=== PATIENT | male | born 1945 | race Caucasian/White ===

== ENCOUNTER 2017-04-12 17:25 | Emergency (ER) | payer OTHER ==
[~2017-04-12] VITALS: Ht 172.7 cm; Wt 67.0 kg
[~2017-04-12 17:25] MED LIST: ALPR0.5T3 PO; FLON0.053; HYDR10TA16 PO; METO25CR PO; PROS5TAB2 PO; SIMV5TAB3 PO; TAB-TAB PO; TEMA15CA PO
[2017-04-12 17:26] VITALS: BP 141/60; PULSE 91; RESP 17; TEMP 98.8; O2SAT 96
--- NOTE | 2017-04-12 18:44 | PD ---
Physical Exam Time Seen by Provider: 18:41 Narrative 71yo M c/o of nodule and fluid on Lung [facility] 2 [facility]. Reports dry cough. Hx of lung cancer [address] Angela. Denies tobacco use. Patient seen in triage. VS reviewed. Patient awaiting bed placement. Data Data Last Documented VS Vital Signs Date Time Temp Pulse Resp B/P Pulse Ox O2 Delivery O2 Flow Rate FiO2 04/12/17 17:26 98.8 91 17 141/60 96 MDM Supervised Visit with FAINA: Betty Dill Apr 12, 2017 18:44
--- NOTE | 2017-04-12 19:44 | PD ---
HPI Chief Complaint: Abnormal Results Time Seen by Provider: 19:44 Travel History International Travel<30 days: No Contact w/Intl Traveler<30days: No Traveled to known affect area: No History of Present Illness HPI 71-year-old male with PMH of HTN, small cell lung cancer in 1991 presents to the ED for evaluation of 2 week history shortness of breath and dry cough. [facility] and had a chest x-ray that showed a "nodule and fluid on the lung as compared to my previous x-ray." Patient endorses occasional sharp chest pain over the left chest that lasts a few seconds and resolves spontaneously. He denies fever, chills, palpitations, nausea, vomiting, edema of the lower extremities. He is followed by the [facility]. PFSH Past Medical History Anxiety: Yes (PANIC ATTACKS) Heart Rhythm Problems: No Cancer: Yes (R LUNG) Cardiac Catheterization: No Cardiovascular Problems: Yes (HX OF PERICARDIAL EFFUSION) High Cholesterol: Yes Chemotherapy: Yes Congestive Heart Failure: No Diabetes: No Diminished Hearing: No Hypertension: Yes Respiratory: Yes Immunizations Current: Yes (FLU) Myocardial Infarction: No Radiation Therapy: Yes Past Surgical History Appendectomy: Yes Cardiac Surgery: Yes (RECENT PERICARDIAL WINDOW FOR FL AROUND THE HEART) Cholecystectomy: Yes Coronary Artery Bypass Graft: No Social History Alcohol Use: Yes (BEER DAILY) Tobacco Use: No Substance Use: No Allergies-Medications (Allergen,Severity, Reaction): Coded Allergies: Penicillin (Verified Allergy, Severe, HIVES, 05/30/13) Reported Meds & Prescriptions Reported Meds & Active Scripts Active Albuterol Neb (Albuterol Sulfate) 2.5 Mg/3 Ml Neb 2.5 Mg NEB Q6HR NEB PRN Nebulizer/Adult Mask (N/A) 1 Kit Kit 1 Kit .ROUTE DIRECTED Reported Multivitamin (Multivitamins) 1 Tab Tab 1 Tab PO DAILY Flonase (Fluticasone Propionate) 0.05 % Naspr 2 Spr NA DAILY 2 SPRAYS EACH NOSTRIL Temazepam 15 Mg Cap 15 Mg PO HS Metoprolol Succinate ER 25 mg (Metoprolol Succinate) 25 Mg Tab 25 Mg PO HS Lortab 10/500 (Acetaminophen/Hydrocodone Bitart) 10 Mg/500 Mg Tab 1 Tab PO TID FOR PAIN Alprazolam 0.5 Mg Tab 0.5 Mg PO DAILYPRN Simvastatin 5 Mg Tab 5 Mg PO EVERY OTHER DAY Proscar (Finasteride) 5 Mg Tab 5 Mg PO DAILY Review of Systems Except as stated in HPI: all other systems reviewed are Neg Physical Exam Narrative GENERAL: Well-nourished, well-developed, thin white male in no acute distress. SKIN: Focused skin assessment warm/dry. Multiple tattoos on the upper extremities. HEAD: Normocephalic. EYES: No scleral icterus. No injection or drainage. NECK: Supple, trachea midline. No JVD or lymphadenopathy. CARDIOVASCULAR: Regular rate and rhythm without murmurs, gallops, or rubs. RESPIRATORY: Breath sounds equal with diffuse wheezes bilaterally. No accessory muscle use. GASTROINTESTINAL: Abdomen soft, non-tender, nondistended. MUSCULOSKELETAL: No cyanosis, or edema. BACK: Nontender without obvious deformity. No CVA tenderness. Data Data Last Documented VS Vital Signs Date Time Temp Pulse Resp B/P Pulse Ox O2 Delivery O2 Flow Rate FiO2 04/12/17 22:53 93 16 156/77 96 Room Air 04/12/17 19:48 98.0 Orders Complete Blood Count With Diff (04/12/17 19:52) Comprehensive Metabolic Panel (04/12/17 19:52) Act Partial Throm Time (Ptt) (04/12/17 19:52) Prothrombin Time / Inr (Pt) (04/12/17 19:52) Ckmb (Isoenzyme) Profile (04/12/17 19:52) Troponin I (04/12/17 19:52) Urinalysis - C+S If Indicated (04/12/17 19:52) Iv Access Insert/Monitor (04/12/17 19:52) Electrocardiogram (04/12/17 19:52) Ecg Monitoring (04/12/17 19:52) Oximetry (04/12/17 19:52) Oxygen Administration (04/12/17 19:52) Chest, Single Ap (04/12/17 19:52) Sodium Chloride 0.9% Flush (Ns Flush) (04/12/17 20:00) Albuterol-Ipratropium Neb (Duoneb Neb) (04/12/17 20:00) Ct Thorax/ Chest W Iv Contrast (04/12/17 ) CKMB (04/12/17 20:12) CKMB% (04/12/17 20:12) Sodium Chlor 0.9% 1000 Ml Inj (Ns 1000 M (04/12/17 21:30) Iohexol 350 Inj (Omnipaque 350 Inj) (04/12/17 22:08) Labs Laboratory Tests Test 04/12/17 04/12/17 20:12 22:45 White Blood Count 4.7 TH/MM3 Red Blood Count 4.47 MIL/MM3 Hemoglobin 14.0 GM/DL Hematocrit 40.7 % Mean Corpuscular Volume 91.0 FL Mean Corpuscular Hemoglobin 31.2 PG Mean Corpuscular Hemoglobin 34.3 % Concent Red Cell Distribution Width 14.5 % Platelet Count 148 TH/MM3 Mean Platelet Volume 7.4 FL Neutrophils (%) (Auto) % Lymphocytes (%) (Auto) % Monocytes (%) (Auto) % Eosinophils (%) (Auto) % Basophils (%) (Auto) % Neutrophils # (Auto) TH/MM3 Lymphocytes # (Auto) TH/MM3 Monocytes # (Auto) TH/MM3 Eosinophils # (Auto) TH/MM3 Basophils # (Auto) TH/MM3 CBC Comment AUTO DIFF Differential Total Cells 100 Counted Neutrophils % (Manual) 65 % Band Neutrophils % 1 % Lymphocytes % 28 % Monocytes % 5 % Eosinophils % 1 % Neutrophils # (Manual) 3.1 TH/MM3 Differential Comment FINAL DIFF MANUAL Platelet Estimate LOW Platelet Morphology Comment NORMAL Prothrombin Time 12.3 SEC Prothromb Time International 1.1 RATIO Ratio Activated Partial 26.1 SEC Thromboplast Time Sodium Level 139 MEQ/L Potassium Level 4.3 MEQ/L Chloride Level 102 MEQ/L Carbon Dioxide Level 27.9 MEQ/L Anion Gap 9 MEQ/L Blood Urea Nitrogen 21 MG/DL Creatinine 1.45 MG/DL Estimat Glomerular Filtration 48 ML/MIN Rate Random Glucose 84 MG/DL Calcium Level 9.6 MG/DL Total Bilirubin 1.4 MG/DL Aspartate Amino Transf 20 U/L (AST/SGOT) Alanine Aminotransferase 16 U/L (ALT/SGPT) Alkaline Phosphatase 113 U/L Total Creatine Kinase 139 U/L Creatine Kinase MB 2.6 NG/ML Troponin I LESS THAN 0.02 NG/ML Total Protein 7.6 GM/DL Albumin 4.5 GM/DL Urine Color LIGHT-YELLOW Urine Turbidity CLEAR Urine pH 5.5 Urine Specific [place] 1.037 Urine Protein NEG mg/dL Urine Glucose (UA) NEG mg/dL Urine Ketones 10 mg/dL Urine Occult Blood NEG Urine Nitrite NEG Urine Bilirubin NEG Urine Urobilinogen LESS THAN 2.0 MG/DL Urine Leukocyte Esterase NEG Urine RBC 1 /hpf Urine WBC 1 /hpf Urine Renal Epithelial Cells <1 /hpf Urine Hyaline Casts 3 /lpf Urine Mucus FEW /lpf Microscopic Urinalysis Comment CULT NOT INDICATED MDM Medical Decision Making Medical Screen Exam Complete: Yes Emergency Medical Condition: Yes Differential Diagnosis Metastatic lung disease versus COPD exacerbation versus pneumonia versus ACS versus other Narrative Course 71-year-old male with PMH of HTN, small cell lung cancer in 1991 presents to the ED for evaluation of 2 week history shortness of breath and dry cough. [place] [facility] [place] and had a chest x-ray that showed a "nodule and fluid on the lung as compared to my previous x-ray." Patient endorses occasional sharp chest pain over the left chest that lasts a few seconds and resolves spontaneously. He denies fever, chills, palpitations, nausea, vomiting, edema of the lower extremities. [facility] no appreciable M/R/G. Abdomen benign. No lower extremity edema. Patient was administered duo nebs 3 , 1 L normal saline IV. EKG rate 80, sinus rhythm. NC interval 197, QRS 84, QTC 404. Left axis deviation. No acute ST changes. Reviewed by Dr. Watson. CXR: Questionable 1.5 cm nodule in the left mid lung, questionable non- consolidated of infiltrates in the left lower lung Cardiac enzymes: Negative 1 CBC: Unremarkable CMP: BUN 21, creatinine 1.45. CT chest: 1.6 mildly lobular mass of posterior left midlung suspicious for lung cancer metastasis. Bilateral pleural effusions. Findings in the right perihilar region which are probably due to postradiation pneumonitis. There is a 3 cm mass posterior to the hilum which is low density and contains calcification which is nonspecific. PET scan would be helpful to characterize the bilateral findings and help with decision-making regarding possible biopsy per radiology read. ON recheck the patient reports improvement of his breathing symptoms after DuoNebs. O2 sats 90+% on walk testing. I discussed the patient, work up and plan with Dr. Watson. I discussed the work up, including the CT results with the patient. He was prescribed a nebulizer and albuterol treatments as needed. He is instructed to resume all previously prescribed medications. He is to follow-up with his primary care provider tomorrow for an outpatient PET scan. He was provided a copy of his CT results. He indicated understanding of the instructions and is agreeable to the care plan. He is stable and discharged home. Diagnosis Primary Impression: Lung mass Referrals: Primary Care Physician Photo Tech Patient Instructions: General Instructions Additional Instructions: Rest, hydrate. Nebulizer treatments as needed for shortness of breath. Continue to use your albuterol inhaler as needed. You have been provided a copy of the CT report. An outpatient PET scan is recommended. Call your primary care provider tomorrow for follow-up of lung nodule. Return to the ED for any urgent or emergent medical condition. Scripts Albuterol Neb 2.5 Mg/3 Ml Neb2.5 Mg NEB Q6HR NEB PRN (SHORTNESS OF BREATH) #60 NEBULE Ref 0 Prov:Jaden Watson MD 04/12/17 Nebulizer/Adult Mask 1 Kit Kit #1 KIT .ROUTE DIRECTED Ref 0 Prov:Jaden Watson MD 04/12/17 Disposition: 01 DISCHARGE HOME Condition: Stable Aster Connelly Apr 12, 2017 19:44
[2017-04-12 19:48] VITALS: BP 202/101; PULSE 80; RESP 16; TEMP 98
[2017-04-12] MEDS ORDERED: SODIUM CHLORIDE 0.9% FLUSH 10 ML FLUSH IVF PRN (20:00)
[2017-04-12] MEDS: RESP: ALBUTEROL 2.5 MG/IPRATROPIUM 0.5 MG NEB (SCH) INH (20:16)
[2017-04-12 20:31] VITALS: BP 175/86; PULSE 84; RESP 20; O2SAT 85
[2017-04-12 20:37] LABS: HEMATOCRIT 40.7 % (39.0-51.0); MEAN CORPUSCULAR HEMOGLOBIN 31.2 PG (27.0-34.0); MEAN CORPUSCULAR HGB CONC 34.3 % (32.0-36.0); PLATELET COUNT 148 TH/MM3 (150-450); RED BLOOD COUNT 4.47 MIL/MM3 (4.50-5.90); RED CELL DISTRIBUTION WIDTH 14.5 % (11.6-17.2); WHITE BLOOD COUNT 4.7 TH/MM3 (4.0-11.0)
[2017-04-12 20:44] LABS: HEMO FLAGS AUTO DIFF
[2017-04-12 20:46] LABS: ANION GAP 9 MEQ/L (5-15); AST (GOT) 20 U/L (15-37); BICARBONATE 27.9 MEQ/L (21.0-32.0); BLOOD UREA NITROGEN 21 MG/DL (7-18); CHLORIDE 102 MEQ/L (98-107); GLOMERULAR FILTRATION RATE 48 ML/MIN (>89); POTASSIUM 4.3 MEQ/L (3.5-5.1); SODIUM (NA) 139 MEQ/L (136-145)
[2017-04-12 20:47] LABS: ALT (GPT) 16 U/L (12-78)
[2017-04-12 20:49] LABS: APTT (PATIENT) 26.1 SEC (24.3-30.1); INTERNATIONAL NORMALIZED RATIO 1.1 RATIO; PROTHROMBIN TIME - PATIENT 12.3 SEC (9.8-11.6)
[2017-04-12 20:51] LABS: ALKALINE PHOSPHATASE 113 U/L (45-117); CREATINE KINASE 139 U/L (39-308); TOTAL BILIRUBIN ADULT 1.4 MG/DL (0.2-1.0)
[2017-04-12 21:04] LABS: CKMB 2.6 NG/ML (0.5-3.6)
--- NOTE | 2017-04-12 21:14 | RADRPT ---
EXAM DATE/TIME: 04/12/2017 20:27 [facility] COMPARISON: No previous studies available for comparison. INDICATIONS : Patient was sent by [facility]. Patient has been short of breath for two weeks. MEDICAL HISTORY : None. SURGICAL HISTORY : None. ENCOUNTER: Initial ACUITY: 2 weeks PAIN SCORE: 0/10 LOCATION: Bilateral chest FINDINGS: There is an irregular shaped opacity in the right hilar region. Report of a prior chest x-ray in 201 3 and mentioned scarring or atelectasis in the right perihilar distribution; these films are not avai lable for comparison at this time.. There is elevation of the left hemidiaphragm. Questionable non- consolidative infiltrates in the left lower lung and question of rectal opacity in the left midlung m easuring 1.5 cm. No blunting of either costophrenic angle. The heart is normal size. CONCLUSION: 1. Regular shaped hyperdensity in the right hilar region. 2. Possible 1.5 cm nodule left midlung and evidence of I'm loss in left lower lung with elevation hem idiaphragm and patchy infiltrates medially. Ariel Hector MD on April 12, 2017 at 21:10 Board Certified Radiologist. This report was verified electronically.
[2017-04-12 21:21] LABS: BANDS 1 % (0-6); EOSINOPHILS 1 % (0-4); NEUTROPHIL # MANUAL DIFF 3.1 TH/MM3 (1.8-7.7); POLYS (SEG NEUTROPHILS) 65 % (16-70); WBC DIFF SAMPLE 100
[2017-04-12 21:22] LABS: PLATELET ESTIMATE SMEAR LOW (NORMAL); PLATELET MORPHOLOGY NORMAL (NORMAL); SCAN/DIFF FINAL DIFF MANUAL
[2017-04-12] MEDS ORDERED: SODIUM CHLOR 0.9% 1000 ML INJ 1,000 ML IV ONE (21:30)
[2017-04-12] MEDS ORDERED: IOHEXOL 350 MG/ML 10 ML VIAL (for RAD DIAG) IV ONE (22:08)
[2017-04-12 22:32] VITALS: BP 144/81; PULSE 94; RESP 16; O2SAT 96
--- NOTE | 2017-04-12 22:32 | RADRPT ---
EXAM DATE/TIME: 04/12/2017 21:43 [facility] COMPARISON: CHEST SINGLE AP, April 12, 2017, 20:27. INDICATIONS : Shortness of breath. Evaluate nodule seen on chest xray. IV CONTRAST: 75 cc Omnipaque 350 (iohexol) IV RADIATION DOSE: 5.32 CTDIvol (mGy) MEDICAL HISTORY : Hypertension. Carcinoma, lung. Pericardial effusion. SURGICAL HISTORY : Chemo and raditaion therapy. ENCOUNTER: Initial ACUITY: 1 day PAIN SCALE: 0/10 LOCATION: Bilateral chest TECHNIQUE: Volumetric scanning of the chest was performed. Using automated exposure control and adjustment of t he mA and/or kV according to patient size, radiation dose was kept as low as reasonably achievable to obtain optimal diagnostic quality images. DICOM format image data is available electronically for review and comparison. Follow-up recommendations for incidentally detected pulmonary nodules are based at a minimum on nodul e size and patient risk factors according to Fleischner Society Guidelines. FINDINGS: LUNGS: There is a mildly lobular margined mass in the posterior lateral left midlung measuring 1.6 cm which does correlate with the opacity seen on the chest x-ray. PLEURA: Bilateral moderate size pleural effusions, measuring 2.0 cm on the right and 1.4 cm on the left. The re is also a nodular appearance to the major fissure on the left side with numerous nodules measuring 4 mm or less. MEDIASTINUM: Fullness in the right hilar region and interstitial opacities in the perihilar region suggesting radi ation pneumonitis. Posterior to the bronchus intermedius, there is a 3.1 cm mass which contains cent ral calcifications. This has a nonspecific appearance with regard to post treatment versus recurrenc e. No evidence of middle mediastinal adenopathy. AXILLAE: Within normal limits. No lymphadenopathy. SKELETAL: Within normal limits for patient age. MISCELLANEOUS: No adrenal masses seen. Cholecystectomy. CONCLUSION: 1. 1.6 cm mildly lobular mass in posterior left midlung suspicious for lung cancer metastasis. 2. Bilateral pleural effusions. 3. Findings in the right perihilar region which are probably due to post radiation pneumonitis. Mendez devin,, there is a 3 cm mass posterior to the hilum which is low density and contains calcification whi ch is nonspecific with regard to post treatment versus recurrence. 4. PET/CT scan would be helpful to characterize the bilateral findings and to help in decision making regarding possible biopsy. Ariel Hector MD on April 12, 2017 at 22:24 Board Certified Radiologist. This report was verified electronically.
[2017-04-12 22:53] VITALS: BP 156/77; PULSE 93; RESP 16; O2SAT 96
[2017-04-12] MEDS ORDERED: ALBU0.08 NEB (23:00)
[2017-04-12] MEDS ORDERED: NEBULIZER/ADULT1 KIT (23:00)
[2017-04-12 23:19] LABS: BLOOD, URINE NEG (NEG); COMMENT (UR) CULT NOT INDICATED; CULTURE IF INDICATED CULT NOT INDICATED; GLUCOSE,URINE NEG (NEG); HYALINE CAST, URINE 3 /lpf (RARE); KETONE, URINE 10 mg/dL (NEG); MUCUS URINE FEW /lpf (OCC); NITRITE,URINE NEG (NEG); PH, URINE 5.5 (5.0-8.5); RENAL EPITHELIAL CELLS <1 /hpf; URINE COLOR LIGHT-YELLOW (YELLW/STRAW)
--- NOTE | 2017-04-13 14:55 | EKG ---
Date Performed: 04/12/2017 Time Performed: 20:03:53 PTAGE: 71 years EKG: Sinus rhythm MARKED LEFT AXIS DEVIATION ABNORMAL ECG PREVIOUS TRACING : 05/30/2013 17.40 Since previous tracing, no significant change noted DOCTOR: Linda Samson Interpretating Date/Time 04/13/2017 14:54:27
== END 2017-04-12 23:47 | disposition home or self-care (01) ==
LOC: NEPE 17:25
DX: R91.8 Other nonspecific abnormal finding of lung field (principal); J90 Pleural effusion, not elsewhere classified; R05 Cough; R07.9 Chest pain, unspecified; R94.31 Abnormal electrocardiogram [ECG] [EKG]; I10 Essential (primary) hypertension; E78.00 Pure hypercholesterolemia, unspecified; Z85.118 Personal history of other malignant neoplasm of bronchus and lung; Z86.59 Personal history of other mental and behavioral disorders; Z86.79 Personal history of other diseases of the circulatory system; Z87.09 Personal history of other diseases of the respiratory system
CPT/HCPCS: 71010; 71260; 80053; 81001; 82550; 82552; 84484; 85007; 85027; 85610; 85730; 93005; 94640; 94664; 99285; J7030; Q9967

== ENCOUNTER 2017-05-11 12:29 | Emergency (ER) | payer OTHER ==
[~2017-05-11] VITALS: Ht 172.7 cm; Wt 65.0 kg
[~2017-05-11 12:29] MED LIST changes: +ALBU0.08 NEB; +NEBULIZER/ADULT1 KIT
[2017-05-11 12:32] VITALS: BP 148/76; PULSE 97; RESP 20; TEMP 98.3; O2SAT 97
--- NOTE | 2017-05-11 12:41 | PD ---
Physical Exam Time Seen by Provider: 12:40 Narrative 71yo M c/o chest pain and SOB x 4 days. Dx w/ lung CA 1 month ago. Has f/u appointment w/ oncologist May 16 w/ Dr. Anna. Patient seen in triage. VS reviewed. Awaiting bed placement. Data Data Last Documented VS Vital Signs Date Time Temp Pulse Resp B/P (MAP) Pulse Ox O2 Delivery O2 Flow Rate FiO2 05/11/17 12:32 98.3 97 20 148/76 (100) 97 Room Air MDM Supervised Visit with FAINA: Betty Dill May 11, 2017 12:41
[2017-05-11] MEDS ORDERED: SODIUM CHLORIDE 0.9% FLUSH 10 ML FLUSH IVF PRN (12:45)
[2017-05-11 13:00] LABS: AUTOMATED NEUTROPHIL # 3.2 TH/MM3 (1.8-7.7); BASOPHIL % 0.5 % (0.0-2.0); EOSINOPHIL # 0.1 TH/MM3 (0-0.4); EOSINOPHIL % 1.7 % (0.0-4.0); HEMATOCRIT 38.6 % (39.0-51.0); HEMO FLAGS DIFF FINAL; LYMPH % 30.2 % (9.0-44.0); LYMPHOCYTE # 1.5 TH/MM3 (1.0-4.8); MEAN CELL VOLUME 90.5 FL (80.0-100.0); MEAN CORPUSCULAR HEMOGLOBIN 30.8 PG (27.0-34.0); MONO % 4.5 % (0.0-8.0); NEUT % 63.1 % (16.0-70.0); PLATELET COUNT 162 TH/MM3 (150-450); RED BLOOD COUNT 4.26 MIL/MM3 (4.50-5.90); WHITE BLOOD COUNT 5.1 TH/MM3 (4.0-11.0)
[2017-05-11 13:04] VITALS: RESP 18; O2SAT 98
[2017-05-11 13:10] LABS: APTT (PATIENT) 24.6 SEC (24.3-30.1); PROTHROMBIN TIME - PATIENT 11.5 SEC (9.8-11.6)
[2017-05-11] MEDS ORDERED: METO25TA6 PO (13:12)
[2017-05-11] MEDS ORDERED: HYDR-3583 PO (13:12)
[2017-05-11] MEDS ORDERED: ALPR0.5T3 PO (13:12)
[2017-05-11] MEDS ORDERED: FINA5TAB2 PO (13:12)
[2017-05-11] MEDS ORDERED: SIMV5TAB3 PO (13:12)
[2017-05-11] MEDS ORDERED: TEMA15CA PO (13:12)
--- NOTE | 2017-05-11 13:15 | PD ---
HPI Chief Complaint: Chest Pain Time Seen by Provider: 12:59 Travel History International Travel<30 days: No Contact w/Intl Traveler<30days: No Traveled to known affect area: No History of Present Illness HPI Patient comes in complaining of left-sided chest pain and shortness of breath that has been getting progressively worse over the past 3 days. Patient states he seen earlier month for something similar and has been using his inhaler that was helping some. However it has not been helping much at all over the past 3 days. Patient's last weekend he was sick diarrhea feels he lost approximately 5 pounds. Patient reports he's had an outpatient PET scan that showed metastatic disease in his left lung. Patient reports he has an appointment with his oncologist on Monday and he was trying to wait until then to be seen however symptoms keeping progressively getting worse. Patient states pain is pressure-like in nature. Patient denies any cough, fevers, nausea, vomiting, headache, or diaphoresis. Patient states he did take his aspirin this morning. Patient reports worsening dyspnea on exertion as well. PFSH Past Medical History Anxiety: Yes (PANIC ATTACKS) Heart Rhythm Problems: No Cancer: Yes (R LUNG) Cardiac Catheterization: No Cardiovascular Problems: Yes (HX OF PERICARDIAL EFFUSION) High Cholesterol: Yes Chemotherapy: Yes Congestive Heart Failure: No Diabetes: No Diminished Hearing: No Hypertension: Yes Respiratory: Yes Immunizations Current: Yes (FLU) Myocardial Infarction: No Radiation Therapy: Yes Tetanus Vaccination: < 5 Years Influenza Vaccination: Yes ?: Not Past Surgical History Appendectomy: Yes Cardiac Surgery: Yes (RECENT PERICARDIAL WINDOW FOR FL AROUND THE HEART) Cholecystectomy: Yes Coronary Artery Bypass Graft: No Family History Family Myocardial Infarction: Yes Social History Alcohol Use: Yes (BEER DAILY) Tobacco Use: No Substance Use: No Allergies-Medications (Allergen,Severity, Reaction): Coded Allergies: penicillin G (Unverified Allergy, Severe, HIVES, 05/11/17) Reported Meds & Prescriptions Reported Meds & Active Scripts Active Prednisone 20 Mg Tab 20 Mg PO BID 3 Days Start 05/12/17 Albuterol Neb (Albuterol Sulfate) 2.5 Mg/3 Ml Neb 2.5 Mg NEB Q6HR NEB PRN Nebulizer/Adult Mask (N/A) 1 Kit Kit 1 Kit .ROUTE DIRECTED Reported Temazepam 15 Mg Cap 15 Mg PO HS PRN Alprazolam 0.5 Mg Tab 0.5 Mg PO DAILY PRN Hydrocodone-Acetaminophen 10-325 mg Tab 1 Tab PO Q8HR PRN Finasteride 5 Mg Tab 5 Mg PO DAILY Do not crush. Simvastatin 5 Mg Tab 5 Mg PO DAILY Metoprolol Succinate ER 24 HR (Metoprolol Succinate) 25 Mg Tab 25 Mg PO DAILY Review of Systems Except as stated in HPI: all other systems reviewed are Neg Physical Exam Narrative GENERAL: Well-developed, under nourished, in no acute distress, and non-ill appearing. SKIN: Focused skin assessment warm and dry. HEAD: Atraumatic. Normocephalic. EYES: Pupils equal and round. EOMI. No scleral icterus. No injection or drainage. ENT: No nasal bleeding or discharge. Mucous membranes pink and moist. NECK: Trachea midline. No JVD. Supple. No nuclear rigidity. CARDIOVASCULAR: Regular rate and rhythm. No murmur appreciated. RESPIRATORY: No accessory muscle use. No respiratory distress. Decreased breath sounds left lower lobe. GASTROINTESTINAL: Abdomen soft, non-tender, nondistended, and no guarding. Hepatic and splenic margins not palpable. No pulsatile mass. MUSCULOSKELETAL: No obvious deformities. No clubbing. No cyanosis. No edema. Full range of motion. NEUROLOGICAL: Awake and alert. No obvious cranial nerve deficits. Motor grossly within normal limits. Normal speech. PSYCHIATRIC: Appropriate mood and affect; insight and judgment normal. Data Data Last Documented VS Vital Signs Date Time Temp Pulse Resp B/P (MAP) Pulse Ox O2 Delivery O2 Flow Rate FiO2 05/11/17 17:49 05/11/17 14:53 87 18 97 Room Air 05/11/17 12:32 98.3 Orders Orders Electrocardiogram (05/11/17 12:42) Basic Metabolic Panel (Bmp) (05/11/17 12:42) B-Type Natriuretic Peptide (05/11/17 12:42) Ckmb (Isoenzyme) Profile (05/11/17 12:42) Complete Blood Count With Diff (05/11/17 12:42) Magnesium (Mg) (05/11/17 12:42) Prothrombin Time / Inr (Pt) (05/11/17 12:42) Act Partial Throm Time (Ptt) (05/11/17 12:42) Troponin I (05/11/17 12:42) Chest, Single Ap (05/11/17 12:42) Ecg Monitoring (05/11/17 12:42) Iv Access Insert/Monitor (05/11/17 12:42) Oximetry (05/11/17 12:42) Oxygen Administration (05/11/17 12:42) Sodium Chloride 0.9% Flush (Ns Flush) (05/11/17 12:45) Aspirin Chew (Aspirin Chew) (05/11/17 14:15) Albuterol-Ipratropium Neb (Duoneb Neb) (05/11/17 14:15) Methylprednisolone So Succ Inj (Solumedr (05/11/17 14:45) Electrocardiogram (05/11/17 15:45) Ckmb (Isoenzyme) Profile (05/11/17 15:45) Troponin I (05/11/17 15:45) Labs Laboratory Tests Test 05/11/17 12:50 05/11/17 16:15 White Blood Count 5.1 TH/MM3 Red Blood Count 4.26 MIL/MM3 Hemoglobin 13.1 GM/DL Hematocrit 38.6 % Mean Corpuscular Volume 90.5 FL Mean Corpuscular Hemoglobin 30.8 PG Mean Corpuscular Hemoglobin Concent 34.0 % Red Cell Distribution Width 14.0 % Platelet Count 162 TH/MM3 Mean Platelet Volume 7.9 FL Neutrophils (%) (Auto) 63.1 % Lymphocytes (%) (Auto) 30.2 % Monocytes (%) (Auto) 4.5 % Eosinophils (%) (Auto) 1.7 % Basophils (%) (Auto) 0.5 % Neutrophils # (Auto) 3.2 TH/MM3 Lymphocytes # (Auto) 1.5 TH/MM3 Monocytes # (Auto) 0.2 TH/MM3 Eosinophils # (Auto) 0.1 TH/MM3 Basophils # (Auto) 0.0 TH/MM3 CBC Comment DIFF FINAL Differential Comment Prothrombin Time 11.5 SEC Prothromb Time International Ratio 1.0 RATIO Activated Partial Thromboplast Time 24.6 SEC Blood Urea Nitrogen 27 MG/DL Creatinine 1.37 MG/DL Random Glucose 90 MG/DL Calcium Level 9.1 MG/DL Magnesium Level 1.5 MG/DL Sodium Level 141 MEQ/L Potassium Level 3.9 MEQ/L Chloride Level 106 MEQ/L Carbon Dioxide Level 23.4 MEQ/L Anion Gap 12 MEQ/L Estimat Glomerular Filtration Rate 51 ML/MIN Total Creatine Kinase 97 U/L 93 U/L Troponin I LESS THAN 0.02 NG/ML LESS THAN 0.02 NG/ML B-Type Natriuretic Peptide 120 PG/ML MDM Medical Decision Making Medical Screen Exam Complete: Yes Emergency Medical Condition: Yes Interpretation(s) EKG to by Dr. Handy shows normal sinus rhythm with ventricular rate of 93. No STEMI. Chest x-ray read by the radiologist shows: 1. No acute cardiopulmonary disease. 2. Stable appearance scarring. Repeat EKG reviewed by Dr. Handy shows sinus rhythm with a ventricular rate of 86. No STEMI. Differential Diagnosis Acute coronary syndrome, pneumonia, pleural effusion, pneumothorax, electrolyte abnormality, worsening metastatic disease, other Narrative Course Patient's was seen and exam. Laboratory radiological studies were ordered. IV was established. Patient is cardiac monitoring. Upon reassessment, patient reports chest pain is resolved, but still with some shortness of breath. Patient is given DuoNeb and IV steroids. Patient reassessed and reports improvement of his symptoms. The patients chest pain by history and evaluation appears noncardiac in etiology. Evaluation, including 2 sets of cardiac enzymes and EKGs, revealed no evidence of cardiac involvement at this time. There is no clinical evidence to suggest thoracic aortic aneurysm or pathology, nor evidence to suggest pulmonary embolism, pericarditis, pneumothorax, nor pneumonia at this time. The patient has minimal risk factors for cardiac disease or aortic disease. Clinical suspicion was discussed with patient and the patient was instructed to follow up primary care provider for possible referral to Cardiology for potential outpatient evaluation. I discussed this management with the patient and the patient understands the importance or acute follow up with primary care provider and oncologist. The patient was instructed to return at any time if chest pain recurs, persists, changes or worsens in anyway while awaiting follow up. The patient agreed with plan. Patient in no obvious distress upon re-evaluation. All pertinent laboratory/ Radiology result(s) discussed with patient. We'll add steroids to patient. Patient was asked if they wanted to speak to my attending, which the patient did not wish to do at this time. I discussed patient with Dr. Handy prior to discharge, who is in agreement with plan of care and disposition. Any questions /concerns in reference to patient diagnosis/condition discussed and clarified prior to patient's discharge. Reinforced sheer importance of close follow up with patient's primary physician or primary care clinic. Instructed patient to return to ED immediately, if symptoms return/worsen. Pt showed understanding of above instructions. Further instructions and recommendations were detailed in discharge paperwork. Pt ambulated without difficulty out of ED at discharge. Diagnosis Primary Impression: Dyspnea Qualified Codes: R06.02 - Shortness of breath Additional Impression: Non-cardiac chest pain Patient Instructions: Dyspnea (ED), General Instructions, Noncardiac Chest Pain (DC) Additional Instructions: Follow-up with your primary care physician next week for reevaluation. Follow up with your oncologist as scheduled. Take all medication as prescribed. Continue using your breathing treatments. Return to the emergency department if symptoms get worse. Med/Other Pt SpecificInfo: Prescription(s) given Scripts Prednisone (Prednisone) 20 Mg Tab 20 MG PO BID for 3 Days, TAB 0 Refills Start 05/12/17 Prov: Lisa Handy MD 05/11/17 Disposition: 01 DISCHARGE HOME Condition: Stable Armando Silva May 11, 2017 13:15
[2017-05-11 13:22] LABS: ANION GAP 12 MEQ/L (5-15); BICARBONATE 23.4 MEQ/L (21.0-32.0); BLOOD UREA NITROGEN 27 MG/DL (7-18); CHLORIDE 106 MEQ/L (98-107); GLOMERULAR FILTRATION RATE 51 ML/MIN (>89); MAGNESIUM 1.5 MG/DL (1.5-2.5); POTASSIUM 3.9 MEQ/L (3.5-5.1); SODIUM (NA) 141 MEQ/L (136-145)
[2017-05-11 13:31] LABS: CREATINE KINASE 97 U/L (39-308)
--- NOTE | 2017-05-11 13:55 | RADRPT ---
EXAM DATE/TIME: 05/11/2017 13:09 [facility] COMPARISON: CT THORAX W CONTRAST, April 12, 2017, 21:43. CHEST SINGLE AP, April 12, 2017, 20:27. INDICATIONS : Chest pain and short of breath for one week. MEDICAL HISTORY : Hypertension. Carcinoma, lung. Pericardial effusion. SURGICAL HISTORY : Chemo and radiation therapy. ENCOUNTER: Initial ACUITY: 1 week PAIN SCORE: 5/10 LOCATION: Bilateral chest FINDINGS: A single AP portable erect view of the chest was obtained and again demonstrates mild elevation of th e left hemidiaphragm. There is mild apparent scarring at the lung bases with no new confluent infiltr ates or effusions. The heart size remains within normal limits. There is mild opacity in the right pe rihilar region. The bony thorax remains intact in appearance. There are multiple overlying electrocar diogram leads. CONCLUSION: 1. No acute cardiopulmonary disease. 2. Stable appearance scarring. Johnathon Correa MD on May 11, 2017 at 13:51 Board Certified Radiologist. This report was verified electronically.
[2017-05-11] MEDS ORDERED: RESP: ALBUTEROL 2.5 MG/IPRATROPIUM 0.5 MG NEB (SCH) INH ONE (14:15)
[2017-05-11] MEDS ORDERED: ASPIRIN 81 MG CHEW TAB PO ONE (14:15)
[2017-05-11] MEDS ORDERED: methylPREDNISolone SOD SUCC 125 MG/2 ML VIAL IV PUSH ONE (14:45)
[2017-05-11 14:53] VITALS: BP 152/73; PULSE 87; RESP 18; O2SAT 97
[2017-05-11 17:08] LABS: CREATINE KINASE 93 U/L (39-308)
[2017-05-11] MEDS ORDERED: PRED20 PO (17:14)
--- NOTE | 2017-05-13 01:11 | EKG ---
Date Performed: 05/11/2017 Time Performed: 16:20:17 PTAGE: 71 years EKG: Sinus rhythm BORDERLINE LEFT AXIS DEVIATION POSSIBLE INFERIOR INFARCTION NONSPECIFIC T-WAVE ABNORMALITY BORDERLIN E ECG PREVIOUS TRACING : 04/12/2017 20.03 Compared to prior tracing no significant change DOCTOR: Ar Watson Interpretating Date/Time 05/13/2017 01:10:04
--- NOTE | 2017-05-13 01:21 | EKG ---
Date Performed: 05/11/2017 Time Performed: 12:48:14 PTAGE: 71 years EKG: Sinus rhythm POSSIBLE INFERIOR INFARCTION PREVIOUS TRACING : 04/12/2017 20.03 Compared to prior tracing no significant change DOCTOR: Ar Watson Interpretating Date/Time 05/13/2017 01:21:07
== END 2017-05-11 18:12 | disposition home or self-care (01) ==
LOC: NEPE 12:29
DX: R06.02 Shortness of breath (principal); R07.89 Other chest pain; R94.31 Abnormal electrocardiogram [ECG] [EKG]; F41.9 Anxiety disorder, unspecified; E78.00 Pure hypercholesterolemia, unspecified; I10 Essential (primary) hypertension; Z79.51 Long term (current) use of inhaled steroids; Z79.899 Other long term (current) drug therapy; Z88.0 Allergy status to penicillin
CPT/HCPCS: 71010; 80048; 82550; 83735; 83880; 84484; 85025; 85610; 85730; 93005; 94664; 96374; 99285; J2930

== ENCOUNTER 2017-05-29 07:13 | Inpatient (IN) | payer OTHER, MEDICARE ==
[~2017-05-29] VITALS: Ht 170.2 cm; Wt 62.3 kg
[2017-05-29] VITALS (13 sets, daily range): BP systolic 101–160; BP diastolic 72–89; PULSE 77–82; RESP 16–18; TEMP 95.9–97.7; O2SAT 94–98
[~2017-05-29 07:13] MED LIST changes: +FINA5TAB2 PO; -FLON0.053; +HYDR-3583 PO; -HYDR10TA16 PO; -METO25CR PO; +METO25TA6 PO; +PRED20 PO; -PROS5TAB2 PO; -TAB-TAB PO
[2017-05-29] MEDS ORDERED: FERR325T8 PO (07:32)
[2017-05-29] MEDS ORDERED: IPRA0.06 EACH NARE (07:32)
[2017-05-29] MEDS ORDERED: MULT-65 PO (07:32)
[2017-05-29] MEDS ORDERED: ASPI81CH CHEW (07:32)
[2017-05-29] MEDS ORDERED: GABA400C5 PO (07:32)
[2017-05-29] MEDS: SODIUM CHLORIDE 0.9% 1000 ML IV SCH (07:45)
[2017-05-29 07:54] LABS: AUTOMATED NEUTROPHIL # 7.3 TH/MM3 (1.8-7.7); BASOPHIL % 0.3 % (0.0-2.0); HEMATOCRIT 39.3 % (39.0-51.0); HEMO FLAGS DIFF FINAL; LYMPH % 21.5 % (9.0-44.0); LYMPHOCYTE # 2.1 TH/MM3 (1.0-4.8); MEAN CELL VOLUME 91.3 FL (80.0-100.0); MEAN CORPUSCULAR HEMOGLOBIN 31.2 PG (27.0-34.0); MEAN CORPUSCULAR HGB CONC 34.1 % (32.0-36.0); MONO % 3.6 % (0.0-8.0); NEUT % 74.6 % (16.0-70.0); PLATELET COUNT 152 TH/MM3 (150-450); RED CELL DISTRIBUTION WIDTH 14.6 % (11.6-17.2); WHITE BLOOD COUNT 9.8 TH/MM3 (4.0-11.0)
[2017-05-29 08:02] LABS: APTT (PATIENT) 21.5 SEC (24.3-30.1); PROTHROMBIN TIME - PATIENT 11.2 SEC (9.8-11.6)
[2017-05-29] MEDS ORDERED: LIDOCAINE HCL 1% 20 ML VIAL ONE (08:09)
[2017-05-29] MEDS ORDERED: MIDAZOLAM HCL 5 MG/5 ML VIAL ONE ×2 (08:20→14:12)
[2017-05-29] MEDS ORDERED: oxyCODONE/ACETAMINOPHEN 5 MG/325 MG TAB PO PRN (09:30)
--- NOTE | 2017-05-29 09:34 | PD.RAD ---
Post CT Procedure Prog Note Pre Procedure Diagnosis: (1) Lung mass Post Procedure Diagnosis: (1) Lung mass Procedure Date: May 29, 2017 Supervising Radiologist: Pete Richter Estimated blood loss: minimal Anesthesia: Conscious Sedation Plan of Activity Patient to Unit: [facility] Patient Condition: Good Additional Comments: left lung nodule See PACS Report for procedural detail/treatment Biopsy Imaging Guidance: CT Side: Left Biopsy Procedure: Lung Specimen: Core Biopsy Plan to [facility] for recovery. Pete Richter MD May 29, 2017 09:33
--- NOTE | 2017-05-29 10:02 | RADRPT ---
EXAM DATE/TIME: 05/29/2017 08:37 [facility] COMPARISON: CT THORAX W CONTRAST, April 12, 2017, 21:43. Also correlated with PET CT examination dated 04/18/2017. INDICATIONS : Left lung mass. SEDATION TIME: 40 minutes BIOPSY SITE: Left lung MEDICATION(S): 1.) 3 mg midazolam (Versed) IV 2.) 100 mcg fentanyl (Sublimaze) IV DEVICE(S): 1.) 18 gauge Carrera blunt needle 2.) 20 gauge Temno core biopsy needle MEDICAL HISTORY : Chronic obstructive pulmonary disease. Carcinoma, lung. Hypertension. SURGICAL HISTORY : None. ENCOUNTER: Initial ACUITY: 1 day PAIN SCORE: 0/10 LOCATION: Left chest A total of seven core specimen(s) were obtained and sent to the laboratory for pathologic evaluation. PROCEDURE: 1. CT guided lung biopsy. 2. Conscious sedation with continuous EKG and oximetry monitoring. 3. EKG and oximetry remained stable throughout the procedure. Prior to the procedure informed consent was obtained. Any appropriate prior imaging studies were rev iewed. Using automated exposure control and adjustment of the mA and/or kV according to patient size, radiation dose was kept as low as reasonably achievable to obtain optimal diagnostic quality images. DICOM format image data is available electronically for review and comparison. The site was prepped in a sterile fashion. Full sterile technique was used, including cap, mask, saray rile gloves and gown and a large sterile sheet. Hand hygiene and 2% chlorhexidine and/or betadine/al cohol prep was utilized per protocol for cutaneous antisepsis. The skin and subcutaneous tissues wer e infiltrated with local anesthetic solution. With CT guidance the left lower lobe lung nodule was localized. It has decreased in size. It currentl y measures 1.4 x 1.0 cm compared to 2.0 x 1.4 cm on the prior PET/CT. Additionally, the left lower lo be air space consolidation on prior PET examination has also resolved. No pleural effusions are prese nt today. Biopsy was performed using the prescribed needle as above. Adequate hemostasis was obtaine d with compression at the puncture site. Follow-up CT scan reveals no significant pneumothorax. There is mild perilesional hemorrhage. There i s trace pleural air. Conscious sedation was performed with the prescribed dosages and duration as above in the presence of an independent trained radiology nurse to assist in the monitoring of the patient. EKG and oximetry remained stable throughout the procedure. The patient tolerated the procedure well and there were no complications. The patient was sent to Radiology Outpatient Unit in stable condition. CONCLUSION: Uncomplicated CT guided biopsy of the left lower lobe lung nodule. Samples were saved for pathology e valuation and microbiological analysis. As described above, the left lower lobe pulmonary nodule has decreased in size since the prior PET/CT . Additionally, the pleural effusions have resolved and some of the airspace consolidation previously present in the left lower lobe has also resolved. Pete Richter MD on May 29, 2017 at 9:57 Board Certified Radiologist. This report was verified electronically.
--- NOTE | 2017-05-29 11:11 | RADRPT ---
EXAM DATE/TIME: 05/29/2017 10:54 [facility] COMPARISON: CT NEEDLE BIOPSY LUNG, LEFT, May 29, 2017, 8:37. INDICATIONS : Post left side bx MEDICAL HISTORY : Hypertension. Carcinoma, lung. Pericardial effusion SURGICAL HISTORY : Chemo and radiation therapy ENCOUNTER: Initial ACUITY: 1 day PAIN SCORE: 0/10 LOCATION: Bilateral chest FINDINGS: A single frontal expiratory view of the chest was performed. There is elevation of the left hemidiap hragm. There is no pneumothorax.. . Mediastinal structures are in the midline. The cardio-mediastinal contours and bronchopulmonary markings are unremarkable for an expiratory exam . Osseous structures are intact. CONCLUSION: Elevation left hemidiaphragm, negative for pneumothorax.. Andrea Mobley MD FACR on May 29, 2017 at 11:09 Board Certified Radiologist. This report was verified electronically.
--- NOTE | 2017-05-29 12:24 | RADRPT ---
EXAM DATE/TIME: 05/29/2017 12:08 [facility] COMPARISON: CHEST EXPIRATION ONLY, May 29, 2017, 10:54. INDICATIONS : Pneumothorax. MEDICAL HISTORY : Hypertension. Carcinoma, lung. SURGICAL HISTORY : Chemo and radiation therapy ENCOUNTER: Initial ACUITY: 1 day PAIN SCORE: 0/10 LOCATION: Bilateral cranial FINDINGS: Portable upright expiratory view of the chest demonstrates a small amount of pleural air loculated la terally in the left mid hemithorax similar to the first postbiopsy exam. There was focal pleural inde ntation on post procedure CT. There is atelectasis at the left lung base with elevation of the left h emidiaphragm. CONCLUSION: Small left pneumothorax appears loculated in the left mid hemithorax adjacent to the area of biopsy. Treatment may not be necessary given the small size. We will obtain one additional followup chest x-r ay prior to discharge. Pete Richter MD on May 29, 2017 at 12:22 Board Certified Radiologist. This report was verified electronically.
--- NOTE | 2017-05-29 13:43 | RADRPT ---
EXAM DATE/TIME: 05/29/2017 13:32 [facility] COMPARISON: CHEST EXPIRATION ONLY, May 29, 2017, 12:08. INDICATIONS : Rule out pneumothorax MEDICAL HISTORY : Chronic obstructive pulmonary disease. Carcinoma, lung. Hypertension. SURGICAL HISTORY : None. ENCOUNTER: Initial ACUITY: 1 day PAIN SCORE: 0/10 LOCATION: Bilateral chest FINDINGS: Upright expiratory AP view of the chest demonstrates a moderate size left pneumothorax. Right lung de monstrates no abnormality. CONCLUSION: The left pneumothorax has increased in size and will require a chest tube. Pete Richter MD on May 29, 2017 at 13:41 Board Certified Radiologist. This report was verified electronically.
--- NOTE | 2017-05-29 14:58 | HHI.HP ---
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 Patient had CT-guided biopsy done of left lower lung nodule in which he had complication of pneumothorax. [facility] was asked to admit the patient. Patient seen in [facility] and will have chest tube place soon. Patient has no complaints. Deny any shortness of breathing cough, palpitation, chest pain, lightheadedness dizziness. All other review systems reviewed and negative. Past Family Social History Past Medical History History of small cell carcinoma of the lungs COPD History of pericardial effusion Hyperlipidemia Hypertension BPH Past Surgical History Appendectomy Cholecystectomy Lung biopsy Reported Medications Reported Meds & Active Scripts Active Albuterol Neb (Albuterol Sulfate) 2.5 Mg/3 Ml Neb 2.5 Mg NEB Q6HR NEB PRN Nebulizer/Adult Mask (N/A) 1 Kit Kit 1 Kit .ROUTE DIRECTED Reported Ipratropium Nasal 0.06% Grampian 1 Grampian EACH NARE QID Multi-Vitamin Daily (Multiple Vitamin) 1 Tab Tab 1 Tab PO DAILY Gabapentin 400 Mg Cap 400 Cap PO 5X A DAY Aspirin 81 Mg Chew 81 Mg CHEW DAILY Ferrous Sulfate 325 Mg (65 Mg Iron) Tablet 325 Mg PO DAILY Temazepam 15 Mg Cap 30 Mg PO HS PRN Alprazolam 0.5 Mg Tab 0.5 Mg PO DAILY PRN Hydrocodone-Acetaminophen 10-325 mg Tab 1 Tab PO Q8HR PRN Finasteride 5 Mg Tab 5 Mg PO DAILY Do not crush. Simvastatin 5 Mg Tab 5 Mg PO DAILY Metoprolol Succinate ER 24 HR (Metoprolol Succinate) 25 Mg Tab 25 Mg PO DAILY Allergies: Coded Allergies: penicillin G (Unverified Allergy, Severe, HIVES, 05/29/17) Active Ordered Medications Current Medications Sodium Chloride 1,000 ml @ 30 mls/hr Q24H IV Last administered on 05/29/17 07 :45; Start 05/29/17 at 07:45; Stop 06/01/17 at 07:44 Lidocaine HCl (Xylocaine 1% Inj) 20 ml STK-MED ONCE .ROUTE ; Start 05/29/17 at 08:09; Stop 05/29/17 at 08:10; Status DC Fentanyl Citrate (fentaNYL INJ) 200 mcg STK-MED ONCE .ROUTE Last administered on 05/29/17 08:35; Start 05/29/17 at 08:20; Stop 05/29/17 at 08:21; Status DC Midazolam HCl (Versed Inj) 5 mg STK-MED ONCE .ROUTE Last administered on 08:35; Start 05/29/17 at 08:20; Stop 05/29/17 at 08:21; Status DC Oxycodone/ Acetaminophen (Percocet 5-325 Mg) 1 tab Q4H PRN PO PAIN SCALE 1 TO 10; Start 05/29/17 at 09:30 Midazolam HCl (Versed Inj) 5 mg STK-MED ONCE .ROUTE ; Start 05/29/17 at 14:12; Stop 05/29/17 at 14:13; Status DC Fentanyl Citrate (fentaNYL INJ) 200 mcg STK-MED ONCE .ROUTE ; Start 05/29/17 at 14:12; Stop 05/29/17 at 14:13; Status DC Family History Past family history reviewed. Social History Denied any tobacco use. Physical Exam Vital Signs Vital Signs Date Time Temp Pulse Resp B/P (MAP) Pulse Ox O2 Delivery O2 Flow Rate FiO2 05/29/17 12:55 80 18 128/80 (96) 96 05/29/17 11:55 80 18 124/73 (90) 95 05/29/17 11:25 81 16 119/76 (90) 95 05/29/17 10:55 80 18 136/77 (96) 94 05/29/17 10:25 82 18 101/72 (82) 94 05/29/17 09:55 80 18 134/82 (99) 95 05/29/17 09:40 97.5 81 18 144/84 (104) 94 05/29/17 07:40 97 Room Air 05/29/17 07:40 97.7 82 18 126/75 (92) 97 Physical Exam GENERAL: This is a well-nourished, well-developed patient, in no apparent distress. SKIN: No rashes, ecchymoses or lesions. Cool and dry. HEAD: Atraumatic. Normocephalic. No temporal or scalp tenderness. EYES: Pupils equal round and reactive. Extraocular motions intact. No scleral icterus. No injection or drainage. ENT: Nose without bleeding, purulent drainage or septal hematoma. Throat without erythema, tonsillar hypertrophy or exudate. Uvula midline. Airway patent. NECK: Trachea midline. No JVD or lymphadenopathy. Supple, nontender, no meningeal signs. CARDIOVASCULAR: Regular rate and rhythm without murmurs, gallops, or rubs. RESPIRATORY: Diffuse rhonchi. No wheezing or rales noted. Bandage in place posterior left thorax. GASTROINTESTINAL: Abdomen soft, non-tender, nondistended. No hepato-splenomegaly , or palpable masses. No guarding. MUSCULOSKELETAL: Extremities without clubbing, cyanosis, or edema. No joint tenderness, effusion, or edema noted. No calf tenderness. Negative Homans sign bilaterally. NEUROLOGICAL: Awake and alert. Cranial nerves II through XII intact. Motor and sensory grossly within normal limits. Five out of 5 muscle strength in all muscle groups. Normal speech. Laboratory Laboratory Tests Test 05/29/17 07:40 White Blood Count 9.8 Red Blood Count 4.30 Hemoglobin 13.4 Hematocrit 39.3 Mean Corpuscular Volume 91.3 Mean Corpuscular Hemoglobin 31.2 Mean Corpuscular Hemoglobin Concent 34.1 Red Cell Distribution Width 14.6 Platelet Count 152 Mean Platelet Volume 7.3 Neutrophils (%) (Auto) 74.6 Lymphocytes (%) (Auto) 21.5 Monocytes (%) (Auto) 3.6 Eosinophils (%) (Auto) 0.0 Basophils (%) (Auto) 0.3 Neutrophils # (Auto) 7.3 Lymphocytes # (Auto) 2.1 Monocytes # (Auto) 0.4 Eosinophils # (Auto) 0.0 Basophils # (Auto) 0.0 CBC Comment DIFF FINAL Differential Comment Prothrombin Time 11.2 Prothromb Time International Ratio 1.0 Activated Partial Thromboplast Time 21.5 Date/Time Source Procedure Growth Status 05/29/17 09:20 Tissue Lung Acid Fast Stain Pending Received 05/29/17 09:20 Tissue Lung Mycobacterial Culture Pending Received Result Diagram: 05/29/17 0740 Imaging Last Impressions Chest X-Ray 05/29/17 1315 Signed Impressions: Service Date/Time: Monday, May 29, 2017 13:32 - CONCLUSION: The left pneumothorax has increased in size and will require a chest tube. Pete Richter MD Lung Biopsy CT 05/29/17 0000 Signed Impressions: Service Date/Time: Monday, May 29, 2017 08:37 - CONCLUSION: Uncomplicated CT guided biopsy of the left lower lobe lung nodule. Samples were saved for pathology evaluation and microbiological analysis. As described above , the left lower lobe pulmonary nodule has decreased in size since the prior PET/CT . Additionally, the pleural effusions have resolved and some of the airspace consolidation previously present in the left lower lobe has also resolved. MD Brett Gee VTE Risk Assessment Brett VTE Risk Assessment: Mod/High Risk (score >= 2) Caprini Risk Assessment Model Point Value = 1 Point Value = 2 Point Value = 3 Point Value = 5 Age 41-60 Minor surgery BMI > 25 kg/m2 Swollen legs Varicose veins or History of unexplained or recurrent spontaneous Oral contraceptives or hormone replacement Sepsis (< 1 month) Serious lung disease, including pneumonia (< 1 month) Abnormal pulmonary function Acute myocardial infarction Congestive heart failure (< 1 month) History of inflammatory bowel disease Medical patient at bed rest Age 61-74 Arthroscopic surgery Major open surgery (> 45 min) Laparoscopic surgery (> 45 min) Malignancy Confined to bed (> 72 hours) Immobilizing plaster cast Central venous access Age >= 75 History of VTE Family history of VTE Factor V Leiden Prothrombin [id number] Lupus anticoagulant Anticardiolipin antibodies Elevated serum homocysteine Heparin-induced thrombocytopenia Other congenital or acquired thrombophilia Stroke (< 1 month) Elective arthroplasty Hip, pelvis, or leg fracture Acute spinal cord injury (< 1 month) Prophylaxis Regimen Total Risk Factor Score Risk Level Prophylaxis Regimen 0-1 Low Early ambulation 2 Moderate Order ONE of the following: *Sequential Compression Device (SCD) *Heparin 5000 units SQ BID 3-4 Higher Order ONE of the following medications: *Heparin 5000 units SQ TID *Enoxaparin/Lovenox 40 mg SQ daily (WT < 150 kg, CrCl > 30 mL/min) *Enoxaparin/Lovenox 30 mg SQ daily (WT < 150 kg, CrCl > 10-29 mL/min) *Enoxaparin/Lovenox 30 mg SQ BID (WT < 150 kg, CrCl > 30 mL/min) AND/OR *Sequential Compression Device (SCD) 5 or more Highest Order ONE of the following medications: *Heparin 5000 units SQ TID (Preferred with Epidurals) *Enoxaparin/Lovenox 40 mg SQ daily (WT < 150 kg, CrCl > 30 mL/min) *Enoxaparin/Lovenox 30 mg SQ daily (WT < 150 kg, CrCl > 10-29 mL/min) *Enoxaparin/Lovenox 30 mg SQ BID (WT < 150 kg, CrCl > 30 mL/min) AND *Sequential Compression Device (SCD) Assessment and Plan Assessment and Plan 71-year-old male with history of small cell carcinoma the lungs who presented with lung mass Lung mass -Status post CT-guided biopsy of the left lower nodule. Patient, location would pneumothorax. -Follow results as outpatient. Left pneumothorax -Patient will have chest tube placement soon. -Continue management per interventional radiologist. Hypertension, hyperlipidemia, BPH, COPD -Resume home medication. DVT prophylaxis -Patient had a procedure done. Will place on SCDs. d/w [facility] nurse Discussed Condition With patient Physician Certification 2 Midnight Certification Type: Admission for Inpatient Services Order for Inpatient Services The services are ordered in accordance with Medicare regulations or non- Medicare payer requirements, as applicable. In the case of services not specified as inpatient-only, they are appropriately provided as inpatient services in accordance with the 2-midnight benchmark. Estimated LOS (days): 2 2 days is the estimated time the patient will need to remain in the hospital, assuming treatment plan goals are met and no additional complications. Post-Hospital Plan: Julieth Lara MD May 29, 2017 14:58
--- NOTE | 2017-05-29 15:09 | PD.RAD ---
Post Procedure Progress Note Pre Procedure Diagnosis: (1) Lung mass (2) Pneumothorax after biopsy Post Procedure Diagnosis: (1) Lung mass (2) Pneumothorax after biopsy Procedure Date: May 29, 2017 Supervising Radiologist: Gerardo Galloway Proceduralist/Assist: Angus Conde, RT(R), Adamaris Grajeda, RT(R)(CV), George Alvarado, RT(R) Anesthesia: Local, Analgesia, Conscious Sedation Plan of Activity Patient to Unit: [facility] Patient Condition: Good See PACS Report for procedural detail/treatment Drainage Procedure Procedure 1 Imaging Guidance: Fluoroscopy Side: Left Procedure Type: Chest Tube Non-Tunneled Procedure: Placement Ukrainian: 10 Drainage: Pleurovac Findings: ? pleural scarring in left apex as wire could not be directed into upper hemithorax. Lateral component of PTX resolved after tube placement. Residual medial component possible representing some degree of loculation. Encouraged patient to lie in RLD position to place left lung non-dependent Gerardo Galloway MD May 29, 2017 15:09
[2017-05-29] MEDS ORDERED: ACETAMINOPHEN/HYDROcodone 325 MG/10 MG TAB PO PRN (15:15)
[2017-05-29] MEDS ORDERED: TEMAZEPAM 15 MG CAP PO PRN (15:15)
[2017-05-29] MEDS ORDERED: RESP: ALBUTEROL 2.5 MG/3 ML NEB (PRN) NEB (15:15)
[2017-05-29] MEDS ORDERED: ALPRAZolam 0.5 MG TAB PO PRN (15:15)
--- NOTE | 2017-05-29 15:28 | RADRPT ---
EXAM DATE/TIME: 05/29/2017 15:14 [facility] COMPARISON: CHEST EXPIRATION ONLY, May 29, 2017, 13:32. INDICATIONS : Post procedure. MEDICAL HISTORY : Chronic obstructive pulmonary disease. Carcinoma, lung. Hypertension. SURGICAL HISTORY : None. ENCOUNTER: Subsequent ACUITY: 1 day PAIN SCORE: 0/10 LOCATION: Bilateral chest FINDINGS: Upright expiratory view of the chest demonstrates left pigtail pleural catheter in place at the super ior aspect of the hemithorax. The left pneumothorax has completely resolved. There is atelectasis at the bases with stable elevation of the left hemidiaphragm. CONCLUSION: Resolution of the left pneumothorax following chest tube placement. Pete Richter MD on May 29, 2017 at 15:26 Board Certified Radiologist. This report was verified electronically.
--- NOTE | 2017-05-29 16:43 | RADRPT ---
EXAM DATE/TIME: 05/29/2017 14:24 [facility] COMPARISON: No previous studies available for comparison. INDICATIONS : Patient presents with pneumothorax in need of chest tube post lung biopsy. MEDICAL HISTORY : COPD Right lung cancer Cataracts Elevated Lipids HTN Migraine Osteoarthritis SURGICAL HISTORY : Appendectomy Bone marrow biopsy Cholecystectomy Perdicardiocentesis Pericardial window Vascectomy ENCOUNTER: Initial ACUITY: 3 weeks PAIN SCORE: 0/10 LOCATION: N/A FLUORO TIME: 7.4 minutes IMAGE SERIES: 3 SEDATION TIME: 30 minutes MEDICATION(S): 1.) 150 mcg fentanyl (Sublimaze) IV 2.) 3 mg midazolam (Versed) IV DEVICE(S): 1.) 10 Haitian non-locking catheter [place] PROCEDURE : 1. Fluoroscopically guided chest tube placement. 2. Conscious sedation with continuous EKG and oximetry monitoring. The risks, benefits and alternatives to the procedure were explained and verbal and written consent w as obtained. The site was prepped in sterile fashion. Full sterile technique was used, including ca p, mask, sterile gloves and gown and a large sterile sheet. Hand hygiene and 2% chlorhexidine and/or betadine/alcohol prep was utilized per protocol for cutaneous antisepsis. The skin and subcutaneous tissues were infiltrated with local anesthetic solution. With fluoroscopic guidance the chest was punctured between just cephalad to the anterior second rib. The wire immediately tracked inferiorly. Despite manipulation, I was unable to advance the wire into the subpleural space in the apex. This may represent pleural scarring in this region. As such, the ca theter was placed in the mid lateral area of the hemithorax. Wall suction was applied. Post procedur e images demonstrate satisfactory position of the tube. The catheter was sutured in place and a Perc u-Stay was applied. The lateral component of the pneumothorax completely resolved immediately. There was still a medial component Conscious sedation was performed with the prescribed dosages and duration as above in the presence of an independent trained radiology nurse to assist in the monitoring of the patient. EKG and oximetry remained stable throughout the procedure. The patient tolerated the procedure well and there were n o complications. The patient was sent to post anesthesia recovery in stable condition. CONCLUSION: 1. Uncomplicated chest tube placement as above. 2. Probable pleural scarring in the apex. Catheter and wire could not be advanced into the apical sub pleural space of the hemithorax. 3. There may be partially loculated medial component of the pneumothorax as well. Patient will be chad laura in the right lateral decubitus position to place the left chest non-dependently in an effort to c ompletely resolve the left pneumothorax. Gerardo Galloway MD on May 29, 2017 at 16:33 Board Certified Radiologist. This report was verified electronically.
[2017-05-29] MEDS: GABAPENTIN 400 MG CAP PO SCH ×2 (18:00→22:00)
[2017-05-29] MEDS ORDERED: NON-FORMULARY DRUG (Ipratropium Nasal 1 SPRAY) EACH NARE SCH (18:00)
[2017-05-29] MEDS ORDERED: PT:IPRATROPRIUM NASAL SPRAY NASAL SCH (18:00)
[2017-05-30 00:51] VITALS: BP 143/72; PULSE 88; RESP 18; TEMP 97.3; O2SAT 96
[2017-05-30] MEDS: GABAPENTIN 400 MG CAP PO SCH ×3 (06:00→14:00)
[2017-05-30] MEDS: SODIUM CHLORIDE 0.9% 1000 ML IV SCH (07:45)
[2017-05-30 08:00] VITALS: BP 146/71; PULSE 72; RESP 20; TEMP 97.8; O2SAT 97
[2017-05-30 08:23] LABS: BICARBONATE 28.4 MEQ/L (21.0-32.0)
[2017-05-30] MEDS: FLUTICASONE PROPIONATE 50 MCG/ACT 16 GM NASAL SPRAY NASAL SCH ×2 (08:48→09:00)
--- NOTE | 2017-05-30 08:51 | RADRPT ---
EXAM DATE/TIME: 05/30/2017 08:12 [facility] COMPARISON: CHEST EXPIRATION ONLY, May 29, 2017, 15:14. INDICATIONS : Evaluate for pneumothorax. MEDICAL HISTORY : Chronic obstructive pulmonary disease. Carcinoma, lung. Osteoarthritis. Cataracts Elevated Lipids Migraine SURGICAL HISTORY : Appendectomy. Cholecystectomy. Bone marrow biopsy Pericardial window Vascectomy Perdicardiocentesis chest tube ENCOUNTER: Subsequent ACUITY: 4 - 6 days PAIN SCORE: 0/10 LOCATION: Bilateral chest FINDINGS: Small caliber left chest tube remains in place. No pneumothorax. Stable elevated left hemidiaphragm a nd minimal basilar density. No significant effusion. CONCLUSION: 1. Left chest tube without significant pneumothorax. Mild basilar atelectasis. No significant change from May 29. Yong Kirby MD on May 30, 2017 at 8:48 Board Certified Radiologist. This report was verified electronically.
[2017-05-30] MEDS ORDERED: PRAVASTATIN SOD 10 MG TAB PO SCH (09:00)
[2017-05-30] MEDS ORDERED: SIMVASTATIN 5 MG PO SCH (09:00)
[2017-05-30] MEDS ORDERED: FERROUS SULFATE 325 MG (65 MG ELEMENTAL IRON) TAB PO SCH (09:00)
[2017-05-30] MEDS ORDERED: MULTIVITAMIN TAB PO SCH (09:00)
[2017-05-30] MEDS ORDERED: NON-FORMULARY DRUG (Multiple Vitamin (Multi-Vitamin Daily) 1 TAB) PO SCH (09:00)
[2017-05-30] MEDS ORDERED: METOPROLOL SUCCINATE 25 MG EXTENDED RELEASE TAB PO SCH (09:00)
[2017-05-30] MEDS ORDERED: FINASTERIDE 5 MG TAB PO SCH (09:00)
[2017-05-30 10:08] LABS: POTASSIUM 3.8 MEQ/L (3.5-5.1)
[2017-05-30] MEDS ORDERED: BUDESONIDE-FORMOTEROL 160/4.5 MCG INHALER INH SCH (10:15)
--- NOTE | 2017-05-30 10:49 | HHI.PR ---
Subjective Remarks Follow-up pneumothorax and chest to management Patient very anxious go home today. Denies any shortness of breathing or cough. He has if he can he put on Symbicort. His nurse is at the bedside during interview. Otherwise no other complaints. Patient still has chest tube in. Objective Vitals Vital Signs Date Time Temp Pulse Resp B/P (MAP) Pulse Ox O2 Delivery O2 Flow Rate FiO2 05/30/17 08:10 96 Room Air 05/30/17 08:00 97.8 72 20 146/71 (96) 97 05/30/17 00:51 97.3 88 18 143/72 (95) 96 05/29/17 20:00 95.9 78 18 151/83 (105) 98 05/29/17 20:00 Room Air 05/29/17 18:25 97.6 71 16 135/70 (91) 98 Room Air 05/29/17 18:15 75 16 137/72 (93) 97 Room Air 05/29/17 18:00 76 16 138/71 (93) 96 Room Air 05/29/17 17:45 75 15 140/76 (97) 96 Room Air 05/29/17 17:30 97.7 78 15 146/79 (101) 96 Room Air 05/29/17 16:20 78 16 136/78 (97) 96 05/29/17 15:50 77 16 140/86 (104) 95 05/29/17 15:20 80 16 160/89 (112) 96 05/29/17 15:05 97.7 80 16 153/88 (109) 95 05/29/17 12:55 80 18 128/80 (96) 96 05/29/17 11:55 80 18 124/73 (90) 95 05/29/17 11:25 81 16 119/76 (90) 95 05/29/17 10:55 80 18 136/77 (96) 94 I/O 05/29/17 05/29/17 05/29/17 05/30/17 05/30/17 05/30/17 07:00 15:00 23:00 07:00 15:00 23:00 Intake Total 0 ml Output Total 5 ml 8 ml Balance -5 ml -8 ml Intake IV Total 0 ml Output Chest Tube Drainage Total 5 ml 8 ml # Voids 0 Result Diagram: 05/29/17 0764 05/30/17 7405 Objective Remarks GENERAL: in NAD CARDIOVASCULAR: Regular rate and rhythm without murmurs, gallops, or rubs. RESPIRATORY: Breath sounds equal bilaterally. No accessory muscle use. Left chest tube in place. GASTROINTESTINAL: Abdomen soft, non-tender, nondistended. MUSCULOSKELETAL: No cyanosis, or edema. BACK: Nontender without obvious deformity. No CVA tenderness. Medications and IVs Current Medications Sodium Chloride 1,000 ml @ 30 mls/hr Q24H IV Last administered on 05/29/17 07 :45; Start 05/29/17 at 07:45; Stop 06/01/17 at 07:44 Lidocaine HCl (Xylocaine 1% Inj) 20 ml STK-MED ONCE .ROUTE ; Start 05/29/17 at 08:09; Stop 05/29/17 at 08:10; Status DC Fentanyl Citrate (fentaNYL INJ) 200 mcg STK-MED ONCE .ROUTE Last administered on 05/29/17 08:35; Start 05/29/17 at 08:20; Stop 05/29/17 at 08:21; Status DC Midazolam HCl (Versed Inj) 5 mg STK-MED ONCE .ROUTE Last administered on 08:35; Start 05/29/17 at 08:20; Stop 05/29/17 at 08:21; Status DC Oxycodone/ Acetaminophen (Percocet 5-325 Mg) 1 tab Q4H PRN PO PAIN SCALE 1 TO 10; Start 05/29/17 at 09:30; Stop 05/29/17 at 15:21; Status DC Midazolam HCl (Versed Inj) 5 mg STK-MED ONCE .ROUTE Last administered on 14:12; Start 05/29/17 at 14:12; Stop 05/29/17 at 14:13; Status DC Fentanyl Citrate (fentaNYL INJ) 200 mcg STK-MED ONCE .ROUTE Last administered on 05/29/17 14:12; Start 05/29/17 at 14:12; Stop 05/29/17 at 14:13; Status DC Albuterol Sulfate (Albuterol Neb) 2.5 mg Q6HR NEB PRN NEB SHORTNESS OF BREATH; Start 05/29/17 at 15:15 Alprazolam (Xanax) 0.5 mg DAILY PRN PO ANXIETY; Start 05/29/17 at 15:15 Ferrous Sulfate (Ferrous Sulfate) 325 mg DAILY PO Last administered on 08:00; Start 05/30/17 at 09:00 Finasteride (Proscar) 5 mg DAILY PO Last administered on 05/30/17 08:00; Start 05/30/17 at 09:00 Acetaminophen/ Hydrocodone Bitart (Jackson 10-325 Mg) 1 tab Q8HR PRN PO PAIN SCALE 1 TO 10 Last administered on 05/29/17 23:37; Start 05/29/17 at 15:15 Metoprolol Succinate (Toprol Xl) 25 mg DAILY PO Last administered on 05/30/17 08:00; Start 05/30/17 at 09:00 Temazepam (Restoril) 30 mg HS PRN PO INSOMNIA; Start 05/29/17 at 15:15 Non-Formulary Medication 1 spray QID EACH NARE ; Start 05/29/17 at 18:00; Status UNV Non-Formulary Medication 1 tab DAILY PO ; Start 05/30/17 at 09:00; Status UNV Non-Formulary Medication 5 mg DAILY PO ; Start 05/30/17 at 09:00; Status UNV Gabapentin (Neurontin) 400 mg 5 TIMES A DAY PO ; Start 05/29/17 at 18:00 Pravastatin Sodium (Pravachol) 10 mg DAILY PO Last administered on 05/30/17 08 :00; Start 05/30/17 at 09:00 Patient Own Medication POM: IPRATROPRIUM NA... QID NASAL ; Start 05/29/17 at 18: 00; Status Cancel Multivitamins (Theragran) 1 tab DAILY PO Last administered on 05/30/17 08:00; Start 05/30/17 at 09:00 Fluticasone Propionate (Flonase Harinder Spr) 2 spray DAILY NASAL Last administered on 05/30/17 09:00; Start 05/29/17 at 16:00 Budesonide/ Formoterol Fumarate (Symbicort 160-4.5 Inh) 1 puff Q12HR INH ; Start 05/30/17 at 10:15 A/P Assessment and Plan 71-year-old male with history of small cell carcinoma the lungs who presented with lung mass Lung mass -Status post CT-guided biopsy of the left lower nodule. -Follow results as outpatient with ordering physician. Left pneumothorax -Status post chest tube placement by interventional radiologist. -Management per interventional radiologist. Hypertension, hyperlipidemia, BPH, COPD -Continue home medication. Will add Symbicort since patient is on this at home. DVT prophylaxis -Patient had a procedure done. on SCDs. Dealt with patient's nurse. Discharge Planning Once chest tube is removed and cleared by radiologist can be discharge home. Julieth Bustos MD May 30, 2017 10:49
[2017-05-30 12:00] VITALS: BP 149/83; PULSE 84; RESP 19; TEMP 96.9; O2SAT 97
--- NOTE | 2017-05-30 13:46 | RADRPT ---
EXAM DATE/TIME: 05/30/2017 12:42 [facility] COMPARISON: CHEST SINGLE AP, May 30, 2017, 8:12. INDICATIONS : Post left lung biopsy on 05/29 evaluate for pneumothorax. MEDICAL HISTORY : Carcinoma, lung. Chronic obstructive pulmonary disease. SURGICAL HISTORY : Appendectomy. Cholecystectomy. Chest tube ENCOUNTER: Subsequent ACUITY: 4 - 6 days PAIN SCORE: 0/10 LOCATION: chest FINDINGS: A single view of the chest demonstrates left-sided Delaplane loop thoracostomy tube stable in position. No pneumothorax. Stable elevation of the left hemidiaphragm with basilar atelectatic changes. There is also stable apical capping in the left hemithorax. Deep tissue emphysematous changes about the left c hest. CONCLUSION: 1. Stable position of left-sided thoracostomy tube without pneumothorax. 2. Apical capping, elevation of left hemidiaphragm and left basilar atelectasis, all unchanged. Gerardo Galloway MD on May 30, 2017 at 13:43 Board Certified Radiologist. This report was verified electronically.
--- NOTE | 2017-05-30 15:47 | RADRPT ---
EXAM DATE/TIME: 05/30/2017 15:16 [facility] COMPARISON: CHEST SINGLE AP, May 30, 2017, 12:42. INDICATIONS : Post chest tube removal MEDICAL HISTORY : Chronic obstructive pulmonary disease. Carcinoma, lung. osteoarthritis SURGICAL HISTORY : bone marrow biopsy, pericardial window, pericardiocentesis, chest tube ENCOUNTER: Initial ACUITY: 1 day PAIN SCORE: 0/10 LOCATION: Bilateral chest FINDINGS: The patient's left-sided chest tube has been removed. There is a small amount of apical pleural fluid on the left but no pneumothorax. There is elevation left hemidiaphragm. The right lung is clear. The heart is normal in size. There is minimal subcutaneous emphysema in the left chest wall. CONCLUSION: 1. Small apical fluid collection on the left unchanged from previous. 2. No pneumothorax seen following chest tube removal. Jaden Mobley MD on May 30, 2017 at 15:45 Board Certified Radiologist. This report was verified electronically.
--- NOTE | 2017-05-30 16:14 | HHI.DCPOC ---
Discharge Care Plan Diagnosis: (1) Pneumothorax after biopsy (2) Lung mass Goals to Promote Your Health * To prevent worsening of your condition and complications * To maintain your health at the optimal level Directions to Meet Your Goals Take your medications as prescribed Follow your dietary instruction Follow activity as directed Keep your appointments as scheduled Take your immunizations and boosters as scheduled If your symptoms worsen call your PCP, if no PCP go to Urgent Care Center or Emergency Room Smoking is Dangerous to Your Health. Avoid second hand smoke Call the 24-hour hour crisis hotline for domestic abuse at Julieth Bustos MD May 30, 2017 16:14
--- NOTE | 2017-05-30 16:14 | HHI.DS ---
Discharge Summary Admission Date May 29, 2017 at 19:34 Discharge Date: May 30, 2017 Admitting Diagnosis (1) Lung mass ICD Code: R91.8 - Other nonspecific abnormal finding of lung field Diagnosis: Principal Status: Acute (2) Pneumothorax after biopsy ICD Code: J95.811 - Postprocedural pneumothorax Diagnosis: Principal Procedures See hospital course. Brief History - From Admission This is a pleasant 71-year-old male past medical history of lung cancer small cell carcinoma status post chemotherapy and radiation who presented with recurrence of lung mass. Patient had CT-guided biopsy done of left lower lung nodule in which he had complication of pneumothorax. [facility] was asked to admit the patient. Patient seen in [facility] and will have chest tube place soon. Patient has no complaints. Deny any shortness of breathing cough, palpitation, chest pain, lightheadedness dizziness. All other review systems reviewed and negative. CBC/BMP: 05/29/17 0740 05/30/17 0546 Significant Findings Laboratory Tests Test 05/29/17 07:40 05/30/17 05:46 Red Blood Count 4.30 MIL/MM3 (4.50-5.90) Neutrophils (%) (Auto) 74.6 % (16.0-70.0) Activated Partial Thromboplast Time 21.5 SEC (24.3-30.1) Blood Urea Nitrogen 31 MG/DL (7-18) Calcium Level 8.4 MG/DL (8.5-10.1) Estimat Glomerular Filtration Rate 75 ML/MIN (>89) Imaging Last Impressions Chest X-Ray 05/30/17 1515 Signed Impressions: Service Date/Time: Tuesday, May 30, 2017 15:16 - CONCLUSION: 1. Small apical fluid collection on the left unchanged from previous. 2. No pneumothorax seen following chest tube removal. Jaden Mobley MD Lung Biopsy CT 05/29/17 0000 Signed Impressions: Service Date/Time: Monday, May 29, 2017 08:37 - CONCLUSION: Uncomplicated CT guided biopsy of the left lower lobe lung nodule. Samples were saved for pathology evaluation and microbiological analysis. As described above , the left lower lobe pulmonary nodule has decreased in size since the prior PET/CT . Additionally, the pleural effusions have resolved and some of the airspace consolidation previously present in the left lower lobe has also resolved. Pete Richter MD Chest Tube Insertion 05/29/17 0000 Signed Impressions: Service Date/Time: Monday, May 29, 2017 14:24 - CONCLUSION: 1. Uncomplicated chest tube placement as above. 2. Probable pleural scarring in the apex. Catheter and wire could not be advanced into the apical subpleural space of the hemithorax. 3. There may be partially loculated medial component of the pneumothorax as well. Patient will be placed in the right lateral decubitus position to place the left chest non-dependently in an effort to completely resolve the left pneumothorax. Gerardo Galloway MD PE at Discharge GENERAL: in NAD CARDIOVASCULAR: Regular rate and rhythm without murmurs, gallops, or rubs. RESPIRATORY: Breath sounds equal bilaterally. No accessory muscle use. Left chest tube in place. GASTROINTESTINAL: Abdomen soft, non-tender, nondistended. MUSCULOSKELETAL: No cyanosis, or edema. BACK: Nontender without obvious deformity. No CVA tenderness. Pt update on day of discharge Follow-up for complication of a lung biopsy causing pneumothorax Patient denies any shortness of breathing or cough. Patient stated that he has never had shortness of breathing. Patient later had chest tube removed and chest x-ray repeated with no complication. Radiologist cleared patient for discharge. Discussed with patient's nurse Hospital Course 71-year-old male with history of small cell carcinoma the lungs who presented with lung mass Lung mass -Status post CT-guided biopsy of the left lower nodule. -Follow results as outpatient with ordering physician. Left pneumothorax -Complications due to CT-guided biopsy. -patient had stat chest tube placement chest tube placement and did well. -Management per interventional radiologist. -Later he had chest tube removed and had no complications. Hypertension, hyperlipidemia, BPH, COPD -Home medication was resumed. Pt Condition on Discharge: Stable Discharge Disposition: Discharge Home Discharge Time: > 30 minutes Discharge Instructions DIET: Follow Instructions for: Heart Healthy Diet Activities you can perform: Regular-No Restrictions Follow up Referrals: Oncology - 1 Week PCP Follow-up - 1 Week Continued Medications: Albuterol Neb (Albuterol Neb) 2.5 Mg/3 Ml Neb 2.5 MG NEB Q6HR NEB PRN for SHORTNESS OF BREATH, #60 NEBULE 0 Refills Alprazolam (Alprazolam) 0.5 Mg Tab 0.5 MG PO DAILY PRN for ANXIETY, TAB 0 Refills Aspirin (Aspirin) 81 Mg Chew 81 MG CHEW DAILY, TAB 0 Refills Ferrous Sulfate (Ferrous Sulfate) 325 Mg (65 Mg Iron) Tablet 325 MG PO DAILY for Nutritional Supplement, #30 TAB 0 Refills Finasteride (Finasteride) 5 Mg Tab 5 MG PO DAILY for Manage Prostate Problems, #30 TAB 0 Refills Do not crush. Gabapentin (Gabapentin) 400 Mg Cap 400 CAP PO 5x a day, #30 CAP 0 Refills Hydrocodone-Acetaminophen (Hydrocodone-Acetaminophen) 10-325 mg Tab 1 TAB PO Q8HR PRN for PAIN, TAB 0 Refills Ipratropium Nasal (Ipratropium Nasal) 0.06% [place] 1 SPRAY EACH NARE QID, #1 BOTTLE 0 Refills Metoprolol Succinate ER 24 HR (Metoprolol Succinate ER 24 HR) 25 Mg Tab 25 MG PO DAILY, #30 TAB 0 Refills Multiple Vitamin (Multi-Vitamin Daily) 1 Tab Tab 1 TAB PO DAILY for Nutritional Supplement, TAB 0 Refills Simvastatin (Simvastatin) 5 Mg Tab 5 MG PO DAILY for Cholesterol Management, #30 TAB 0 Refills Temazepam (Temazepam) 15 Mg Cap 30 MG PO HS PRN for INSOMNIA, #30 CAP 0 Refills Julieth Bustos MD May 30, 2017 16:14
== END 2017-05-30 17:08 | disposition home or self-care (01) | DRG 201 ==
LOC: HRAD 07:13 → HRIP 07:14 → N07B 19:34 → HRAD 19:35
PROVIDERS: ADMIT Family Medicine; ATTEND Family Medicine
PROC: 0W9B30Z Drainage of Left Pleural Cavity with Drainage Device, Percutaneous Approach (ICD-10-PCS; principal; 2017-05-29)
DX: J95.811 Postprocedural pneumothorax (principal); J44.9 Chronic obstructive pulmonary disease, unspecified; I10 Essential (primary) hypertension; Y84.8 Other medical procedures as the cause of abnormal reaction of the patient, or of later complication, without mention of misadventure at the time of the procedure; E78.5 Hyperlipidemia, unspecified; R91.1 Solitary pulmonary nodule; N40.0 Benign prostatic hyperplasia without lower urinary tract symptoms; Z85.118 Personal history of other malignant neoplasm of bronchus and lung
CPT/HCPCS: 32405; 32551; 71010; 77012; 80048; 81235; 85025; 85610; 85730; 87015; 87070; 87102; 87116; 87176; 87205; 87206; 88305; 88341; 88342; 88360; 88377; 88381; 99152; 99153; C1729; C1769; C1887; J2250; J3010; J7030

== ENCOUNTER 2017-06-27 06:15 | Day surgery (SDC) | payer OTHER ==
[~2017-06-27] VITALS: Ht 170.2 cm; Wt 65.0 kg
[~2017-06-27 06:15] MED LIST changes: +ASPI81CH CHEW; +FERR325T8 PO; +GABA400C5 PO; +IPRA0.06 EACH NARE; +MULT-65 PO; -PRED20 PO
[2017-06-27] MEDS ORDERED: HYDR-3583 PO (06:44)
[2017-06-27 06:52] VITALS: BP 134/81; PULSE 82; RESP 20; TEMP 97.6; O2SAT 98
[2017-06-27] MEDS ORDERED: CHLORHEXIDINE GLUCONATE 2 % 1 PACK (2 CLOTHS) TOPICAL SCH (07:15)
[2017-06-27] MEDS ORDERED: POVIDONE IODINE 5% (ANTISEPSIS KIT) 4 APPLICATIONS EACH NARE SCH (07:15)
[2017-06-27] MEDS ORDERED: SODIUM CHLORIDE 0.9% 1000 ML IV SCH (07:15)
[2017-06-27] MEDS ORDERED: VANCOMYCIN 1000 MG/NS 250 ML - implanted port/tunneled catheter IV SCH ×2 (07:15)
[2017-06-27] MEDS ORDERED: MIDAZOLAM HCL 2 MG/2 ML VIAL ONE (07:51)
--- NOTE | 2017-06-27 08:53 | PD.RAD ---
Post Procedure Progress Note Pre Procedure Diagnosis: (1) Lung mass Post Procedure Diagnosis: (1) Lung mass Procedure Date: Jun 27, 2017 Supervising Radiologist: Gerardo Galloway Proceduralist/Assist: RT Jensen(R), RT Cher(R) Anesthesia: Local, Analgesia, Conscious Sedation Plan of Activity Patient to Unit: [facility] Patient Condition: Good See PACS Report for procedural detail/treatment Central Venous Access Device Procedure 1 Right Internal Jugular Infusaport Placement single lumen Latvian: 8 Gerardo Galloway MD Jun 27, 2017 08:53
[2017-06-27] MEDS ORDERED: SODIUM CHLORIDE 0.9% FLUSH 10 ML FLUSH IVF PRN (09:00)
[2017-06-27 09:05] VITALS: BP 125/83; PULSE 77; RESP 20; TEMP 97.4; O2SAT 97
[2017-06-27 09:20] VITALS: BP 141/74; PULSE 78; RESP 20; O2SAT 97
[2017-06-27 09:50] VITALS: BP 102/66; PULSE 79; RESP 20; O2SAT 98
[2017-06-27 10:20] VITALS: BP 110/63; PULSE 77; RESP 20; O2SAT 98
[2017-06-27 10:50] VITALS: BP 148/79; PULSE 80; RESP 20; O2SAT 98
--- NOTE | 2017-06-27 11:14 | RADRPT ---
EXAM DATE/TIME: 06/27/2017 08:09 [facility] COMPARISON: No previous studies available for comparison. INDICATIONS : Patient with history of lung cancer in need of [id number] placement. MEDICAL HISTORY : Left lung masses, BPH, Right lung small cell carcinoma, COPD, Bilateral pleural effusion, Emphysema, HLD, HTN, Migraine, Osteoarthritis, Chemotherapy and radiation SURGICAL HISTORY : Bone marrow biopsy, Cholecystectomy, Pericardiocentesis, Colonoscopy, Biopsy left lung mass ENCOUNTER: Initial ACUITY: 2 months PAIN SCORE: 0/10 FLUORO TIME: 0.3 minutes IMAGE SERIES: 1 SEDATION TIME: 45 minutes ACCESS: Right internal jugular vein SEDATION: 1.) 3 mg midazolam (Versed) IV 2.) 150 mcg fentanyl (Sublimaze) IV Prophylactic antibiotics were administered with appropriate pre-procedure timing. Vancomycin within 2 hours of procedure, Ancef (or alternative) within 1 hour of procedure. DEVICE: 1. 8 Nigerien single lumen Smart power port with vortex PROCEDURE : 1. Continuous pulse oximetry and EKG monitoring. 2. Intravenous conscious sedation. 3. Ultrasound guidance for venous access. 4. Fluoroscopic guided implantable central venous port placement. The patient was placed supine. The neck was prepped in sterile fashion. Full sterile technique was u sed, including cap, mask, sterile gloves and gown, and a large sterile sheet. Hand hygiene and 2% ch lorhexidine Betadine was utilized per protocol for cutaneous antisepsis with appropriate dry time for site. Sterile gel and sterile probe cover were utilized for ultrasound guidance. The skin and sub cutaneous tissues were infiltrated with local anesthetic solution. Under direct ultrasound guidance, central venous access was accomplished in the targeted vessel. The ultrasound images depicting access guidance were stored and saved to PACS for permanent record. A s ubcutaneous pocket was created using blunt dissection. The port was introduced to the pocket. The c atheter tubing was fed through a subcutaneous tunnel to the venotomy site. The catheter tubing was c ut to a suitable length and then was introduced through a valved Peel-Away sheath and positioned with catheter tubing tip at the cavo-atrial junction level. The pocket incision was closed with subcutic ular Vicryl suture. Steri-Strips were applied. The port was flushed and locked with heparin solutio n per protocol. Sterile dressing was applied to the site. The patient tolerated the procedure well. Conscious sedation was performed with the prescribed dosages and duration as above in the presence of an independent trained radiology nurse to assist in the monitoring of the patient. EKG and oximetry remained stable throughout the procedure. The patient tolerated the procedure well and there were no complications. The patient was sent to post anesthesia recovery in stable condition. CONCLUSION: Uncomplicated ultrasound and fluoroscopic guided implanted central venous port catheter placement as described in detail above. An 8 Nigerien Power port was placed. Gerardo Galloway MD on June 27, 2017 at 11:13 Board Certified Radiologist. This report was verified electronically.
== END 2017-06-27 11:00 | disposition home or self-care (01) ==
LOC: HROP 06:15 → HRIP 06:18 → HROP 11:00
PROVIDERS: ATTEND Internal Medicine Hematology & Oncology
DX: Z45.2 Encounter for adjustment and management of vascular access device (principal); C34.92 Malignant neoplasm of unspecified part of left bronchus or lung; I10 Essential (primary) hypertension; E78.5 Hyperlipidemia, unspecified; J44.9 Chronic obstructive pulmonary disease, unspecified
CPT/HCPCS: 36561; 76937; 77001; 99152; 99153; C1788; J1642; J2250; J3010; J3370; J7030; J7050

== ENCOUNTER 2017-07-31 20:24 | Inpatient (IN) | payer OTHER, MEDICARE ==
[~2017-07-31] VITALS: Ht 170.2 cm; Wt 63.6 kg
[~2017-07-31 20:24] MED LIST changes: +ASPI-516 CHEW; -ASPI81CH CHEW; +FERR325T18 PO; -FERR325T8 PO; +METO1TAB42 PO; -METO25TA6 PO
[2017-07-31] MEDS ORDERED: IOHEXOL 350 MG/ML 10 ML VIAL (for RAD DIAG) IVCONTRAST ONE (20:25)
[2017-07-31 20:29] VITALS: BP 190/104; PULSE 124; RESP 30; TEMP 97.5; O2SAT 100
[2017-07-31 20:37] VITALS: BP 157/77; PULSE 125; RESP 24; O2SAT 100
--- NOTE | 2017-07-31 20:43 | PD ---
HPI Chief Complaint: Respiratory Distress Time Seen by Provider: 20:32 Travel History International Travel<30 days: No Contact w/Intl Traveler<30days: No Traveled to known affect area: No History of Present Illness HPI The patient is a 72 year old male who presents to the [facility] emergency department with a history of shortness of breath that became worse over the last 24 hours. The patient reports that he did [id number] rescue inhaler treatments at 3 PM without improvement. He then decided to call ambulance services. The patient reports having history of COPD and relatively recently diagnosed lung cancer. He reports that his last chemotherapy was done on Monday. He denies having any known fevers. He denies having any worsening cough or congestion. On review of systems otherwise, he denies having any neck pain, abdominal pain, vomiting, diarrhea, urinary symptoms, or neurologic symptoms. 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 Anxiety: Yes (PANIC ATTACKS) Heart Rhythm Problems: No Cancer: Yes (R LUNG) Cardiac Catheterization: No Cardiovascular Problems: Yes (HX OF PERICARDIAL EFFUSION) High Cholesterol: Yes Chemotherapy: Yes Congestive Heart Failure: No Diabetes: No Diminished Hearing: No Endocrine: No Genitourinary: No Hiatal Hernia: No Hypertension: Yes Immune Disorder: No Medical other: Yes (HYPERLIPIDEMIA, ) Neurologic: Yes (MIGRAINES) Psychiatric: Yes (ANXIETY) Reproductive: No Respiratory: Yes (COPD) Immunizations Current: Yes (FLU) Myocardial Infarction: No Radiation Therapy: Yes Thyroid Disease: No Tetanus Vaccination: Unknown Influenza Vaccination: Yes Past Surgical History Narrative Surgical The patient's past surgical history is significant for an appendectomy, bone marrow biopsy, cholecystectomy, pericardiocentesis, vasectomy, squamous cell skin cancer removal from the forehead, history of Qpszia-c-Kvam placement, history of chest tube placement Abdominal Surgery: Yes (APPE, FLAVIO) AICD: No Appendectomy: Yes Cardiac Surgery: Yes (RECENT PERICARDIAL WINDOW FOR FL AROUND THE HEART) Cholecystectomy: Yes Coronary Artery Bypass Graft: No Genitourinary Surgery: Yes (VASECTOMY) Joint Replacement: No Pacemaker: No Other Surgery: Yes Family History Family Myocardial Infarction: Yes Social History Alcohol Use: Yes (BEER DAILY) Tobacco Use: No Substance Use: No Allergies-Medications (Allergen,Severity, Reaction): Coded Allergies: penicillin G (Unverified Allergy, Severe, HIVES, 07/31/17) Reported Meds & Prescriptions Reported Meds & Active Scripts Active Albuterol Neb (Albuterol Sulfate) 2.5 Mg/3 Ml Neb 2.5 Mg NEB Q6HR NEB PRN Nebulizer/Adult Mask (N/A) 1 Kit Kit 1 Kit .ROUTE DIRECTED Reported Hydrocodone-Acetaminophen 10-325 mg Tab 1 Tab PO Q4H PRN Ipratropium Nasal 0.06% [place] 1 [place] EACH NARE QID Multi-Vitamin Daily (Multiple Vitamin) 1 Tab Tab 1 Tab PO DAILY Gabapentin 400 Mg Cap 400 Cap PO 5X A DAY Aspirin 81 Mg Chew 81 Mg CHEW DAILY Ferrous Sulfate 325 Mg (65 Mg Iron) Tablet 325 Mg PO DAILY Temazepam 15 Mg Cap 30 Mg PO HS PRN Alprazolam 0.5 Mg Tab 0.5 Mg PO DAILY PRN Finasteride 5 Mg Tab 5 Mg PO DAILY Do not crush. Simvastatin 5 Mg Tab 5 Mg PO DAILY Metoprolol Succinate ER 24 HR (Metoprolol Succinate) 25 Mg Tab 25 Mg PO DAILY Review of Systems Except as stated in HPI: all other systems reviewed are Neg General / Constitutional: No: Fever Eyes: No: Visual changes HENT: No: Headaches Cardiovascular: Positive: Chest Pain or Discomfort (chest tightness), Dyspnea on exertion Respiratory: Positive: Cough, Shortness of Breath, Wheezing Gastrointestinal: No: Abdominal Pain Genitourinary: No: Dysuria Musculoskeletal: No: Pain Skin: No Rash Neurologic: No: Weakness, Focal Abnormalities, Change in Mentation, Slurred Speech, Sensory Disturbance Psychiatric: No: Depression Endocrine: No: Polydipsia Hematologic/Lymphatic: No: Easy Bruising Physical Exam Narrative General: The patient is a well-developed thin appearing male, uncomfortable appearing on arrival, with conversational dyspnea. Head and Neck exam: Head is normocephalic atraumatic. Eyes: EOMI, pupils are equal round and reactive to light. Nose: Midline septum with pink mucous membranes Mouth: Dentition unremarkable. Moist mucus membranes. Posterior oropharynx is not erythematous. No tonsillar hypertrophy. Uvula midline. Airway patent. Neck: No palpable lymphadenopathy. No nuchal rigidity. No thyromegaly. Cardiovascular: Sinus tachycardia in the 120s without murmurs, gallops, or rubs. No pulse deficit to the extremities on simultaneous auscultation and palpation of his radial artery. Lungs: Soft expiratory wheezes are audible in bilateral lung cui. No rhonchi, no crackles. The patient has accessory muscle use noted. The patient is tachypneic. The patient has no nasal flaring for paroxysmal abdominal breathing. The patient is not tripoding. Abdomen: Soft, without tenderness to palpation in all 4 quadrants of the abdomen. No guarding, rebound, or rigidity. Normal bowel sounds are audible. No tenderness on palpation of McBurney's point. Extremities: No clubbing, cyanosis, or edema. 2+ pulses in all 4 extremities. No calf tenderness on palpation. Back: No spinous process tenderness to palpation. No costovertebral angle tenderness to palpation. Neurologic Exam: Grossly nonfocal. Skin Exam: No rash noted. Intact skin that is warm and dry. Data Data Last Documented VS Vital Signs Date Time Temp Pulse Resp B/P (MAP) Pulse Ox O2 Delivery O2 Flow Rate FiO2 07/31/17 22:20 119 18 116/68 (84) 99 Nasal Cannula 3.00 07/31/17 20:29 97.5 Orders Orders Complete Blood Count With Diff (07/31/17 20:33) Comprehensive Metabolic Panel (07/31/17 20:33) B-Type Natriuretic Peptide (07/31/17 20:33) D-Dimer (07/31/17 20:33) Act Partial Throm Time (Ptt) (07/31/17:) Prothrombin Time / Inr (Pt) (07/31/17 20:33) Magnesium (Mg) (07/31/17 20:33) Ckmb (Isoenzyme) Profile (07/31/17:33) Troponin I (07/31/17 20:33) Iv Access Insert/Monitor (07/31/17 20:33) Electrocardiogram (07/31/17 20:33) Ecg Monitoring (07/31/17 20:33) Oximetry (07/31/17 20:33) Oxygen Administration (07/31/17 20:33) Chest, Single Ap (07/31/17:) Sodium Chloride 0.9% Flush (Ns Flush) (07/31/17 20:45) Albuterol-Ipratropium Neb (Duoneb Neb) (07/31/17 20:45) Lorazepam Inj (Ativan Inj) (07/31/17 21:15) Blood Culture (07/31/17 21:55) Lactic Acid Sepsis Protocol (07/31/17 21:55) Cefepime Inj (Maxipime Inj) (07/31/17 21:55) Azithromycin Inj (Zithromax Inj) (07/31/17 21:55) Ct Pulmonary Angiogram (07/31/17 21:55) Sodium Chlor 0.9% 1000 Ml Inj (Ns 1000 M (07/31/17 22:15) Iohexol 350 Inj (Omnipaque 350 Inj) (07/31/17 20:25) Admit Order (Ed Use Only) (07/31/17 23:09) Labs Laboratory Tests Test 07/31/17 20:10 07/31/17 20:50 Lactic Acid Level 1.3 mmol/L White Blood Count 5.8 TH/MM3 Red Blood Count 3.57 MIL/MM3 Hemoglobin 10.6 GM/DL Hematocrit 31.1 % Mean Corpuscular Volume 87.3 FL Mean Corpuscular Hemoglobin 29.9 PG Mean Corpuscular Hemoglobin Concent 34.2 % Red Cell Distribution Width 14.9 % Platelet Count 114 TH/MM3 Mean Platelet Volume 8.1 FL Neutrophils (%) (Auto) 73.8 % Lymphocytes (%) (Auto) 23.9 % Monocytes (%) (Auto) 0.7 % Eosinophils (%) (Auto) 1.2 % Basophils (%) (Auto) 0.4 % Neutrophils # (Auto) 4.3 TH/MM3 Lymphocytes # (Auto) 1.4 TH/MM3 Monocytes # (Auto) 0.0 TH/MM3 Eosinophils # (Auto) 0.1 TH/MM3 Basophils # (Auto) 0.0 TH/MM3 CBC Comment DIFF FINAL Differential Comment Prothrombin Time 12.1 SEC Prothromb Time International Ratio 1.1 RATIO Activated Partial Thromboplast Time 30.1 SEC D-Dimer Quantitative (PE/DVT) 19.08 MG/L FEU Blood Urea Nitrogen 28 MG/DL Creatinine 0.99 MG/DL Random Glucose 126 MG/DL Total Protein 6.6 GM/DL Albumin 3.2 GM/DL Calcium Level 9.0 MG/DL Magnesium Level 1.1 MG/DL Alkaline Phosphatase 72 U/L Aspartate Amino Transf (AST/SGOT) 22 U/L Alanine Aminotransferase (ALT/SGPT) 13 U/L Total Bilirubin 1.7 MG/DL Sodium Level 136 MEQ/L Potassium Level 4.1 MEQ/L Chloride Level 103 MEQ/L Carbon Dioxide Level 20.8 MEQ/L Anion Gap 12 MEQ/L Estimat Glomerular Filtration Rate 74 ML/MIN Total Creatine Kinase 48 U/L Troponin I 0.02 NG/ML B-Type Natriuretic Peptide 222 PG/ML MDM Medical Decision Making Medical Screen Exam Complete: Yes Emergency Medical Condition: Yes Medical Record Reviewed: Yes Interpretation(s) Last Impressions CT Angiography 07/31/[id number] Signed Impressions: Service Date/Time: Monday, July 31, 2017 22:28 - CONCLUSION: 1. Extensive bilateral pulmonary emboli. 2. Left lower lobe and right hilar masses are again noted. The 5 mm left lower lobe pulmonary nodule that measures slightly larger. 3. Perihilar and basilar infiltrates on the right. 4. Small right and tiny left pleural effusions. 5. Splenomegaly again noted. Pete Dawn MD Chest X-Ray 07/31/[id number] Signed Impressions: Service Date/Time: Monday, July 31, 2017 21:06 - CONCLUSION: Partially consolidative infiltrate in the lower lateral right lung. Ariel Hector MD Differential Diagnosis COPD exacerbation, versus pleural effusion, versus pulmonary embolism, versus pneumonia, versus pneumothorax Narrative Course During the course of the patients emergency department visit, the patients history, examination, and differential diagnosis were reviewed with the patient. The patient was placed on a cardiac nurse specialist with oximetry and frequent blood pressure monitoring. The patient had IV access obtained and blood work sent for analysis. The patient had an ECG done on arrival. The patient's ECG shows a sinus tachycardia rate of 124, borderline left axis deviation, no acute ST segment elevation is noted. QTC is 77 ms, QTC is 375 ms. The patient was initially provided a DuoNeb 1. On reexamination at approximately 9 PM the patient reported having some improvement of his shortness of breath. He reports that he does feel anxious. The patient is tremulous. The patient is on alprazolam when necessary. He denies taking anything for anxiety today. The patients laboratory studies were reviewed and remarkable for a white count of 5.8, hemoglobin 10.6, platelets 114 with 73.8 neutrophils. CMP is remarkable for a CO2 20.8, BUN 28, GFR 74, glucose 126, magnesium is 1.1 total bilirubin 1.7, CPK 48, troponin troponin I 0.02, BNP is 222, albumin 3.2. The patient was given magnesium 1 g IV. PT PTT are unremarkable, d-dimer elevated at 19. A CTA to rule out PE was ordered. Radiology studies were reviewed and remarkable for a chest x-ray that shows a partially consolidated infiltrate in the lower lateral right lung. CT scan of the thorax reveals bilateral pulmonary embolisms, lung mass, right-sided lung infiltrates, pleural effusion. The patient was started on heparin as a bolus and then IV drip. The patients results were discussed with the patient, including the plan of care. I explained that further testing and/ or monitoring is indicated based on the patients history, examination, and/ or laboratory findings. Therefore, I recommended admission for additional evaluation. The patient expressed understanding and was agreeable with this plan. The patient was admitted to the hospital in stable condition and sent to a bed under the care of [facility] service. Critical Care Narrative Aggregate critical care time was 35 minutes. Time to perform other separately billable procedures was not included in the critical care time. My time did not include minutes spent treating any other patients simultaneously or on activities that did not directly contribute to the patient's treatment. The services I provided to this patient were to treat and/or prevent clinically significant deterioration that could result in: Respiratory failure, versus hypoxic brain injury, versus cardiovascular collapse I provided critical care services requiring my management, as noted below: Chart data review, documentation time, medication orders and management, vital sign assessments/reviewing monitor data, ordering and reviewing lab tests, ordering and interpreting/reviewing x-rays and diagnostic studies, care of the patient and discussion of the patient with the admitting physicians. Physician Communication Physician Communication The patient's case including history, pertinent physical examination findings, and laboratory studies were discussed with Dr. Ring. It was agreed that the patient would be admitted to the [facility]. Diagnosis Primary Impression: Pneumonia Qualified Codes: J18.1 - Lobar pneumonia, unspecified organism Additional Impressions: COPD exacerbation Bilateral pulmonary embolism Admitting Information Admitting Physician Requests: Admit Crystal Cottrell MD Jul 31, 2017 20:43
[2017-07-31] MEDS ORDERED: RESP: ALBUTEROL 2.5 MG/IPRATROPIUM 0.5 MG NEB (SCH) INH ONE (20:45)
[2017-07-31] MEDS ORDERED: SODIUM CHLORIDE 0.9% FLUSH 10 ML FLUSH IVF PRN (20:45)
[2017-07-31 21:13] LABS: AUTOMATED NEUTROPHIL # 4.3 TH/MM3 (1.8-7.7); BASOPHIL % 0.4 % (0.0-2.0); EOSINOPHIL # 0.1 TH/MM3 (0-0.4); EOSINOPHIL % 1.2 % (0.0-4.0); HEMATOCRIT 31.1 % (39.0-51.0); HEMO FLAGS DIFF FINAL; LYMPH % 23.9 % (9.0-44.0); LYMPHOCYTE # 1.4 TH/MM3 (1.0-4.8); MEAN CELL VOLUME 87.3 FL (80.0-100.0); MEAN CORPUSCULAR HEMOGLOBIN 29.9 PG (27.0-34.0); MEAN CORPUSCULAR HGB CONC 34.2 % (32.0-36.0); MONO % 0.7 % (0.0-8.0); NEUT % 73.8 % (16.0-70.0); PLATELET COUNT 114 TH/MM3 (150-450); RED BLOOD COUNT 3.57 MIL/MM3 (4.50-5.90); RED CELL DISTRIBUTION WIDTH 14.9 % (11.6-17.2); WHITE BLOOD COUNT 5.8 TH/MM3 (4.0-11.0)
[2017-07-31] MEDS ORDERED: LORazepam 2 MG/ML VIAL IV PUSH ONE (21:15)
[2017-07-31 21:17] LABS: ANION GAP 12 MEQ/L (5-15); AST (GOT) 22 U/L (15-37); BICARBONATE 20.8 MEQ/L (21.0-32.0); BLOOD UREA NITROGEN 28 MG/DL (7-18); CHLORIDE 103 MEQ/L (98-107); GLOMERULAR FILTRATION RATE 74 ML/MIN (>89); MAGNESIUM 1.1 MG/DL (1.5-2.5); POTASSIUM 4.1 MEQ/L (3.5-5.1); SODIUM (NA) 136 MEQ/L (136-145)
[2017-07-31 21:18] LABS: ALT (GPT) 13 U/L (12-78)
[2017-07-31 21:21] LABS: ALKALINE PHOSPHATASE 72 U/L (45-117); TOTAL BILIRUBIN ADULT 1.7 MG/DL (0.2-1.0)
[2017-07-31 21:23] LABS: CREATINE KINASE 48 U/L (39-308)
--- NOTE | 2017-07-31 21:32 | RADRPT ---
EXAM DATE/TIME: 07/31/2017 21:06 [facility] COMPARISON: CHEST SINGLE AP, May 30, 2017, 15:16. INDICATIONS : Short of breath. MEDICAL HISTORY : Carcinoma, lung. SURGICAL HISTORY : Infusaport. ENCOUNTER: Initial ACUITY: 1 day PAIN SCORE: 0/10 LOCATION: Bilateral chest FINDINGS: Ill-defined air space opacities in the lateral lower right lung cause some mild loss of delineation r ight hemidiaphragm. The left lung is clear. The heart is normal in size. Cwnosv-v-Eheg catheter ti p projects at the cavoatrial junction. CONCLUSION: Partially consolidative infiltrate in the lower lateral right lung. Ariel Hector MD on July 31, 2017 at 21:30 Board Certified Radiologist. This report was verified electronically.
[2017-07-31 21:52] LABS: APTT (PATIENT) 30.1 SEC (24.3-30.1); INTERNATIONAL NORMALIZED RATIO 1.1 RATIO; PROTHROMBIN TIME - PATIENT 12.1 SEC (9.8-11.6)
[2017-07-31] MEDS ORDERED: AZITHROMYCIN INJ 500 MG in SODIUM CHLOR 0.9% 250 ML INJ 250 ML IV STA (21:55)
[2017-07-31] MEDS ORDERED: CEFEPIME INJ 2,000 MG in SODIUM CHLORIDE 0.9% INJ 100 ML IV STA (21:55)
[2017-07-31] MEDS ORDERED: SODIUM CHLOR 0.9% 1000 ML INJ 1,000 ML IV ONE (22:15)
[2017-07-31 22:20] VITALS: BP 116/68; PULSE 119; RESP 18; O2SAT 99
--- NOTE | 2017-07-31 23:10 | RADRPT ---
EXAM DATE/TIME: 07/31/2017 22:28 [facility] COMPARISON: No previous studies available for comparison. INDICATIONS : Shortness of breath. Elevated D-Dimer. History of Lung Cancer. IV CONTRAST: 50 cc Omnipaque 350 (iohexol) IV RADIATION DOSE: 5.35 CTDIvol (mGy) MEDICAL HISTORY : Cardiovascular disease. Hypertension. Carcinoma, lung.COPD SURGICAL HISTORY : Cholecystectomy. Appendectomy.Power Port ENCOUNTER: Initial ACUITY: 1 day PAIN SCALE: 0/10 LOCATION: Bilateral chest TECHNIQUE: Volumetric scanning of the chest was performed using a pulmonary embolism protocol MIP images were re constructed. Using automated exposure control and adjustment of the mA and/or kV according to patien t size, radiation dose was kept as low as reasonably achievable to obtain optimal diagnostic quality images. DICOM format image data is available electronically for review and comparison. Follow-up recommendations for detected pulmonary nodules are based at a minimum on nodule size and pa tient risk factors according to Fleischner Society Guidelines. FINDINGS: Moderate to large bilateral pulmonary emboli present, lower lobe predominant and right worse than lef t. No pulmonary artery distention or septal deviation seen. 16mm left lower lobe mass not significantly changed. There is an adjacent 5 mm nodule that appears la rger. Irregular masslike area demonstrated in the right hilum measuring 2.8 x 5.6 cm and about the sa me in size as before. There is adjacent right perihilar infiltrate. Mild streaky atelectasis seen of both lungs, basilar predominant. A broad area of groundglass infiltr ate is seen in the right lower lobe. There are small right and tiny left pleural effusions. CONCLUSION: 1. Extensive bilateral pulmonary emboli. 2. Left lower lobe and right hilar masses are again noted. The 5 mm left lower lobe pulmonary nodule that measures slightly larger. 3. Perihilar and basilar infiltrates on the right. 4. Small right and tiny left pleural effusions. 5. Splenomegaly again noted. Pete Dawn MD on July 31, 2017 at 23:04 Board Certified Radiologist. This report was verified electronically.
[2017-07-31] MEDS ORDERED: HEPARIN SODIUM - IV 10,000 UNITS/10 ML VIAL IV ONE (23:30)
[2017-07-31] MEDS: HEPARIN-D5W 25,000 U/250 ML 250 ML IV PRN (23:42)
[2017-08-01] VITALS (14 sets, daily range): BP systolic 105–158; BP diastolic 68–80; PULSE 102–139; RESP 17–24; TEMP 97.5–98.5; O2SAT 98–100
[2017-08-01] MEDS ORDERED: TEMAZEPAM 15 MG CAP PO PRN (00:15)
[2017-08-01] MEDS ORDERED: SODIUM CHLORIDE 0.9% FLUSH 10 ML FLUSH IV FLUSH PRN ×2 (00:30→08:00)
[2017-08-01] MEDS ORDERED: LORazepam 2 MG/ML VIAL IV PUSH ONE ×2 (03:45→10:30)
--- NOTE | 2017-08-01 03:54 | HHI.HP ---
[facility] Primary Care Physician Adenike Rosas MD Admission Diagnosis Pneumonia, pleural effusion, lung ca on chemo Diagnoses: Travel History International Travel<30 Days: No Contact w/Intl Traveler <30 Da: No Traveled to Known Affected Are: No History of Present Illness 72-year-old male with a past medical history significant for left lung non- small cell carcinoma, currently being treated by Dr. Pardo, COPD, hypertension, hyperlipidemia and a remote history of small cell carcinoma of the right lung presents to the emergency department with a several days history of increasing shortness of breath. The patient reports that today his dyspnea became so severe that he felt it was starting to affect his thinking. He denies any chest pain. Denies cough. He completed his second round of chemotherapy on Monday. Chest x-ray was significant for a partially consolidative infiltrate in the lower right lung. CTA showed extensive bilateral pulmonary emboli. Patient currently has an oxygen saturation of 96% on 3 L nasal cannula. He is tachycardic to 125. Review of Systems Denies fever or chills Denies blurry vision, otorrhea, rhinorrhea Denies sore throat and cough No chest pain, palpitations, positive shortness of breath No abdominal pain Denies constipation/diarrhea/nausea/vomiting Denies muscle pain/weakness No rashes Past Family Social History Past Medical History BPH COPD Hyperlipidemia Hypertension Osteoarthritis Non-small cell lung carcinoma of left lung Small cell lung cancer of right lung in 1991 status post chemotherapy/XRT Anxiety Past Surgical History Appendectomy Bone marrow biopsy Cholecystectomy Pericardiocentesis Vasectomy Reported Medications Reported Meds & Active Scripts Active Albuterol Neb (Albuterol Sulfate) 2.5 Mg/3 Ml Neb 2.5 Mg NEB Q6HR NEB PRN Nebulizer/Adult Mask (N/A) 1 Kit Kit 1 Kit .ROUTE DIRECTED Reported Hydrocodone-Acetaminophen 10-325 mg Tab 1 Tab PO Q4H PRN Ipratropium Nasal 0.06% [place] 1 [place] EACH NARE QID Multi-Vitamin Daily (Multiple Vitamin) 1 Tab Tab 1 Tab PO DAILY Gabapentin 400 Mg Cap 400 Cap PO 5X A DAY Aspirin 81 Mg Chew 81 Mg CHEW DAILY Ferrous Sulfate 325 Mg (65 Mg Iron) Tablet 325 Mg PO DAILY Temazepam 15 Mg Cap 30 Mg PO HS PRN Alprazolam 0.5 Mg Tab 0.5 Mg PO DAILY PRN Finasteride 5 Mg Tab 5 Mg PO DAILY Do not crush. Simvastatin 5 Mg Tab 5 Mg PO DAILY Metoprolol Succinate ER 24 HR (Metoprolol Succinate) 25 Mg Tab 25 Mg PO DAILY Allergies: Coded Allergies: penicillin G (Unverified Allergy, Severe, HIVES, 07/31/17) Family History Mother with hypertension. Social History Has a [id number] history of smoking, quit in 1985. Denies marijuana or alcohol use. Denies illicit drugs. Physical Exam Vital Signs Vital Signs Date Time Temp Pulse Resp B/P (MAP) Pulse Ox O2 Delivery O2 Flow Rate FiO2 08/01/17 01:36 98.0 121 24 158/80 (106) 100 08/01/17 01:33 139 08/01/17 01:10 08/01/17 00:44 98 Nasal Cannula 2.00 07/31/17 22:20 119 18 116/68 (84) 99 Nasal Cannula 3.00 07/31/17 20:43 96 Nasal Cannula 3.00 07/31/17 20:37 125 24 157/77 (103) 100 Nasal Cannula 6.00 07/31/17 20:34 100 6.00 07/31/17 20:29 97.5 124 30 190/104 (132) 100 Physical Exam GENERAL: male sitting on the side of the bed, gasping for breath SKIN: No rashes, ecchymoses or lesions. Cool and dry. HEAD: Atraumatic. Normocephalic. No temporal or scalp tenderness. EYES: Pupils equal round and reactive. Extraocular motions intact. No scleral icterus. No injection or drainage. ENT: Nose without bleeding, purulent drainage or septal hematoma. Throat without erythema, tonsillar hypertrophy or exudate. Uvula midline. Airway patent. NECK: Trachea midline. No JVD or lymphadenopathy. Supple, nontender, no meningeal signs. CARDIOVASCULAR: Tachycardic without murmurs, rubs, gallops. RESPIRATORY: Bilateral expiratory wheezes. No rhonchi, no crackles. No accessory muscle use. GASTROINTESTINAL: Abdomen soft, non-tender, nondistended. No hepato-splenomegaly , or palpable masses. No guarding. MUSCULOSKELETAL: Extremities without clubbing, cyanosis, or edema. No joint tenderness, effusion, or edema noted. No calf tenderness. Negative Homans sign bilaterally. NEUROLOGICAL: Awake and alert. Cranial nerves II through XII intact. Motor and sensory grossly within normal limits. Normal speech. Laboratory Laboratory Tests Test 07/31/17 20:10 07/31/17 20:50 Lactic Acid Level 1.3 White Blood Count 5.8 Red Blood Count 3.57 Hemoglobin 10.6 Hematocrit 31.1 Mean Corpuscular Volume 87.3 Mean Corpuscular Hemoglobin 29.9 Mean Corpuscular Hemoglobin Concent 34.2 Red Cell Distribution Width 14.9 Platelet Count 114 Mean Platelet Volume 8.1 Neutrophils (%) (Auto) 73.8 Lymphocytes (%) (Auto) 23.9 Monocytes (%) (Auto) 0.7 Eosinophils (%) (Auto) 1.2 Basophils (%) (Auto) 0.4 Neutrophils # (Auto) 4.3 Lymphocytes # (Auto) 1.4 Monocytes # (Auto) 0.0 Eosinophils # (Auto) 0.1 Basophils # (Auto) 0.0 CBC Comment DIFF FINAL Differential Comment Prothrombin Time 12.1 Prothromb Time International Ratio 1.1 Activated Partial Thromboplast Time 30.1 D-Dimer Quantitative (PE/DVT) 19.08 Blood Urea Nitrogen 28 Creatinine 0.99 Random Glucose 126 Total Protein 6.6 Albumin 3.2 Calcium Level 9.0 Magnesium Level 1.1 Alkaline Phosphatase 72 Aspartate Amino Transf (AST/SGOT) 22 Alanine Aminotransferase (ALT/SGPT) 13 Total Bilirubin 1.7 Sodium Level 136 Potassium Level 4.1 Chloride Level 103 Carbon Dioxide Level 20.8 Anion Gap 12 Estimat Glomerular Filtration Rate 74 Total Creatine Kinase 48 Troponin I 0.02 B-Type Natriuretic Peptide 222 Date/Time Source Procedure Growth Status 07/31/17 20:10 Blood Peripheral Aerobic Blood Culture Pending Received 07/31/17 20:10 Blood Peripheral Anaerobic Blood Culture Pending Received Result Diagram: 07/31/17204907/31/172049 Caprini VTE Risk Assessment Caprini VTE Risk Assessment: Mod/High Risk (score >= 2) Caprini Risk Assessment Model Point Value = 1 Point Value = 2 Point Value = 3 Point Value = 5 Age 41-60 Minor surgery BMI > 25 kg/m2 Swollen legs Varicose veins or History of unexplained or recurrent spontaneous Oral contraceptives or hormone replacement Sepsis (< 1 month) Serious lung disease, including pneumonia (< 1 month) Abnormal pulmonary function Acute myocardial infarction Congestive heart failure (< 1 month) History of inflammatory bowel disease Medical patient at bed rest Age 61-74 Arthroscopic surgery Major open surgery (> 45 min) Laparoscopic surgery (> 45 min) Malignancy Confined to bed (> 72 hours) Immobilizing plaster cast Central venous access Age >= 75 History of VTE Family history of VTE Factor V Leiden Prothrombin [id number] Lupus anticoagulant Anticardiolipin antibodies Elevated serum homocysteine Heparin-induced thrombocytopenia Other congenital or acquired thrombophilia Stroke (< 1 month) Elective arthroplasty Hip, pelvis, or leg fracture Acute spinal cord injury (< 1 month) Prophylaxis Regimen Total Risk Factor Score Risk Level Prophylaxis Regimen 0-1 Low Early ambulation 2 Moderate Order ONE of the following: *Sequential Compression Device (SCD) *Heparin 5000 units SQ BID 3-4 Higher Order ONE of the following medications: *Heparin 5000 units SQ TID *Enoxaparin/Lovenox 40 mg SQ daily (WT < 150 kg, CrCl > 30 mL/min) *Enoxaparin/Lovenox 30 mg SQ daily (WT < 150 kg, CrCl > 10-29 mL/min) *Enoxaparin/Lovenox 30 mg SQ BID (WT < 150 kg, CrCl > 30 mL/min) AND/OR *Sequential Compression Device (SCD) 5 or more Highest Order ONE of the following medications: *Heparin 5000 units SQ TID (Preferred with Epidurals) *Enoxaparin/Lovenox 40 mg SQ daily (WT < 150 kg, CrCl > 30 mL/min) *Enoxaparin/Lovenox 30 mg SQ daily (WT < 150 kg, CrCl > 10-29 mL/min) *Enoxaparin/Lovenox 30 mg SQ BID (WT < 150 kg, CrCl > 30 mL/min) AND *Sequential Compression Device (SCD) Assessment and Plan Assessment and Plan 72-year-old male with a past medical history significant for non-small cell lung carcinoma the left lung presents with bilateral PEs and a right lower lobe pneumonia. 1. PE Heparin drip Continuous pulse ox monitoring Supplemental oxygen 2. Right lower lobe pneumonia IV azithromycin/cefepime Duo nebs 3. Non-small cell lung carcinoma Oncology consulted, appreciate recommendations Patient known to Dr. Pardo 4. Hypertension/hyperlipidemia/BPH Continue home medications FEN Heart healthy diet Electrolytes: monitor and replete prn Heparin ggt Physician Certification 2 Midnight Certification Type: Admission for Inpatient Services Order for Inpatient Services The services are ordered in accordance with Medicare regulations or non- Medicare payer requirements, as applicable. In the case of services not specified as inpatient-only, they are appropriately provided as inpatient services in accordance with the 2-midnight benchmark. Estimated LOS (days): 2 2 days is the estimated time the patient will need to remain in the hospital, assuming treatment plan goals are met and no additional complications. Post-Hospital Plan: Not yet determined Blanca Ring MD Aug 01, 2017 03:54
[2017-08-01 04:16] LABS: BLOOD GAS BASE EXCESS -5.9 mmol/L (-2-2); BLOOD GAS CARBOXYHEMOGLOBIN 1.1 % (0-4); BLOOD GAS HCO3 17 mmol/L (22-26); BLOOD GAS O2 HGB SATURATION 95 % (90-100); BLOOD GAS OXYGEN CONTENT 19.8 Vol % (12.0-20.0); BLOOD GAS PCO2 24 mmHg (38-42); BLOOD GAS PO2 88 mmHg (61-120); BLOOD GAS TOTAL HGB 14.9 G/DL (12.0-16.0); TEMP CORR TO 98.6
[2017-08-01 04:18] LABS: CRITICAL VALUE YES; DRAW SITE RT RADIAL; LITER FLOW 2 L/M; NUMBER OF ARTERIAL PUNCTURES 1; OXYGEN DEVICE NASAL CANNULA
[2017-08-01 04:19] LABS: STAT YES; ULNAR PULSE PRESENT
[2017-08-01] MEDS: RESP: ALBUTEROL 2.5 MG/IPRATROPIUM 0.5 MG NEB (SCH) NEB ×5 (05:25→18:57)
[2017-08-01] MEDS: CEFEPIME INJ 2,000 MG in SODIUM CHLORIDE 0.9% INJ 100 ML IV SCH ×3 (06:44→22:35)
[2017-08-01 07:22] LABS: APTT (PATIENT) 50.9 SEC (24.3-30.1)
[2017-08-01 07:43] LABS: INTERNATIONAL NORMALIZED RATIO 1.1 RATIO; PROTHROMBIN TIME - PATIENT 12.3 SEC (9.8-11.6)
--- NOTE | 2017-08-01 08:42 | MB ---
cc: ERICK ESQUIVEL M.D. DATE OF CONSULTATION August 01, [address] Ring REASON FOR CONSULTATION Oncology is consulted to render opinion regarding patient with lung cancer admitted with bilateral pulmonary embolism. HISTORY OF PRESENT ILLNESS Mr. Cordoab is a very pleasant 72-year-old male with history of metastatic non-small cell lung cancer currently receiving chemotherapy. He presented to the hospital with increased shortness of breath and dyspnea on exertion. He has had dyspnea on exertion for last several weeks. However, yesterday morning he developed acute worsening of the dyspnea on exertion to the point that he could not concentrate and he was confused. He had decided to come into the hospital. CT angiogram showed bilateral pulmonary embolism. The patient denies any chest pain. He has mild cough which is mostly nonproductive. He denies any hemoptysis. He denies any lower extremity edema or tenderness. He has weakness. He denies any headache. He denies any visual changes. He denies any focal numbness or weakness. He denies any dysuria or hematuria. He denies any significant bone pain. He has mild paresthesias of the fingertips. PAST MEDICAL HISTORY 1. [id number] lung cancer. 2. History of the right lung small cell lung cancer. 3. Cataract. 4. Chronic obstructive pulmonary disease. 5. Hyperlipidemia. 6. Hypertension. 7. Migraine headaches. 8. Osteoarthritis. PAST SURGICAL HISTORY 1. Appendectomy. 2. Bone marrow biopsy. 3. Cholecystectomy. 4. Pericardiocenteses. 5. Vasectomy. 6. Colonoscopy. 7. Excision of skin cancer. 8. Port placement. ALLERGIES PENICILLIN G. FAMILY HISTORY Noncontributory. SOCIAL HISTORY 20 pack-year smoking history. Quit in 1985. Denies any alcohol use. CURRENT MEDICATIONS 1. Azithromycin. 2. Baby aspirin. 3. Proscar. 4. Metoprolol. 5. Pravastatin. 6. Gabapentin. 7. Cefepime. 8. DuoNebs. 9. Heparin. REVIEW OF SYSTEMS CONSTITUTION: As above. EYES: Negative. ENT: Negative. CARDIOVASCULAR: As above. RESPIRATORY: As above. GI: Denies any nausea, vomiting, abdominal pain. : No dysuria or hematuria. MUSCULOSKELETAL: Negative. HEMATOLOGY: As above. ENDOCRINE: Negative. DERMATOLOGY: Negative. PSYCHIATRIC: Negative. NEUROLOGIC: As above. PHYSICAL EXAMINATION VITAL SIGNS: Temperature 97.8, blood pressure 105/65, O2 saturation 99% on 2 liters nasal cannula. GENERAL: He is alert and oriented x3, in no acute distress. HEENT: Atraumatic, normocephalic. Pupils equal round and reactive to light. Extraocular muscles intact. No scleral icterus. Oropharynx - Dry mucosa; no lesion or thrush. NECK: No thyromegaly. No palpable masses. LYMPHATICS: No palpable cervical, clavicular, axillary or inguinal lymph nodes. CARDIOVASCULAR: Regular S1 and S2. Mildly tachycardiac. No murmur. LUNGS: Slightly decreased breath sounds at the bases. No significant wheezing or rhonchi. ABDOMEN: Soft, nontender. I could not palpate liver or spleen. EXTREMITIES: No cyanosis, clubbing or edema. No calf tenderness. BACK: No paravertebral tenderness. SKIN: No rash or petechiae. NEUROLOGIC EXAM: Nonfocal. LABORATORY DATA Reviewed. ASSESSMENT 1. Bilateral pulmonary embolism. He has had baseline dyspnea on exertion but developed acute worsening of dyspnea on exertion yesterday morning. He denies any chest pain. He has no lower extremity edema. CT angiogram showed bilateral moderate to large pulmonary emboli predominately in the lower lobe, right worse than the left. There is no evidence of right heart strain. He is mildly tachycardiac but otherwise hemodynamically stable. He has good O2 saturation. He likely developed a pulmonary embolism due to hypercoagulable state from underlying malignancy. I am going to get bilateral ultrasound of the lower extremities for further evaluation. He was started on heparin and is feeling better this morning. He will continue heparin; plan to bridge him to oral anticoagulant in another day or two when he is more stable. 2. Left lung non-small cell carcinoma. He was found to have left lung mass measuring 1.6 cm. PET scan also showed multiple left lung masses with a subcarinal enlarged lymph node. There is also bilateral small pleural effusion. Biopsy of left lung mass showed well differentiated carcinoma consistent with lung time primary, PDL1 0%, ALK and ROS1 negative. EGFR mutation also negative. He was started on carboplatin and Taxol. He received cycle #2 a week ago. It is too early to assess response. The CT angiogram showed the left lower lobe hilar mass is stable. There are still multiple nodules noted and one of them seems a little smaller. We will continue to monitor him for now. 3. History of right lung small-cell lung carcinoma treated with chemotherapy and radiation in 1991. He has chronic right perihilar infiltrate due to previous radiation. The CT angiogram, however, showed more prominent infiltrate in the right lung and he may have underlying pneumonia. He was started on antibiotic. 4. Hypertension, stable. 5. Anorexia on Megace. 6. Osteoarthritis, stable. 7. Chronic obstructive pulmonary disease. PLAN 1. Continue heparin for another day or two and bridge him to an oral anticoagulant once he is more stable. 2. Get bilateral ultrasound of the lower extremities. 3. Monitor CBC. His blood count will likely trend lower given he just had chemotherapy a week ago. Thank you Dr. Ring for asking us see this patient. We will follow the patient with you. MD SKYE Perez/BANDAR /8:03 AM /8:17 AM DYANA
[2017-08-01] MEDS ORDERED: METOPROLOL SUCCINATE 25 MG EXTENDED RELEASE TAB PO SCH (09:00)
[2017-08-01] MEDS: PRAVASTATIN SOD 10 MG TAB PO SCH (09:00)
[2017-08-01] MEDS: GABAPENTIN 400 MG CAP PO SCH ×3 (09:39→18:05)
[2017-08-01] MEDS: SODIUM CHLORIDE 0.9% FLUSH 10 ML FLUSH IV FLUSH SCH ×2 (09:39→20:23)
[2017-08-01] MEDS: ASPIRIN 81 MG CHEW TAB CHEW SCH (09:39)
[2017-08-01] MEDS: FINASTERIDE 5 MG TAB PO SCH (09:40)
--- NOTE | 2017-08-01 09:49 | RADRPT ---
EXAM DATE/TIME: 08/01/2017 08:21 [place] COMPARISON: No previous studies available for comparison. INDICATIONS : Bilateral leg swelling. Pulmonary embolism. MEDICAL HISTORY : Hypercholesterolemia. Arthritis. Carcinoma, lung. Migraines. Pericardial effusion. Pulmonary embolism . HTN. COPD. Panic attacks. Anxiety. SURGICAL HISTORY : Appendectomy.Cholecystectomy. Pericardial fluid removal. Vasectomy. Chemotherapy. Radiation therapy. ENCOUNTER: Initial ACUITY: 1 day PAIN SCORE: 0/10 LOCATION: Bilateral leg. TECHNIQUE: Venous ultrasound of the left and right leg was performed from the inguinal ligament to the proximal calf. Real-time, color Doppler and spectral tracing, compression and augmentation techniques were us ed. FINDINGS: RIGHT LEG: There is normal compressibility of the deep venous system from the inguinal region to the proximal ca lf except for tiny amount of nonocclusive thrombus in the posterior tibial vein. No echogenic clot i s seen in the lumen of the common femoral, femoral, and popliteal veins. There is a normal response of the venous system to proximal and distal augmentation and respiration. LEFT LEG: There is normal compressibility of the deep venous system from the inguinal region to the proximal ca lf. No echogenic clot is seen in the lumen of the common femoral, femoral, popliteal, and posterior tibial veins. There is a normal response of the venous system to proximal and distal augmentation an d respiration. CONCLUSION: Normal examination except for tiny amount of nonocclusive thrombus in the posterior tibial vein on th e right. Brandon Rivas MD on August 01, 2017 at 9:46 Board Certified Radiologist. This report was verified electronically.
[2017-08-01 13:28] LABS: APTT (PATIENT) 45.7 SEC (24.3-30.1)
[2017-08-01] MEDS: MAGNESIUM SULFATE 1 GM PREMIX 100 ML IV SCH ×2 (16:41→18:05)
--- NOTE | 2017-08-01 19:08 | EKG ---
Date Performed: 07/31/2017 Time Performed: 20:39:29 PTAGE: 72 years EKG: SINUS TACHYCARDIA BORDERLINE LEFT AXIS DEVIATION Since previous tracing, no significant leroy nge noted ABNORMAL RHYTHM ECG PREVIOUS TRACING : 05/11/2017 16.20 DOCTOR: Juan Cottrell Interpretating Date/Time 08/01/2017 19:07:44
[2017-08-01 19:12] LABS: ALT (GPT) 14 U/L (12-78); ANION GAP 9 MEQ/L (5-15); AST (GOT) 20 U/L (15-37); BICARBONATE 21.7 MEQ/L (21.0-32.0); BLOOD UREA NITROGEN 29 MG/DL (7-18); CHLORIDE 107 MEQ/L (98-107); GLOMERULAR FILTRATION RATE 72 ML/MIN (>89); POTASSIUM 4.2 MEQ/L (3.5-5.1); SODIUM (NA) 138 MEQ/L (136-145)
[2017-08-01 19:14] LABS: ALKALINE PHOSPHATASE 65 U/L (45-117); TOTAL BILIRUBIN ADULT 0.7 MG/DL (0.2-1.0)
[2017-08-01] MEDS: AZITHROMYCIN INJ 500 MG in SODIUM CHLOR 0.9% 250 ML INJ 250 ML IV SCH (20:21)
[2017-08-01 21:12] LABS: APTT (PATIENT) 39.7 SEC (24.3-30.1)
[2017-08-01] MEDS: HEPARIN-D5W 25,000 U/250 ML 250 ML IV PRN (22:44)
[2017-08-02] VITALS (12 sets, daily range): BP systolic 105–144; BP diastolic 76–85; PULSE 100–115; RESP 14–20; TEMP 97.5–98.4; O2SAT 96–100
[2017-08-02] MEDS: RESP: ALBUTEROL 2.5 MG/IPRATROPIUM 0.5 MG NEB (SCH) NEB ×6 (00:15→18:59)
[2017-08-02] MEDS: CEFEPIME INJ 2,000 MG in SODIUM CHLORIDE 0.9% INJ 100 ML IV SCH ×3 (05:04→22:18)
[2017-08-02] MEDS: LORazepam 2 MG/ML VIAL IV PUSH PRN (05:08)
[2017-08-02 06:07] LABS: APTT (PATIENT) 43.4 SEC (24.3-30.1)
[2017-08-02] MEDS: GABAPENTIN 400 MG CAP PO SCH ×3 (08:29→18:47)
[2017-08-02] MEDS: FINASTERIDE 5 MG TAB PO SCH (08:30)
[2017-08-02] MEDS: PRAVASTATIN SOD 10 MG TAB PO SCH (08:30)
[2017-08-02] MEDS: ASPIRIN 81 MG CHEW TAB CHEW SCH (08:30)
[2017-08-02] MEDS: SODIUM CHLORIDE 0.9% FLUSH 10 ML FLUSH IV FLUSH SCH ×2 (08:43→21:00)
--- NOTE | 2017-08-02 10:23 | PD.ONC.PN ---
Subjective Subjective Remarks Afebrile Still with SOB upon ambulation Wants to go home Objective Data Date Time Temp Pulse Resp B/P (MAP) Pulse Ox O2 Delivery O2 Flow Rate FiO2 08/02/17 08:43 98.4 108 14 124/76 (92) 96 08/02/17 07:47 96 08/02/17 05:02 98.1 109 18 117/78 (91) 98 08/02/17 00:16 99 Nasal Cannula 1.00 08/01/17 23:19 97.7 107 17 109/73 (85) 100 08/01/17 20:15 Nasal Cannula 1.00 08/01/17 20:15 98.5 112 18 113/78 (90) 99 08/01/17 20:15 112 08/01/17 16:43 95 Room Air 08/01/17 16:38 98.2 102 18 113/72 (86) 98 08/01/17 15:04 100 Nasal Cannula 1.00 08/01/17 11:45 99 Nasal Cannula 1.00 08/01/17 11:42 98.2 108 18 117/76 (90) 100 08/02/17 08/02/17 08/02/17 07:00 15:00 23:00 Intake Total 100 ml Output Total 625 ml Balance -525 ml Result Diagram: 07/31/17204908/01/17 1800 Laboratory Results Laboratory Tests Test 08/01/17 13:00 08/01/17 18:00 08/01/17 20:20 08/02/17 05:05 Activated Partial Thromboplast Time 45.7 SEC 39.7 SEC 43.4 SEC Blood Urea Nitrogen 29 MG/DL Creatinine 1.02 MG/DL Random Glucose 185 MG/DL Total Protein 6.1 GM/DL Albumin 2.9 GM/DL Calcium Level 8.3 MG/DL Alkaline Phosphatase 65 U/L Aspartate Amino Transf (AST/SGOT) 20 U/L Alanine Aminotransferase (ALT/SGPT) 14 U/L Total Bilirubin 0.7 MG/DL Sodium Level 138 MEQ/L Potassium Level 4.2 MEQ/L Chloride Level 107 MEQ/L Carbon Dioxide Level 21.7 MEQ/L Anion Gap 9 MEQ/L Estimat Glomerular Filtration Rate 72 ML/MIN Magnesium Level 1.7 MG/DL Culture Results Microbiology Date/Time Source Procedure Growth Status 07/31/17 20:10 Blood Peripheral Aerobic Blood Culture - Preliminary NO GROWTH IN 1 DAY Resulted 07/31/17 20:10 Blood Peripheral Anaerobic Blood Culture - Preliminary NO GROWTH IN 1 DAY Resulted 07/31/17 20:05 Blood Peripheral Aerobic Blood Culture - Preliminary NO GROWTH IN 1 DAY Resulted 07/31/17 20:05 Blood Peripheral Anaerobic Blood Culture - Preliminary NO GROWTH IN 1 DAY Resulted Administered Medications Medications (Trade) Dose Ordered Sig/Reggie Route PRN Reason Start Time Stop Time Status Last Admin Dose Admin Aspirin (Aspirin Chew) 81 mg DAILY CHEW 08/01/17 09:00 08/02/17 08:30 Finasteride (Proscar) 5 mg DAILY PO 08/01/17 09:00 08/02/17 08:30 Metoprolol Succinate (Toprol Xl) 25 mg DAILY PO 08/01/17 09:00 08/01/17 09:40 Pravastatin Sodium (Pravachol) 10 mg DAILY PO 08/01/17 09:00 08/02/17 08:30 Gabapentin (Neurontin) 400 mg TID PO 08/01/17 09:00 08/02/17 08:29 Sodium Chloride (NS Flush) 2 ml BID IV FLUSH 08/01/17 09:00 08/02/17 08:43 Azithromycin 500 mg/Sodium Chloride 250 ml @ 250 mls/hr Q24H IV 08/01/17 22:00 08/01/17 20:21 Cefepime HCl 2000 mg/Sodium Chloride 100 ml @ 200 mls/hr Q8H IV 08/01/17 06:00 08/02/17 05:04 Albuterol/ Ipratropium (Duoneb Neb) 1 ampule Q4HR NEB NEB 08/01/17 04:00 08/02/17 07:46 Heparin Sodium (Porcine) (Heparin Central Flush) 250 units UNSCH PRN IV FLUSH SEE PROTOCOL TABLE 08/01/17 08:00 08/01/17 09:39 Lorazepam (Ativan Inj) 1 mg Q6H PRN IV PUSH ANXIETY 08/01/17 12:30 08/02/17 05:08 Objective Remarks GENERAL: Older male asleep in bed on approach. Awakens easily to verbal stimuli SKIN: Warm and dry. HEAD: Normocephalic. EYES: No scleral icterus. NECK: No JVD or lymphadenopathy. CARDIOVASCULAR: + S1/S2. Tachycardia. RESPIRATORY: Clear anteriorly. Breathing unlabored at rest. GASTROINTESTINAL: Abdomen soft, non-tender, nondistended. EXTREMITIES: No cyanosis MUSCULOSKELETAL: Adequate muscle tone. NEUROLOGICAL: No obvious focal deficit. Awake, alert, and oriented x3. Assessment/Plan Problem List: (1) Bilateral pulmonary embolism ICD Codes: I26.99 - Other pulmonary embolism without acute cor pulmonale Status: Acute Plan: -- CT angiogram showed bilateral pulmonary embolism predominantly in the lower lobe, right worse than left. -- No evidence of right heart strain -- Likely developed pulmonary embolism due to hypercoagulable state from underlying malignancy -- Plan to bridge to Pradaxa today -- US shows small nonocclusive thrombus to R tibial vein (2) Non-small cell carcinoma of lung ICD Codes: C34.90 - Malignant neoplasm of unspecified part of unspecified bronchus or lung Plan: -- Patient is status post 2 cycles of chemotherapy with carboplatin and Taxol -- He was found to have a left lung mass measuring 1.6 cm -- It is too early to assess for response after only 2 cycles -- Plan to continue chemotherapy as outpatient Assessment 72-year-old male with non-small cell lung cancer diagnosed with bilateral pulmonary embolism Plan 1. Transition from heparin to Pradaxa today 2. Keep him inpatient at least 1 more day until he is breathing better with ambulation 3. Once discharged will follow-up outpatient for further chemotherapy Attending Statement The exam, history, and the medical decision-making described in the above note were completed with the assistance of the mid-level provider. I reviewed and agree with the findings presented. I attest that I had a [id number] encounter with the patient on the same day, and personally performed and documented my assessment and findings in the medical record. SOB slightly better still has dyspnea on exertion. Transition to pradaxa today. Continue to monitor and possbile d/c in 1 -2 days. Continue abx per primary team Lurdes Fu Aug 02, 2017 10:23 Nelson Pardo MD Aug 02, 2017 14:55
[2017-08-02] MEDS: DABIGATRAN ETEXILATE 150 MG CAP PO SCH ×2 (11:34→21:18)
[2017-08-02 12:20] LABS: APTT (PATIENT) 26.7 SEC (24.3-30.1)
--- NOTE | 2017-08-02 14:07 | HHI.PR ---
Subjective Remarks Nursing denies any deterioration since last night. Patient reports still being slightly short of breath but better than yesterday. Denies any nausea vomiting. Objective Vital Signs Date Time Temp Pulse Resp B/P (MAP) Pulse Ox O2 Delivery O2 Flow Rate FiO2 08/02/17 12:07 100 Nasal Cannula 1.00 08/02/17 08:43 98.4 108 14 124/76 (92) 96 08/02/17 08:00 109 08/02/17 08:00 Room Air 08/02/17 07:47 96 08/02/17 05:02 98.1 109 18 117/78 (91) 98 08/02/17 00:16 99 Nasal Cannula 1.00 08/01/17 23:19 97.7 107 17 109/73 (85) 100 08/01/17 20:15 Nasal Cannula 1.00 08/01/17 20:15 98.5 112 18 113/78 (90) 99 08/01/17 20:15 112 08/01/17 16:43 95 Room Air 08/01/17 16:38 98.2 102 18 113/72 (86) 98 08/01/17 15:04 100 Nasal Cannula 1.00 I/O 08/01/17 08/01/17 08/01/17 08/02/17 08/02/17 08/02/17 07:00 15:00 23:00 07:00 15:00 23:00 Intake Total 425 ml 100 ml 350 ml 100 ml Output Total 625 ml Balance 425 ml 100 ml 350 ml -525 ml Intake IV Total 425 ml 100 ml 350 ml 100 ml Output Urine Total 625 ml Result Diagram: 07/31/17204908/01/17 1800 Objective Remarks Slightly tachypnea, slightly labored breathing, no cyanosis, does have some mild wheezing in expiratory phases mild resp distress A/P Assessment and Plan Pulmonary emboli - Pradaxa per hematology oncology SOB - likely multifactorial w/ PNA, PE, and also newly diagnosed bronchitis component with possible COPD exacerbation 2/2 PNA - continue abx - starting solumedrol, continue duonebs Right lower lobe pneumonia IV azithromycin/cefepime Duo nebs Non-small cell lung carcinoma Oncology consulted, appreciate recommendations Patient known to Dr. Pardo Hypertension/hyperlipidemia/BPH Continue home medications FEN Heart healthy diet Electrolytes: monitor and replete prn James Rao MD Aug 02, 2017 14:07
[2017-08-02] MEDS: methylPREDNISolone SOD SUCC 125 MG/2 ML VIAL IV PUSH SCH ×2 (15:05→22:17)
[2017-08-02] MEDS: METOPROLOL SUCCINATE 25 MG EXTENDED RELEASE TAB PO SCH (21:18)
[2017-08-02] MEDS: AZITHROMYCIN INJ 500 MG in SODIUM CHLOR 0.9% 250 ML INJ 250 ML IV SCH (21:20)
[2017-08-03] VITALS (7 sets, daily range): BP systolic 118–144; BP diastolic 70–91; PULSE 106–117; RESP 18–24; TEMP 97.7–98.2; O2SAT 97–99
[2017-08-03] MEDS: RESP: ALBUTEROL 2.5 MG/IPRATROPIUM 0.5 MG NEB (SCH) NEB ×6 (00:32→19:51)
[2017-08-03] MEDS: LORazepam 2 MG/ML VIAL IV PUSH PRN ×3 (00:59→14:18)
[2017-08-03] MEDS: methylPREDNISolone SOD SUCC 125 MG/2 ML VIAL IV PUSH SCH ×3 (05:04→21:54)
[2017-08-03] MEDS: CEFEPIME INJ 2,000 MG in SODIUM CHLORIDE 0.9% INJ 100 ML IV SCH ×3 (05:05→21:52)
[2017-08-03 05:52] LABS: AUTOMATED NEUTROPHIL # 4.1 TH/MM3 (1.8-7.7); BASOPHIL % 0.2 % (0.0-2.0); HEMATOCRIT 27.1 % (39.0-51.0); HEMO FLAGS DIFF FINAL; LYMPH % 13.3 % (9.0-44.0); LYMPHOCYTE # 0.6 TH/MM3 (1.0-4.8); MEAN CELL VOLUME 87.9 FL (80.0-100.0); MEAN CORPUSCULAR HEMOGLOBIN 29.8 PG (27.0-34.0); MEAN CORPUSCULAR HGB CONC 33.9 % (32.0-36.0); MONO % 0.4 % (0.0-8.0); NEUT % 86.1 % (16.0-70.0); PLATELET COUNT 151 TH/MM3 (150-450); RED BLOOD COUNT 3.08 MIL/MM3 (4.50-5.90); RED CELL DISTRIBUTION WIDTH 15.5 % (11.6-17.2); WHITE BLOOD COUNT 4.7 TH/MM3 (4.0-11.0)
[2017-08-03 06:10] LABS: ALT (GPT) 21 U/L (12-78); ANION GAP 10 MEQ/L (5-15); AST (GOT) 15 U/L (15-37); BICARBONATE 19.6 MEQ/L (21.0-32.0); BLOOD UREA NITROGEN 33 MG/DL (7-18); CHLORIDE 108 MEQ/L (98-107); GLOMERULAR FILTRATION RATE 66 ML/MIN (>89); POTASSIUM 4.7 MEQ/L (3.5-5.1); SODIUM (NA) 138 MEQ/L (136-145)
[2017-08-03 06:12] LABS: ALKALINE PHOSPHATASE 67 U/L (45-117); TOTAL BILIRUBIN ADULT 0.5 MG/DL (0.2-1.0)
--- NOTE | 2017-08-03 08:03 | PD.ONC.PN ---
Subjective Subjective Remarks Still has CALLAWAY and weakness, did not get outt of bed yesterday. No CP. Objective Data Date Time Temp Pulse Resp B/P (MAP) Pulse Ox O2 Delivery O2 Flow Rate FiO2 08/02/17 23:32 98.0 103 18 105/77 (86) 100 08/02/17 20:50 115 08/02/17 20:50 Nasal Cannula 1.00 08/02/17 20:00 98.0 100 20 144/85 (104) 99 08/02/17 17:15 98.0 110 16 136/78 (97) 99 08/02/17 15:02 98 Nasal Cannula 1.00 08/02/17 12:07 100 Nasal Cannula 1.00 08/02/17 12:00 97.5 107 18 124/76 (92) 96 08/02/17 08:43 98.4 108 14 124/76 (92) 96 08/02/17 08:00 109 08/02/17 08:00 Room Air 08/03/17 08/03/17 08/03/17 07:00 15:00 23:00 Intake Total 340 ml Output Total 525 ml Balance -185 ml Result Diagram: 08/03/17 0500 08/03/17 0500 Laboratory Results Laboratory Tests Test 08/02/17 10:55 08/03/17 05:00 Activated Partial Thromboplast Time 26.7 SEC White Blood Count 4.7 TH/MM3 Red Blood Count 3.08 MIL/MM3 Hemoglobin 9.2 GM/DL Hematocrit 27.1 % Mean Corpuscular Volume 87.9 FL Mean Corpuscular Hemoglobin 29.8 PG Mean Corpuscular Hemoglobin Concent 33.9 % Red Cell Distribution Width 15.5 % Platelet Count 151 TH/MM3 Mean Platelet Volume 7.7 FL Neutrophils (%) (Auto) 86.1 % Lymphocytes (%) (Auto) 13.3 % Monocytes (%) (Auto) 0.4 % Eosinophils (%) (Auto) 0.0 % Basophils (%) (Auto) 0.2 % Neutrophils # (Auto) 4.1 TH/MM3 Lymphocytes # (Auto) 0.6 TH/MM3 Monocytes # (Auto) 0.0 TH/MM3 Eosinophils # (Auto) 0.0 TH/MM3 Basophils # (Auto) 0.0 TH/MM3 CBC Comment DIFF FINAL Differential Comment Blood Urea Nitrogen 33 MG/DL Creatinine 1.10 MG/DL Random Glucose 173 MG/DL Total Protein 6.2 GM/DL Albumin 3.0 GM/DL Calcium Level 8.4 MG/DL Alkaline Phosphatase 67 U/L Aspartate Amino Transf (AST/SGOT) 15 U/L Alanine Aminotransferase (ALT/SGPT) 21 U/L Total Bilirubin 0.5 MG/DL Sodium Level 138 MEQ/L Potassium Level 4.7 MEQ/L Chloride Level 108 MEQ/L Carbon Dioxide Level 19.6 MEQ/L Anion Gap 10 MEQ/L Estimat Glomerular Filtration Rate 66 ML/MIN Culture Results Microbiology Date/Time Source Procedure Growth Status 07/31/17 20:10 Blood Peripheral Aerobic Blood Culture - Preliminary NO GROWTH IN 2 DAYS Resulted 07/31/17 20:10 Blood Peripheral Anaerobic Blood Culture - Preliminary NO GROWTH IN 2 DAYS Resulted 07/31/17 20:05 Blood Peripheral Aerobic Blood Culture - Preliminary NO GROWTH IN 2 DAYS Resulted 07/31/17 20:05 Blood Peripheral Anaerobic Blood Culture - Preliminary NO GROWTH IN 2 DAYS Resulted Administered Medications Medications (Trade) Dose Ordered Sig/Reggie Route PRN Reason Start Time Stop Time Status Last Admin Dose Admin Aspirin (Aspirin Chew) 81 mg DAILY CHEW 08/01/17 09:00 08/02/17 08:30 Finasteride (Proscar) 5 mg DAILY PO 08/01/17 09:00 08/02/17 08:30 Temazepam (Restoril) 30 mg HS PRN PO INSOMNIA 08/01/17 00:15 08/02/17 21:18 Pravastatin Sodium (Pravachol) 10 mg DAILY PO 08/01/17 09:00 08/02/17 08:30 Gabapentin (Neurontin) 400 mg TID PO 08/01/17 09:00 08/02/17 18:47 Sodium Chloride (NS Flush) 2 ml BID IV FLUSH 08/01/17 09:00 08/02/17 21:00 Azithromycin 500 mg/Sodium Chloride 250 ml @ 250 mls/hr Q24H IV 08/01/17 22:00 08/02/17 21:20 Cefepime HCl 2000 mg/Sodium Chloride 100 ml @ 200 mls/hr Q8H IV 08/01/17 06:00 08/03/17 05:05 Albuterol/ Ipratropium (Duoneb Neb) 1 ampule Q4HR NEB NEB 08/01/17 04:00 08/03/17 04:54 Heparin Sodium (Porcine) (Heparin Central Flush) 250 units UNSCH PRN IV FLUSH SEE PROTOCOL TABLE 08/01/17 08:00 08/01/17 09:39 Lorazepam (Ativan Inj) 1 mg Q6H PRN IV PUSH ANXIETY 08/01/17 12:30 08/03/17 00:59 Dabigatran (Pradaxa) 150 mg BID PO 08/02/17 09:15 08/02/17 21:18 Methylprednisolone Sodium Succinate (SoluMEDROL INJ) 125 mg Q8HR IV PUSH 08/02/17 14:00 08/03/17 05:04 Metoprolol Succinate (Toprol Xl) 25 mg HS PO 08/02/17 21:00 08/02/17 21:18 Objective Remarks GENERAL: Well-nourished, well-developed patient. Weak SKIN: Warm and dry. HEAD: Normocephalic. EYES: No scleral icterus. No injection or drainage. NECK: Supple, trachea midline. No JVD or lymphadenopathy. LYMPHATIC: No adenopathy. CARDIOVASCULAR: Regular rate and rhythm without murmurs. RESPIRATORY: Breath sounds basilar crackles. No accessory muscle use. GASTROINTESTINAL: Abdomen soft, non-tender, nondistended. EXTREMITIES: No cyanosis, or edema. MUSCULOSKELETAL: Adequate muscle tone. NEUROLOGICAL: No obvious focal deficit. Awake, alert, and oriented x3. PSYCHIATRIC: Appropriate mood and affect; insight and judgment normal. Assessment/Plan Problem List: (1) Bilateral pulmonary embolism ICD Codes: I26.99 - Other pulmonary embolism without acute cor pulmonale Status: Acute Plan: -- CT angiogram showed bilateral pulmonary embolism predominantly in the lower lobe, right worse than left. -- No evidence of right heart strain -- Likely developed pulmonary embolism due to hypercoagulable state from underlying malignancy -- Tolerating Pradaxa -- US shows small nonocclusive thrombus to R tibial vein, no LE edema. (2) Non-small cell carcinoma of lung ICD Codes: C34.90 - Malignant neoplasm of unspecified part of unspecified bronchus or lung Plan: -- Patient is status post 2 cycles of chemotherapy with carboplatin and Taxol -- He was found to have a left lung mass measuring 1.6 cm -- It is too early to assess for response after only 2 cycles -- Plan to continue chemotherapy as outpatient (3) COPD exacerbation ICD Codes: J44.1 - Chronic obstructive pulmonary disease with (acute) exacerbation Status: Acute Plan: -CT showed possible pneumonia and infiltrate in right lung -On Steroid and antibiotics -Culture negative to date -Still has significant dyspnea. Pt is seeing Dr.Steven Foster as outpt. He is requesting pulmonology evaluation as he still has SOB with minimal exertion. Assessment 72-year-old male with non-small cell lung cancer diagnosed with bilateral pulmonary embolism Plan 1. Continue Pradaxa 2. Keep him inpatient until he is breathing better with ambulation 3. Consult PT 4. Consult pulmonology 5. Once discharged will follow-up outpatient for further chemotherapy Nelson Pardo MD Aug 03, 2017 08:03
[2017-08-03] MEDS: ASPIRIN 81 MG CHEW TAB CHEW SCH (10:01)
[2017-08-03] MEDS: DABIGATRAN ETEXILATE 150 MG CAP PO SCH ×2 (10:02→21:51)
[2017-08-03] MEDS: GABAPENTIN 400 MG CAP PO SCH ×3 (10:02→19:00)
[2017-08-03] MEDS: FINASTERIDE 5 MG TAB PO SCH (10:02)
[2017-08-03] MEDS: PRAVASTATIN SOD 10 MG TAB PO SCH (10:03)
--- NOTE | 2017-08-03 13:53 | HHI.PR ---
Subjective Remarks Nursing reports no deteriorations overnight however the patient does report that he is very winded lying down flat. He says this gets substantially better when sitting up, has had this problem for the past couple of months. Thinks that from a breathing standpoint he is not ready to be at home at this time, is wanting to go home but feels that he will be calling for help if he was to be discharged today. Pt reports having asbestos in his lungs. Objective Vital Signs Date Time Temp Pulse Resp B/P (MAP) Pulse Ox O2 Delivery O2 Flow Rate FiO2 08/03/17 13:29 97.7 117 24 144/91 (108) 97 08/03/17 10:59 98.0 112 24 137/89 (105) 97 08/03/17 08:20 99 Nasal Cannula 1.00 08/03/17 08:00 106 08/02/17 23:32 98.0 103 18 105/77 (86) 100 08/02/17 20:50 115 08/02/17 20:50 Nasal Cannula 1.00 08/02/17 20:00 98.0 100 20 144/85 (104) 99 08/02/17 17:15 98.0 110 16 136/78 (97) 99 08/02/17 15:02 98 Nasal Cannula 1.00 I/O 08/02/17 08/02/17 08/02/17 08/03/17 08/03/17 08/03/17 07:00 15:00 23:00 07:00 15:00 23:00 Intake Total 200 ml 1250 ml 340 ml Output Total 625 ml 500 ml 525 ml Balance -425 ml 750 ml -185 ml Intake Oral 600 ml 240 ml IV Total 200 ml 650 ml 100 ml Output Urine Total 625 ml 500 ml 525 ml # Bowel Movements 0 Result Diagram: 08/03/17 0500 08/03/17 0500 Objective Remarks Very mildly labored breathing, no obvious JVD, no lower extremity edema Sitting up, saturating at 98% on room air Increase breath sounds with faint wheezing heard today in comparison to yesterday - overall better A/P Assessment and Plan Pulmonary emboli - Pradaxa per hematology oncology SOB - orthopnea component - likely worsened w/ PE present, will start Lasix and obtain echo - likely multifactorial w/ PNA, PE, and also newly diagnosed bronchitis component with suspected chronic lung dx - continue abx - Improved, continue with lower dose Solu-Medrol and duo nebs - Pulmonology consulted per hematology Right lower lobe pneumonia will transition to ceftin upon discharge w/ zwillemck, continue for now with IV azithromycin/cefepime Millero camron Non-small cell lung carcinoma Oncology consulted, appreciate recommendations Patient known to Dr. Pardo Hypertension/hyperlipidemia/BPH Continue home medications FEN Heart healthy diet Electrolytes: monitor and replete prn James Rao MD Aug 03, 2017 13:53
--- NOTE | 2017-08-03 14:58 | RADRPT ---
EXAM DATE/TIME: 08/03/2017 14:33 [facility] COMPARISON: CT PULMONARY ANGIOGRAM, July 31, 2017, 22:28. INDICATIONS : Short of breath. MEDICAL HISTORY : Carcinoma, lung. Hypertension Cardiovascular disease. COPD. SURGICAL HISTORY : Cholecystectomy. Appendectomy.Power Port ENCOUNTER: Subsequent ACUITY: 3 days PAIN SCORE: 0/10 LOCATION: Bilateral chest FINDINGS: There is a paucity of lung markings in the upper right chest which correlates with findings on CT pul monary angiogram of oligemia related to pulmonary embolism and emphysema. There are patchy infiltrat es in the right lower lung with loss of delineation of the right hemidiaphragm. There is also blunti ng of the right costophrenic angle cystic pleural effusion. Left lung is clear. The heart is normal in size. [id number] catheter tip in the right atrium. CONCLUSION: Oligemia right upper lung, infiltrates in right lower lung, and right pleural effusion. Ariel Hector MD on August 03, 2017 at 14:46 Board Certified Radiologist. This report was verified electronically.
--- NOTE | 2017-08-03 15:11 | MB ---
cc: [facility] DATE OF CONSULTATION: 08/03/[address] Garcia. REASON FOR CONSULTATION Pulmonary embolism. HISTORY OF PRESENT ILLNESS Mr. Cordoba is a pleasant 72-year-old male with history of CA of the right side of the lung over 20 some years ago. He received radiation therapy. Now he was diagnosed with non-small cell carcinoma of the left lung. He is following with Dr. Pardo and he has received three cycles of chemotherapy. He came to the hospital with shortness of breath for about 24 hours or so. He did not have any chest pain, no nausea or vomiting, no fever or chills. He was evaluated in the emergency room and he had a CT of the chest which shows extensive bilateral pulmonary emboli, has left lower lobe, left hilar masses and 5 mm left lower lobe pulmonary nodule. His WBC is 24.7, hemoglobin 9.2, hematocrit 27.1, MCV 87, platelet count 151. His sodium is 138, potassium 4.7, chloride 108, CO2 19, BUN 33, creatinine 1.10. Blood gas pH 7.47, PCO2 24, pO2 88 on 2 liters nasal cannula. PAST MEDICAL HISTORY 1. CA of the right lung, status post radiation treatment 20 years ago. 2. CA of the left lung, now on chemotherapy. 3. History of COPD. 4. History of hernia surgery. 6. Cholecystectomy. MEDICATIONS He is on: 1. Solu-Medrol 125 mg q.8 hours. 2. Toprol 25 mg a day. 3. Pradaxa 150 mg twice a day. 4. Zithromax 500 mg daily. 5. Ativan 1 mg q. 6-hours. 6. Proscar 5 mg a day. 7. Pravastatin 10 mg a day. 8. Neurontin 400 mg three times a day. 9. Cefepime 2 grams q.8 hours. 10. Temazepam 30 mg a day. ALLERGIES PENICILLIN. SOCIAL HISTORY He is twice. He has history of smoking which he quit 20 years ago. He used to drink before. He worked as a acharya. FAMILY HISTORY He has grown children. REVIEW OF SYSTEMS Weight is stable. No headache or dizziness. No nausea, vomiting. No prior DVT or pulmonary embolism. PHYSICAL EXAMINATION GENERAL: A pleasant elderly male, not in acute distress. VITAL SIGNS: Blood pressure 137/89, heart rate 112, respirations 24, temperature 98. HEENT: Pupils are equal and reactive to light. Oral mucosa and nasal mucosa normal. NECK: JVP not elevated. CHEST: Equal bilateral air entry. No rhonchi. CVS: S1, S2, normal. ABDOMEN: Benign. EXTREMITIES: No clubbing, cyanosis or edema. IMPRESSION 1. Bilateral pulmonary emboli. 2. COPD. 3. CA of the left lung, on chemotherapy. 4. History of CA of the right lung, status post radiation treatment. 5. Cholecystectomy. PLAN He is on Pradaxa which he will need for at least 6-months, maybe longer duration because of his underlying malignancy. Continue aerosol treatment, IV Solu-Medrol and antibiotics, supplement his oxygen. Will evaluate him for home oxygen therapy. Further treatment depending on the course in the hospital. Thank you Dr. Garcia for this consultation. MD BETH Romero/THADDEUS /1:21 PM /2:26 PM DYANA
[2017-08-03] MEDS: FUROSEMIDE 40 MG/4 ML VIAL IV PUSH SCH ×2 (19:00→21:00)
[2017-08-03] MEDS: SODIUM CHLORIDE 0.9% FLUSH 10 ML FLUSH IV FLUSH SCH ×2 (19:01→22:00)
[2017-08-03] MEDS: METOPROLOL SUCCINATE 25 MG EXTENDED RELEASE TAB PO SCH (21:52)
[2017-08-03] MEDS: AZITHROMYCIN INJ 500 MG in SODIUM CHLOR 0.9% 250 ML INJ 250 ML IV SCH (22:07)
[2017-08-04] VITALS (9 sets, daily range): BP systolic 117–153; BP diastolic 60–96; PULSE 95–111; RESP 18–22; TEMP 97.8–98.7; O2SAT 96–99
[2017-08-04] MEDS: RESP: ALBUTEROL 2.5 MG/IPRATROPIUM 0.5 MG NEB (SCH) NEB ×4 (00:11→13:54)
[2017-08-04] MEDS: LORazepam 2 MG/ML VIAL IV PUSH PRN (00:18)
[2017-08-04] MEDS: CEFEPIME INJ 2,000 MG in SODIUM CHLORIDE 0.9% INJ 100 ML IV SCH ×2 (05:19→13:03)
[2017-08-04] MEDS: methylPREDNISolone SOD SUCC 125 MG/2 ML VIAL IV PUSH SCH ×2 (05:19→13:06)
--- NOTE | 2017-08-04 08:28 | PD.ONC.PN ---
Subjective Subjective Remarks Afebrile overnight Pt reports he feels like he is breathing somewhat better today Hoping to go home Asking for a prescription for a wheeled walker with seat Objective Data Date Time Temp Pulse Resp B/P (MAP) Pulse Ox O2 Delivery O2 Flow Rate FiO2 08/04/17 07:59 99 Nasal Cannula 1.00 08/04/17 05:26 97.9 100 18 129/60 (83) 99 08/04/17 04:05 105 08/04/17 00:07 97.8 95 20 117/75 (89) 99 08/04/17 00:03 100 08/03/17 21:50 98.2 110 18 118/70 (86) 99 08/03/17 21:50 Room Air 08/03/17 20:03 114 08/03/17 19:51 99 Nasal Cannula 2.50 08/03/17 13:29 97.7 117 24 144/91 (108) 97 08/03/17 10:59 98.0 112 24 137/89 (105) 97 Result Diagram: 08/03/17 0500 08/03/17 0500 Administered Medications Medications (Trade) Dose Ordered Sig/Reggie Route PRN Reason Start Time Stop Time Status Last Admin Dose Admin Aspirin (Aspirin Chew) 81 mg DAILY CHEW 08/01/17 09:00 08/03/17 10:01 Finasteride (Proscar) 5 mg DAILY PO 08/01/17 09:00 08/03/17 10:02 Temazepam (Restoril) 30 mg HS PRN PO INSOMNIA 08/01/17 00:15 08/02/17 21:18 Pravastatin Sodium (Pravachol) 10 mg DAILY PO 08/01/17 09:00 08/03/17 10:03 Gabapentin (Neurontin) 400 mg TID PO 08/01/17 09:00 08/03/17 19:00 Sodium Chloride (NS Flush) 2 ml BID IV FLUSH 08/01/17 09:00 08/03/17 22:00 Azithromycin 500 mg/Sodium Chloride 250 ml @ 250 mls/hr Q24H IV 08/01/17 22:00 08/03/17 22:07 Cefepime HCl 2000 mg/Sodium Chloride 100 ml @ 200 mls/hr Q8H IV 08/01/17 06:00 08/04/17 05:19 Albuterol/ Ipratropium (Duoneb Neb) 1 ampule Q4HR NEB NEB 08/01/17 04:00 08/04/17 07:59 Heparin Sodium (Porcine) (Heparin Central Flush) 250 units UNSCH PRN IV FLUSH SEE PROTOCOL TABLE 08/01/17 08:00 08/01/17 09:39 Lorazepam (Ativan Inj) 1 mg Q6H PRN IV PUSH ANXIETY 08/01/17 12:30 08/04/17 00:18 Dabigatran (Pradaxa) 150 mg BID PO 08/02/17 09:15 08/03/17 21:51 Metoprolol Succinate (Toprol Xl) 25 mg HS PO 08/02/17 21:00 08/03/17 21:52 Furosemide (Lasix Inj) 40 mg BID IV PUSH 08/03/17 14:00 08/03/17 19:00 Methylprednisolone Sodium Succinate (SoluMEDROL INJ) 60 mg Q8HR IV PUSH 08/03/17 22:00 08/04/17 05:19 Objective Remarks GENERAL: Older male sitting up in bed getting a breathing treatment in no distress. SKIN: Warm and dry. HEAD: Normocephalic. EYES: No scleral icterus. NECK: No JVD or lymphadenopathy. CARDIOVASCULAR: + S1/S2. Tachycardia. RESPIRATORY: Few scattered wheezes. On 2L NC. Breathing unlabored at rest. GASTROINTESTINAL: Abdomen soft, non-tender, nondistended. EXTREMITIES: No cyanosis. No edema. MUSCULOSKELETAL: Adequate muscle tone. NEUROLOGICAL: No obvious focal deficit. Awake, alert, and oriented x3. Assessment/Plan Problem List: (1) Bilateral pulmonary embolism ICD Codes: I26.99 - Other pulmonary embolism without acute cor pulmonale Status: Acute Plan: -- CT angiogram showed bilateral pulmonary embolism predominantly in the lower lobe, right worse than left. -- No evidence of right heart strain -- Likely developed pulmonary embolism due to hypercoagulable state from underlying malignancy -- Tolerating Pradaxa -- US shows small nonocclusive thrombus to R tibial vein, no LE edema. (2) Non-small cell carcinoma of lung ICD Codes: C34.90 - Malignant neoplasm of unspecified part of unspecified bronchus or lung Plan: -- Patient is status post 2 cycles of chemotherapy with carboplatin and Taxol -- He was found to have a left lung mass measuring 1.6 cm -- It is too early to assess for response after only 2 cycles -- Plan to continue chemotherapy as outpatient (3) COPD exacerbation ICD Codes: J44.1 - Chronic obstructive pulmonary disease with (acute) exacerbation Status: Acute Plan: -CT showed possible pneumonia and infiltrate in right lung -On Steroid and antibiotics -Culture negative to date -Still has significant dyspnea. Pt is seeing Dr.Steven Foster as outpt. He is requesting pulmonology evaluation as he still has SOB with minimal exertion. Assessment 72-year-old male with non-small cell lung cancer diagnosed with bilateral pulmonary embolism Plan 1. Breathing somewhat improved; will defer to pulmonology for safe discharge 2. Pt given a prescription for wheeled walker with seat. 3. Continue Pradaxa; monitor CBC 4. F/U in clinic after discharge to discuss further chemotherapy Attending Statement The exam, history, and the medical decision-making described in the above note were completed with the assistance of the mid-level provider. I reviewed and agree with the findings presented. I attest that I had a [id number] encounter with the patient on the same day, and personally performed and documented my assessment and findings in the medical record.Able to walk with PT yesterday, SOB improved. Evaluated by , appreciate help. Will need home o2. Can be d/c when home O2 can be arranged. Lurdes Fu Aug 04, 2017 08:28 Nelson Pardo MD Aug 04, 2017 09:55
[2017-08-04] MEDS: PRAVASTATIN SOD 10 MG TAB PO SCH (08:44)
[2017-08-04] MEDS: ASPIRIN 81 MG CHEW TAB CHEW SCH (08:45)
[2017-08-04] MEDS: FINASTERIDE 5 MG TAB PO SCH (08:45)
[2017-08-04] MEDS: FUROSEMIDE 40 MG/4 ML VIAL IV PUSH SCH (08:45)
[2017-08-04] MEDS: DABIGATRAN ETEXILATE 150 MG CAP PO SCH (08:45)
[2017-08-04] MEDS: GABAPENTIN 400 MG CAP PO SCH ×3 (08:45→17:19)
[2017-08-04] MEDS: SODIUM CHLORIDE 0.9% FLUSH 10 ML FLUSH IV FLUSH SCH (08:45)
[2017-08-04] MEDS ORDERED: LORazepam 1 MG TAB PO ONE (10:30)
--- NOTE | 2017-08-04 11:51 | HHI.FF ---
Face to Face Verification Diagnosis: (1) Exertional dyspnea (2) Bilateral pulmonary embolism (3) Non-small cell carcinoma of lung Physical Therapy Order: Evaluate and Treat, Improve ambulation, Strength and gait training Home Health Nursing Order: Medical education I have seen patient Pete CordobaJr on 08/04/17. My clinical findings support the need for the requested home health care services because: Ltd mobility - disease progression I certify that my clinical findings support that this patient is homebound because: Hx COPD- exertion dyspnea/weakness Unsafe to leave home unassisted James Garcia MD Aug 04, 2017 11:51
[2017-08-04] MEDS ORDERED: PRAD150C PO (14:28)
[2017-08-04] MEDS ORDERED: PRED10PA PO (14:28)
[2017-08-04] MEDS ORDERED: CEFD300C PO (14:28)
--- NOTE | 2017-08-04 14:34 | HHI.PR ---
Subjective Remarks 72 YOWM with Bilat PE,Ca lung,COPD Feels better No CP Denies sob No cough or sp Objective Vital Signs Vital Signs Date Time Temp Pulse Resp B/P (MAP) Pulse Ox O2 Delivery O2 Flow Rate FiO2 08/04/17 13:54 98 21 08/04/17 10:57 96 Room Air 08/04/17 08:55 98.7 111 22 153/96 (115) 97 08/04/17 07:59 99 Nasal Cannula 1.00 08/04/17 05:26 97.9 100 18 129/60 (83) 99 08/04/17 04:05 105 08/04/17 00:07 97.8 95 20 117/75 (89) 99 08/04/17 00:03 100 08/03/17 21:50 98.2 110 18 118/70 (86) 99 08/03/17 21:50 Room Air 08/03/17 20:03 114 08/03/17 19:51 99 Nasal Cannula 2.50 I/O 08/03/17 08/03/17 08/03/17 08/04/17 08/04/17 08/04/17 07:00 15:00 23:00 07:00 15:00 23:00 Intake Total 340 ml 480 ml Output Total 525 ml 600 ml Balance -185 ml -120 ml Intake Oral 240 ml 480 ml IV Total 100 ml Output Urine Total 525 ml 600 ml Result Diagram: 08/03/17 0500 08/03/17 0500 Objective Remarks GENERAL: MBMN WM, NAD SKIN: Warm and dry. HEAD: Normocephalic. EYES: No scleral icterus. No injection or drainage. NECK: Supple, trachea midline. No JVD or lymphadenopathy. CARDIOVASCULAR: Regular rate and rhythm without murmurs, gallops, or rubs. RESPIRATORY: Breath sounds equal bilaterally. No accessory muscle use. GASTROINTESTINAL: Abdomen soft, non-tender, nondistended. MUSCULOSKELETAL: No cyanosis, or edema. BACK: Nontender without obvious deformity. No CVA tenderness. A/P Assessment and Plan Bilat PE COPD NSCLC, left, on Chemo H/O ca right lung, s/p XRT PLAN: Pradaxa 150 mg bid Wean off walk test to determine if he needs home Will FU in office Armando Colon MD Aug 04, 2017 14:34
--- NOTE | 2017-08-04 14:59 | ECHRPT ---
Indication: tia CONCLUSIONS The left ventricular systolic function is severely reduced with an estimated ejection fraction in th e range of 30-35%. Normal left ventricular size. Anterior, anterolateral, anteroseptal, and apical kypokinesis Mild mitral valve regurgitation. Mild aortic valve regurgitation. Aortic valve sclerosis is present. There is mild tricuspid valve regurgitation. The estimated pulmonary arterial pressure is 71.2 mmHg. BP: / HR: Rhythm: MEASUREMENTS (Male / Female) Normal Values Technical Quality:Technically difficult study 2D ECHO LV Diastolic Diameter PLAX 4.4 cm 4.2 - 5.9 / 3.9 - 5.3 cm LV Systolic Diameter PLAX 3.8 cm IVS Diastolic Thickness 1.4 cm 0.6 - 1.0 / 0.6 - 0.9 cm LVPW Diastolic Thickness 0.9 cm 0.6 - 1.0 / 0.6 - 0.9 cm LV Relative Wall Thickness 0.5 RV Internal Dim ED PLAX 2.3 cm M-MODE Aortic Root Diameter MM 3.6 cm LA Systolic Diameter MM 3.2 cm LA Ao Ratio MM 0.9 AV Cusp Separation MM 2.1 cm DOPPLER AI Peak Velocity 341.0 cm/s AI Peak Gradient 46.5 mmHg AI Pressure Half Time 578.0 ms Mitral E Point Velocity 49.9 cm/s Mitral A Point Velocity 53.8 cm/s Mitral E to A Ratio 0.9 LV E' Lateral Velocity 5.2 cm/s Mitral E to LV E' Lateral Ratio 9.7 LV E' Septal Velocity 4.7 cm/s Mitral E to LV E' Septal Ratio 10.7 TR Peak Velocity 391.0 cm/s TR Peak Gradient 61.2 mmHg Right Atrial Pressure 10.0 mmHg Pulmonary Artery Systolic Pressu 71.2 mmHg Right Ventricular Systolic Press 71.2 mmHg FINDINGS LEFT VENTRICLE The left ventricular systolic function is severely reduced with an estimated ejection fraction in th e range of 30-35%. Normal left ventricular size. Anterior, anterolateral, anteroseptal, and apical kypokinesis RIGHT VENTRICLE Normal right ventricular size and systolic function. LEFT ATRIUM The left atrial size is normal. RIGHT ATRIUM The right atrial size is normal. ATRIAL SEPTUM Normal atrial septal thickness without atrial level shunting by limited color doppler interrogation. AORTA The aortic root and proximal ascending aorta are normal in size on limited imaging. MITRAL VALVE Mild mitral valve regurgitation. Structurally normal mitral valve. AORTIC VALVE Mild aortic valve regurgitation. Trileaflet aortic valve. Aortic valve sclerosis is present. TRICUSPID VALVE There is mild tricuspid valve regurgitation. Structurally normal tricuspid valve. The estimated pulmonary arterial pressure is 71.2 mmHg. PULMONARY VALVE No pulmonary valve regurgitation or stenosis. VESSELS The inferior vena cava is normal in size. PERICARDIUM No pericardial effusion. Brandon Valero MD, FACC (Electronically Signed) Final Date:04 August 2017 14:58
[2017-08-04] MEDS ORDERED: LISINOPRIL 5 MG TAB PO SCH (15:15)
[2017-08-04] MEDS ORDERED: KLOR20TA3 PO ×2 (15:17→16:12)
[2017-08-04] MEDS ORDERED: FURO1TAB60 PO ×2 (15:17→16:11)
--- NOTE | 2017-08-04 15:26 | HHI.DCPOC ---
Discharge Care Plan Diagnosis: (1) Acute systolic heart failure (2) Exertional dyspnea (3) COPD exacerbation (4) Bilateral pulmonary embolism Additional Problems Follow-up with your primary care doctor within 7-10 days and have your electrolytes as well as her kidney function checked. Follow-up with your heart doctor to see if you are a candidate for an intracardiac defibrillator device. Follow-up with your oncologist and battery test engineer as well. Goals to Promote Your Health * To prevent worsening of your condition and complications * To maintain your health at the optimal level Directions to Meet Your Goals Take your medications as prescribed Follow your dietary instruction Follow activity as directed Keep your appointments as scheduled Take your immunizations and boosters as scheduled If your symptoms worsen call your PCP, if no PCP go to Urgent Care Center or Emergency Room Smoking is Dangerous to Your Health. Avoid second hand smoke Call the 24-hour hour crisis hotline for domestic abuse at James Garcia MD Aug 04, 2017 15:26
--- NOTE | 2017-08-04 15:58 | HHI.DS ---
Discharge Summary Admission Date Jul 31, 2017 at 23:10 Discharge Date: Aug 04, 2017 Admitting Diagnosis Pneumonia, pleural effusion, lung ca on chemo (1) Pulmonary embolism, bilateral ICD Code: I26.99 - Other pulmonary embolism without acute cor pulmonale (2) Acute systolic heart failure ICD Code: I50.21 - Acute systolic (congestive) heart failure (3) Exertional dyspnea ICD Code: R06.09 - Other forms of dyspnea (4) Non-small cell carcinoma of lung ICD Code: C34.90 - Malignant neoplasm of unspecified part of unspecified bronchus or lung Procedures none Brief History - From Admission 72-year-old male with a past medical history significant for left lung non- small cell carcinoma, currently being treated by Dr. Pardo, COPD, hypertension, hyperlipidemia and a remote history of small cell carcinoma of the right lung presents to the emergency department with a several days history of increasing shortness of breath. The patient reports that today his dyspnea became so severe that he felt it was starting to affect his thinking. He denies any chest pain. Denies cough. He completed his second round of chemotherapy on Monday. Chest x-ray was significant for a partially consolidative infiltrate in the lower right lung. CTA showed extensive bilateral pulmonary emboli and an US showing nonocclusive DVT in right leg. Patient currently has an oxygen saturation of 96% on 3 L nasal cannula. He is tachycardic to 125. CBC/BMP: 08/03/17 0500 08/03/17 0500 Significant Findings Laboratory Tests Test 08/01/17 18:00 08/01/17 20:20 08/02/17 05:05 08/02/17 10:55 Blood Urea Nitrogen 29 MG/DL (7-18) Random Glucose 185 MG/DL (74-106) Total Protein 6.1 GM/DL (6.4-8.2) Albumin 2.9 GM/DL (3.4-5.0) Calcium Level 8.3 MG/DL (8.5-10.1) Estimat Glomerular Filtration Rate 72 ML/MIN (>89) Activated Partial Thromboplast Time 39.7 SEC (24.3-30.1) 43.4 SEC (24.3-30.1) Test 08/03/17 05:00 Red Blood Count 3.08 MIL/MM3 (4.50-5.90) Hemoglobin 9.2 GM/DL (13.0-17.0) Hematocrit 27.1 % (39.0-51.0) Neutrophils (%) (Auto) 86.1 % (16.0-70.0) Lymphocytes # (Auto) 0.6 TH/MM3 (1.0-4.8) Blood Urea Nitrogen 33 MG/DL (7-18) Random Glucose 173 MG/DL (74-106) Total Protein 6.2 GM/DL (6.4-8.2) Albumin 3.0 GM/DL (3.4-5.0) Calcium Level 8.4 MG/DL (8.5-10.1) Chloride Level 108 MEQ/L (98-107) Carbon Dioxide Level 19.6 MEQ/L (21.0-32.0) Estimat Glomerular Filtration Rate 66 ML/MIN (>89) PE at Discharge Faint expiratory wheezing bilaterally, unlabored breathing otherwise, sitting upright on nasal cannula, no conversive dyspnea Hospital Course Pt was admitted started on anticoagulation; hematology/oncology was following given his history of cancer as well. Patient was still exhibiting some significant shortness of breath upon originally anticipated discharge, so further workup revealed he was having some bronchospasm as well as a new dx of systolic heart failure (suspected acute on chronic) with EF of 30-35%. Pulmonology was consulted and recommended a home oxygen walk test which he passed successfully on room air. Pt was counseled extensively by me on his major comorbidities including pulmonary emboli, suspected chronic lung disease with acute inflammation, and congestive heart failure. The patient's exertional dyspnea did partially improve while he was inpatient but he was still fatigued to the point where he qualified and had arrangements set up for home care per physical therapy recommendations. Cardiology recommended outpatient follow-up for his heart failure. Patient has met maximal benefit from hospitalization and is clinically stable for discharge. Pt Condition on Discharge: Stable Discharge Disposition: Disch w/ Home Health Serv Discharge Time: > 30 minutes Discharge Instructions DIET: Follow Instructions for: Heart Healthy Diet Activities you can perform: Weight Bearing as Peter Other Activity Instructions: Use walker if needed, exercise caution given you are on blood thinner, if feeling too weak to walk safely then ambulate only with assistance from others. Follow up Referrals: Cardiology - 3 Weeks Oncology/Hematology - 10 Days with Nelson Pardo MD PCP Follow-up - 1 Week Pulmonology - 2 Weeks New Medications: Cefdinir (Cefdinir) 300 Mg Cap 600 MG PO DAILY for Infection, #7 CAP 0 Refills Dabigatran (Pradaxa) 150 Mg Cap 150 MG PO BID for Blood Clot Prevention, #60 CAP 0 Refills Furosemide (Lasix) 40 Mg Tab 40 MG PO DAILY for heart failure, #30 TAB 0 Refills Lisinopril (Lisinopril) 5 Mg Tab 5 MG PO DAILY for Blood Pressure Management, #30 TAB 0 Refills Potassium Chloride Microencaps (Klor-Con M20) 20 Meq Tab 20 MEQ PO DAILY for Electrolyte Replacement, #30 TAB 0 Refills Prednisone (21) 10 mg tab Dose Pack (Prednisone (21) 10 mg tab Dose Pack) 10 Mg Pack 10 MG PO DIRECTED for Inflammation, #1 DSPK 0 Refills Continued Medications: Albuterol Neb (Albuterol Neb) 2.5 Mg/3 Ml Neb 2.5 MG NEB Q6HR NEB PRN for SHORTNESS OF BREATH, #60 NEBULE 0 Refills Alprazolam (Alprazolam) 0.5 Mg Tab 0.5 MG PO DAILY PRN for ANXIETY, TAB 0 Refills Aspirin (Aspirin) 81 Mg Chew 81 MG CHEW DAILY, TAB 0 Refills Ferrous Sulfate (Ferrous Sulfate) 325 Mg (65 Mg Iron) Tablet 325 MG PO DAILY for Nutritional Supplement, #30 TAB 0 Refills Finasteride (Finasteride) 5 Mg Tab 5 MG PO DAILY for Manage Prostate Problems, #30 TAB 0 Refills Do not crush. Gabapentin (Gabapentin) 400 Mg Cap 400 CAP PO 5x a day, #30 CAP 0 Refills Hydrocodone-Acetaminophen (Hydrocodone-Acetaminophen) 10-325 mg Tab 1 TAB PO Q4H PRN for PAIN, TAB 0 Refills Ipratropium Nasal (Ipratropium Nasal) 0.06% [place] 1 SPRAY EACH NARE QID, #1 BOTTLE 0 Refills Metoprolol Succinate ER 24 HR (Metoprolol Succinate ER 24 HR) 25 Mg Tab 25 MG PO DAILY, #30 TAB 0 Refills Multiple Vitamin (Multi-Vitamin Daily) 1 Tab Tab 1 TAB PO DAILY for Nutritional Supplement, TAB 0 Refills Simvastatin (Simvastatin) 5 Mg Tab 5 MG PO DAILY for Cholesterol Management, #30 TAB 0 Refills Temazepam (Temazepam) 15 Mg Cap 30 MG PO HS PRN for INSOMNIA, #30 CAP 0 Refills James Garcia MD Aug 04, 2017 15:58
[2017-08-04] MEDS ORDERED: LISI-519 PO ×2 (16:00→16:11)
[2017-08-04] MEDS ORDERED: POTASSIUM CHLORIDE 10 MEQ CONTROLLED RELEASE TAB PO ONE (16:15)
== END 2017-08-04 17:39 | disposition home health service (06) | DRG 175 ==
LOC: NEPC 20:24 → NEDA 23:10 → HCIN 08-01 01:16
PROVIDERS: ADMIT Hospitalist; ATTEND Hospitalist
DX: I26.99 Other pulmonary embolism without acute cor pulmonale (principal); J18.9 Pneumonia, unspecified organism; I50.21 Acute systolic (congestive) heart failure; I11.0 Hypertensive heart disease with heart failure; C34.92 Malignant neoplasm of unspecified part of left bronchus or lung; D68.69 Other thrombophilia; R63.0 Anorexia; J44.0 Chronic obstructive pulmonary disease with (acute) lower respiratory infection; J44.1 Chronic obstructive pulmonary disease with (acute) exacerbation; F41.0 Panic disorder [episodic paroxysmal anxiety]; E78.5 Hyperlipidemia, unspecified; N40.0 Benign prostatic hyperplasia without lower urinary tract symptoms; M19.90 Unspecified osteoarthritis, unspecified site; H26.9 Unspecified cataract; J98.01 Acute bronchospasm; R00.0 Tachycardia, unspecified; R91.1 Solitary pulmonary nodule; R06.03 Acute respiratory distress; Z87.891 Personal history of nicotine dependence; Z85.118 Personal history of other malignant neoplasm of bronchus and lung; Z92.21 Personal history of antineoplastic chemotherapy; Z85.828 Personal history of other malignant neoplasm of skin; Z92.3 Personal history of irradiation
CPT/HCPCS: 36600; 71010; 71020; 71275; 80053; 82550; 82805; 83605; 83735; 83880; 84484; 85025; 85379; 85610; 85730; 87040; 93005; 93306; 93970; 94620; 94640; 94664; 96365; 96375; J0456; J0692; J1642; J1644; J1940; J2060; J2930; J3475; J7030; J7050; Q9967

== ENCOUNTER 2017-08-09 16:53 | Inpatient (IN) | payer OTHER, MEDICARE ==
[~2017-08-09] VITALS: Ht 170.2 cm; Wt 55.3 kg
[~2017-08-09 16:53] MED LIST changes: +CEFD300C PO; +FURO1TAB60 PO; +KLOR20TA3 PO; +LISI-519 PO; +PRAD150C PO; +PRED10PA PO
[2017-08-09 16:54] VITALS: BP 122/70; PULSE 123; RESP 20; TEMP 98.6; O2SAT 98
--- NOTE | 2017-08-09 17:49 | RADRPT ---
EXAM DATE/TIME: 08/09/2017 17:31 [facility] COMPARISON: CT PULMONARY ANGIOGRAM, July 31, 2017, 22:28. CHEST PA & LAT, August 03, 2017, 14:33. INDICATIONS : Shortness of breath. Dizziness. MEDICAL HISTORY : Carcinoma, lung. Hypertension Cardiovascular disease. COPD. SURGICAL HISTORY : Cholecystectomy. Appendectomy.Power Port ENCOUNTER: Subsequent ACUITY: 1 week PAIN SCORE: 0/10 LOCATION: Bilateral chest FINDINGS: Right chest port is stable in good position. There has been slight clearance of right base infiltrate . Right perihilar mass density is unchanged. Left lung is stable. Cardiac contours are grossly stable . CONCLUSION: Improving right base infiltrate. Pete Vargas MD on August 09, 2017 at 17:45 Board Certified Radiologist. This report was verified electronically.
--- NOTE | 2017-08-09 18:19 | PD ---
HPI Chief Complaint: Respiratory Symptoms Time Seen by Provider: 17:36 Travel History International Travel<30 days: No Contact w/Intl Traveler<30days: No Traveled to known affect area: No History of Present Illness HPI 72-year-old male with history lung cancer and bilateral pulmonary him lie, presents here today with points of shortness of breath and dyspnea with exertion. The patient appears very anxious and states he feels as though he can 't breathe. He says when that happens, he gets tightness across his chest. The patient states he was here last week for similar things and they told him everything was fine and sent him home. There are no other complaints the time my examination. PFSH Past Medical History Hx Anticoagulant Therapy: Yes (PRADAXA) Arthritis: Yes Anxiety: Yes (PANIC ATTACKS) Heart Rhythm Problems: No Cancer: Yes (R LUNG) Cardiac Catheterization: No Cardiovascular Problems: Yes (HTN; CHF) High Cholesterol: Yes Chemotherapy: Yes Congestive Heart Failure: No COPD: Yes Diabetes: No Diminished Hearing: No Endocrine: No Genitourinary: No Hiatal Hernia: No Hypertension: Yes Immune Disorder: No Neurologic: Yes (MIGRAINES) Psychiatric: Yes (ANXIETY) Reproductive: No Respiratory: Yes Immunizations Current: Yes (FLU) Myocardial Infarction: No Radiation Therapy: Yes Thyroid Disease: No Past Surgical History Abdominal Surgery: Yes (APPE, FLAVIO) AICD: No Appendectomy: Yes Cardiac Surgery: Yes (2001 PERICARDIAL WINDOW FOR [place] AROUND THE HEART) Cholecystectomy: Yes Coronary Artery Bypass Graft: No Genitourinary Surgery: Yes (VASECTOMY) Joint Replacement: No Pacemaker: No Thoracic Surgery: Yes Other Surgery: Yes Social History Alcohol Use: Yes (BEER DAILY) Tobacco Use: No Substance Use: No Allergies-Medications (Allergen,Severity, Reaction): Coded Allergies: penicillin G (Unverified Allergy, Severe, HIVES, 07/31/17) Reported Meds & Prescriptions Reported Meds & Active Scripts Active Klor-Con M20 (Potassium Chloride Microencaps) 20 Meq Tab 20 Meq PO DAILY Lisinopril 5 Mg Tab 5 Mg PO DAILY Lasix (Furosemide) 40 Mg Tab 40 Mg PO DAILY Pradaxa (Dabigatran) 150 Mg Cap 150 Mg PO BID Prednisone (21) 10 mg tab Dose Pack (Prednisone) 10 Mg Pack 10 Mg PO DIRECTED Cefdinir 300 Mg Cap 600 Mg PO DAILY Albuterol Neb (Albuterol Sulfate) 2.5 Mg/3 Ml Neb 2.5 Mg NEB Q6HR NEB PRN Nebulizer/Adult Mask (N/A) 1 Kit Kit 1 Kit .ROUTE DIRECTED Reported Hydrocodone-Acetaminophen 10-325 mg Tab 1 Tab PO Q4H PRN Ipratropium Nasal 0.06% [place] 1 [place] EACH NARE QID Multi-Vitamin Daily (Multiple Vitamin) 1 Tab Tab 1 Tab PO DAILY Gabapentin 400 Mg Cap 400 Cap PO 5X A DAY Aspirin 81 Mg Chew 81 Mg CHEW DAILY Ferrous Sulfate 325 Mg (65 Mg Iron) Tablet 325 Mg PO DAILY Temazepam 15 Mg Cap 30 Mg PO HS PRN Alprazolam 0.5 Mg Tab 0.5 Mg PO DAILY PRN Finasteride 5 Mg Tab 5 Mg PO DAILY Do not crush. Simvastatin 5 Mg Tab 5 Mg PO DAILY Metoprolol Succinate ER 24 HR (Metoprolol Succinate) 25 Mg Tab 25 Mg PO DAILY Review of Systems Except as stated in HPI: all other systems reviewed are Neg General / Constitutional: No: Fever, Chills HENT: No: Headaches, Neck Pain Cardiovascular: Positive: Chest Pain or Discomfort, Palpitations (tightness with the shortness of breath) Respiratory: Positive: Shortness of Breath, No: Cough Gastrointestinal: No: Nausea, Vomiting, Abdominal Pain Genitourinary: No: Dysuria, Incontinence Musculoskeletal: Positive: Weakness, No: Pain Neurologic: Positive: Weakness, Dizziness (with exertion), No: Headache ( realize) Physical Exam Narrative GENERAL: 72-year-old male who appears anxious and tachypneic. SKIN: Focused skin assessment warm/dry. HEAD: Atraumatic. Normocephalic. EYES: Pupils equal and round. No scleral icterus. No injection or drainage. ENT: No nasal bleeding or discharge. Mucous membranes pink and moist. NECK: Trachea midline. No JVD. CARDIOVASCULAR: Regular rate and rhythm. No murmur appreciated. RESPIRATORY: Coarse rhonchi bilaterally. Slight decreased breath sounds at the right base compared to left face GASTROINTESTINAL: Abdomen soft, non-tender, nondistended. MUSCULOSKELETAL: No obvious deformities. No clubbing. No cyanosis. No edema. NEUROLOGICAL: Awake and alert. No obvious cranial nerve deficits. Motor grossly within normal limits. Normal speech. Data Data Last Documented VS Vital Signs Date Time Temp Pulse Resp B/P (MAP) Pulse Ox O2 Delivery O2 Flow Rate FiO2 11/29/17 18:37 119 25 98/60 (73) 98 Room Air 08/09/17 16:54 98.6 Orders Orders Electrocardiogram (08/09/17 17:19) Basic Metabolic Panel (Bmp) (08/09/17 17:19) B-Type Natriuretic Peptide (08/09/17 17:19) Ckmb (Isoenzyme) Profile (08/09/17 17:19) Complete Blood Count With Diff (08/09/17 17:19) Magnesium (Mg) (08/09/17 17:19) Prothrombin Time / Inr (Pt) (08/09/17 17:19) Act Partial Throm Time (Ptt) (08/09/17 17:19) Troponin I (08/09/17 17:19) Chest, Pa & Lat (08/09/17 17:19) Arterial Blood Gas (Abg) (08/09/17 18:10) Albuterol-Ipratropium Neb (Duoneb Neb) (08/09/17 19:00) Methylprednisolone So Succ Inj (Solumedr (08/09/17 19:00) Labs Laboratory Tests Test 08/09/17 18:17 08/09/17 18:25 Blood Gas Puncture Site RT RADIAL Blood Gas Patient Temperature 37.0 Blood Gas HCO3 19 mmol/L Blood Gas Base Excess -3.2 mmol/L Blood Gas Oxygen Saturation 96 % Arterial Blood pH 7.54 Arterial Blood Partial Pressure CO2 22 mmHg Arterial Blood Partial Pressure O2 89 mmHG Arterial Blood Oxygen Content 18.6 Vol % Arterial Blood Carboxyhemoglobin 1.7 % Arterial Blood Methemoglobin 0.5 % Blood Gas Hemoglobin 13.8 G/DL Blood Gas Inspired Oxygen 21 % [facility] Medical Decision Making Medical Screen Exam Complete: Yes Emergency Medical Condition: Yes Differential Diagnosis Pneumonia versus pulmonary embolus versus ACS Narrative Course 72-year-old male with history of pulmonary/lung cancer, bilateral pulmonary-like , presents here with dyspnea worse with exertion. The patient has chest tightness with shortness of breath and dyspnea. The patient has no nausea or diaphoresis. EKG shows sinus tach with no evidence of acute ST elevation or depression. Laboratory tests are pending at this time. The patient be signed out to Dr. Vogel, physician replacing me at change of shift. Disposition and further testing will be per him. Diagnosis Primary Impression: Exertional dyspnea Additional Impressions: history of bilateral pulmonary emboli History of lung cancer Román Peck MD Aug 09, 2017 18:19
[2017-08-09 18:24] LABS: BLOOD GAS BASE EXCESS -3.2 mmol/L (-2-2); BLOOD GAS CARBOXYHEMOGLOBIN 1.7 % (0-4); BLOOD GAS HCO3 19 mmol/L (22-26); BLOOD GAS METHEMOGLOBIN 0.5 % (0-2); BLOOD GAS O2 HGB SATURATION 96 % (90-100); BLOOD GAS OXYGEN CONTENT 18.6 Vol % (12.0-20.0); BLOOD GAS PCO2 22 mmHg (38-42); BLOOD GAS PO2 89 mmHG (61-120); BLOOD GAS TOTAL HGB 13.8 G/DL (12.0-16.0); CRITICAL VALUE YES; FIO2 21 %
[2017-08-09 18:25] LABS: DRAW SITE RT RADIAL; NUMBER OF ARTERIAL PUNCTURES 1; STAT YES; ULNAR PULSE PRESENT
[2017-08-09 18:37] VITALS: BP 98/60; PULSE 119; RESP 25; O2SAT 98
[2017-08-09] MEDS ORDERED: methylPREDNISolone SOD SUCC 125 MG/2 ML VIAL IV PUSH ONE (19:00)
[2017-08-09 19:04] LABS: AUTOMATED NEUTROPHIL # 5.4 TH/MM3 (1.8-7.7); BASOPHIL % 0.5 % (0.0-2.0); EOSINOPHIL % 0.1 % (0.0-4.0); HEMATOCRIT 40.6 % (39.0-51.0); LYMPH % 28.7 % (9.0-44.0); LYMPHOCYTE # 2.5 TH/MM3 (1.0-4.8); MEAN CELL VOLUME 89.1 FL (80.0-100.0); MEAN CORPUSCULAR HGB CONC 33.7 % (32.0-36.0); MONO % 8.6 % (0.0-8.0); NEUT % 62.1 % (16.0-70.0); PLATELET COUNT 184 TH/MM3 (150-450); RED BLOOD COUNT 4.56 MIL/MM3 (4.50-5.90); RED CELL DISTRIBUTION WIDTH 18.1 % (11.6-17.2); WHITE BLOOD COUNT 8.7 TH/MM3 (4.0-11.0)
[2017-08-09] MEDS: RESP: ALBUTEROL 2.5 MG/IPRATROPIUM 0.5 MG NEB (SCH) INH ×2 (19:06→19:07)
[2017-08-09 19:13] LABS: APTT (PATIENT) 46.1 SEC (24.3-30.1); HEMO FLAGS AUTO DIFF; INTERNATIONAL NORMALIZED RATIO 1.4 RATIO; PROTHROMBIN TIME - PATIENT 15.7 SEC (9.8-11.6)
[2017-08-09 19:17] LABS: BICARBONATE 23.1 MEQ/L (21.0-32.0); MAGNESIUM 1.1 MG/DL (1.5-2.5); POTASSIUM 4.2 MEQ/L (3.5-5.1)
[2017-08-09 19:30] VITALS: BP 100/62; PULSE 119; RESP 24
[2017-08-09 19:46] LABS: BANDS 6 % (0-6); MYELOCYTES 1 % (0-0); NEUTROPHIL # MANUAL DIFF 5.9 TH/MM3 (1.8-7.7); POLYS (SEG NEUTROPHILS) 61 % (16-70); TEARDROP RBCS 1+ (NORMAL); WBC DIFF SAMPLE 100
[2017-08-09 19:47] LABS: PLATELET ESTIMATE SMEAR NORMAL (NORMAL); PLATELET MORPHOLOGY NORMAL (NORMAL); SCAN/DIFF FINAL DIFF MANUAL
[2017-08-09] MEDS ORDERED: LORazepam 2 MG/ML VIAL IM ONE (20:00)
[2017-08-09] MEDS ORDERED: DABIGATRAN ETEXILATE 150 MG CAP PO ONE (20:15)
[2017-08-09] MEDS ORDERED: SODIUM CHLORIDE 0.9% FLUSH 10 ML FLUSH IV FLUSH PRN (20:30)
[2017-08-09] MEDS ORDERED: NALOXONE HCL 0.4 MG/ML AMP IV PUSH PRN (20:30)
[2017-08-09] MEDS ORDERED: IOHEXOL 350 MG/ML 10 ML VIAL (for RAD DIAG) IVCONTRAST ONE (20:34)
--- NOTE | 2017-08-09 20:40 | PD ---
Physical Exam Date Seen by Provider: Aug 09, 2017 Time Seen by Provider: 19:00 Narrative Patient is 72-year-old male with a return to the ER from discharge 4 days ago. It was discovered he had a recurrence of lung cancer as well as a right lower lobe pneumonia as well as bilateral pulmonary embolism. He also had new onset CHF with an ejection fraction of 35%. The prior attending gave him a DuoNeb 3 as well as Solu-Medrol 125. Patient continues to be tachycardic he feels short of breath he needs to be admitted for follow-up care on discharge. At this time he says he has no visiting nurse. He has a port which that using for chemotherapy he had his last dose 2 weeks ago he continues to be tachycardic in the ER he needs to be admitted to pulmonary consult cardiology consult and discharge needs visiting nurse services arranged. Data Data Last Documented VS Vital Signs Date Time Temp Pulse Resp B/P (MAP) Pulse Ox O2 Delivery O2 Flow Rate FiO2 08/09/17 19:30 119 100 Room Air 08/09/17 19:30 24 100/62 (75) 08/09/17 16:54 98.6 Orders Orders Electrocardiogram (08/09/17 17:19) Basic Metabolic Panel (Bmp) (08/09/17 17:19) B-Type Natriuretic Peptide (08/09/17 17:19) Ckmb (Isoenzyme) Profile (08/09/17 17:19) Complete Blood Count With Diff (08/09/17 17:19) Magnesium (Mg) (08/09/17 17:19) Prothrombin Time / Inr (Pt) (08/09/17 17:19) Act Partial Throm Time (Ptt) (08/09/17 17:19) Troponin I (08/09/17 17:19) Chest, Pa & Lat (08/09/17 17:19) Arterial Blood Gas (Abg) (08/09/17 18:10) Albuterol-Ipratropium Neb (Duoneb Neb) (08/09/17 19:00) Methylprednisolone So Succ Inj (Solumedr (08/09/17 19:00) Lorazepam Inj (Ativan Inj) (08/09/17 20:00) Dabigatran (Pradaxa) (08/09/17 20:15) Admit Order (Ed Use Only) (08/09/17 ) Place In Observation (08/09/17 ) Vital Signs (Adult) Q4H (08/09/17 20:30) Activity Oob With Assistance (08/09/17 20:30) Broaching Machine Operator / Telemetry .CONTINUOUS (08/09/17 20:30) Intake + Output DEISI.QSHIFT (08/09/17 20:30) Diet Heart Healthy (08/10/17 Breakfast) Sodium Chloride 0.9% Flush (Ns Flush) (08/09/17 20:30) Sodium Chloride 0.9% Flush (Ns Flush) (08/09/17 21:00) Basic Metabolic Panel (Bmp) (08/10/17 06:00) Complete Blood Count With Diff (08/10/17 06:00) Pt Request For Service (08/09/17 20:30) Case Management Consult (08/09/17 20:30) Naloxone Inj (Narcan Inj) (08/09/17 20:30) Intake + Output 06,14,22 (08/09/17 20:30) Ipratropium Neb (Atrovent Neb) (08/09/17 22:00) Ipratropium Neb (Atrovent Neb) (08/09/17 20:30) Labs Laboratory Tests Test 08/09/17 18:17 08/09/17 18:25 Blood Gas Puncture Site RT RADIAL Blood Gas Patient Temperature 37.0 Blood Gas HCO3 19 mmol/L Blood Gas Base Excess -3.2 mmol/L Blood Gas Oxygen Saturation 96 % Arterial Blood pH 7.54 Arterial Blood Partial Pressure CO2 22 mmHg Arterial Blood Partial Pressure O2 89 mmHG Arterial Blood Oxygen Content 18.6 Vol % Arterial Blood Carboxyhemoglobin 1.7 % Arterial Blood Methemoglobin 0.5 % Blood Gas Hemoglobin 13.8 G/DL Blood Gas Inspired Oxygen 21 % White Blood Count 8.7 TH/MM3 Red Blood Count 4.56 MIL/MM3 Hemoglobin 13.7 GM/DL Hematocrit 40.6 % Mean Corpuscular Volume 89.1 FL Mean Corpuscular Hemoglobin 30.0 PG Mean Corpuscular Hemoglobin Concent 33.7 % Red Cell Distribution Width 18.1 % Platelet Count 184 TH/MM3 Mean Platelet Volume 7.6 FL Neutrophils (%) (Auto) 62.1 % Lymphocytes (%) (Auto) 28.7 % Monocytes (%) (Auto) 8.6 % Eosinophils (%) (Auto) 0.1 % Basophils (%) (Auto) 0.5 % Neutrophils # (Auto) 5.4 TH/MM3 Lymphocytes # (Auto) 2.5 TH/MM3 Monocytes # (Auto) 0.7 TH/MM3 Eosinophils # (Auto) 0.0 TH/MM3 Basophils # (Auto) 0.0 TH/MM3 CBC Comment AUTO DIFF Differential Total Cells Counted 100 Neutrophils % (Manual) 61 % Band Neutrophils % 6 % Lymphocytes % 25 % Monocytes % 7 % Neutrophils # (Manual) 5.9 TH/MM3 Myelocytes 1 % Differential Comment FINAL DIFF MANUAL Platelet Estimate NORMAL Platelet Morphology Comment NORMAL Tear Drop Cells 1+ Prothrombin Time 15.7 SEC Prothromb Time International Ratio 1.4 RATIO Activated Partial Thromboplast Time 46.1 SEC Blood Urea Nitrogen 46 MG/DL Creatinine 1.66 MG/DL Random Glucose 211 MG/DL Calcium Level 9.1 MG/DL Magnesium Level 1.1 MG/DL Sodium Level 134 MEQ/L Potassium Level 4.2 MEQ/L Chloride Level 99 MEQ/L Carbon Dioxide Level 23.1 MEQ/L Anion Gap 12 MEQ/L Estimat Glomerular Filtration Rate 41 ML/MIN Total Creatine Kinase 48 U/L Troponin I 0.04 NG/ML B-Type Natriuretic Peptide 213 PG/ML MDM Supervised Visit with FAINA: No Diagnosis Primary Impression: Exertional dyspnea Additional Impressions: History of lung cancer history of bilateral pulmonary emboli Admitting Information Admitting Physician Requests: Admit Condition: Stable Balta Vogel MD Aug 09, 2017 20:40
[2017-08-09] MEDS ORDERED: NON-FORMULARY DRUG (Ipratropium Nasal 1 SPRAY) EACH NARE SCH (21:00)
[2017-08-09] MEDS: DABIGATRAN ETEXILATE 150 MG CAP PO SCH (21:30)
[2017-08-09] MEDS: RESP: IPRATROPIUM 0.5 MG/2.5 ML NEB NEB SCH (22:18)
[2017-08-09 22:19] VITALS: O2SAT 98
[2017-08-09] MEDS: SODIUM CHLORIDE 0.9% FLUSH 10 ML FLUSH IV FLUSH SCH (22:47)
[2017-08-10] VITALS (9 sets, daily range): BP systolic 103–137; BP diastolic 70–79; PULSE 106–115; RESP 16–20; TEMP 96.9–98.7; O2SAT 93–98
[2017-08-10] MEDS: RESP: IPRATROPIUM 0.5 MG/2.5 ML NEB NEB SCH ×4 (03:03→20:57)
--- NOTE | 2017-08-10 03:58 | HHI.HP ---
HPI Service [facility] Primary Care Physician Adenike Rosas MD Admission Diagnosis tachycardiac PNA RLL Diagnoses: Travel History International Travel<30 Days: No Contact w/Intl Traveler <30 Da: No Traveled to Known Affected Are: No History of Present Illness hx from patient, ER physician communication and review of med records was discharged last monday night every day after that, going downhill again yesterday, could not walk 3 feet without sitting down because of shortness of breath used inhalors, but did not help, was not able to even get to the [facility] because he was too short of breath to walk there not on oxygen at home was admitted with bilateral PE and LE DVT recently- 07/31/17- 08/04/17 takes pradaxa has lung cancer 08/04 echo showing ef 30% on lasix 40mg po daily dose at home no worsening peripheral edema no cough no fever chest pain when breathing in and out only was discharged on cefdinir which he finished the course, with prednisone tapering dose as well last chemo was [address] Pardo is his oncologist pt is worried regarding his PE, would like Dr Foster's opinion was to why he is not improving Review of Systems Except as stated in HPI: all other systems reviewed are Neg Past Family Social History Past Medical History htn chf- ef 30% Bilat PE- 07/31/17 RIGHT LE DVT - 07/2017 COPD NSCLC, left, on Chemo- last dose was 2 weeks ago monday H/O ca right lung, small cell, 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, finished in 1992 Past Surgical History lung biopsies pericardiocentesis and window in 1999 appendectomy cholecystectomy chest tube insertion in 05/2017- for pneumothorax secondary to lung biopsy Allergies: Coded Allergies: penicillin G (Unverified Allergy, Severe, HIVES, 07/31/17) Family History grandmother- with heart problem Social History used to smoke and quit in 1985 drink etoh only weekends socially no drugs lives on his own, was still driviing till all this started Physical Exam Vital Signs Vital Signs Date Time Temp Pulse Resp B/P (MAP) Pulse Ox O2 Delivery O2 Flow Rate FiO2 11/30/17 00:52 98.7 113 18 103/72 (82) 95 08/09/17 22:19 98 21 08/09/17 21:36 08/09/17 19:30 119 100 Room Air 08/09/17 19:30 119 24 100/62 (75) 08/09/17 18:37 119 25 98/60 (73) 98 Room Air 08/09/17 18:15 30 99 Room Air 08/09/17 16:54 98.6 123 20 122/70 (87) 98 Room Air Physical Exam GENERAL: This is a think gentleman, looks dyspenic, able to complete sentences SKIN: No rashes, ecchymoses or lesions. Cool and dry. HEAD: Atraumatic. Normocephalic. No temporal or scalp tenderness. EYES: No scleral icterus. No injection or drainage. ENT: Nose without bleeding, purulent drainage or septal hematoma. Airway patent. NECK: Trachea midline. No JVD CARDIOVASCULAR: Regular rate and rhythm without murmurs, gallops, or rubs. RESPIRATORY: bilateral crepitations GASTROINTESTINAL: Abdomen soft, non-tender, nondistended. No guarding. MUSCULOSKELETAL: Extremities without clubbing, cyanosis, or edema. No calf tenderness. NEUROLOGICAL: Awake and alert. Motor and sensory grossly within normal limits. Normal speech. Laboratory Laboratory Tests Test 08/09/17 18:17 08/09/17 18:25 Blood Gas Puncture Site RT RADIAL Blood Gas Patient Temperature 37.0 Blood Gas HCO3 19 Blood Gas Base Excess -3.2 Blood Gas Oxygen Saturation 96 Arterial Blood pH 7.54 Arterial Blood Partial Pressure CO2 22 Arterial Blood Partial Pressure O2 89 Arterial Blood Oxygen Content 18.6 Arterial Blood Carboxyhemoglobin 1.7 Arterial Blood Methemoglobin 0.5 Blood Gas Hemoglobin 13.8 Blood Gas Inspired Oxygen 21 White Blood Count 8.7 Red Blood Count 4.56 Hemoglobin 13.7 Hematocrit 40.6 Mean Corpuscular Volume 89.1 Mean Corpuscular Hemoglobin 30.0 Mean Corpuscular Hemoglobin Concent 33.7 Red Cell Distribution Width 18.1 Platelet Count 184 Mean Platelet Volume 7.6 Neutrophils (%) (Auto) 62.1 Lymphocytes (%) (Auto) 28.7 Monocytes (%) (Auto) 8.6 Eosinophils (%) (Auto) 0.1 Basophils (%) (Auto) 0.5 Neutrophils # (Auto) 5.4 Lymphocytes # (Auto) 2.5 Monocytes # (Auto) 0.7 Eosinophils # (Auto) 0.0 Basophils # (Auto) 0.0 CBC Comment AUTO DIFF Differential Total Cells Counted 100 Neutrophils % (Manual) 61 Band Neutrophils % 6 Lymphocytes % 25 Monocytes % 7 Neutrophils # (Manual) 5.9 Myelocytes 1 Differential Comment FINAL DIFF MANUAL Platelet Estimate NORMAL Platelet Morphology Comment NORMAL Tear Drop Cells 1+ Prothrombin Time 15.7 Prothromb Time International Ratio 1.4 Activated Partial Thromboplast Time 46.1 Blood Urea Nitrogen 46 Creatinine 1.66 Random Glucose 211 Calcium Level 9.1 Magnesium Level 1.1 Sodium Level 134 Potassium Level 4.2 Chloride Level 99 Carbon Dioxide Level 23.1 Anion Gap 12 Estimat Glomerular Filtration Rate 41 Total Creatine Kinase 48 Troponin I 0.04 B-Type Natriuretic Peptide 213 Result Diagram: 08/09/17 1825 08/09/17 182 Imaging Last 48 hours Impressions Chest X-Ray 08/09/17 1719 Signed Impressions: Service Date/Time: Wednesday, August 09, 2017 17:31 - CONCLUSION: Improving right base infiltrate. MD Brett Buitrago VTE Risk Assessment Caprini VTE Risk Assessment: Mod/High Risk (score >= 2) VTE Pharm Contraindication: Thrombocytopenia(<50) Caprini Risk Assessment Model Point Value = 1 Point Value = 2 Point Value = 3 Point Value = 5 Age 41-60 Minor surgery BMI > 25 kg/m2 Swollen legs Varicose veins or History of unexplained or recurrent spontaneous Oral contraceptives or hormone replacement Sepsis (< 1 month) Serious lung disease, including pneumonia (< 1 month) Abnormal pulmonary function Acute myocardial infarction Congestive heart failure (< 1 month) History of inflammatory bowel disease Medical patient at bed rest Age 61-74 Arthroscopic surgery Major open surgery (> 45 min) Laparoscopic surgery (> 45 min) Malignancy Confined to bed (> 72 hours) Immobilizing plaster cast Central venous access Age >= 75 History of VTE Family history of VTE Factor V Leiden Prothrombin [id number] Lupus anticoagulant Anticardiolipin antibodies Elevated serum homocysteine Heparin-induced thrombocytopenia Other congenital or acquired thrombophilia Stroke (< 1 month) Elective arthroplasty Hip, pelvis, or leg fracture Acute spinal cord injury (< 1 month) Prophylaxis Regimen Total Risk Factor Score Risk Level Prophylaxis Regimen 0-1 Low Early ambulation 2 Moderate Order ONE of the following: *Sequential Compression Device (SCD) *Heparin 5000 units SQ BID 3-4 Higher Order ONE of the following medications: *Heparin 5000 units SQ TID *Enoxaparin/Lovenox 40 mg SQ daily (WT < 150 kg, CrCl > 30 mL/min) *Enoxaparin/Lovenox 30 mg SQ daily (WT < 150 kg, CrCl > 10-29 mL/min) *Enoxaparin/Lovenox 30 mg SQ BID (WT < 150 kg, CrCl > 30 mL/min) AND/OR *Sequential Compression Device (SCD) 5 or more Highest Order ONE of the following medications: *Heparin 5000 units SQ TID (Preferred with Epidurals) *Enoxaparin/Lovenox 40 mg SQ daily (WT < 150 kg, CrCl > 30 mL/min) *Enoxaparin/Lovenox 30 mg SQ daily (WT < 150 kg, CrCl > 10-29 mL/min) *Enoxaparin/Lovenox 30 mg SQ BID (WT < 150 kg, CrCl > 30 mL/min) AND *Sequential Compression Device (SCD) Assessment and Plan Assessment and Plan Impression: Dyspnea- acute on chronic- likely due to decompensation in elderly with recent bilateral PE, COPD, lung cancer, CHF Comorbid conditions: htn chf- ef 30% Bilat PE- 07/31/17 RIGHT LE DVT - 07/2017 COPD NSCLC, left, on Chemo- last dose was 2 weeks ago monday H/O ca right lung, small cell, 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, finished in 1992 Plan: atrovent nebs prn resume anticoagulation will not continue steroids as pt is not really wheezing and completed the course at home will not resume antibiotics as pt completed course and no evidence of infection bnp continue home dose of lasix doubt recurrent pe as pt is compliant but would consult his tailercpa and oncologist suspects his symptoms are persistent because pt needs rehab, needs to get stronger from underlying serious comorbid conditions will consult case management for rehab placement pt lives alone, he is considering rehab as well resume home meds dvt prophylaxis with pradaxa Code Status Discussed Condition With patient, ER , nursing staff Rajesh Chan MD Aug 10, 2017 03:58
[2017-08-10] MEDS ORDERED: MAGNESIUM OXIDE 400 MG TAB PO ONE (04:15)
[2017-08-10] MEDS ORDERED: MAGNESIUM SULFATE 1 GM PREMIX 100 ML IV ONE (04:15)
[2017-08-10] MEDS: ALPRAZolam 0.5 MG TAB PO PRN ×2 (04:32→13:40)
[2017-08-10 08:06] LABS: AUTOMATED NEUTROPHIL # 3.8 TH/MM3 (1.8-7.7); BASOPHIL % 0.1 % (0.0-2.0); HEMO FLAGS DIFF FINAL; LYMPH % 25.4 % (9.0-44.0); LYMPHOCYTE # 1.3 TH/MM3 (1.0-4.8); MEAN CELL VOLUME 88.1 FL (80.0-100.0); MEAN CORPUSCULAR HEMOGLOBIN 30.1 PG (27.0-34.0); MEAN CORPUSCULAR HGB CONC 34.2 % (32.0-36.0); MONO % 1.5 % (0.0-8.0); PLATELET COUNT 137 TH/MM3 (150-450); RED BLOOD COUNT 4.08 MIL/MM3 (4.50-5.90); RED CELL DISTRIBUTION WIDTH 17.4 % (11.6-17.2); WHITE BLOOD COUNT 5.2 TH/MM3 (4.0-11.0)
[2017-08-10 08:23] LABS: BICARBONATE 23.3 MEQ/L (21.0-32.0); POTASSIUM 4.4 MEQ/L (3.5-5.1)
[2017-08-10] MEDS: FINASTERIDE 5 MG TAB PO SCH (08:24)
[2017-08-10] MEDS: POTASSIUM CHLORIDE 20 MEQ CONTROLLED RELEASE TAB PO SCH (08:24)
[2017-08-10] MEDS: DABIGATRAN ETEXILATE 150 MG CAP PO SCH ×2 (08:24→21:31)
[2017-08-10] MEDS: FERROUS SULFATE 325 MG (65 MG ELEMENTAL IRON) TAB PO SCH (08:25)
[2017-08-10] MEDS: ASPIRIN 81 MG CHEW TAB CHEW SCH (08:25)
[2017-08-10] MEDS: MULTIVITAMIN TAB PO SCH (08:25)
[2017-08-10] MEDS: PRAVASTATIN SOD 10 MG TAB PO SCH (08:26)
[2017-08-10] MEDS: FUROSEMIDE 40 MG TAB PO SCH (08:26)
[2017-08-10] MEDS: SODIUM CHLORIDE 0.9% FLUSH 10 ML FLUSH IV FLUSH SCH ×2 (08:28→21:00)
--- NOTE | 2017-08-10 08:34 | MB ---
cc: ERICK ESQUIVEL M.D. DATE OF CONSULTATION: July ATTENDING PHYSICIAN Dr. Chan. REASON FOR CONSULTATION Oncology consulted to render opinion regarding patient with lung cancer on chemotherapy, admitted with worsening shortness of breath. HISTORY OF PRESENT ILLNESS The patient is a very pleasant 72-year-old male with history of metastatic non-small cell lung carcinoma, currently on chemotherapy, re-presented to the hospital with complaint of increased dyspnea on exertion, and shortness of breath again. He was admitted about 10 days ago with similar complaint. He was found to have extensive bilateral pulmonary embolism as well as right lower extremity venous thrombosis. He also had COPD exacerbation. He was started on anticoagulation Pradaxa, he had responded well and was discharged home last Monday. He had a walking test prior to discharge and was not qualified for home oxygen. He stated that since discharge from the hospital he has progressive dyspnea on exertion. Yesterday he had significant shortness of breath just standing up. He stated that sometimes he could not even get to his inhaler because he was too short of breath. When he used the inhaler he does not feel like it is really helping. He denies any fever or chills. He has decreased appetite. He has decreased oral intake. He denies any chest pain. Denies any nausea, vomiting, diarrhea, abdominal pain, denies any dysuria, hematuria. Denies any bone pain. Denies any headache. Denies any focal numbness or weakness. PAST MEDICAL HISTORY 1. Metastatic non-small cell lung carcinoma, currently receiving chemotherapy. 2. Recent bilateral pulmonary embolism with right lower extremity venous thrombosis. 3. Cardiomyopathy, ejection fraction about 30%. 4. Hypertension. 5. Chronic obstructive pulmonary disease. 6. History of right lung small-cell lung carcinoma. 7. Hyperlipidemia. 8. Migraine headache. 9. Osteoarthritis. PAST SURGICAL HISTORY 1. Appendectomy. 2. Bone marrow biopsy. 3. Cholecystectomy. 4. Pericardiocentesis. 5. Vasectomy. 6. Colonoscopy. 7. Excision of skin cancer. 8. Port placement. 9. Lung biopsy. 10. Chest tube placement for pneumothorax after lung biopsy. FAMILY HISTORY Grandmother had heart disease. He has a brother and has no children. No cancer history in the family. SOCIAL HISTORY Quit tobacco in 1985, he had 20 pack-year smoking history. He drinks occasionally. He lives alone. ALLERGIES PENICILLIN G. MEDICATIONS Current medications: 1. Aspirin. 2. Ferrous sulfate. 3. Proscar. 4. Lasix. 5. Prinivil. 6. Toprol. 7. Potassium. 8. Multivitamin. 9. Pravachol. 10. DuoNebs. 11. Pradaxa. REVIEW OF SYSTEMS CONSTITUTIONAL: Has generalized weakness and fatigue. He has lost some weight but could not quantify. EYES: Denies any blurry vision, double vision. ENT: Negative. CARDIOVASCULAR: As above. RESPIRATORY: As above. GI: No nausea or vomiting, diarrhea, abdominal pain. : Denies dysuria, hematuria. MUSCULOSKELETAL: Negative. HEMATOLOGY: Negative. ENDOCRINE: Negative. DERMATOLOGY: Negative. PSYCHIATRIC: Negative. NEUROLOGIC: Negative. PHYSICAL EXAMINATION VITAL SIGNS: Temperature 97.7, pulse 106, blood pressure 119/72, O2 saturation 96% on room air. GENERAL: He is alert and oriented x3, in no acute distress. He looks weak. HEENT: Atraumatic, normocephalic. Pupils equal, round, reactive to light. Extraocular muscles intact. No scleral icterus. Oropharynx dry mucosa. No lesion or thrush. No mucositis. NECK: No thyromegaly. No palpable masses. LYMPHATIC: No palpable cervical, clavicular, axillary, inguinal lymph nodes. CARDIOVASCULAR: Regular S1-S2. Mildly tachycardic. No murmur. LUNGS: Slight decreased breath sounds at bases but no significant wheezing noted. ABDOMEN: Soft, nontender. I could not palpate liver or spleen. EXTREMITIES: No cyanosis, no clubbing, no edema. BACK: No paravertebral tenderness. SKIN: No rash or petechiae. Decreased skin turgor. NEUROLOGIC: Nonfocal. LABORATORY DATA CBC within normal limits. INR 1.4, PTT 246. Creatinine is 1.66 which is worse than last week. BNP of 213 which is elevated. ASSESSMENT 1. Metastatic non-small cell lung carcinoma. He was found to have left lung mass, measured 1.6 cm. PET scan showed multiple left lung masses with subcarinal enlarged lymph node. He also had bilateral small pleural effusion. Biopsy of the left lung mass showed well-differentiated carcinoma consistent with primary lung cancer, PDL-1 0%, Alk and ROS-1 negative. EGFR mutation was also negative. He just completed two cycles of carboplatin and Taxol, last cycle was on July 25. His CT angiogram last week showed left lower lobe and hilar mass were stable. There were multiple nodules noted and one of the lung nodule seems a little smaller. There is no clear progression of disease. It is unclear at this time if his pulmonary symptom is due to the lung cancer vs COPD vs recent pulmonary embolism. 2. Recent extensive bilateral pulmonary embolism with right lower extremity deep venous thrombosis. He was admitted last week with shortness of breath and CT angiogram showed extensive bilateral pulmonary embolism. There is no evidence of right heart strain noted. Echocardiogram showed decreased ejection fraction of around 30%. However, no evidence of right heart strain. He was started on heparin and bridged to Pradaxa. He has no lower extremity edema. However, he has increased dyspnea on exertion, although his O2 saturation was normal at rest. I am not able to do another CT angiogram at this time due to his renal insufficiency. Continue Pradaxa for now. 3. Acute renal insufficiency. His creatinine trended up from normal to 1.6. He appeared to be dehydrated, likely due to decreased oral intake. 4. History of right lung small-cell lung carcinoma treated with chemotherapy and radiation in 1991. He has chronic right perihilar infiltrate due to previous radiation which has been stable. 5. Worsening shortness of breath and dyspnea on exertion. Chest x-ray showed improved right base infiltrate. However, clinically he has increased dyspnea on exertion. He may have COPD exacerbation and he was given steroids and pulmonology, Dr. Foster has been consulted for further evaluation. 6. Hypertension, stable. 7. Anorexia. He was on Megace. 8. Osteoarthritis. PLAN 1. Continue Pradaxa. 2. Hydrate gently. 3. Await pulmonology and cardiology evaluation. 4. Consider repeating a CT angiogram when his renal function improves, if his pulmonary function does not continue to improve. 5. Continue steroid per primary team. Thank you Dr. Chan for asking me to see this patient. I will follow the patient with you. MD SKYE Perez/THADDEUS /7:40 AM /7:56 AM DYANA
[2017-08-10] MEDS ORDERED: LISINOPRIL 5 MG TAB PO SCH (09:00)
[2017-08-10] MEDS ORDERED: CEFDINIR PO SCH (09:00)
[2017-08-10] MEDS ORDERED: METOPROLOL SUCCINATE 25 MG EXTENDED RELEASE TAB PO SCH (09:00)
[2017-08-10] MEDS: SODIUM CHLOR 0.9% 1000 ML INJ 1,000 ML IV SCH ×2 (09:58→21:31)
--- NOTE | 2017-08-10 11:36 | MB ---
cc: ZOILA KWAN M.D. DATE OF CONSULTATION 08/10/2017 REASON FOR CONSULTATION Cardiomyopathy. Shortness of breath. HISTORY OF PRESENT ILLNESS The patient is a 72-year-old white male, status post recent admission for pneumonia and pulmonary embolism, with a history of hyperlipidemia, hypertension, lung cancer, who presented once again to the hospital with increased shortness of breath. The patient was discharged a few days ago buta he states his dyspnea continued to worsen in severity, barely able to walk a few feet without considerable shortness of breath. He denies chest pain, dizziness, syncope, near-syncope, palpitations, pedal edema, paroxysmal nocturnal dyspnea. Over the last couple of weeks he has had a minimal nonproductive cough. He denies fevers or hemoptysis. Since coming into the hospital his dyspnea has very minimally improved. PAST MEDICAL HISTORY 1. History of aortic regurgitation, moderate by 06/23/2016 echocardiogram, only mild by echocardiogram 08/04/2017. 2. Recently diagnosed cardiomyopathy with ejection fraction of 30-35% by echo on 08/04/2017. 3. Hyperlipidemia. 4. Hypertension. 5. Lung cancer status post chemotherapy and radiation therapy. 6. Osteoarthritis. 7. Pericardial effusion status post pericardial window in 2008. 8. Bilateral extensive pulmonary emboli on recent CT angiogram. CARDIAC MEDICATIONS 1. Aspirin 81 mg p.o. daily. 2. Furosemide 40 mg p.o. daily. 3. Lisinopril 5 mg p.o. daily. 4. Metoprolol succinate 25 mg p.o. daily. 5. Potassium chloride 20 mEq p.o. daily. 6. Pravastatin 10 mg p.o. q. H.s. 7. Pradaxa 150 mg p.o. b.i.d. ALLERGIES PENICILLIN. FAMILY HISTORY Non-contributory. SOCIAL HISTORY The patient is a former smoker. He denies alcohol abuse. REVIEW OF SYSTEMS As in the History Of Present Illness, otherwise negative of non-contributory. He also denies headache, abdominal pain, melena, dyspepsia, bright red blood per rectum. PHYSICAL EXAMINATION VITAL SIGNS: His blood pressure is 119/72 with a pulse of 106, respirations 20. GENERAL: He is a well-developed, well-nourished white male in no acute distress. HEENT/NECK EXAMINATION: Jugular venous pulse is normal. Carotid pulses are 2+ bilaterally and without bruits. CHEST: Examination of the chest reveals clear lung cui. CARDIAC EXAMINATION: He has a tachycardic, regular rhythm, without S3, S4 or murmur. ABDOMEN: On abdominal examination he has a soft, nontender abdomen. Bowel sounds are present. There is no definite hepatosplenomegaly. EXTREMITIES: Examination of the extremities reveals no clubbing, cyanosis or edema. LABORATORY DATA WBC 5.2, hemoglobin 12.3, platelets 137. Potassium 4.4, BUN 55, creatinine 1.59. Brain-natriuretic peptide level 213. Chest x-ray shows improving right base infiltrate. EKG shows sinus tachycardia, left axis deviation, nonspecific T-wave abnormalities. IMPRESSION Increased shortness of breath in a 72-year-old white male with a history of recently diagnosed moderate to severe cardiomyopathy with ejection fraction of 30-35%, history of recently diagnosed bilateral extensive pulmonary emboli, hypertension, hyperlipidemia, lung cancer status post chemotherapy and radiation therapy. I suspect at this point much of his dyspnea is more due to a pulmonary etiology. His chest x-ray has no definitive evidence for pulmonary edema. His brain-natriuretic peptide level is only mildly elevated. There is no definite evidence for acute coronary syndrome or arrhythmias. RECOMMENDATIONS 1. Consider holding LIZETH inhibitor therapy with his renal insufficiency. 2. We will try to increase his metoprolol dosing. 3. Repeat echo in three months. 4. Continue anticoagulation therapy for his pulmonary emboli. MD MIYA Barton/BANDAR /11:06 AM /11:16 AM DYANA
--- NOTE | 2017-08-10 16:12 | EKG ---
Date Performed: 08/09/2017 Time Performed: 18:09:38 PTAGE: 72 years EKG: SINUS TACHYCARDIA WITH OCCASIONAL SUPRAVENTRICULAR PREMATURE COMPLEXES PATTERN CONSISTENT W ITH PULMONARY DISEASE LEFT ANTERIOR FASCICULAR BLOCK ABNORMAL QRS-T ANGLE ABNORMAL ECG Since PREVIOUS TRACING , no significant change noted PREVIOUS TRACIN07/31/2017 20.39 DOCTOR: Guy Recio Interpretating Date/Time 08/10/2017 16:12:23
--- NOTE | 2017-08-10 20:20 | MB ---
cc: NU PLAZA DATE OF CONSULTATION 08/10/[address] Chan REASON FOR CONSULTATION Shortness of breath. HISTORY OF PRESENT ILLNESS Mr. Cordoba is a pleasant 72-year-old white male with history of COPDx, cancer of the lung. He is on chemotherapy. He was recently discharged from this hospital. He has extensive bilateral pulmonary embolism and was started on Pradaxa and he did well. He came to the hospital with worsening of his shortness of breath to the extent that he can barely walk inside the house. He did not have any chest pain. No cough or sputum production, no fever or chills. No hemoptysis. No history of syncope, presyncope. No history of orthopnea or PND. Because of the worsening of symptoms, he came to the hospital. He had a workup done. His blood gas - pH 7.54, pCO2 22, pO2 89, bicarb 19, saturation 96%. His sodium 136, potassium 4.4, chloride 101, CO2 23, BUN 55, creatinine 1.59. Chest x-ray shows improving right basal infiltrate. PAST MEDICAL HISTORY 1. History of bilateral pulmonary embolism. 2. Chronic obstructive pulmonary disease 3. History of CA of the left lung. He is on chemotherapy. 4. History of CA of the right lung status post radiation treatment. 5. History of cholecystectomy. MEDICATIONS Currently taking 1. Metoprolol 50 mg a day. 2. Aspirin 81 mg a day 3. Ferrous sulfate 25 mg a day 4. Proscar 5 mg a day. 5. Lasix 40 mg a day. 6. Potassium 20 mEq a day. 7. Pravastatin 10 mg a day 8. Nebulizer treatment with Albuterol 9. Pradaxa 150 mg a day. 10. Nebulizer treatment with Atrovent 11. Xanax 0.5 mg as needed. 12. Lortab for pain 13. Temazepam 30 mg at nighttime. 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 FAMILY HISTORY He has grown children. REVIEW OF SYSTEMS He has lost weight, has increasing shortness of breath. No bleeding from any site. No cough or sputum production. PHYSICAL EXAMINATION GENERAL: Elderly male weak, mildly short of breath. VITAL SIGNS: Blood pressure 128/72, heart rate 115, respiration 18, temperature 96.9 HEENT: Pupils are equal and react to light. Oral mucosa and nasal mucosa normal. NECK: Supple. JVP not raised. CHEST: Equal bilaterally. No rhonchi. CHEST: S1, S2 normal. ABDOMEN: Benign. EXTREMITIES: No edema. IMPRESSION 1. Worsening of dyspnea. He has recent bilateral pulmonary embolism. He is on Pradaxa. 2. Cardiomyopathy 3. Underlying COPD. 4. History of left lung cancer. He is on chemotherapy. 5. Right lung cancer, status post radiation treatment. PLAN I discussed with the patient we will check his oxygen after ambulation to see if he needs any supplemental oxygen. Check his pulmonary function study. Continue his Pradaxa, aerosol treatment with albuterol and Atrovent. He is being diuresed. Further treatment will depend on the course in the hospital. Thank you, Dr. Chan, for this consultation. MD BETH Romero/ /6:59 PM /8:02 PM MTDD
[2017-08-10] MEDS: ACETAMINOPHEN/HYDROcodone 325 MG/10 MG TAB PO PRN (21:41)
[2017-08-11] VITALS (8 sets, daily range): BP systolic 112–133; BP diastolic 60–87; PULSE 97–109; RESP 16–19; TEMP 97.4–98.6; O2SAT 95–98
[2017-08-11] MEDS: ALPRAZolam 0.5 MG TAB PO PRN (00:38)
[2017-08-11] MEDS: TEMAZEPAM 15 MG CAP PO PRN (02:52)
[2017-08-11] MEDS: RESP: IPRATROPIUM 0.5 MG/2.5 ML NEB NEB SCH ×4 (04:26→20:37)
--- NOTE | 2017-08-11 08:11 | PD.CARD.PN ---
Subjective Subjective Remarks Continued moderate to severe dyspnea with minimal activity. No PND, CP, palpitations, dizziness. Objective Medications Item Value Date Time Metoprolol 50 mg 08/11/171999 Succinate DAILY@1999/PO (Toprol Xl) Aspirin 81 mg 08/10/17 09 (Aspirin Chew) DAILY/CHEW Furosemide 40 mg 08/10/17899 (Lasix) DAILY/PO 08/10/17825 Potassium Chloride 20 meq 08/10/17899 (KCl) DAILY/PO 08/10/17823 Pravastatin Sodium 10 mg 08/10/17899 (Pravachol) DAILY/PO 08/10/17825 Dabigatran 150 mg 08/09/172129 (Pradaxa) BID/PO 08/10/172130 Current Medications Medications (Trade) Dose Ordered Sig/Reggie Route Start Time Stop Time Status Last Admin (NS Flush) 2 ml UNSCH PRN IV FLUSH 08/09/17 20:30 (NS Flush) 2 ml BID IV FLUSH 08/09/17 21:00 08/10/17 08:28 (Narcan Inj) 0.4 mg UNSCH PRN IV PUSH 08/09/17 20:30 (Atrovent Neb) 0.5 mg Q6HR NEB NEB 08/09/17 22:00 08/11/17 04:26 (Atrovent Neb) 0.5 mg Q2HR NEB PRN NEB 08/09/17 20:30 (Xanax) 0.5 mg DAILY PRN PO 08/09/17 20:45 08/11/17 00:38 (Aspirin Chew) 81 mg DAILY CHEW 08/10/17 09:00 (Pradaxa) 150 mg BID PO 08/09/17 21:30 08/10/17 21:31 (Ferrous Sulfate) 325 mg DAILY PO 08/10/17 09:00 08/10/17 08:25 (Proscar) 5 mg DAILY PO 08/10/17 09:00 08/10/17 08:24 (Lasix) 40 mg DAILY PO 08/10/17 09:00 08/10/17 08:26 ([place] 10-325 Mg) 1 tab Q4H PRN PO 08/09/17 20:45 08/10/17 21:41 (KCl) 20 meq DAILY PO 08/10/17 09:00 08/10/17 08:24 (Restoril) 30 mg HS PRN PO 08/09/17 20:45 08/11/17 02:52 (Theragran) 1 tab DAILY PO 08/10/17 09:00 08/10/17 08:25 (Pravachol) 10 mg DAILY PO 08/10/17 09:00 08/10/17 08:26 Sodium Chloride 1,000 ml @ 75 mls/hr [id number] IV 08/10/17 07:52 08/10/17 21:31 (Toprol Xl) 50 mg DAILY@2000 PO 08/11/17 20:00 Vital Signs / I&O Vital Signs Date Time Temp Pulse Resp B/P (MAP) Pulse Ox O2 Delivery O2 Flow Rate FiO2 08/11/17 04:00 97.4 98 16 112/60 (77) 98 08/11/17 00:00 98.6 109 18 116/72 (87) 96 08/10/17 20:57 97 21 08/10/17 20:00 112 08/10/17 20:00 97.7 113 16 119/78 (92) 98 08/10/17 18:11 96.9 115 18 128/72 (90) 97 08/10/17 11:49 112 08/10/17 11:14 97.5 113 20 113/70 (84) 96 I/O 08/10/17 08/10/17 08/10/17 08/11/17 08/11/17 08/11/17 07:00 15:00 23:00 07:00 15:00 23:00 Intake Total 100 ml 100 ml Output Total 250 ml Balance 100 ml -250 ml 100 ml Intake IV Total 100 ml 100 ml Output Urine Total 250 ml # Voids 3 Physical Exam GENERAL: Well developed, well nourished. No acute distress. HEENT: Jugular venous pressure is normal. CHEST: Lungs clear to auscultation bilaterally. Unlabored respiratory effort. CARDIAC: Regular rate and rhythm without S3, S4, or murmur. ABDOMEN: Soft, nontender, no hepatosplenomegaly. Bowel sounds present. EXTREMITIES: No clubbing, cyanosis, or edema. Assessment and Plan Problem List: (1) Dilated cardiomyopathy ICD Codes: I42.0 - Dilated cardiomyopathy Status: Chronic Plan: EF 30-35% by recent echo. No definite evidence for acute CHF. No evidence for ACS. Not much else to rec from a cardiac standpoint REC continue increased dose of metoprolol succinate overall rec keep off LIZETH-I with his renal insufficiency continue oral furosemide will f/u PRN rest of hospital stay; patient I believe has office appointment with me next week (2) Pulmonary embolism, bilateral ICD Codes: I26.99 - Other pulmonary embolism without acute cor pulmonale Status: Acute Plan: Continue anticoagulation therapy. Code Status full code Discussed Condition With patient Ahmet Sorensen MD Aug 11, 2017 08:11
[2017-08-11] MEDS: FUROSEMIDE 40 MG TAB PO SCH (08:42)
[2017-08-11] MEDS: FERROUS SULFATE 325 MG (65 MG ELEMENTAL IRON) TAB PO SCH (08:42)
[2017-08-11] MEDS: FINASTERIDE 5 MG TAB PO SCH (08:42)
[2017-08-11] MEDS: POTASSIUM CHLORIDE 20 MEQ CONTROLLED RELEASE TAB PO SCH (08:43)
[2017-08-11] MEDS: DABIGATRAN ETEXILATE 150 MG CAP PO SCH ×2 (08:43→20:35)
[2017-08-11] MEDS: ASPIRIN 81 MG CHEW TAB CHEW SCH (08:43)
[2017-08-11] MEDS: MULTIVITAMIN TAB PO SCH (08:43)
[2017-08-11] MEDS: PRAVASTATIN SOD 10 MG TAB PO SCH (08:43)
[2017-08-11] MEDS: SODIUM CHLORIDE 0.9% FLUSH 10 ML FLUSH IV FLUSH SCH ×2 (09:00→20:35)
[2017-08-11] MEDS ORDERED: METOPROLOL SUCCINATE 50 MG EXTENDED RELEASE TAB PO SCH (09:00)
[2017-08-11] MEDS: SODIUM CHLOR 0.9% 1000 ML INJ 1,000 ML IV SCH (10:38)
--- NOTE | 2017-08-11 11:48 | HHI.PR ---
Subjective Remarks Patient states he ambulated to the bathroom with his nurse. States his shortness of breath is slightly better. He is very fearful of going home as he stated his shortness of breath just worsened last time making it difficult to perform his activities of daily living. He lives alone and does not have any family nearby. Patient denies wheezing. Does complain of occasional dry cough. Denies chest pain or chest pressure. Objective Vitals Vital Signs Date Time Temp Pulse Resp B/P (MAP) Pulse Ox O2 Delivery O2 Flow Rate FiO2 08/11/17 08:00 98.4 97 18 120/76 (91) 98 08/11/17 04:00 97.4 98 16 112/60 (77) 98 08/11/17 00:00 98.6 109 18 116/72 (87) 96 08/10/17 20:57 97 21 08/10/17 20:00 112 08/10/17 20:00 97.7 113 16 119/78 (92) 98 08/10/17 18:11 96.9 115 18 128/72 (90) 97 08/10/17 11:49 112 I/O 08/10/17 08/10/17 08/10/17 08/11/17 08/11/17 08/11/17 07:00 15:00 23:00 07:00 15:00 23:00 Intake Total 100 ml 100 ml Output Total 250 ml Balance 100 ml -250 ml 100 ml Intake IV Total 100 ml 100 ml Output Urine Total 250 ml # Voids 3 Result Diagram: 08/10/17 0604 08/10/17 0604 Objective Remarks GENERAL: Lean male patient in no significant distress. SKIN: Warm and dry. HEAD: Normocephalic. EYES: No scleral icterus. No injection or drainage. NECK: Supple, trachea midline. No JVD or lymphadenopathy. CARDIOVASCULAR: Regular rate and rhythm without murmurs, gallops, or rubs. Port in right chest. RESPIRATORY: Breath sounds equal bilaterally. No wheezes. No accessory muscle use. GASTROINTESTINAL: Abdomen soft, non-tender, nondistended. EXTREMITIES: No cyanosis, or edema. NEUROLOGICAL: Awake, alert, and oriented x 3. Non-focal. He does have tremors of his head and upper extremities. A/P Problem List: (1) COPD (chronic obstructive pulmonary disease) ICD Code: J44.9 - Chronic obstructive pulmonary disease, unspecified Status: Chronic (2) NORAH (acute kidney injury) ICD Code: N17.9 - Acute kidney failure, unspecified Status: Acute (3) Dilated cardiomyopathy ICD Code: I42.0 - Dilated cardiomyopathy Status: Chronic (4) Pulmonary embolism, bilateral ICD Code: I26.99 - Other pulmonary embolism without acute cor pulmonale Status: Chronic (5) Exertional dyspnea ICD Code: R06.09 - Other forms of dyspnea Status: Acute (6) Non-small cell carcinoma of lung ICD Code: C34.90 - Malignant neoplasm of unspecified part of unspecified bronchus or lung Status: Chronic Assessment and Plan 72-year-old male with recent diagnosis of bilateral pulmonary embolisms, dilated cardiomyopathy, non-small cell lung carcinoma status post chemotherapy 2 presents with worsening dyspnea after being discharged from the hospital a week ago -Dyspnea, multifactorial given his recent bilateral pulmonary embolism, known lung cancer, COPD, dilated cardiomyopathy with EF 30-35%. There is not appear to be any acute issue that we can treat unfortunately. Chest x-ray is clear he has no wheezing on exam. Repeat CT of the chest was not done due to his renal function. Patient is stable on room air at rest. However he was readmitted within 1 week of discharge for worsening dyspnea and inability to perform activities of daily living at home. He had an oxygen walk test prior to discharge and did not qualify for home oxygen. I feel he would benefit from home oxygen. I have consulted physical therapy and we are awaiting word back from his insurance whether or not he can qualify for halfway facility. The patient has poor social support and has no nearby family. Appreciate pulmonology seeing him yesterday. -Acute kidney injury. Continue gentle IV fluid hydration and repeat BMP in the morning. -Metastatic non-small cell lung carcinoma - Followed by Dr. Steven. Dr. Pardo saw him yesterday. Chemotherapy currently on hold due to the recent bilateral pulmonary embolism. -Recent bilateral pulmonary embolism. Continue Pradaxa. -Hypertension - continue metoprolol -Dilated cardiomyopathy recently diagnosed. EF of 30-35%. Does not appear to have acute exacerbation. Continue metoprolol, aspirin, statin, Lasix 40 mg daily. Was seen by cardiology Dr. Sorensen. Holding LIZETH inhibitor at this time due to his poor renal function. Oriana Pavon MD Aug 11, 2017 11:48
--- NOTE | 2017-08-11 12:27 | PD.ONC.PN ---
Subjective Subjective Remarks Afebrile Reports he gets dizzy and short of breath with ambulation Afraid to go home as he thinks he will last 3 days and this happen all over again Objective Data Date Time Temp Pulse Resp B/P (MAP) Pulse Ox O2 Delivery O2 Flow Rate FiO2 08/11/17 12:00 97.9 108 18 133/87 (102) 97 08/11/17 08:00 98.4 97 18 120/76 (91) 98 08/11/17 04:00 97.4 98 16 112/60 (77) 98 08/11/17 00:00 98.6 109 18 116/72 (87) 96 08/10/17 20:57 97 21 08/10/17 20:00 112 08/10/17 20:00 97.7 113 16 119/78 (92) 98 08/10/17 18:11 96.9 115 18 128/72 (90) 97 08/11/17 08/11/17 08/11/17 07:00 15:00 23:00 Intake Total 100 ml Output Total 250 ml Balance -250 ml 100 ml Result Diagram: 08/10/1704 08/10/17 06 Administered Medications Medications (Trade) Dose Ordered Sig/Reggie Route PRN Reason Start Time Stop Time Status Last Admin Dose Admin Sodium Chloride (NS Flush) 2 ml BID IV FLUSH 08/09/17 21:00 08/11/17 09:00 Ipratropium [place] (Atrovent Neb) 0.5 mg Q6HR NEB NEB 08/09/17 22:00 08/11/17 04:26 Alprazolam (Xanax) 0.5 mg DAILY PRN PO ANXIETY 08/09/17 20:45 08/11/17 00:38 Aspirin (Aspirin Chew) 81 mg DAILY CHEW 08/10/17 09:00 08/11/17 08:43 Dabigatran (Pradaxa) 150 mg BID PO 08/09/17 21:30 08/11/17 08:43 Ferrous Sulfate (Ferrous Sulfate) 325 mg DAILY PO 08/10/17 09:00 08/11/17 08:42 Finasteride (Proscar) 5 mg DAILY PO 08/10/17 09:00 08/11/17 08:42 Furosemide (Lasix) 40 mg DAILY PO 08/10/17 09:00 08/11/17 08:42 Acetaminophen/ Hydrocodone Bitart ([place] 10-325 Mg) 1 tab Q4H PRN PO PAIN 08/09/17 20:45 08/10/17 21:41 Potassium Chloride (KCl) 20 meq DAILY PO 08/10/17 09:00 08/11/17 08:43 Temazepam (Restoril) 30 mg HS PRN PO INSOMNIA 08/09/17 20:45 08/11/17 02:52 Multivitamins (Theragran) 1 tab DAILY PO 08/10/17 09:00 08/11/17 08:43 Pravastatin Sodium (Pravachol) 10 mg DAILY PO 08/10/17 09:00 08/11/17 08:43 Sodium Chloride 1,000 ml @ 75 mls/hr [id number] IV 08/10/17 07:52 08/11/17 10:38 Objective Remarks GENERAL: Older male sitting up in chair at bedside. He appears to be shaking and reports this is because he was most recently moving around the room. SKIN: Warm and dry. HEAD: Normocephalic. EYES: No injection or drainage. NECK: Supple, trachea midline. CARDIOVASCULAR: + S1/S2. Tachycardia rhythm. RESPIRATORY: Scattered expiratory wheezes. Breathing appears somewhat labored at rest. GASTROINTESTINAL: Abdomen soft, non-tender, nondistended. EXTREMITIES: No cyanosis, or edema. MUSCULOSKELETAL: Generalized weakness. NEUROLOGICAL: No obvious focal deficit. Awake, alert, and oriented x3. Assessment/Plan Problem List: (1) COPD (chronic obstructive pulmonary disease) ICD Codes: J44.9 - Chronic obstructive pulmonary disease, unspecified Status: Chronic Plan: -- Chest x-ray this admission showed improving right lung base infiltrate -- Dr. Colon following inpatient; has ordered pulmonary function tests (2) Non-small cell carcinoma of lung ICD Codes: C34.90 - Malignant neoplasm of unspecified part of unspecified bronchus or lung Status: Chronic Plan: -- Patient is status post 2 cycles of chemotherapy with carboplatin and Taxol -- He was found to have a left lung mass measuring 1.6 cm -- It is too early to assess for response after only 2 cycles -- Plan to continue chemotherapy as outpatient (3) Pulmonary embolism, bilateral ICD Codes: I26.99 - Other pulmonary embolism without acute cor pulmonale Status: Chronic Plan: -- On Pradaxa -- May repeat CTA once kidney function improves Assessment 72 y/o male with history of non-small cell cancer admitted for shortness of breath and dizziness also recently diagnosed with bilateral pulmonary embolism Plan 1. Plan to repeat CTA once kidney function improves 2. Defer to pulmonology for COPD treatment 3. Monitor CBC while on Pradaxa. Attending Statement The exam, history, and the medical decision-making described in the above note were completed with the assistance of the mid-level provider. I reviewed and agree with the findings presented. I attest that I had a [id number] encounter with the patient on the same day, and personally performed and documented my assessment and findings in the medical record. Still has significant dyspnea on exertion and weakness. Await PFT. Renal function improved with hydration but have to hydrate slowly due to cardiomyopathy. Continue pradaxa. Lurdes Fu Aug 11, 2017 12:27 Nelson Pardo MD Aug 11, 2017 17:51
[2017-08-11] MEDS: RESP: IPRATROPIUM 0.5 MG/2.5 ML NEB NEB PRN (14:39)
[2017-08-11] MEDS: ACETAMINOPHEN/HYDROcodone 325 MG/10 MG TAB PO PRN (15:37)
--- NOTE | 2017-08-11 18:32 | HHI.PR ---
Subjective Remarks 72 YOWM with Ca lung, PE, worsening dysnoea PFT Severe COPD No cough or sp No Fever Objective Vital Signs Vital Signs Date Time Temp Pulse Resp B/P (MAP) Pulse Ox O2 Delivery O2 Flow Rate FiO2 08/11/17 16:00 97.8 107 18 128/76 (93) 97 08/11/17 14:39 97 08/11/17 12:00 97.9 108 18 133/87 (102) 97 08/11/17 08:00 98.4 97 18 120/76 (91) 98 08/11/17 04:00 97.4 98 16 112/60 (77) 98 08/11/17 00:00 98.6 109 18 116/72 (87) 96 08/10/17 20:57 97 21 08/10/17 20:00 112 08/10/17 20:00 97.7 113 16 119/78 (92) 98 I/O 08/10/17 08/10/17 08/10/17 08/11/17 08/11/17 08/11/17 07:00 15:00 23:00 07:00 15:00 23:00 Intake Total 100 ml 100 ml 1500 ml Output Total 250 ml 1700 ml Balance 100 ml -250 ml 100 ml -200 ml Intake Oral 675 ml IV Total 100 ml 100 ml 825 ml Output Urine Total 250 ml 1700 ml # Voids 3 Result Diagram: 08/10/17 0604 08/10/17 0604 Objective Remarks GENERAL: MBMN , anxious SKIN: Warm and dry. HEAD: Normocephalic. EYES: No scleral icterus. No injection or drainage. NECK: Supple, trachea midline. No JVD or lymphadenopathy. CARDIOVASCULAR: Regular rate and rhythm without murmurs, gallops, or rubs. RESPIRATORY: Breath sounds equal bilaterally. No accessory muscle use. GASTROINTESTINAL: Abdomen soft, non-tender, nondistended. MUSCULOSKELETAL: No cyanosis, or edema. BACK: Nontender without obvious deformity. No CVA tenderness. A/P Assessment and Plan Severe COPD Pulm Embolism Ca lung Anxiety disorder CMP PLAN: Aerosol nebs Symbicort 160/405 2 puffs bid Stable on RA DC plans underway for rehab Armando Colon MD Aug 11, 2017 18:32
[2017-08-11] MEDS: METOPROLOL SUCCINATE 50 MG EXTENDED RELEASE TAB PO SCH (20:35)
[2017-08-11] MEDS: BUDESONIDE-FORMOTEROL 160/4.5 MCG INHALER INH SCH (21:00)
[2017-08-12] VITALS (7 sets, daily range): BP systolic 96–116; BP diastolic 60–79; PULSE 86–99; RESP 17–22; TEMP 97.6–98; O2SAT 96–98
[2017-08-12] MEDS: ALPRAZolam 0.5 MG TAB PO PRN ×2 (00:30→17:09)
[2017-08-12] MEDS: SODIUM CHLOR 0.9% 1000 ML INJ 1,000 ML IV SCH (00:35)
[2017-08-12] MEDS: TEMAZEPAM 15 MG CAP PO PRN (03:09)
[2017-08-12] MEDS: RESP: IPRATROPIUM 0.5 MG/2.5 ML NEB NEB SCH ×4 (03:14→21:39)
[2017-08-12 05:57] LABS: AUTOMATED NEUTROPHIL # 7.4 TH/MM3 (1.8-7.7); BASOPHIL % 0.1 % (0.0-2.0); EOSINOPHIL % 0.2 % (0.0-4.0); HEMATOCRIT 34.3 % (39.0-51.0); HEMO FLAGS DIFF FINAL; LYMPH % 38.7 % (9.0-44.0); LYMPHOCYTE # 5.1 TH/MM3 (1.0-4.8); MEAN CELL VOLUME 88.9 FL (80.0-100.0); MEAN CORPUSCULAR HEMOGLOBIN 30.4 PG (27.0-34.0); MEAN CORPUSCULAR HGB CONC 34.3 % (32.0-36.0); MONO % 4.5 % (0.0-8.0); NEUT % 56.5 % (16.0-70.0); PLATELET COUNT 138 TH/MM3 (150-450); RED BLOOD COUNT 3.86 MIL/MM3 (4.50-5.90); RED CELL DISTRIBUTION WIDTH 17.4 % (11.6-17.2); WHITE BLOOD COUNT 13.1 TH/MM3 (4.0-11.0)
[2017-08-12 06:28] LABS: ALKALINE PHOSPHATASE 60 U/L (45-117); ALT (GPT) 22 U/L (12-78); ANION GAP 8 MEQ/L (5-15); AST (GOT) 17 U/L (15-37); BICARBONATE 24.5 MEQ/L (21.0-32.0); BLOOD UREA NITROGEN 36 MG/DL (7-18); CHLORIDE 104 MEQ/L (98-107); GLOMERULAR FILTRATION RATE 78 ML/MIN (>89); POTASSIUM 4.1 MEQ/L (3.5-5.1); SODIUM (NA) 136 MEQ/L (136-145); TOTAL BILIRUBIN ADULT 1.6 MG/DL (0.2-1.0)
[2017-08-12] MEDS: ASPIRIN 81 MG CHEW TAB CHEW SCH (09:09)
[2017-08-12] MEDS: BUDESONIDE-FORMOTEROL 160/4.5 MCG INHALER INH SCH ×2 (09:09→22:09)
[2017-08-12] MEDS: FERROUS SULFATE 325 MG (65 MG ELEMENTAL IRON) TAB PO SCH (09:10)
[2017-08-12] MEDS: DABIGATRAN ETEXILATE 150 MG CAP PO SCH ×2 (09:10→22:09)
[2017-08-12] MEDS: MULTIVITAMIN TAB PO SCH (09:10)
[2017-08-12] MEDS: FINASTERIDE 5 MG TAB PO SCH (09:10)
[2017-08-12] MEDS: PRAVASTATIN SOD 10 MG TAB PO SCH (09:10)
[2017-08-12] MEDS: FUROSEMIDE 40 MG TAB PO SCH (09:10)
[2017-08-12] MEDS: POTASSIUM CHLORIDE 20 MEQ CONTROLLED RELEASE TAB PO SCH (09:10)
[2017-08-12] MEDS: SODIUM CHLORIDE 0.9% FLUSH 10 ML FLUSH IV FLUSH SCH ×2 (09:11→22:09)
[2017-08-12] MEDS: ACETAMINOPHEN/HYDROcodone 325 MG/10 MG TAB PO PRN (09:16)
--- NOTE | 2017-08-12 09:52 | PD.ONC.PN ---
Subjective Subjective Remarks Afebrile Feels anxious Got up to go to the bathroom and had significant shortness of breath with dizziness Objective Data Date Time Temp Pulse Resp B/P (MAP) Pulse Ox O2 Delivery O2 Flow Rate FiO2 08/12/17 08:40 96 21 08/12/17 04:00 97.9 86 18 104/69 (81) 98 08/12/17 00:00 98.0 86 17 114/69 (84) 96 08/11/17 20:27 95 21 08/11/17 20:00 97.5 107 19 113/72 (86) 97 08/11/17 20:00 107 08/11/17 16:00 97.8 107 18 128/76 (93) 97 08/11/17 14:39 97 08/11/17 12:00 97.9 108 18 133/87 (102) 97 08/12/17 08/12/17 08/12/17 07:00 15:00 23:00 Output Total 450 ml Balance -450 ml Result Diagram: 08/12/17 0515 08/12/17 0515 Laboratory Results Laboratory Tests Test 08/12/17 05:15 White Blood Count 13.1 TH/MM3 Red Blood Count 3.86 MIL/MM3 Hemoglobin 11.8 GM/DL Hematocrit 34.3 % Mean Corpuscular Volume 88.9 FL Mean Corpuscular Hemoglobin 30.4 PG Mean Corpuscular Hemoglobin Concent 34.3 % Red Cell Distribution Width 17.4 % Platelet Count 138 TH/MM3 Mean Platelet Volume 7.6 FL Neutrophils (%) (Auto) 56.5 % Lymphocytes (%) (Auto) 38.7 % Monocytes (%) (Auto) 4.5 % Eosinophils (%) (Auto) 0.2 % Basophils (%) (Auto) 0.1 % Neutrophils # (Auto) 7.4 TH/MM3 Lymphocytes # (Auto) 5.1 TH/MM3 Monocytes # (Auto) 0.6 TH/MM3 Eosinophils # (Auto) 0.0 TH/MM3 Basophils # (Auto) 0.0 TH/MM3 CBC Comment DIFF FINAL Differential Comment Blood Urea Nitrogen 36 MG/DL Creatinine 0.95 MG/DL Random Glucose 77 MG/DL Total Protein 5.2 GM/DL Albumin 2.8 GM/DL Calcium Level 7.8 MG/DL Alkaline Phosphatase 60 U/L Aspartate Amino Transf (AST/SGOT) 17 U/L Alanine Aminotransferase (ALT/SGPT) 22 U/L Total Bilirubin 1.6 MG/DL Sodium Level 136 MEQ/L Potassium Level 4.1 MEQ/L Chloride Level 104 MEQ/L Carbon Dioxide Level 24.5 MEQ/L Anion Gap 8 MEQ/L Estimat Glomerular Filtration Rate 78 ML/MIN Administered Medications Medications (Trade) Dose Ordered Sig/Reggie Route PRN Reason Start Time Stop Time Status Last Admin Dose Admin Sodium Chloride (NS Flush) 2 ml BID IV FLUSH 08/09/17 21:00 08/12/17 09:11 Ipratropium [place] (Atrovent Neb) 0.5 mg Q6HR NEB NEB 08/09/17 22:00 08/12/17 08:39 Ipratropium [place] (Atrovent Neb) 0.5 mg Q2HR NEB PRN NEB WHEEZING 08/09/17 20:30 08/11/17 14:39 Alprazolam (Xanax) 0.5 mg DAILY PRN PO ANXIETY 08/09/17 20:45 08/12/17 00:30 Aspirin (Aspirin Chew) 81 mg DAILY CHEW 08/10/17 09:00 08/12/17 09:09 Dabigatran (Pradaxa) 150 mg BID PO 08/09/17 21:30 08/12/17 09:10 Ferrous Sulfate (Ferrous Sulfate) 325 mg DAILY PO 08/10/17 09:00 08/12/17 09:10 Finasteride (Proscar) 5 mg DAILY PO 08/10/17 09:00 08/12/17 09:10 Furosemide (Lasix) 40 mg DAILY PO 08/10/17 09:00 08/12/17 09:10 Acetaminophen/ Hydrocodone Bitart ([place] 10-325 Mg) 1 tab Q4H PRN PO PAIN 08/09/17 20:45 08/12/17 09:16 Potassium Chloride (KCl) 20 meq DAILY PO 08/10/17 09:00 08/12/17 09:10 Temazepam (Restoril) 30 mg HS PRN PO INSOMNIA 08/09/17 20:45 08/12/17 03:09 Multivitamins (Theragran) 1 tab DAILY PO 08/10/17 09:00 08/12/17 09:10 Pravastatin Sodium (Pravachol) 10 mg DAILY PO 08/10/17 09:00 08/12/17 09:10 Sodium Chloride 1,000 ml @ 75 mls/hr [id number] IV 08/10/17 07:52 08/12/17 00:35 Metoprolol Succinate (Toprol Xl) 50 mg DAILY@2000 PO 08/11/17 20:00 08/11/17 20:35 Budesonide/ Formoterol Fumarate (Symbicort 160-4.5 Mcg Inh) 2 puff Q12HR INH 08/11/17 21:00 08/12/17 09:09 Objective Remarks GENERAL: Older male sitting up in bed. He appears uncomfortable and anxious. SKIN: Warm and dry. HEAD: Normocephalic. EYES: No injection or drainage. NECK: Supple, trachea midline. CARDIOVASCULAR: + S1/S2. Tachycardia rhythm. RESPIRATORY: Entire left lung diminished. Scattered expiratory wheezes noted to the right. GASTROINTESTINAL: Abdomen soft, non-tender, nondistended. EXTREMITIES: No cyanosis, or edema. MUSCULOSKELETAL: Generalized weakness. NEUROLOGICAL: No obvious focal deficit. Awake, alert, and oriented x3. Assessment/Plan Problem List: (1) COPD (chronic obstructive pulmonary disease) ICD Codes: J44.9 - Chronic obstructive pulmonary disease, unspecified Status: Acute Plan: -- Chest x-ray this admission showed improving right lung base infiltrate -- Dr. Colon following inpatient; has ordered pulmonary function tests (2) Non-small cell carcinoma of lung ICD Codes: C34.90 - Malignant neoplasm of unspecified part of unspecified bronchus or lung Status: Chronic Plan: -- Patient is status post 2 cycles of chemotherapy with carboplatin and Taxol -- He was found to have a left lung mass measuring 1.6 cm -- It is too early to assess for response after only 2 cycles -- Plan to continue chemotherapy as outpatient (3) Pulmonary embolism, bilateral ICD Codes: I26.99 - Other pulmonary embolism without acute cor pulmonale Status: Chronic Plan: -- On Pradaxa -- May repeat CTA once kidney function improves Assessment 72 y/o male with history of non-small cell cancer admitted for shortness of breath and dizziness also recently diagnosed with bilateral pulmonary embolism Plan 1. Repeat CTA today to evaluate pulmonary embolism with worsening dyspnea 2. Noted that pulmonology has initiated aerosol nebulizers and corticosteroid inhalers 3. Increase Xanax to twice daily prn for anxiety 4. Supportive care Attending Statement The exam, history, and the medical decision-making described in the above note were completed with the assistance of the mid-level provider. I reviewed and agree with the findings presented. I attest that I had a [id number] encounter with the patient on the same day, and personally performed and documented my assessment and findings in the medical record. Has severe dyspnea on exertion. Reviewed CTA which showed bilateral stable PE. Significant fibrosis right lung. Still has tachycardia with minimal exertion. Will give him a trial of steroid. Discussed with . Lurdes Fu Aug 12, 2017 09:52 Nelson Pardo MD Aug 12, 2017 15:20
[2017-08-12] MEDS ORDERED: IOHEXOL 350 MG/ML 10 ML VIAL (for RAD DIAG) IVCONTRAST ONE (10:42)
--- NOTE | 2017-08-12 10:55 | RADRPT ---
EXAM DATE/TIME: 08/12/2017 10:42 [facility] COMPARISON: No previous studies available for comparison. INDICATIONS : Shortness of breath, tachacardia, bilateral PE. IV CONTRAST: 64 cc Omnipaque 350 (iohexol) IV RADIATION DOSE: 7.66 CTDIvol (mGy) MEDICAL HISTORY : Cardiovascular disease. DVT, Ca lung, chemo Hyperlipedema SURGICAL HISTORY : Appendectomy. Cholecystectomy. ENCOUNTER: Initial ACUITY: 2 days PAIN SCALE: 0/10 LOCATION: chest TECHNIQUE: Volumetric scanning of the chest was performed using a pulmonary embolism protocol MIP images were re constructed. Using automated exposure control and adjustment of the mA and/or kV according to patien t size, radiation dose was kept as low as reasonably achievable to obtain optimal diagnostic quality images. DICOM format image data is available electronically for review and comparison. Follow-up recommendations for detected pulmonary nodules are based at a minimum on nodule size and pa tient risk factors according to Fleischner Society Guidelines. FINDINGS: PULMONARY ARTERIES: Multiple filling defects are again seen including right lower lobe and right middle lobe branches. Th ere is also filling defect again noted within left lower lobe branches. This has not significantly ch anged.. LUNGS: There is patchy consolidative changes in the right lower lobe and to lesser degree right middle lobe, left lower lobe and right upper lobe. Right-sided paramediastinal density again noted. Spiculated no dule left lower lobe measures 13 mm. PLEURAE: Small bilateral pleural effusions. Nodularity along the pleura greater in the left. MEDIASTINUM: There is good visualization of the great vessels of the middle mediastinum. No evidence of mediastin al or hilar adenopathy/mass. MUSCULOSKELETAL: Within normal limits for patient age. MISCELLANEOUS: The visualized upper abdominal organs demonstrate no acute abnormality. CONCLUSION: 1. Bilateral pulmonary emboli appearing unchanged. 2. Spiculated nodule left lower lobe measures 1.3 cm. 3. Right hilar/paramediastinal density is unchanged. 4. Bilateral infiltrates greater on the right lower lobe appears unchanged. Lars Dow MD on August 12, 2017 at 10:49 Board Certified Radiologist. This report was verified electronically.
--- NOTE | 2017-08-12 12:25 | HHI.PR ---
Subjective Remarks Patient was too short of breath yesterday to complete oxygen walk test. Was too short of breath to ambulate with physical therapy. Patient states he is not dyspneic at rest but with even minimal exertion he becomes extremely short of breath. He also becomes tachycardic with exertion. Objective Vitals Vital Signs Date Time Temp Pulse Resp B/P (MAP) Pulse Ox O2 Delivery O2 Flow Rate FiO2 08/12/17 08:40 96 21 08/12/17 04:00 97.9 86 18 104/69 (81) 98 08/12/17 00:00 98.0 86 17 114/69 (84) 96 08/11/17 20:27 95 21 08/11/17 20:00 97.5 107 19 113/72 (86) 97 08/11/17 20:00 107 08/11/17 16:00 97.8 107 18 128/76 (93) 97 08/11/17 14:39 97 I/O 08/11/17 08/11/17 08/11/17 08/12/17 08/12/17 08/12/17 07:00 15:00 23:00 07:00 15:00 23:00 Intake Total 100 ml 1500 ml Output Total 250 ml 1700 ml 450 ml Balance -250 ml 100 ml -200 ml -450 ml Intake Oral 675 ml IV Total 100 ml 825 ml Output Urine Total 250 ml 1700 ml 450 ml Result Diagram: 08/12/1715 08/12/1715 Objective Remarks GENERAL: Lean male patient in no significant distress. SKIN: Warm and dry. HEAD: Normocephalic. EYES: No scleral icterus. No injection or drainage. NECK: Supple, trachea midline. No JVD or lymphadenopathy. CARDIOVASCULAR: Regular rate and rhythm without murmurs, gallops, or rubs. Port in right chest. RESPIRATORY: Breath sounds equal bilaterally. No wheezes. No accessory muscle use. GASTROINTESTINAL: Abdomen soft, non-tender, nondistended. EXTREMITIES: No cyanosis, or edema. NEUROLOGICAL: Awake, alert, and oriented x 3. Non-focal. He does have tremors of his head and upper extremities. A/P Problem List: (1) COPD (chronic obstructive pulmonary disease) ICD Code: J44.9 - Chronic obstructive pulmonary disease, unspecified Status: Acute (2) NORAH (acute kidney injury) ICD Code: N17.9 - Acute kidney failure, unspecified Status: Resolved (3) Dilated cardiomyopathy ICD Code: I42.0 - Dilated cardiomyopathy Status: Chronic (4) Pulmonary embolism, bilateral ICD Code: I26.99 - Other pulmonary embolism without acute cor pulmonale Status: Chronic (5) Exertional dyspnea ICD Code: R06.09 - Other forms of dyspnea Status: Acute (6) Non-small cell carcinoma of lung ICD Code: C34.90 - Malignant neoplasm of unspecified part of unspecified bronchus or lung Status: Chronic Assessment and Plan 72-year-old male with recent diagnosis of bilateral pulmonary embolisms, dilated cardiomyopathy, non-small cell lung carcinoma status post chemotherapy 2 presents with worsening dyspnea after being discharged from the hospital a week ago -Dyspnea, multifactorial given his recent bilateral pulmonary embolism, known lung cancer, COPD, dilated cardiomyopathy with EF 30-35%. There is not appear to be any acute issue that we can treat unfortunately. Chest x-ray is clear he has no wheezing on exam. Repeat CT of the chest was not done due to his renal function. Patient is stable on room air at rest. However he was readmitted within 1 week of discharge for worsening dyspnea and inability to perform activities of daily living at home. He had an oxygen walk test prior to discharge and did not qualify for home oxygen. CTA chest was done today which showed the stable bilateral pulmonary embolisms and lung mass with no acute findings. He has been evaluated by cardiology and pulmonology. Repeat oxygen test has been ordered however patient has been too dyspneic to participate with that. Additionally has not been able to ambulate with PT due to the dyspnea. I discussed him with Dr. Pardo today. We will try him on steroids to see if this helps improve his symptoms. -Acute kidney injury. Resolved today. We'll discontinue IV fluids. -Metastatic non-small cell lung carcinoma - Followed by Dr. Steven. Dr. Pardo saw him yesterday. Chemotherapy currently on hold due to the recent bilateral pulmonary embolism and poor functional status due to dyspnea. -Recent bilateral pulmonary embolism. Continue Pradaxa. -Hypertension - continue metoprolol -Dilated cardiomyopathy recently diagnosed. EF of 30-35%. Does not appear to have acute exacerbation. Continue metoprolol, aspirin, statin, Lasix 40 mg daily. Was seen by cardiology Dr. Sorensen this hospitalization. Recommended to increase metoprolol and repeat echocardiogram in 3 months. Oriana Pavon MD Aug 12, 2017 12:25
[2017-08-12] MEDS: methylPREDNISolone SOD SUCC 125 MG/2 ML VIAL IV PUSH SCH ×2 (13:20→22:09)
[2017-08-12] MEDS: METOPROLOL SUCCINATE 50 MG EXTENDED RELEASE TAB PO SCH (22:09)
[2017-08-13] VITALS (10 sets, daily range): BP systolic 99–152; BP diastolic 65–88; PULSE 88–102; RESP 16–22; TEMP 97.3–98.4; O2SAT 94–98
[2017-08-13] MEDS: TEMAZEPAM 15 MG CAP PO PRN ×2 (00:56→23:34)
[2017-08-13] MEDS: methylPREDNISolone SOD SUCC 125 MG/2 ML VIAL IV PUSH SCH ×4 (02:45→20:52)
[2017-08-13] MEDS: RESP: IPRATROPIUM 0.5 MG/2.5 ML NEB NEB SCH ×4 (03:23→20:48)
[2017-08-13 05:49] LABS: BASOPHIL % 0.1 % (0.0-2.0); HEMO FLAGS DIFF FINAL; LYMPH % 16.9 % (9.0-44.0); LYMPHOCYTE # 1.6 TH/MM3 (1.0-4.8); MEAN CELL VOLUME 88.3 FL (80.0-100.0); MEAN CORPUSCULAR HEMOGLOBIN 29.9 PG (27.0-34.0); MEAN CORPUSCULAR HGB CONC 33.9 % (32.0-36.0); MONO % 0.7 % (0.0-8.0); NEUT % 82.3 % (16.0-70.0); PLATELET COUNT 127 TH/MM3 (150-450); RED BLOOD COUNT 4.07 MIL/MM3 (4.50-5.90); RED CELL DISTRIBUTION WIDTH 16.8 % (11.6-17.2); WHITE BLOOD COUNT 9.7 TH/MM3 (4.0-11.0)
[2017-08-13 06:20] LABS: ALT (GPT) 28 U/L (12-78); ANION GAP 9 MEQ/L (5-15); AST (GOT) 10 U/L (15-37); BICARBONATE 23.6 MEQ/L (21.0-32.0); BLOOD UREA NITROGEN 35 MG/DL (7-18); CHLORIDE 102 MEQ/L (98-107); GLOMERULAR FILTRATION RATE 73 ML/MIN (>89); POTASSIUM 4.3 MEQ/L (3.5-5.1); SODIUM (NA) 135 MEQ/L (136-145)
[2017-08-13 06:22] LABS: ALKALINE PHOSPHATASE 63 U/L (45-117); TOTAL BILIRUBIN ADULT 1.3 MG/DL (0.2-1.0)
--- NOTE | 2017-08-13 08:31 | PD.ONC.PN ---
Subjective Subjective Remarks Afebrile Reports he occasionally feels like he has heartburn Breathing is about the same Reports he sat up in the chair at bedside for some time yesterday Objective Data Date Time Temp Pulse Resp B/P (MAP) Pulse Ox O2 Delivery O2 Flow Rate FiO2 08/13/17 04:40 97.5 89 16 99/65 (76) 95 08/13/17 03:23 94 08/13/17 00:00 97.8 90 16 106/71 (83) 98 08/12/17 20:50 98 08/12/17 20:00 97.9 97 18 96/68 (77) 98 08/12/17 17:51 97.6 94 20 116/79 (91) 96 08/12/17 12:00 97.6 99 22 103/60 (74) 97 08/12/17 08:40 96 21 08/13/17 08/13/17 08/13/17 07:00 15:00 23:00 Intake Total 420 ml Output Total 500 ml Balance -80 ml Result Diagram: 08/13/1743908/13/17 0440 Laboratory Results Laboratory Tests Test 08/13/17 04:40 White Blood Count 9.7 TH/MM3 Red Blood Count 4.07 MIL/MM3 Hemoglobin 12.2 GM/DL Hematocrit 36.0 % Mean Corpuscular Volume 88.3 FL Mean Corpuscular Hemoglobin 29.9 PG Mean Corpuscular Hemoglobin Concent 33.9 % Red Cell Distribution Width 16.8 % Platelet Count 127 TH/MM3 Mean Platelet Volume 7.8 FL Neutrophils (%) (Auto) 82.3 % Lymphocytes (%) (Auto) 16.9 % Monocytes (%) (Auto) 0.7 % Eosinophils (%) (Auto) 0.0 % Basophils (%) (Auto) 0.1 % Neutrophils # (Auto) 8.0 TH/MM3 Lymphocytes # (Auto) 1.6 TH/MM3 Monocytes # (Auto) 0.1 TH/MM3 Eosinophils # (Auto) 0.0 TH/MM3 Basophils # (Auto) 0.0 TH/MM3 CBC Comment DIFF FINAL Differential Comment Blood Urea Nitrogen 35 MG/DL Creatinine 1.01 MG/DL Random Glucose 173 MG/DL Total Protein 5.5 GM/DL Albumin 2.8 GM/DL Calcium Level 8.2 MG/DL Alkaline Phosphatase 63 U/L Aspartate Amino Transf (AST/SGOT) 10 U/L Alanine Aminotransferase (ALT/SGPT) 28 U/L Total Bilirubin 1.3 MG/DL Sodium Level 135 MEQ/L Potassium Level 4.3 MEQ/L Chloride Level 102 MEQ/L Carbon Dioxide Level 23.6 MEQ/L Anion Gap 9 MEQ/L Estimat Glomerular Filtration Rate 73 ML/MIN Administered Medications Medications (Trade) Dose Ordered Sig/Reggie Route PRN Reason Start Time Stop Time Status Last Admin Dose Admin Sodium Chloride (NS Flush) 2 ml BID IV FLUSH 08/09/17 21:00 08/12/17 22:09 Ipratropium [place] (Atrovent Neb) 0.5 mg Q6HR NEB NEB 08/09/17 22:00 08/13/17 03:23 Ipratropium [place] (Atrovent Neb) 0.5 mg Q2HR NEB PRN NEB WHEEZING 08/09/17 20:30 08/11/17 14:39 Aspirin (Aspirin Chew) 81 mg DAILY CHEW 08/10/17 09:00 08/12/17 09:09 Dabigatran (Pradaxa) 150 mg BID PO 08/09/17 21:30 08/12/17 22:09 Ferrous Sulfate (Ferrous Sulfate) 325 mg DAILY PO 08/10/17 09:00 08/12/17 09:10 Finasteride (Proscar) 5 mg DAILY PO 08/10/17 09:00 08/12/17 09:10 Furosemide (Lasix) 40 mg DAILY PO 08/10/17 09:00 08/12/17 09:10 Acetaminophen/ Hydrocodone Bitart ([place] 10-325 Mg) 1 tab Q4H PRN PO PAIN 08/09/17 20:45 08/12/17 09:16 Potassium Chloride (KCl) 20 meq DAILY PO 08/10/17 09:00 08/12/17 09:10 Temazepam (Restoril) 30 mg HS PRN PO INSOMNIA 08/09/17 20:45 08/13/17 00:56 Multivitamins (Theragran) 1 tab DAILY PO 08/10/17 09:00 08/12/17 09:10 Pravastatin Sodium (Pravachol) 10 mg DAILY PO 08/10/17 09:00 08/12/17 09:10 Metoprolol Succinate (Toprol Xl) 50 mg DAILY@1999 PO 08/11/17 20:00 12/2/17 22:09 Budesonide/ Formoterol Fumarate (Symbicort 160-4.5 Mcg Inh) 2 puff Q12HR INH 08/11/17 21:00 08/12/17 22:09 Alprazolam (Xanax) 0.5 mg Q12HR PRN PO ANXIETY 08/12/17 10:00 08/12/17 17:09 Methylprednisolone Sodium Succinate (SoluMEDROL INJ) 60 mg Q6H IV PUSH 08/12/17 14:00 08/13/17 02:45 Objective Remarks GENERAL: Older male sitting up in bed. He appears much more comfortable than previously seen SKIN: Warm and dry. HEAD: Normocephalic. EYES: No injection or drainage. NECK: Supple, trachea midline. CARDIOVASCULAR: + S1/S2. Tachycardia rhythm. RESPIRATORY: Clear but diminished anteriorly. Breathing unlabored at rest. GASTROINTESTINAL: Abdomen soft, non-tender, nondistended. EXTREMITIES: No cyanosis, or edema. MUSCULOSKELETAL: Generalized weakness. NEUROLOGICAL: No obvious focal deficit. Awake, alert, and oriented x3. Assessment/Plan Problem List: (1) COPD (chronic obstructive pulmonary disease) ICD Codes: J44.9 - Chronic obstructive pulmonary disease, unspecified Status: Acute Plan: -- Chest x-ray this admission showed improving right lung base infiltrate -- Dr. Colon following inpatient; has ordered pulmonary function tests (2) Non-small cell carcinoma of lung ICD Codes: C34.90 - Malignant neoplasm of unspecified part of unspecified bronchus or lung Status: Chronic Plan: -- Patient is status post 2 cycles of chemotherapy with carboplatin and Taxol -- He was found to have a left lung mass measuring 1.6 cm -- It is too early to assess for response after only 2 cycles -- Plan to continue chemotherapy as outpatient (3) Pulmonary embolism, bilateral ICD Codes: I26.99 - Other pulmonary embolism without acute cor pulmonale Status: Chronic Plan: -- On Pradaxa --Repeat CTA shows stable pulmonary embolism Assessment 72 y/o male with history of non-small cell cancer admitted for shortness of breath and dizziness also recently diagnosed with bilateral pulmonary embolism Plan 1. Steroids initiated by primary team. 2. He may possibly benefit from cardiac stress test 3. Looking at his CTA his lung cancer appears to be stable. 4. Supportive care Attending Statement The exam, history, and the medical decision-making described in the above note were completed with the assistance of the mid-level provider. I reviewed and agree with the findings presented. I attest that I had a [id number] encounter with the patient on the same day, and personally performed and documented my assessment and findings in the medical record. Still has SOB with minimal exertion. Started on steroid. CTA chest showed stable bilateral PE. Will discussed with IR to see if he is a candidate for thrombolytic tx which I doubt due to the chronicity of the clots. Await stress test. Discussed with . Lurdes Fu Aug 13, 2017 08:31 Nelson Pardo MD Aug 13, 2017 13:26
[2017-08-13] MEDS: DABIGATRAN ETEXILATE 150 MG CAP PO SCH ×2 (08:42→20:52)
[2017-08-13] MEDS: FERROUS SULFATE 325 MG (65 MG ELEMENTAL IRON) TAB PO SCH (08:42)
[2017-08-13] MEDS: PRAVASTATIN SOD 10 MG TAB PO SCH (08:43)
[2017-08-13] MEDS: POTASSIUM CHLORIDE 20 MEQ CONTROLLED RELEASE TAB PO SCH (08:43)
[2017-08-13] MEDS: MULTIVITAMIN TAB PO SCH (08:43)
[2017-08-13] MEDS: BUDESONIDE-FORMOTEROL 160/4.5 MCG INHALER INH SCH ×2 (08:43→20:52)
[2017-08-13] MEDS: ASPIRIN 81 MG CHEW TAB CHEW SCH (08:43)
[2017-08-13] MEDS: FUROSEMIDE 40 MG TAB PO SCH (08:43)
[2017-08-13] MEDS: FINASTERIDE 5 MG TAB PO SCH (08:43)
[2017-08-13] MEDS: SODIUM CHLORIDE 0.9% FLUSH 10 ML FLUSH IV FLUSH SCH ×2 (08:46→20:52)
[2017-08-13] MEDS: ALPRAZolam 0.5 MG TAB PO PRN ×2 (08:46→21:08)
--- NOTE | 2017-08-13 14:58 | HHI.PR ---
Subjective Remarks No improvement of dyspnea. Had 2 bowel movements this morning and got severely winded returning to bed and had to sit down. Objective Vitals Vital Signs Date Time Temp Pulse Resp B/P (MAP) Pulse Ox O2 Delivery O2 Flow Rate FiO2 08/13/17 12:08 98.4 102 16 152/88 (109) 97 08/13/17 09:33 97 08/13/17 08:30 97.3 88 20 123/78 (93) 96 08/13/17 04:40 97.5 89 16 99/65 (76) 95 08/13/17 03:23 94 08/13/17 00:00 97.8 90 16 106/71 (83) 98 08/12/17 20:50 98 08/12/17 20:00 97.9 97 18 96/68 (77) 98 08/12/17 17:51 97.6 94 20 116/79 (91) 96 I/O 08/12/17 08/12/17 08/12/17 08/13/17 08/13/17 08/13/17 06:59 14:59 22:59 06:59 14:59 22:59 Intake Total 600 ml 420 ml Output Total 450 ml 800 ml 500 ml Balance -450 ml -200 ml -80 ml Intake Oral 600 ml 420 ml Output Urine Total 450 ml 800 ml 500 ml # Voids 1 Result Diagram: 08/13/17 0440 08/13/17 0440 Objective Remarks GENERAL: Lean male patient in no significant distress. SKIN: Warm and dry. HEAD: Normocephalic. EYES: No scleral icterus. No injection or drainage. NECK: Supple, trachea midline. No JVD or lymphadenopathy. CARDIOVASCULAR: Regular rate and rhythm without murmurs, gallops, or rubs. Port in right chest. RESPIRATORY: Breath sounds equal bilaterally. No wheezes. No accessory muscle use. GASTROINTESTINAL: Abdomen soft, non-tender, nondistended. EXTREMITIES: No cyanosis, or edema. NEUROLOGICAL: Awake, alert, and oriented x 3. Non-focal. He does have tremors of his head and upper extremities. A/P Problem List: (1) COPD (chronic obstructive pulmonary disease) ICD Code: J44.9 - Chronic obstructive pulmonary disease, unspecified Status: Acute (2) NORAH (acute kidney injury) ICD Code: N17.9 - Acute kidney failure, unspecified Status: Resolved (3) Dilated cardiomyopathy ICD Code: I42.0 - Dilated cardiomyopathy Status: Chronic (4) Pulmonary embolism, bilateral ICD Code: I26.99 - Other pulmonary embolism without acute cor pulmonale Status: Chronic (5) Exertional dyspnea ICD Code: R06.09 - Other forms of dyspnea Status: Acute (6) Non-small cell carcinoma of lung ICD Code: C34.90 - Malignant neoplasm of unspecified part of unspecified bronchus or lung Status: Chronic Assessment and Plan 72-year-old male with recent diagnosis of bilateral pulmonary embolisms, dilated cardiomyopathy, non-small cell lung carcinoma status post chemotherapy 2 presents with worsening dyspnea after being discharged from the hospital a week ago -Dyspnea, multifactorial given his recent bilateral pulmonary embolism, known lung cancer, COPD, dilated cardiomyopathy with EF 30-35%. There is not appear to be any acute issue that we can treat unfortunately. Chest x-ray is clear he has no wheezing on exam. Repeat CT of the chest was not done due to his renal function. Patient is stable on room air at rest. However he was readmitted within 1 week of discharge for worsening dyspnea and inability to perform activities of daily living at home. He had an oxygen walk test prior to discharge and did not qualify for home oxygen. CTA chest was done today which showed the stable bilateral pulmonary embolisms and lung mass with no acute findings. He has been evaluated by cardiology and pulmonology. Repeat oxygen test has been ordered however patient has been too dyspneic to participate with that. Additionally has not been able to ambulate with PT due to the dyspnea. I discussed him with Dr. Pardo today. Continue Solu-Medrol. Will plan for [place] scan stress test in the morning. Question if TPA can be given for the PE? -Acute kidney injury. Resolved today. We'll discontinue IV fluids. -Metastatic non-small cell lung carcinoma - Followed by Dr. Steven. Dr. Pardo following. Chemotherapy currently on hold due to the recent bilateral pulmonary embolism and poor functional status due to dyspnea. -Recent bilateral pulmonary embolism. Continue Pradaxa. -Hypertension - continue metoprolol -Dilated cardiomyopathy recently diagnosed. EF of 30-35%. Does not appear to have acute exacerbation. Continue metoprolol, aspirin, statin, Lasix 40 mg daily. Was seen by cardiology Dr. Sorensen this hospitalization. Recommended to increase metoprolol and repeat echocardiogram in 3 months. Discharge Planning [facility] facility Oriana Pavon MD Aug 13, 2017 14:58
[2017-08-13] MEDS: METOPROLOL SUCCINATE 50 MG EXTENDED RELEASE TAB PO SCH (20:52)
[2017-08-14] VITALS (10 sets, daily range): BP systolic 108–129; BP diastolic 69–84; PULSE 66–95; RESP 20–23; TEMP 97.5–98; O2SAT 96–98
[2017-08-14] MEDS: methylPREDNISolone SOD SUCC 125 MG/2 ML VIAL IV PUSH SCH ×4 (02:09→21:03)
[2017-08-14] MEDS: RESP: IPRATROPIUM 0.5 MG/2.5 ML NEB NEB SCH ×4 (03:45→21:08)
[2017-08-14 05:23] LABS: AUTOMATED NEUTROPHIL # 11.4 TH/MM3 (1.8-7.7); BASOPHIL % 0.1 % (0.0-2.0); HEMATOCRIT 35.6 % (39.0-51.0); HEMO FLAGS DIFF FINAL; LYMPH % 21.4 % (9.0-44.0); LYMPHOCYTE # 3.1 TH/MM3 (1.0-4.8); MEAN CELL VOLUME 89.1 FL (80.0-100.0); MEAN CORPUSCULAR HEMOGLOBIN 30.8 PG (27.0-34.0); MEAN CORPUSCULAR HGB CONC 34.5 % (32.0-36.0); MONO % 0.7 % (0.0-8.0); NEUT % 77.8 % (16.0-70.0); PLATELET COUNT 136 TH/MM3 (150-450); RED CELL DISTRIBUTION WIDTH 17.4 % (11.6-17.2); WHITE BLOOD COUNT 14.7 TH/MM3 (4.0-11.0)
[2017-08-14 05:52] LABS: POTASSIUM 4.3 MEQ/L (3.5-5.1)
[2017-08-14] MEDS: ASPIRIN 81 MG CHEW TAB CHEW SCH (09:00)
--- NOTE | 2017-08-14 09:18 | PD.CARD.PN ---
Subjective Subjective Remarks Continued severe dyspnea with minimal activity. No PND, palpitations, dizziness. Infrequent fleeting left parasternal CP's. Objective Medications Item Value Date Time Metoprolol 50 mg 08/11/171999 Succinate DAILY@1999/PO 08/13/172051 (Toprol Xl) Aspirin 81 mg 08/10/1700 (Aspirin Chew) DAILY/CHEW 08/13/17842 Furosemide 40 mg 08/10/17899 (Lasix) DAILY/PO 08/13/17842 Potassium Chloride 20 meq 08/10/17899 (KCl) DAILY/PO 08/13/17842 Pravastatin Sodium 10 mg 08/10/17899 (Pravachol) DAILY/PO 08/13/17842 Dabigatran 150 mg 08/09/172129 (Pradaxa) BID/PO 08/13/172051 Current Medications Medications (Trade) Dose Ordered Sig/Reggie Route Start Time Stop Time Status Last Admin (NS Flush) 2 ml UNSCH PRN IV FLUSH 08/09/17 20:30 (NS Flush) 2 ml BID IV FLUSH 08/09/17 21:00 08/13/17 20:52 (Narcan Inj) 0.4 mg UNSCH PRN IV PUSH 08/09/17 20:30 (Atrovent Neb) 0.5 mg Q6HR NEB NEB 08/09/17 22:00 08/14/17 03:45 (Atrovent Neb) 0.5 mg Q2HR NEB PRN NEB 08/09/17 20:30 08/11/17 14:39 (Aspirin Chew) 81 mg DAILY CHEW 08/10/17 09:00 08/13/17 08:43 (Pradaxa) 150 mg BID PO 08/09/17 21:30 08/13/17 20:52 (Ferrous Sulfate) 325 mg DAILY PO 08/10/17 09:00 08/13/17 08:42 (Proscar) 5 mg DAILY PO 08/10/17 09:00 08/13/17 08:43 (Lasix) 40 mg DAILY PO 08/10/17 09:00 08/13/17 08:43 ([place] 10-325 Mg) 1 tab Q4H PRN PO 08/09/17 20:45 08/12/17 09:16 (KCl) 20 meq DAILY PO 08/10/17 09:00 08/13/17 08:43 (Restoril) 30 mg HS PRN PO 08/09/17 20:45 08/13/17 23:34 (Theragran) 1 tab DAILY PO 08/10/17 09:00 08/13/17 08:43 (Pravachol) 10 mg DAILY PO 08/10/17 09:00 08/13/17 08:43 (Toprol Xl) 50 mg DAILY@2000 PO 08/11/17 20:00 08/13/17 20:52 (Symbicort 160-4.5 Mcg Inh) 2 puff Q12HR INH 08/11/17 21:00 08/13/17 20:52 (Xanax) 0.5 mg Q12HR PRN PO 08/12/17 10:00 08/13/17 21:08 (SoluMEDROL INJ) 60 mg Q6H IV PUSH 08/12/17 14:00 08/14/17 02:09 Vital Signs / I&O Vital Signs Date Time Temp Pulse Resp B/P (MAP) Pulse Ox O2 Delivery O2 Flow Rate FiO2 08/14/17 04:54 97.5 86 20 108/69 (82) 96 08/14/17 04:03 92 08/14/17 00:12 90 08/14/17 00:06 97.5 66 23 116/78 (91) 98 08/13/17 20:49 97.9 92 19 105/71 (82) 97 08/13/17 20:48 95 21 08/13/17 20:11 95 08/13/17 18:52 97.9 88 22 111/68 (82) 98 08/13/17 12:08 98.4 102 16 152/88 (109) 97 08/13/17 09:33 97 I/O 08/13/17 08/13/17 08/13/17 08/14/17 08/14/17 08/14/17 07:00 15:00 23:00 07:00 15:00 23:00 Intake Total 420 ml 960 ml 360 ml Output Total 500 ml 320 ml 300 ml Balance -80 ml 960 ml -320 ml 60 ml Intake Oral 420 ml 960 ml 360 ml Output Urine Total 500 ml 320 ml 300 ml # Voids 2 # Bowel Movements 1 Physical Exam GENERAL: Well developed, well nourished. No acute distress. HEENT: Jugular venous pressure is normal. CHEST: Lungs clear to auscultation bilaterally. Unlabored respiratory effort. CARDIAC: Regular rate and rhythm without S3, S4, or murmur. ABDOMEN: Soft, nontender, no hepatosplenomegaly. Bowel sounds present. EXTREMITIES: No clubbing, cyanosis, or edema. Laboratory Laboratory Tests Test 08/14/17 05:00 White Blood Count 14.7 TH/MM3 Red Blood Count 4.00 MIL/MM3 Hemoglobin 12.3 GM/DL Hematocrit 35.6 % Mean Corpuscular Volume 89.1 FL Mean Corpuscular Hemoglobin 30.8 PG Mean Corpuscular Hemoglobin Concent 34.5 % Red Cell Distribution Width 17.4 % Platelet Count 136 TH/MM3 Mean Platelet Volume 8.1 FL Neutrophils (%) (Auto) 77.8 % Lymphocytes (%) (Auto) 21.4 % Monocytes (%) (Auto) 0.7 % Eosinophils (%) (Auto) 0.0 % Basophils (%) (Auto) 0.1 % Neutrophils # (Auto) 11.4 TH/MM3 Lymphocytes # (Auto) 3.1 TH/MM3 Monocytes # (Auto) 0.1 TH/MM3 Eosinophils # (Auto) 0.0 TH/MM3 Basophils # (Auto) 0.0 TH/MM3 CBC Comment DIFF FINAL Differential Comment Blood Urea Nitrogen 46 MG/DL Creatinine 1.18 MG/DL Random Glucose 186 MG/DL Calcium Level 8.4 MG/DL Sodium Level 136 MEQ/L Potassium Level 4.3 MEQ/L Chloride Level 103 MEQ/L Carbon Dioxide Level 23.0 MEQ/L Anion Gap 10 MEQ/L Estimat Glomerular Filtration Rate 61 ML/MIN Assessment and Plan Problem List: (1) Dilated cardiomyopathy ICD Codes: I42.0 - Dilated cardiomyopathy Status: Chronic Plan: EF 30-35% by recent echo. There are wall motion abnormalities in the LAD territory, or the findings also may be due to Tako-Tsubo syndrome. No definite evidence for acute CHF. No evidence for ACS. REC continue increased dose of metoprolol succinate can resume LIZETH-I continue oral furosemide agree with nuclear stress testing though would treat medically for any ischemia; doubt CAD significantly contributing to dyspnea (2) Pulmonary embolism, bilateral ICD Codes: I26.99 - Other pulmonary embolism without acute cor pulmonale Status: Chronic Plan: Continue anticoagulation therapy. Code Status full code Discussed Condition With patient Ahmet Sorensen MD Aug 14, 2017 09:18
[2017-08-14] MEDS: DABIGATRAN ETEXILATE 150 MG CAP PO SCH ×2 (09:30→21:03)
[2017-08-14] MEDS: SODIUM CHLORIDE 0.9% FLUSH 10 ML FLUSH IV FLUSH SCH ×2 (09:35→21:03)
[2017-08-14] MEDS: BUDESONIDE-FORMOTEROL 160/4.5 MCG INHALER INH SCH ×2 (09:35→21:04)
--- NOTE | 2017-08-14 11:28 | PD.ONC.PN ---
Subjective Subjective Remarks Afebrile overnight. Patient resting in bed. His only complaint at present is that he feels cold. He states he feels short of breath when he gets up to move around, but he does not feel short of breath at rest. No chest pain. Objective Data Date Time Temp Pulse Resp B/P (MAP) Pulse Ox O2 Delivery O2 Flow Rate FiO2 08/14/17 10:15 97 21 08/14/17 09:18 98.0 85 20 129/84 (99) 96 08/14/17 04:54 97.5 86 20 108/69 (82) 96 08/14/17 04:03 92 08/14/17 00:12 90 08/14/17 00:06 97.5 66 23 116/78 (91) 98 08/13/17 20:49 97.9 92 19 105/71 (82) 97 08/13/17 20:48 95 21 08/13/17 20:11 95 08/13/17 18:52 97.9 88 22 111/68 (82) 98 08/13/17 12:08 98.4 102 16 152/88 (109) 97 08/14/17 08/14/17 08/14/17 07:00 15:00 23:00 Intake Total 360 ml Output Total 300 ml Balance 60 ml Result Diagram: 08/14/17 0500 08/14/17 0500 Laboratory Results Laboratory Tests Test 08/14/17 05:00 White Blood Count 14.7 TH/MM3 Red Blood Count 4.00 MIL/MM3 Hemoglobin 12.3 GM/DL Hematocrit 35.6 % Mean Corpuscular Volume 89.1 FL Mean Corpuscular Hemoglobin 30.8 PG Mean Corpuscular Hemoglobin Concent 34.5 % Red Cell Distribution Width 17.4 % Platelet Count 136 TH/MM3 Mean Platelet Volume 8.1 FL Neutrophils (%) (Auto) 77.8 % Lymphocytes (%) (Auto) 21.4 % Monocytes (%) (Auto) 0.7 % Eosinophils (%) (Auto) 0.0 % Basophils (%) (Auto) 0.1 % Neutrophils # (Auto) 11.4 TH/MM3 Lymphocytes # (Auto) 3.1 TH/MM3 Monocytes # (Auto) 0.1 TH/MM3 Eosinophils # (Auto) 0.0 TH/MM3 Basophils # (Auto) 0.0 TH/MM3 CBC Comment DIFF FINAL Differential Comment Blood Urea Nitrogen 46 MG/DL Creatinine 1.18 MG/DL Random Glucose 186 MG/DL Calcium Level 8.4 MG/DL Sodium Level 136 MEQ/L Potassium Level 4.3 MEQ/L Chloride Level 103 MEQ/L Carbon Dioxide Level 23.0 MEQ/L Anion Gap 10 MEQ/L Estimat Glomerular Filtration Rate 61 ML/MIN Administered Medications Medications (Trade) Dose Ordered Sig/Reggie Route PRN Reason Start Time Stop Time Status Last Admin Dose Admin Sodium Chloride (NS Flush) 2 ml BID IV FLUSH 08/09/17 21:00 08/14/17 09:35 Ipratropium [place] (Atrovent Neb) 0.5 mg Q6HR NEB NEB 08/09/17 22:00 08/14/17 10:15 Ipratropium [place] (Atrovent Neb) 0.5 mg Q2HR NEB PRN NEB WHEEZING 08/09/17 20:30 08/11/17 14:39 Aspirin (Aspirin Chew) 81 mg DAILY CHEW 08/10/17 09:00 08/13/17 08:43 Dabigatran (Pradaxa) 150 mg BID PO 08/09/17 21:30 08/14/17 09:30 Ferrous Sulfate (Ferrous Sulfate) 325 mg DAILY PO 08/10/17 09:00 08/13/17 08:42 Finasteride (Proscar) 5 mg DAILY PO 08/10/17 09:00 08/13/17 08:43 Furosemide (Lasix) 40 mg DAILY PO 08/10/17 09:00 08/13/17 08:43 Acetaminophen/ Hydrocodone Bitart ([place] 10-325 Mg) 1 tab Q4H PRN PO PAIN 08/09/17 20:45 08/12/17 09:16 Potassium Chloride (KCl) 20 meq DAILY PO 08/10/17 09:00 08/13/17 08:43 Temazepam (Restoril) 30 mg HS PRN PO INSOMNIA 08/09/17 20:45 08/13/17 23:34 Multivitamins (Theragran) 1 tab DAILY PO 08/10/17 09:00 08/13/17 08:43 Pravastatin Sodium (Pravachol) 10 mg DAILY PO 08/10/17 09:00 08/13/17 08:43 Metoprolol Succinate (Toprol Xl) 50 mg DAILY@1999 PO 08/11/17 20:00 08/13/17 20:52 Budesonide/ Formoterol Fumarate (Symbicort 160-4.5 Mcg Inh) 2 puff Q12HR INH 08/11/17 21:00 08/14/17 09:35 Alprazolam (Xanax) 0.5 mg Q12HR PRN PO ANXIETY 08/12/17 10:00 08/13/17 21:08 Methylprednisolone Sodium Succinate (SoluMEDROL INJ) 60 mg Q6H IV PUSH 08/12/17 14:00 08/14/17 09:30 Objective Remarks GENERAL: Elderly male lying in bed with head of the bead at 45 degree angle watching TV SKIN: Warm and dry. HEAD: Normocephalic. EYES: No injection or drainage. NECK: Supple, trachea midline. CARDIOVASCULAR: Regular rate and rhythm RESPIRATORY: occasional wheeze heard. appears comfortable on room air. GASTROINTESTINAL: Abdomen soft, non-tender, nondistended. EXTREMITIES: No cyanosis NEUROLOGICAL: awake and alert, normal speech. moving all extremities. Assessment/Plan Problem List: (1) COPD (chronic obstructive pulmonary disease) ICD Codes: J44.9 - Chronic obstructive pulmonary disease, unspecified Status: Acute Plan: -- Chest x-ray this admission showed improving right lung base infiltrate -- Dr. Colon following inpatient; has ordered pulmonary function tests (2) Non-small cell carcinoma of lung ICD Codes: C34.90 - Malignant neoplasm of unspecified part of unspecified bronchus or lung Status: Chronic Plan: -- Patient is status post 2 cycles of chemotherapy with carboplatin and Taxol -- He was found to have a left lung mass measuring 1.6 cm -- It is too early to assess for response after only 2 cycles -- Plan to continue chemotherapy as outpatient (3) Pulmonary embolism, bilateral ICD Codes: I26.99 - Other pulmonary embolism without acute cor pulmonale Status: Chronic Plan: -- On Pradaxa --Repeat CTA shows stable pulmonary embolism Assessment 72 y/o male with history of non-small cell cancer admitted for shortness of breath and dizziness also recently diagnosed with bilateral pulmonary embolism Plan 1. continue Pradaxa. 2. cardiac stress test 3. will resume chemotherapy outpatient Attending Statement The exam, history, and the medical decision-making described in the above note were completed with the assistance of the mid-level provider. I reviewed and agree with the findings presented. I attest that I had a [id number] encounter with the patient on the same day, and personally performed and documented my assessment and findings in the medical record. Still has significant SOB with minimal exertion. No CP. Await cardiac stress test. I have discussed with radiology. Thrombolysis is not recommended. Most recent CTA showed some recanalization of the pulmonary arteries. It might take him a little longer to recover from this PE. Minoo Barbosa Aug 14, 2017 11:28 Nelson Pardo MD Aug 14, 2017 19:16
--- NOTE | 2017-08-14 11:34 | HHI.PR ---
Subjective Remarks Pt seen at 9:30 a.m. Not dyspneic at rest but he had an episode of dyspnea that woke him last night from sleep and lasted about 30 minutes. Patient complains of thirst he is nothing by mouth for stress test today. Objective Vitals Vital Signs Date Time Temp Pulse Resp B/P (MAP) Pulse Ox O2 Delivery O2 Flow Rate FiO2 08/14/17 10:15 97 21 08/14/17 09:18 98.0 85 20 129/84 (99) 96 08/14/17 04:54 97.5 86 20 108/69 (82) 96 08/14/17 04:03 92 08/14/17 00:12 90 08/14/17 00:06 97.5 66 23 116/78 (91) 98 08/13/17 20:49 97.9 92 19 105/71 (82) 97 08/13/17 20:48 95 21 08/13/17 20:11 95 08/13/17 18:52 97.9 88 22 111/68 (82) 98 08/13/17 12:08 98.4 102 16 152/88 (109) 97 I/O 08/13/17 08/13/17 08/13/17 08/14/17 08/14/17 08/14/17 07:00 15:00 23:00 07:00 15:00 23:00 Intake Total 420 ml 960 ml 360 ml Output Total 500 ml 320 ml 300 ml Balance -80 ml 960 ml -320 ml 60 ml Intake Oral 420 ml 960 ml 360 ml Output Urine Total 500 ml 320 ml 300 ml # Voids 2 # Bowel Movements 1 Result Diagram: 08/14/17 0500 08/14/17 0500 Objective Remarks GENERAL: Lean male patient in no significant distress. SKIN: Warm and dry. HEAD: Normocephalic. EYES: No scleral icterus. No injection or drainage. NECK: Supple, trachea midline. No JVD or lymphadenopathy. CARDIOVASCULAR: Regular rate and rhythm without murmurs, gallops, or rubs. Port in right chest. RESPIRATORY: Breath sounds equal bilaterally. No wheezes. No accessory muscle use. GASTROINTESTINAL: Abdomen soft, non-tender, nondistended. EXTREMITIES: No cyanosis, or edema. NEUROLOGICAL: Awake, alert, and oriented x 3. Non-focal. He does have tremors of his head and upper extremities. A/P Problem List: (1) COPD (chronic obstructive pulmonary disease) ICD Code: J44.9 - Chronic obstructive pulmonary disease, unspecified Status: Acute (2) NORAH (acute kidney injury) ICD Code: N17.9 - Acute kidney failure, unspecified Status: Resolved (3) Dilated cardiomyopathy ICD Code: I42.0 - Dilated cardiomyopathy Status: Chronic (4) Pulmonary embolism, bilateral ICD Code: I26.99 - Other pulmonary embolism without acute cor pulmonale Status: Chronic (5) Exertional dyspnea ICD Code: R06.09 - Other forms of dyspnea Status: Acute (6) Non-small cell carcinoma of lung ICD Code: C34.90 - Malignant neoplasm of unspecified part of unspecified bronchus or lung Status: Chronic Assessment and Plan 72-year-old male with recent diagnosis of bilateral pulmonary embolisms, dilated cardiomyopathy, non-small cell lung carcinoma status post chemotherapy 2 presents with worsening dyspnea after being discharged from the hospital a week ago -Dyspnea, multifactorial given his recent bilateral pulmonary embolism, known lung cancer, COPD, dilated cardiomyopathy with EF 30-35%, severe COPD. There does not appear to be any acute issue that we can treat unfortunately. Chest x- ray is clear he has no wheezing on exam. Patient is stable on room air at rest. However he was readmitted within 1 week of discharge for worsening dyspnea and inability to perform activities of daily living at home. He had an oxygen walk test prior to discharge and did not qualify for home oxygen. CTA chest 08/12 showed the stable bilateral pulmonary embolisms and right hilar lung mass with no acute findings. He has been evaluated by cardiology and pulmonology. Repeat oxygen test has been ordered however patient has been too dyspneic to participate with that. Additionally has not been able to ambulate with PT due to the dyspnea. - Continue Solu-Medrol and nebs. -Carolynn scan stress test today. -Question if TPA can be given for the PE? Defer to hematology. -Acute kidney injury. Resolved after IV fluids. -Metastatic non-small cell lung carcinoma - Followed by Dr. Steven. S/p 2 rounds chemotherapy, which is currently on hold due to the recent bilateral pulmonary embolism and poor functional status due to dyspnea. -Recent bilateral pulmonary embolism. Continue Pradaxa. -Hypertension - continue metoprolol -Dilated cardiomyopathy recently diagnosed. EF of 30-35%. Does not appear to have acute exacerbation. Continue metoprolol, aspirin, statin, Lasix 40 mg daily. Was seen by cardiology Dr. Sorensen this hospitalization. Recommended to increase metoprolol and repeat echocardiogram in 3 months. Discharge Planning [facility] facility Oriana Pavon MD Aug 14, 2017 11:34
[2017-08-14] MEDS ORDERED: REGADENOSON INJ 0.4 MG/5 ML SYR ONE (12:46)
--- NOTE | 2017-08-14 14:13 | RADRPT ---
EXAM DATE/TIME: 08/14/2017 11:58 [facility] COMPARISON: MYOCARDIAL PERF PHARM SPECT, GATED W/EF, May 31, 2013, 9:04. INDICATIONS : Dyspnea at rest and worsening during exertion. Congestive heart failure. DOSE: 25.4 mCi Tc99m Myoview at stress. 8.3 mCi Tc99m Myoview at rest. 0.4 mg Lexiscan STRESS SYMPTOMS: Chest pressure, dyspnea and flushed. EJECTION FRACTION: 56% MEDICAL HISTORY : Chronic obstructive pulmonary disease. Hypercholesterolemia. Hypertension. Cardiomyopathy. Lung cance r. SURGICAL HISTORY : Appendectomy. Cholecystectomy. ENCOUNTER: Initial ACUITY: 1 week PAIN SCALE: 0/10 LOCATION: chest TECHNIQUE: The patient underwent pharmacologic stress with infusion of prescribed dose. Continuous ECG tracing was monitored during stress. Gated SPECT imaging was performed after stress and conventional SPECT i maging was performed at rest. The examination was performed on a SPECT/CT scanner, both attenuation and non-corrected datasets were reviewed. FINDINGS: DISTRIBUTION: The maximum perfused segment at stress is in the inferior wall. PERFUSION STUDY: No fixed or reversible perfusion defect is identified. GATED STUDY: There is stable akinesia of the apical septal wall. Remaining segments demonstrate normal motion. CONCLUSION: 1. No fixed or reversible perfusion defect is identified to suggest stress-induced ischemia. 2. Stable akinesia of the apical aspect of the septum. Left ventricle ejection fraction is calculated at 56%. RISK CATEGORY: Low (<1% Annual Mortality Rate) Pete Richter MD on August 14, 2017 at 14:06 Board Certified Radiologist. This report was verified electronically.
[2017-08-14] MEDS: FUROSEMIDE 40 MG TAB PO SCH (14:49)
[2017-08-14] MEDS: FERROUS SULFATE 325 MG (65 MG ELEMENTAL IRON) TAB PO SCH (14:49)
[2017-08-14] MEDS: FINASTERIDE 5 MG TAB PO SCH (14:49)
[2017-08-14] MEDS: MULTIVITAMIN TAB PO SCH (14:49)
[2017-08-14] MEDS: PRAVASTATIN SOD 10 MG TAB PO SCH (14:49)
[2017-08-14] MEDS: POTASSIUM CHLORIDE 20 MEQ CONTROLLED RELEASE TAB PO SCH (14:50)
--- NOTE | 2017-08-14 16:49 | HHI.PR ---
Subjective Remarks 72 YOWM with Ca lung, PE, worsening dysnoea PFT Severe COPD No cough or sp No Fever Stress test no fixed or reversible profusion defect Objective Vital Signs Vital Signs Date Time Temp Pulse Resp B/P (MAP) Pulse Ox O2 Delivery O2 Flow Rate FiO2 08/14/17 14:57 96 21 08/14/17 14:45 97.5 91 20 125/81 (96) 96 08/14/17 10:15 97 21 08/14/17 09:18 98.0 85 20 129/84 (99) 96 08/14/17 04:54 97.5 86 20 108/69 (82) 96 08/14/17 04:03 92 08/14/17 00:12 90 08/14/17 00:06 97.5 66 23 116/78 (91) 98 08/13/17 20:49 97.9 92 19 105/71 (82) 97 08/13/17 20:48 95 21 08/13/17 20:11 95 08/13/17 18:52 97.9 88 22 111/68 (82) 98 I/O 08/13/17 08/13/17 08/13/17 08/14/17 08/14/17 08/14/17 07:00 15:00 23:00 07:00 15:00 23:00 Intake Total 420 ml 960 ml 360 ml Output Total 500 ml 320 ml 300 ml Balance -80 ml 960 ml -320 ml 60 ml Intake Oral 420 ml 960 ml 360 ml Output Urine Total 500 ml 320 ml 300 ml # Voids 2 # Bowel Movements 1 Result Diagram: 08/14/17 0500 08/14/17 0500 Objective Remarks GENERAL: MBMN , anxious SKIN: Warm and dry. HEAD: Normocephalic. EYES: No scleral icterus. No injection or drainage. NECK: Supple, trachea midline. No JVD or lymphadenopathy. CARDIOVASCULAR: Regular rate and rhythm without murmurs, gallops, or rubs. RESPIRATORY: Breath sounds equal bilaterally. No accessory muscle use. GASTROINTESTINAL: Abdomen soft, non-tender, nondistended. MUSCULOSKELETAL: No cyanosis, or edema. BACK: Nontender without obvious deformity. No CVA tenderness. A/P Assessment and Plan Severe COPD Pulm Embolism Ca lung Anxiety disorder CMP PLAN: Aerosol nebs Symbicort 160/405 2 puffs bid Stable on RA Cardiology following Aneja,Armando Dev MD Aug 14, 2017 16:49
[2017-08-14] MEDS: METOPROLOL SUCCINATE 50 MG EXTENDED RELEASE TAB PO SCH (21:04)
[2017-08-14] MEDS: ALPRAZolam 0.5 MG TAB PO PRN (21:09)
[2017-08-15] VITALS (8 sets, daily range): BP systolic 96–123; BP diastolic 63–79; PULSE 86–110; RESP 17–24; TEMP 97.4–98.3; O2SAT 93–97
[2017-08-15] MEDS: TEMAZEPAM 15 MG CAP PO PRN (00:23)
[2017-08-15] MEDS: RESP: IPRATROPIUM 0.5 MG/2.5 ML NEB NEB SCH ×2 (02:53→10:00)
[2017-08-15] MEDS: methylPREDNISolone SOD SUCC 125 MG/2 ML VIAL IV PUSH SCH ×2 (03:18→08:51)
--- NOTE | 2017-08-15 08:30 | PD.CARD.PN ---
Subjective Subjective Remarks Continued severe dyspnea with minimal activity. No PND, palpitations, dizziness , CP. Objective Medications Item Value Date Time Lisinopril 5 mg 08/15/17 09 (Prinivil) DAILY/PO Metoprolol 50 mg 08/11/17 2000 Succinate DAILY@1999/PO 08/14/172103 (Toprol Xl) Aspirin 81 mg 08/10/17 09 (Aspirin Chew) DAILY/CHEW Furosemide 40 mg 08/10/17899 (Lasix) DAILY/PO 08/14/17 1449 Potassium Chloride 20 meq 08/10/17899 (KCl) DAILY/PO 08/14/17 1450 Pravastatin Sodium 10 mg 08/10/17899 (Pravachol) DAILY/PO 08/14/17 144 Dabigatran 150 mg 08/09/172129 (Pradaxa) BID/PO 08/14/172102 Current Medications Medications (Trade) Dose Ordered Sig/Reggie Route Start Time Stop Time Status Last Admin (NS Flush) 2 ml UNSCH PRN IV FLUSH 08/09/17 20:30 (NS Flush) 2 ml BID IV FLUSH 08/09/17 21:00 08/14/17 21:03 (Narcan Inj) 0.4 mg UNSCH PRN IV PUSH 08/09/17 20:30 (Atrovent Neb) 0.5 mg Q6HR NEB NEB 08/09/17 22:00 08/15/17 02:53 (Atrovent Neb) 0.5 mg Q2HR NEB PRN NEB 08/09/17 20:30 08/11/17 14:39 (Aspirin Chew) 81 mg DAILY CHEW 08/10/17 09:00 08/13/17 08:43 (Pradaxa) 150 mg BID PO 08/09/17 21:30 08/14/17 21:03 (Ferrous Sulfate) 325 mg DAILY PO 08/10/17 09:00 08/14/17 14:49 (Proscar) 5 mg DAILY PO 08/10/17 09:00 08/14/17 14:49 (Lasix) 40 mg DAILY PO 08/10/17 09:00 08/14/17 14:49 ([place] 10-325 Mg) 1 tab Q4H PRN PO 08/09/17 20:45 08/12/17 09:16 (KCl) 20 meq DAILY PO 08/10/17 09:00 08/14/17 14:50 (Restoril) 30 mg HS PRN PO 08/09/17 20:45 08/15/17 00:23 (Theragran) 1 tab DAILY PO 08/10/17 09:00 08/14/17 14:49 (Pravachol) 10 mg DAILY PO 08/10/17 09:00 08/14/17 14:49 (Toprol Xl) 50 mg DAILY@2000 PO 08/11/17 20:00 08/14/17 21:04 (Symbicort 160-4.5 Mcg Inh) 2 puff Q12HR INH 08/11/17 21:00 08/14/17 21:04 (Xanax) 0.5 mg Q12HR PRN PO 08/12/17 10:00 08/14/17 21:09 (SoluMEDROL INJ) 60 mg Q6H IV PUSH 08/12/17 14:00 08/15/17 03:18 (Prinivil) 5 mg DAILY PO 08/15/17 09:00 Vital Signs / I&O Vital Signs Date Time Temp Pulse Resp B/P (MAP) Pulse Ox O2 Delivery O2 Flow Rate FiO2 08/15/17 04:08 86 08/15/17 04:00 97.4 97 17 103/63 (76) 96 08/15/17 00:20 98.1 88 24 117/79 (92) 97 08/15/17 00:09 89 08/14/17 21:00 98.0 95 122/77 (92) 96 08/14/17 20:11 89 08/14/17 14:57 96 21 08/14/17 14:45 97.5 91 20 125/81 (96) 96 08/14/17 10:15 97 21 08/14/17 09:18 98.0 85 20 129/84 (99) 96 I/O 08/14/17 08/14/17 08/14/17 08/15/17 08/15/17 08/15/17 06:59 14:59 22:59 06:59 14:59 22:59 Intake Total 360 ml 600 ml Output Total 300 ml 750 ml 220 ml Balance 60 ml -150 ml -220 ml Intake Oral 360 ml 600 ml Output Urine Total 300 ml 750 ml 220 ml # Voids 1 # Bowel Movements 1 Physical Exam GENERAL: Well developed, well nourished. No acute distress. HEENT: Jugular venous pressure is normal. CHEST: Lungs clear to auscultation bilaterally. Unlabored respiratory effort. CARDIAC: Regular rate and rhythm without S3, S4, or murmur. ABDOMEN: Soft, nontender, no hepatosplenomegaly. Bowel sounds present. EXTREMITIES: No clubbing, cyanosis, or edema. Imaging Last 72 hours Impressions Myocardial Perfusion Scan [facility] 08/14/17 0600 Signed Impressions: Service Date/Time: Monday, August 14, 2017 11:58 - CONCLUSION: 1. No fixed or reversible perfusion defect is identified to suggest stress-induced ischemia. 2. Stable akinesia of the apical aspect of the septum. Left ventricle ejection fraction is calculated at 56%%. RISK CATEGORY: Low (<1%% Annual Mortality Rate) Pete Richter MD Assessment and Plan Problem List: (1) Dilated cardiomyopathy ICD Codes: I42.0 - Dilated cardiomyopathy Status: Chronic Plan: EF 30-35% by recent echo. No acute CHF evident. No infarct or ischemia by nuclear stress testing. Cardiomyopathy possibly stress-induced. REC continue metoprolol succinate, Lisinopril, furosemide; will f/u as needed rest of hospital stay (2) Pulmonary embolism, bilateral ICD Codes: I26.99 - Other pulmonary embolism without acute cor pulmonale Status: Chronic Plan: Continue anticoagulation therapy. Code Status full code Discussed Condition With patient Ahmet Sorensen MD Aug 15, 2017 08:30
[2017-08-15] MEDS: BUDESONIDE-FORMOTEROL 160/4.5 MCG INHALER INH SCH (08:49)
[2017-08-15] MEDS: MULTIVITAMIN TAB PO SCH (08:50)
[2017-08-15] MEDS: FINASTERIDE 5 MG TAB PO SCH (08:50)
[2017-08-15] MEDS: PRAVASTATIN SOD 10 MG TAB PO SCH (08:50)
[2017-08-15] MEDS: FERROUS SULFATE 325 MG (65 MG ELEMENTAL IRON) TAB PO SCH (08:50)
[2017-08-15] MEDS: DABIGATRAN ETEXILATE 150 MG CAP PO SCH (08:50)
[2017-08-15] MEDS: SODIUM CHLORIDE 0.9% FLUSH 10 ML FLUSH IV FLUSH SCH (08:51)
[2017-08-15] MEDS: ASPIRIN 81 MG CHEW TAB CHEW SCH (08:51)
[2017-08-15] MEDS: POTASSIUM CHLORIDE 20 MEQ CONTROLLED RELEASE TAB PO SCH (08:52)
[2017-08-15] MEDS: FUROSEMIDE 40 MG TAB PO SCH (08:53)
[2017-08-15] MEDS ORDERED: LISINOPRIL 5 MG TAB PO SCH (09:00)
--- NOTE | 2017-08-15 09:17 | RSPPFT ---
DATE OF PROCEDURE: 08/11/17 COMMENTS: Spirometry shows FVC of 1.3 at 40% of predicted, FEV1 of 0.8 at 32%, FEV1/FVC ratio is decreased. Flow is decreased at FEF 25, FEF 50, FEF 75 and FEF 25-75. There is no response after bronchodilator treatment. Flow volume loop indicates an obstructive pattern. IMPRESSION: 1. Severe obstructive lung disease. 2. No response after bronchodilator treatment. 3. Co-existent restrictive disease is not ruled out from this study.
--- NOTE | 2017-08-15 10:55 | PD.ONC.PN ---
Subjective Subjective Remarks Afebrile overnight. patient states he slept well last night. No shortness of breath except with exertion. Objective Data Date Time Temp Pulse Resp B/P (MAP) Pulse Ox O2 Delivery O2 Flow Rate FiO2 08/15/17 04:08 86 08/15/17 04:00 97.4 97 17 103/63 (76) 96 08/15/17 00:20 98.1 88 24 117/79 (92) 97 08/15/17 00:09 89 08/14/17 21:00 98.0 95 122/77 (92) 96 08/14/17 20:11 89 08/14/17 14:57 96 21 08/14/17 14:45 97.5 91 20 125/81 (96) 96 08/15/17 08/15/17 08/15/17 07:00 15:00 23:00 Output Total 220 ml Balance -220 ml Result Diagram: 08/14/17 0500 08/14/17 0500 Administered Medications Medications (Trade) Dose Ordered Sig/Reggie Route PRN Reason Start Time Stop Time Status Last Admin Dose Admin Sodium Chloride (NS Flush) 2 ml BID IV FLUSH 08/09/17 21:00 08/15/17 08:51 Ipratropium [place] (Atrovent Neb) 0.5 mg Q6HR NEB NEB 08/09/17 22:00 08/15/17 02:53 Ipratropium [place] (Atrovent Neb) 0.5 mg Q2HR NEB PRN NEB WHEEZING 08/09/17 20:30 08/11/17 14:39 Aspirin (Aspirin Chew) 81 mg DAILY CHEW 08/10/17 09:00 08/13/17 08:43 Dabigatran (Pradaxa) 150 mg BID PO 08/09/17 21:30 08/15/17 08:50 Ferrous Sulfate (Ferrous Sulfate) 325 mg DAILY PO 08/10/17 09:00 08/15/17 08:50 Finasteride (Proscar) 5 mg DAILY PO 08/10/17 09:00 08/15/17 08:50 Furosemide (Lasix) 40 mg DAILY PO 08/10/17 09:00 08/15/17 08:53 Acetaminophen/ Hydrocodone Bitart ([place] 10-325 Mg) 1 tab Q4H PRN PO PAIN 08/09/17 20:45 08/12/17 09:16 Potassium Chloride (KCl) 20 meq DAILY PO 08/10/17 09:00 08/15/17 08:52 Temazepam (Restoril) 30 mg HS PRN PO INSOMNIA 08/09/17 20:45 08/15/17 00:23 Multivitamins (Theragran) 1 tab DAILY PO 08/10/17 09:00 08/15/17 08:50 Pravastatin Sodium (Pravachol) 10 mg DAILY PO 08/10/17 09:00 08/15/17 08:50 Metoprolol Succinate (Toprol Xl) 50 mg DAILY@2000 PO 08/11/17 20:00 08/14/17 21:04 Budesonide/ Formoterol Fumarate (Symbicort 160-4.5 Mcg Inh) 2 puff Q12HR INH 08/11/17 21:00 08/15/17 08:49 Alprazolam (Xanax) 0.5 mg Q12HR PRN PO ANXIETY 08/12/17 10:00 08/14/17 21:09 Methylprednisolone Sodium Succinate (SoluMEDROL INJ) 60 mg Q6H IV PUSH 08/12/17 14:00 08/15/17 08:51 Lisinopril (Prinivil) 5 mg DAILY PO 08/15/17 09:00 08/15/17 08:50 Objective Remarks GENERAL: Pleasant male sitting up in bed. he appears comfortable and in nad. SKIN: Warm and dry. HEAD: Normocephalic. EYES: No injection or drainage. NECK: Supple, trachea midline. CARDIOVASCULAR: Regular rate and rhythm RESPIRATORY: Breath sounds equal bilaterally. No accessory muscle use. breathing room air comfortably. some wheezes and crackles heard in right posterior lung cui. GASTROINTESTINAL: Abdomen soft, non-tender, nondistended. EXTREMITIES: No cyanosis NEUROLOGICAL: No obvious focal deficit. Awake, alert, and oriented x3. Assessment/Plan Problem List: (1) Non-small cell carcinoma of lung ICD Codes: C34.90 - Malignant neoplasm of unspecified part of unspecified bronchus or lung Status: Chronic Plan: -- Patient is status post 2 cycles of chemotherapy with carboplatin and Taxol -- He was found to have a left lung mass measuring 1.6 cm -- It is too early to assess for response after only 2 cycles -- Plan to continue chemotherapy as outpatient (2) Pulmonary embolism, bilateral ICD Codes: I26.99 - Other pulmonary embolism without acute cor pulmonale Status: Chronic Plan: -- On Pradaxa --Repeat CTA shows stable pulmonary embolism (3) COPD (chronic obstructive pulmonary disease) ICD Codes: J44.9 - Chronic obstructive pulmonary disease, unspecified Status: Acute Plan: -- Chest x-ray this admission showed improving right lung base infiltrate -- Dr. Colon following inpatient --on IV steroids. Assessment 72 y/o male with history of non-small cell cancer admitted for shortness of breath and dizziness also recently diagnosed with bilateral pulmonary embolism Plan 1. continue Pradaxa. 2. once discharged, follow up in clinic. Attending Statement The exam, history, and the medical decision-making described in the above note were completed with the assistance of the mid-level provider. I reviewed and agree with the findings presented. I attest that I had a [id number] encounter with the patient on the same day, and personally performed and documented my assessment and findings in the medical record. Still has dyspnea on exertion. Stress test no ischemia. The SOB may be due to the large PE and may take a little longer to improve. May need home O2. Minoo Barbosa Aug 15, 2017 10:54 Nelson Pardo MD Aug 15, 2017 11:40
--- NOTE | 2017-08-15 11:05 | HHI.PR ---
Subjective Remarks 72 YOWM with Ca lung, PE, worsening dysnoea PFT Severe COPD No cough or sp No Fever Stress test no fixed or reversible profusion defect Ambulates in the room Objective Vital Signs Vital Signs Date Time Temp Pulse Resp B/P (MAP) Pulse Ox O2 Delivery O2 Flow Rate FiO2 08/15/17 04:08 86 08/15/17 04:00 97.4 97 17 103/63 (76) 96 08/15/17 00:20 98.1 88 24 117/79 (92) 97 08/15/17 00:09 89 08/14/17 21:00 98.0 95 122/77 (92) 96 08/14/17 20:11 89 08/14/17 14:57 96 21 08/14/17 14:45 97.5 91 20 125/81 (96) 96 I/O 08/14/17 08/14/17 08/14/17 08/15/17 08/15/17 08/15/17 07:00 15:00 23:00 07:00 15:00 23:00 Intake Total 360 ml 600 ml Output Total 300 ml 750 ml 220 ml Balance 60 ml -150 ml -220 ml Intake Oral 360 ml 600 ml Output Urine Total 300 ml 750 ml 220 ml # Voids 1 # Bowel Movements 1 Result Diagram: 08/14/17 0500 08/14/17 0500 Objective Remarks GENERAL: MBMN , anxious SKIN: Warm and dry. HEAD: Normocephalic. EYES: No scleral icterus. No injection or drainage. NECK: Supple, trachea midline. No JVD or lymphadenopathy. CARDIOVASCULAR: Regular rate and rhythm without murmurs, gallops, or rubs. RESPIRATORY: Breath sounds equal bilaterally. No accessory muscle use. GASTROINTESTINAL: Abdomen soft, non-tender, nondistended. MUSCULOSKELETAL: No cyanosis, or edema. BACK: Nontender without obvious deformity. No CVA tenderness. A/P Assessment and Plan Severe COPD Pulm Embolism Ca lung Anxiety disorder CMP PLAN: Aerosol nebs, change to prn Symbicort 160/405 2 puffs bid Stable on RA Cardiology following DC palns underway Armando Colon MD Aug 15, 2017 11:05
--- NOTE | 2017-08-15 11:09 | HHI.PR ---
Subjective Remarks +anxiety, waiting for xanax, stable on RA. Objective Vitals Vital Signs Date Time Temp Pulse Resp B/P (MAP) Pulse Ox O2 Delivery O2 Flow Rate FiO2 08/15/17 04:08 86 08/15/17 04:00 97.4 97 17 103/63 (76) 96 08/15/17 00:20 98.1 88 24 117/79 (92) 97 08/15/17 00:09 89 08/14/17 21:00 98.0 95 122/77 (92) 96 08/14/17 20:11 89 08/14/17 14:57 96 21 08/14/17 14:45 97.5 91 20 125/81 (96) 96 I/O 08/14/17 08/14/17 08/14/17 08/15/17 08/15/17 08/15/17 07:00 15:00 23:00 07:00 15:00 23:00 Intake Total 360 ml 600 ml Output Total 300 ml 750 ml 220 ml Balance 60 ml -150 ml -220 ml Intake Oral 360 ml 600 ml Output Urine Total 300 ml 750 ml 220 ml # Voids 1 # Bowel Movements 1 Result Diagram: 08/14/17 0500 08/14/17 0500 Objective Remarks GENERAL: Lean male patient in no significant distress. SKIN: Warm and dry. HEAD: Normocephalic. EYES: No scleral icterus. No injection or drainage. NECK: Supple, trachea midline. No JVD or lymphadenopathy. CARDIOVASCULAR: Regular rate and rhythm without murmurs, gallops, or rubs. Port in right chest. RESPIRATORY: Breath sounds equal bilaterally. No wheezes. No accessory muscle use. GASTROINTESTINAL: Abdomen soft, non-tender, nondistended. EXTREMITIES: No cyanosis, or edema. NEUROLOGICAL: Awake, alert, and oriented x 3. Non-focal. He does have tremors of his head and upper extremities. A/P Problem List: (1) COPD (chronic obstructive pulmonary disease) ICD Code: J44.9 - Chronic obstructive pulmonary disease, unspecified Status: Acute (2) NORAH (acute kidney injury) ICD Code: N17.9 - Acute kidney failure, unspecified Status: Resolved (3) Dilated cardiomyopathy ICD Code: I42.0 - Dilated cardiomyopathy Status: Chronic (4) Pulmonary embolism, bilateral ICD Code: I26.99 - Other pulmonary embolism without acute cor pulmonale Status: Chronic (5) Exertional dyspnea ICD Code: R06.09 - Other forms of dyspnea Status: Acute (6) Non-small cell carcinoma of lung ICD Code: C34.90 - Malignant neoplasm of unspecified part of unspecified bronchus or lung Status: Chronic Assessment and Plan 72-year-old male with recent diagnosis of bilateral pulmonary embolisms, dilated cardiomyopathy, non-small cell lung carcinoma status post chemotherapy 2 presents with worsening dyspnea after being discharged from the hospital a week ago -Dyspnea, multifactorial given his recent bilateral pulmonary embolism, known lung cancer, COPD, dilated cardiomyopathy with EF 30-35%, severe COPD. There does not appear to be any acute issue that we can treat unfortunately. Chest x- ray is clear he has no wheezing on exam. Patient is stable on room air at rest. However he was readmitted within 1 week of discharge for worsening dyspnea and inability to perform activities of daily living at home. He had an oxygen walk test prior to discharge and did not qualify for home oxygen. -s/p eval by cardiology and pulmonology. -Repeat oxygen test has been ordered however patient has been too dyspneic to participate with that. -Additionally has not been able to ambulate with PT due to the dyspnea. -CTA chest 08/12 showed the stable bilateral pulmonary embolisms and right hilar lung mass with no acute findings. -Change solumedrol to prednisone and nebs. -Carolynn scan stress negative -Question if TPA can be given for the PE? Defer to hematology. -Acute kidney injury. Resolved after IV fluids. -Metastatic non-small cell lung carcinoma - Followed by Dr. Steven. S/p 2 rounds chemotherapy, which is currently on hold due to the recent bilateral pulmonary embolism and poor functional status due to dyspnea. -Recent bilateral pulmonary embolism. Continue Pradaxa. -Hypertension - continue metoprolol -Dilated cardiomyopathy recently diagnosed. EF of 30-35%. Does not appear to have acute exacerbation. Continue metoprolol, aspirin, statin, Lasix 40 mg daily. Was seen by cardiology Dr. Sorensen this hospitalization. Recommended to increase metoprolol and repeat echocardiogram in 3 months. Discharge Planning DC to SNF when arrangements made Oriana Pavon MD Aug 15, 2017 11:09
[2017-08-15] MEDS ORDERED: TEMA15CA PO (11:11)
[2017-08-15] MEDS ORDERED: ALPR.5 PO (11:11)
[2017-08-15] MEDS ORDERED: MEDR4PAK PO (11:11)
--- NOTE | 2017-08-15 11:12 | HHI.DS ---
Discharge Summary Admission Date Aug 12, 2017 at 12:21 Discharge Date: Aug 15, 2017 Admitting Diagnosis tachycardiac PNA RLL (1) COPD (chronic obstructive pulmonary disease) ICD Code: J44.9 - Chronic obstructive pulmonary disease, unspecified Status: Acute (2) NORAH (acute kidney injury) ICD Code: N17.9 - Acute kidney failure, unspecified Status: Resolved (3) Dilated cardiomyopathy ICD Code: I42.0 - Dilated cardiomyopathy Status: Chronic (4) Pulmonary embolism, bilateral ICD Code: I26.99 - Other pulmonary embolism without acute cor pulmonale Status: Chronic (5) Exertional dyspnea ICD Code: R06.09 - Other forms of dyspnea Status: Acute (6) Non-small cell carcinoma of lung ICD Code: C34.90 - Malignant neoplasm of unspecified part of unspecified bronchus or lung Status: Chronic Procedures None Brief History - From Admission hx from patient, ER physician communication and review of med records was discharged last monday night every day after that, going downhill again yesterday, could not walk 3 feet without sitting down because of shortness of breath used inhalors, but did not help, was not able to [facility] get to the [facility] because he was too short of breath to walk there not on oxygen at home was admitted with bilateral PE and LE DVT recently- 07/31/17- 08/04/17 takes pradaxa has lung cancer 08/04 echo showing ef 30% on lasix 40mg po daily dose at home no worsening peripheral edema no cough no fever chest pain when breathing in and out only was discharged on cefdinir which he finished the course, with prednisone tapering dose as well last chemo was [address] Pardo is his oncologist pt is worried regarding his PE, would like Dr Foster's opinion was to why he is not improving CBC/BMP: 08/14/17 0500 08/14/17 0500 Significant Findings Laboratory Tests Test 08/13/17 04:40 08/14/17 05:00 Red Blood Count 4.07 MIL/MM3 (4.50-5.90) 4.00 MIL/MM3 (4.50-5.90) Hemoglobin 12.2 GM/DL (13.0-17.0) 12.3 GM/DL (13.0-17.0) Hematocrit 36.0 % (39.0-51.0) 35.6 % (39.0-51.0) Platelet Count 127 TH/MM3 (150-450) 136 TH/MM3 (150-450) Neutrophils (%) (Auto) 82.3 % (16.0-70.0) 77.8 % (16.0-70.0) Neutrophils # (Auto) 8.0 TH/MM3 (1.8-7.7) 11.4 TH/MM3 (1.8-7.7) Blood Urea Nitrogen 35 MG/DL (7-18) 46 MG/DL (7-18) Random Glucose 173 MG/DL (74-106) 186 MG/DL (74-106) Total Protein 5.5 GM/DL (6.4-8.2) Albumin 2.8 GM/DL (3.4-5.0) Calcium Level 8.2 MG/DL (8.5-10.1) 8.4 MG/DL (8.5-10.1) Aspartate Amino Transf (AST/SGOT) 10 U/L (15-37) Total Bilirubin 1.3 MG/DL (0.2-1.0) Sodium Level 135 MEQ/L (136-145) Estimat Glomerular Filtration Rate 73 ML/MIN (>89) 61 ML/MIN (>89) White Blood Count 14.7 TH/MM3 (4.0-11.0) Red Cell Distribution Width 17.4 % (11.6-17.2) PE at Discharge GENERAL: Lean male patient in no significant distress. SKIN: Warm and dry. HEAD: Normocephalic. EYES: No scleral icterus. No injection or drainage. NECK: Supple, trachea midline. No JVD or lymphadenopathy. CARDIOVASCULAR: Regular rate and rhythm without murmurs, gallops, or rubs. Port in right chest. RESPIRATORY: Breath sounds equal bilaterally. No wheezes. No accessory muscle use. GASTROINTESTINAL: Abdomen soft, non-tender, nondistended. EXTREMITIES: No cyanosis, or edema. NEUROLOGICAL: Awake, alert, and oriented x 3. Non-focal. He does have tremors of his head and upper extremities. Hospital Course 72-year-old male with recent diagnosis of bilateral pulmonary embolisms, dilated cardiomyopathy, non-small cell lung carcinoma status post chemotherapy 2 presents with worsening dyspnea after being discharged from the hospital a week ago -Dyspnea, multifactorial given his recent bilateral pulmonary embolism, known lung cancer, COPD, dilated cardiomyopathy with EF 30-35%, severe COPD. There does not appear to be any acute issue that we can treat unfortunately. Chest x- ray is clear he has no wheezing on exam. Patient is stable on room air at rest. However he was readmitted within 1 week of discharge for worsening dyspnea and inability to perform activities of daily living at home. He had an oxygen walk test prior to discharge and did not qualify for home oxygen. -s/p eval by cardiology and pulmonology. -Repeat oxygen test has been ordered however patient has been too dyspneic to participate with that. -Additionally has not been able to ambulate with PT due to the dyspnea. -CTA chest 08/12 showed the stable bilateral pulmonary embolisms and right hilar lung mass with no acute findings. -Change solumedrol to prednisone and nebs. -Carolynn scan stress negative -Acute kidney injury. Resolved after IV fluids. -Metastatic non-small cell lung carcinoma - Followed by Dr. Steven. S/p 2 rounds chemotherapy, which is currently on hold due to the recent bilateral pulmonary embolism and poor functional status due to dyspnea. -Recent bilateral pulmonary embolism. Continue Pradaxa. -Hypertension - continue metoprolol -Dilated cardiomyopathy recently diagnosed. EF of 30-35%. Does not appear to have acute exacerbation. Continue metoprolol, aspirin, statin, Lasix 40 mg daily. Was seen by cardiology Dr. Sorensen this hospitalization. Carolynn scan stress negative Recommended to increase metoprolol and repeat echocardiogram in 3 months. DC to SNF Pt Condition on Discharge: Fair Discharge Disposition: Discharge to SNF Discharge Time: > 30 minutes Discharge Instructions DIET: Follow Instructions for: Heart Healthy Diet Activities you can perform: Regular-No Restrictions New Medications: Methylprednisolone Dosepak (Medrol Dosepak) 4 Mg Dspk 4 MG PO DIRECTED, #1 DSPK 0 Refills Per Pharmacist direction Alprazolam (Xanax) 0.5 Mg Tab 0.5 MG PO Q6HR PRN for ANXIETY, #60 TAB [Budeson-Formot 160-4.5 Mcg Inh] () 60 PUFF AERO 2 PUFF INH Q12HR for copd, #1 Continued Medications: Albuterol Neb (Albuterol Neb) 2.5 Mg/3 Ml Neb 2.5 MG NEB Q6HR NEB PRN for SHORTNESS OF BREATH, #60 NEBULE 0 Refills Alprazolam (Alprazolam) 0.5 Mg Tab 0.5 MG PO DAILY PRN for ANXIETY, TAB 0 Refills Aspirin (Aspirin) 81 Mg Chew 81 MG CHEW DAILY, TAB 0 Refills Dabigatran (Pradaxa) 150 Mg Cap 150 MG PO BID for Blood Clot Prevention, #60 CAP 0 Refills Ferrous Sulfate (Ferrous Sulfate) 325 Mg (65 Mg Iron) Tablet 325 MG PO DAILY for Nutritional Supplement, #30 TAB 0 Refills Finasteride (Finasteride) 5 Mg Tab 5 MG PO DAILY for Manage Prostate Problems, #30 TAB 0 Refills Do not crush. Furosemide (Lasix) 40 Mg Tab 40 MG PO DAILY for heart failure., #30 TAB 0 Refills Gabapentin (Gabapentin) 400 Mg Cap 400 CAP PO 5x a day, #30 CAP 0 Refills Hydrocodone-Acetaminophen (Hydrocodone-Acetaminophen) 10-325 mg Tab 1 TAB PO Q4H PRN for PAIN, TAB 0 Refills Ipratropium Nasal (Ipratropium Nasal) 0.06% [place] 1 SPRAY EACH NARE QID, #1 BOTTLE 0 Refills Lisinopril (Lisinopril) 5 Mg Tab 5 MG PO DAILY for heart failure/blood pressure, #30 TAB 0 Refills Metoprolol Succinate ER 24 HR (Metoprolol Succinate ER 24 HR) 25 Mg Tab 25 MG PO DAILY, #30 TAB 0 Refills Multiple Vitamin (Multi-Vitamin Daily) 1 Tab Tab 1 TAB PO DAILY for Nutritional Supplement, TAB 0 Refills Potassium Chloride Microencaps (Klor-Con M20) 20 Meq Tab 20 MEQ PO DAILY for electrolytes, #30 TAB 0 Refills Simvastatin (Simvastatin) 5 Mg Tab 5 MG PO DAILY for Cholesterol Management, #30 TAB 0 Refills Temazepam (Temazepam) 15 Mg Cap 30 MG PO HS PRN for INSOMNIA, #30 CAP 0 Refills (This prescription has been renewed) Oriana Pavon MD Aug 15, 2017 11:12
[2017-08-15] MEDS ORDERED: Budeson-Formot 160-4.5 Mcg Inh INH (11:13)
[2017-08-15] MEDS: ALPRAZolam 0.5 MG TAB PO PRN (11:18)
[2017-08-15] MEDS: RESP: IPRATROPIUM 0.5 MG/2.5 ML NEB NEB PRN (16:30)
[2017-08-15] MEDS ORDERED: SODIUM CHLORIDE 0.9% FLUSH 10 ML FLUSH IV FLUSH PRN (18:15)
[2017-08-15] MEDS ORDERED: predniSONE 10 MG TAB PO SCH (21:00)
== END 2017-08-15 18:00 | DRG 190 ==
LOC: NEPC 16:53 → NEDA 20:33 → NEPFCDU 21:59 → HCIS 08-10 18:50 → HCIN 08-11 15:30 → OBSVTOIN 08-12 12:21
PROVIDERS: ADMIT Family Medicine; ATTEND Family Medicine
DX: J44.9 Chronic obstructive pulmonary disease, unspecified (principal); I26.99 Other pulmonary embolism without acute cor pulmonale; N17.9 Acute kidney failure, unspecified; I42.0 Dilated cardiomyopathy; C34.92 Malignant neoplasm of unspecified part of left bronchus or lung; I11.0 Hypertensive heart disease with heart failure; I50.9 Heart failure, unspecified; E78.5 Hyperlipidemia, unspecified; F41.0 Panic disorder [episodic paroxysmal anxiety]; I35.1 Nonrheumatic aortic (valve) insufficiency; R63.0 Anorexia; R00.0 Tachycardia, unspecified; M19.90 Unspecified osteoarthritis, unspecified site; Z86.711 Personal history of pulmonary embolism; Z86.718 Personal history of other venous thrombosis and embolism; Z87.891 Personal history of nicotine dependence; Z92.3 Personal history of irradiation; Z92.21 Personal history of antineoplastic chemotherapy; Z79.01 Long term (current) use of anticoagulants; Z79.82 Long term (current) use of aspirin; Z85.118 Personal history of other malignant neoplasm of bronchus and lung; Z85.828 Personal history of other malignant neoplasm of skin; Z87.01 Personal history of pneumonia (recurrent)
CPT/HCPCS: 36600; 71020; 71275; 78452; 80048; 80053; 82550; 82805; 83735; 83880; 84484; 85007; 85025; 85027; 85610; 85730; 93005; 93017; 94060; 94150; 94640; 94664; 96361; 96365; 96375; A9502; G0378; G8987-GP; G8988-GP; J1642; J2060; J2785; J2930; J3475; J7030; J7644; Q9967

== ENCOUNTER 2017-08-22 11:16 | Inpatient (IN) | payer OTHER, MEDICARE ==
[2017-08-22] VITALS (16 sets, daily range): BP systolic 87–139; BP diastolic 52–80; PULSE 100–121; RESP 19–33; TEMP 98–99.7; O2SAT 97–100
[~2017-08-22] VITALS: Ht 170.2 cm; Wt 60.9 kg
[~2017-08-22 11:16] MED LIST changes: +ALPR.5 PO; +Budeson-Formot 160-4.5 Mcg Inh INH; -CEFD300C PO; +MEDR4PAK PO; -PRED10PA PO
[2017-08-22] MEDS ORDERED: RESP: ALBUTEROL 2.5 MG/IPRATROPIUM 0.5 MG NEB (SCH) ONE (11:25)
[2017-08-22] MEDS ORDERED: methylPREDNISolone SOD SUCC 125 MG/2 ML VIAL IV PUSH ONE (11:30)
[2017-08-22] MEDS: RESP: ALBUTEROL 2.5 MG/IPRATROPIUM 0.5 MG NEB (SCH) INH ×2 (11:30→11:35)
[2017-08-22] MEDS ORDERED: SODIUM CHLORIDE 0.9% FLUSH 10 ML FLUSH IVF PRN (11:30)
[2017-08-22] MEDS ORDERED: APLI5INJ2 (11:35)
[2017-08-22 11:50] LABS: BLOOD GAS BASE EXCESS 0.3 mmol/L (-2-2); BLOOD GAS CARBOXYHEMOGLOBIN 1.6 % (0-4); BLOOD GAS HCO3 23 mmol/L (22-26); BLOOD GAS METHEMOGLOBIN 0.4 % (0-2); BLOOD GAS O2 HGB SATURATION 91 % (90-100); BLOOD GAS OXYGEN CONTENT 14.2 Vol % (12.0-20.0); BLOOD GAS PCO2 31 mmHg (38-42); BLOOD GAS PO2 61 mmHG (61-120); CRITICAL VALUE NO; DRAW SITE LT RADIAL; FIO2 40 %; NUMBER OF ARTERIAL PUNCTURES 1; OXYGEN DEVICE BiPAP; STAT YES; TEMP CORR TO 98.6; ULNAR PULSE PRESENT; VENT SETTINGS IPAP15/EPAP5
[2017-08-22 12:01] LABS: AUTOMATED NEUTROPHIL # 9.7 TH/MM3 (1.8-7.7); BASOPHIL % 0.3 % (0.0-2.0); EOSINOPHIL % 0.3 % (0.0-4.0); HEMATOCRIT 31.8 % (39.0-51.0); LYMPH % 19.4 % (9.0-44.0); LYMPHOCYTE # 2.5 TH/MM3 (1.0-4.8); MEAN CELL VOLUME 89.8 FL (80.0-100.0); MEAN CORPUSCULAR HEMOGLOBIN 30.3 PG (27.0-34.0); MEAN CORPUSCULAR HGB CONC 33.7 % (32.0-36.0); MONO % 3.9 % (0.0-8.0); NEUT % 76.1 % (16.0-70.0); PLATELET COUNT 101 TH/MM3 (150-450); RED BLOOD COUNT 3.54 MIL/MM3 (4.50-5.90); RED CELL DISTRIBUTION WIDTH 17.6 % (11.6-17.2); WHITE BLOOD COUNT 12.7 TH/MM3 (4.0-11.0)
[2017-08-22 12:05] LABS: HEMO FLAGS AUTO DIFF
[2017-08-22 12:06] LABS: APTT (PATIENT) 37.3 SEC (24.3-30.1); INTERNATIONAL NORMALIZED RATIO 1.4 RATIO; PROTHROMBIN TIME - PATIENT 14.3 SEC (9.8-11.6)
--- NOTE | 2017-08-22 12:10 | RADRPT ---
EXAM DATE/TIME: 08/22/2017 11:47 [facility] COMPARISON: CHEST SINGLE AP, July 31, 2017, 21:06. INDICATIONS : Short of breath. MEDICAL HISTORY : Cardiovascular disease. Chronic obstructive pulmonary disease. Congestive heart failure. hyperlip idema, DVT, Chemo for lung ca. SURGICAL HISTORY : None. ENCOUNTER: Initial ACUITY: 1 day PAIN SCORE: 0/10 LOCATION: Bilateral chest FINDINGS: There is some increased aeration of the right basilar consolidation compared to 07/31/17. Moderate in filtrate remains. Right internal jugular [id number] has its tip at the junction of the superior ve na cava and right atrium. The left lung is clear. The heart is stable. CONCLUSION: Some increased aeration of the right basilar consolidation compared 07/31/17 with moderate infiltrate remaining. Johnny Enriquez MD on August 22, 2017 at 12:08 Board Certified Radiologist. This report was verified electronically.
[2017-08-22 12:15] LABS: ANION GAP 10 MEQ/L (5-15); AST (GOT) 19 U/L (15-37); BICARBONATE 23.5 MEQ/L (21.0-32.0); BLOOD UREA NITROGEN 20 MG/DL (7-18); CHLORIDE 95 MEQ/L (98-107); GLOMERULAR FILTRATION RATE 92 ML/MIN (>89); MAGNESIUM 1.1 MG/DL (1.5-2.5); POTASSIUM 3.9 MEQ/L (3.5-5.1); SODIUM (NA) 128 MEQ/L (136-145)
[2017-08-22 12:17] LABS: ALT (GPT) 29 U/L (12-78)
[2017-08-22 12:20] LABS: ALKALINE PHOSPHATASE 63 U/L (45-117); TOTAL BILIRUBIN ADULT 1.5 MG/DL (0.2-1.0)
[2017-08-22 12:21] LABS: CREATINE KINASE 63 U/L (39-308)
[2017-08-22] MEDS ORDERED: CEFEPIME INJ 2,000 MG in SODIUM CHLORIDE 0.9% INJ 100 ML IV ONE (12:30)
[2017-08-22] MEDS ORDERED: AZITHROMYCIN INJ 500 MG in SODIUM CHLOR 0.9% 250 ML INJ 250 ML IV ONE (12:30)
[2017-08-22] MEDS ORDERED: SODIUM CHLOR 0.9% 1000 ML INJ 1,000 ML IV ONE ×2 (12:30→14:00)
[2017-08-22 12:33] LABS: BANDS 2 % (0-6); METAMYELOCYTES 1 % (0-1); NEUTROPHIL # MANUAL DIFF 9.5 TH/MM3 (1.8-7.7); POLYS (SEG NEUTROPHILS) 72 % (16-70); WBC DIFF SAMPLE 100
[2017-08-22 12:34] LABS: OVALOCYTES 1+ (NORMAL); PLATELET ESTIMATE SMEAR LOW (NORMAL); PLATELET MORPHOLOGY NORMAL (NORMAL); SCAN/DIFF FINAL DIFF MANUAL
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
[2017-08-22] MEDS ORDERED: SENNOSIDES 8.6 MG TAB PO PRN (13:15)
[2017-08-22] MEDS ORDERED: BISACODYL 10 MG SUPP RECTAL PRN (13:15)
[2017-08-22] MEDS ORDERED: MAGNESIUM HYDROXIDE SUSP 30 ML CUP PO PRN (13:15)
[2017-08-22] MEDS ORDERED: LACTULOSE SYRUP 20 GM/30 ML CUP PO PRN (13:15)
[2017-08-22] MEDS ORDERED: NALOXONE HCL 0.4 MG/ML AMP IV PUSH PRN (13:15)
[2017-08-22] MEDS ORDERED: SODIUM CHLORIDE 0.9% FLUSH 10 ML FLUSH IV FLUSH PRN (13:15)
[2017-08-22] MEDS ORDERED: Vancomycin Consult Pharmacy 1 EA OTHER SCH (13:15)
[2017-08-22] MEDS: MAGNESIUM SULFATE 1 GM PREMIX 100 ML IV SCH ×4 (13:30→14:54)
[2017-08-22] MEDS: SODIUM CHLOR 0.9% 1000 ML INJ 1,000 ML IV SCH (15:17)
[2017-08-22] MEDS: RESP: ALBUTEROL 2.5 MG/IPRATROPIUM 0.5 MG NEB (SCH) NEB ×2 (15:44→21:10)
[2017-08-22] MEDS ORDERED: HEPARIN SODIUM - IV 2,000 UNITS/2 ML VIAL IV ONE (16:00)
[2017-08-22] MEDS: HEPARIN-D5W 25,000 U/250 ML 250 ML IV PRN (16:18)
[2017-08-22] MEDS: HEPARIN SODIUM - IV 10,000 UNITS/10 ML VIAL ONE ×2 (16:20→20:33)
[2017-08-22] MEDS: VANCOMYCIN INJ 1,250 MG in SODIUM CHLOR 0.9% 250 ML INJ 250 ML IV SCH (17:20)
--- NOTE | 2017-08-22 18:51 | MB ---
cc: ERICK ESQUIVEL M.D., JEFFREY D. MD DATE OF CONSULTATION: 08/22/2017 ATTENDING PHYSICIAN: Dr. Arriaga. REASON FOR CONSULTATION: Oncology consulted to render an opinion in a patient with lung cancer, admitted with worsening shortness of breath. HISTORY OF PRESENT ILLNESS The patient is very pleasant 72-year-old male with history of metastatic non-small cell lung carcinoma recently treated with chemotherapy represented to the hospital again with increased shortness of breath. He was just discharged from the hospital to [facility] on August 15. During the hospital stay he was given antibiotics, steroids. He also had a CT angiogram which showed the pulmonary embolism slightly better. He was discharged with Pradaxa. He stated that he was not getting the right medication at [facility]. He did make sure that he was getting the Pradaxa every day. Yesterday morning he started having cough mostly nonproductive. Occasionally he will bring up a small amount of yellowish sputum. He has increased dyspnea on exertion again. He has significant shortness of breath even with minimal exertion. He stated when he stood up his heart rate goes up and he became very short of breath. He was brought to the hospital via EMS. He was started on BiPAP en route. He is now in the ICU. He denies any fever or chills. He has lost about 20 pounds recently. He denies any chest pressure or pleuritic chest pain. He denies nausea, vomiting, abdominal pain. Denies dysuria, hematuria. He denies any bleeding or bruising. PAST MEDICAL HISTORY: 1. Metastatic nonsmall cell lung carcinoma, recently treated with chemotherapy. 2. Bilateral pulmonary embolism with right lower extremity deep venous thrombosis. 3. Cardiomyopathy, ejection fraction 30%. 4. Hypertension. 5. Chronic obstructive pulmonary disease. 6. History of right lung small cell carcinoma, treated with radiation and chemotherapy. 7. Hyperlipidemia. 8. Migraine headaches. 9. Osteoarthritis. PAST SURGICAL HISTORY: 1. Appendectomy. 2. Bone marrow biopsy. 3. Cholecystectomy. 4. Pericardiocentesis. 5. Vasectomy 6. Colonoscopy 7. Excision skin cancer. 8. Port placement. 9. Lung biopsy. 10. Chest tube placement for pneumothorax after lung biopsy. FAMILY HISTORY: Grandmother had heart disease. He has a brother. He has no children. No history of cancer in the family. SOCIAL HISTORY: He quit tobacco in 1985. He had 20 pack-year smoking history. He drinks occasionally. He lives alone. ALLERGIES PENICILLIN. CURRENT MEDICATIONS: 1. Cefepime. 2. Methylprednisolone. 3. Vancomycin. 4. DuoNeb 5. Heparin drip. REVIEW OF SYSTEMS: Constitutional: As above. Eyes: Negative. ENT: Negative. Cardiovascular: As above. Respiratory: As above. GI: No nausea, vomiting, diarrhea, abdominal pain. : No dysuria, hematuria. Musculoskeletal: Denies any pain. Hematology: Negative. Endocrine: Negative. Psychiatric: Anxious. Neurologic: Negative. PHYSICAL EXAMINATION Vitals: Temperature 99.7, pulse 107, blood pressure 95/52, 100% on BiPAP. General: He is alert and oriented x3. He is on BiPap. He looks weak. HEENT: Atraumatic, normocephalic. Pupils equal round reactive to light. Neck: No thyromegaly. Lymphatics: No palpable cervical, clavicular, axillary lymph node. Cardiovascular: Regular S1-S2. Mildly tachycardiac. No murmur. Lungs: Right lung base coarse crackles, no significant wheezing. Abdomen: Soft, nontender. I could not palpate liver or spleen. Extremity exam: No cyanosis, no clubbing, no edema. No calf tenderness. Skin: No rash or petechiae. Neurologic: Nonfocal. LABORATORY DATA: WBCs 12.7, hemoglobin 10.7, platelet count 101, creatinine 0.82, sodium 128, total bilirubin 1.5. Liver transaminase within normal limits. INR 1.4. ASSESSMENT 1. Recurrent dyspnea on exertion, shortness of breath. He was admitted earlier this month with similar symptoms. He was discharged a week ago. Yesterday he started having increased shortness of breath and dyspnea on exertion. He has significant shortness of breath with minimal exertion. He also had tachycardia. During his last admission he was treated with steroids, antibiotics, as well as blood thinner. His condition, however, did not improve. He had a CT angiogram ten days ago which showed residual pulmonary embolism. When I reviewed the scan with the radiologist some of the pulmonary artery had recanalized and he seems to have a response to Pradaxa. CT did show old fibrosis in the right lung from previous radiation. There is also patchy infiltrate in the right lower lobe and infectious etiology cannot be totally ruled out. His condition has not improved. Will need to consult pulmonology and the patient may need bronchoscopy for further evaluation and to see if he has any infectious etiology that is causing the symptoms. 2. Recent extensive bilateral pulmonary embolism and right lower extremity deep venous thrombosis. He has been on pradaxa. CT angiogram ten days ago showed some improvement. He is now on heparin drip. Since he may need pulmonary procedure, I think it is a good idea to keep him on heparin for now. 3. Metastatic non-small cell lung carcinoma. He recently was found to have a 1.6 cm mass in left lung. PET scan also showed multiple left lung masses with subcarinal adenopathy. He had bilateral small pleural effusion. Biopsy of the lung mass showed well differentiated carcinoma consistent with lung primary, PDL1, 0% ALK and ROS1 negative. EGFR mutation also negative. He completed two cycle of carboplatin and Taxol, last cycle on July 25. His recent CT scan again showed stable left lower lobe mass and hilar mass. There is no clear progression of disease to explain his symptoms at this time. 4. History of right lung small-cell carcinoma treated with chemotherapy and radiation 1991. There is chronic right perihilar infiltrate from previous radiation. 5. Hypertension. 6. Anorexia. He lost some more weight. 7. Osteoarthritis. PLAN 1. Continue heparin. 2. Await pulmonology evaluation. He may need bronchoscopy to look for infectious etiology. 3. Continue antibiotics for now. 4. Continue steroid per primary team. Thank you, Dr. Arriaga, for asking me see this patient. Erick Esquivel MD [facility] /5:00 PM /5:43 PM DYANA
--- NOTE | 2017-08-22 19:12 | EKG ---
Date Performed: 08/22/2017 Time Performed: 11:27:39 PTAGE: 72 years EKG: SINUS TACHYCARDIA NONSPECIFIC ST & T-WAVE ABNORMALITY When compared to previous tracing, le ft axis deviation is no Longer present. ABNORMAL ECG PREVIOUS TRACING : 08/09/2017 18.09.38 DOCTOR: Juan Cottrell Interpretating Date/Time 08/22/2017 19:11:53
--- NOTE | 2017-08-22 19:29 | MB ---
cc: [facility]U [facility]ZA DATE OF CONSULTATION 08/22/[address] Nelson Pardo. REASON FOR CONSULTATION Shortness of breath. HISTORY OF PRESENT ILLNESS Mr. Cordoba is a pleasant 72-year-old male with a history of severe COPD, CA of the lung. He is on chemotherapy. He was recently discharged from this hospital. He had a stress test done at that time which did not show any reversible ischemia. He was discharged on supplemental oxygen to [facility]. He was brought to the hospital with worsening of his shortness of breath and he was found to be hypoxic. He felt that he has more congestion in his chest. Did not have any chest pain. Did not have fever or night sweats. He was brought to the emergency room. He had a blood gas done which shows pH 7.50, pCO2 of 31, PO2 61, bicarbonate 23, it was on 40% BiPAP. His CBC showed WBC count 12.7, hemoglobin 10.7, hematocrit 31.8, MCV 89, platelet count 101. Sodium 128, potassium 3.9, chloride 95, CO2 23, BUN 20, creatinine 0.84. Troponin 0.08. IMAGING His chest x-ray shows increased aeration of the right basilar consolidation compared to previous study. He has some residual infiltrates. PAST MEDICAL HISTORY Significant for: 1. A history of severe COPD. 2. Cardiomyopathy with ejection fraction 30-35%. 3. Severe pulmonary hypertension. 4. CA of the lung. 5. Bilateral pulmonary embolism. 6. History of CA of the right lung before status post radiation treatment. 7. History of cholecystectomy. MEDICATIONS He is currently takin. Cefepime 2 grams q.8h. 2. Solu-Medrol 40 milligrams q.8h. 3. Vancomycin 1250 milligrams q.12h. 4. Albuterol / Atrovent nebulizer treatment. 5. Heparin drip. ALLERGIES HE IS ALLERGIC TO PENICILLIN. SOCIAL HISTORY He has a history of smoking in the past which he quit 20 years ago. He used to drink before. He worked as a acharya. FAMILY HISTORY He has grown children. REVIEW OF SYSTEMS He has lost weight. Feeling more short of breath, any little activity leaves him short of breath. No bleeding . Has a history of pulmonary embolism. PHYSICAL EXAMINATION GENERAL: Elderly male, mild to moderate shortness of breath. VITAL SIGNS: Blood pressure 95/52, heart rate 107, respirations 28. HEENT: Pupils are equal and reactive to light. Oral mucosa, nasal mucosa normal. NECK: Supple. JVP not raised. CHEST: Air entry equal bilaterally. He has decreased chest excursions, few rhonchi. CARDIOVASCULAR: S1, S2 normal. ABDOMEN: Soft, nontender, nondistended. Bowel sounds are present. EXTREMITIES: No edema. CENTRAL NERVOUS SYSTEM: He is alert and oriented times three. No focal deficits. IMPRESSION 1. Respiratory insufficiency. 2. Severe COPD. 3. Cardiomyopathy. 4. Bilateral pulmonary embolism. 5. Pulmonary hypertension. 6. Cancer of the right lung status post radiation treatment. 7. History of cancer of the left lung now on chemotherapy. PLAN The patient is admitted to the intensive care unit. We will keep on BiPAP. Give him IV Solu-Medrol. Continue antibiotic. Supplement his oxygen. Monitor his electrolytes. He is on heparin drip. Further treatment will depend on the course in the hospital. Thank you Dr. Arriaga for this consult. MD BETH Romero/K[place]LNE /6:21 PM /6:59 PM DYANA
[2017-08-22] MEDS: CEFEPIME INJ 2,000 MG in SODIUM CHLORIDE 0.9% INJ 100 ML IV SCH (20:34)
[2017-08-22] MEDS: SODIUM CHLORIDE 0.9% FLUSH 10 ML FLUSH IV FLUSH SCH (20:35)
[2017-08-22] MEDS: methylPREDNISolone SOD SUCC 40 MG/1 ML VIAL IV PUSH SCH (20:35)
[2017-08-22 20:48] LABS: HEMATOCRIT 27.3 % (39.0-51.0); MEAN CELL VOLUME 89.4 FL (80.0-100.0); MEAN CORPUSCULAR HEMOGLOBIN 30.6 PG (27.0-34.0); MEAN CORPUSCULAR HGB CONC 34.2 % (32.0-36.0); PLATELET COUNT 88 TH/MM3 (150-450); RED BLOOD COUNT 3.05 MIL/MM3 (4.50-5.90); RED CELL DISTRIBUTION WIDTH 17.7 % (11.6-17.2); WHITE BLOOD COUNT 9.8 TH/MM3 (4.0-11.0)
[2017-08-22 20:50] LABS: REVIEW FLAG FINAL
[2017-08-22] MEDS ORDERED: CHLORHEXIDINE GLUCONATE 2 % 1 PACK (2 CLOTHS)(extra cloths) TOPICAL PRN (21:30)
--- NOTE | 2017-08-22 22:03 | HHI.HP ---
[facility]Staff Admission Diagnosis healthcare acquired pneumonia, dyspnea, elevated troponin Diagnoses: Travel History International Travel<30 Days: No Contact w/Intl Traveler <30 Da: No Traveled to Known Affected Are: No History of Present Illness 72-year-old male with a history of COPD, lung cancer with most recent chemotherapy reportedly 4 weeks ago followed by Dr. Jarrett, as well as recent diagnosis of pulmonary embolism, presents with a one-day history of worsening nonproductive cough as well as worsening shortness of breath with exertion. He denies any chest pain. Denies any fevers or chills. Denies any nausea or vomiting.. History is difficult as patient is currently on BiPAP. Further history obtained through chart review. ABG on BiPAP with 40% FiO2 shows a PO2 of 61, pH 7.5. Chest x-ray shows improvement in right basilar consolidation with moderate infiltrate remaining. Review of Systems Except as stated in HPI: all other systems reviewed are Neg Past Family Social History Past Medical History Non-small cell lung carcinoma. Recent chemotherapy. Followed by Dr. jarrett COPD Cardiomyopathy. EF measured 30% Hypertension Bilateral pulmonary embolism with nonobstructing right lower extremity DVT Hyperlipidemia History of migraines Osteoarthritis Past Surgical History Appendectomy Bone marrow biopsy Cholecystectomy periCardiocentesis Vasectomy Colonoscopy Port placement Lung biopsy Chest tube placement for pneumothorax after lung biopsy Reported Medications Reported Meds & Active Scripts Active [Budeson-Formot 160-4.5 Mcg Inh] 60 PUFF Aero 2 Puff INH Q12HR Temazepam 15 Mg Cap 30 Mg PO HS PRN Klor-Con M20 (Potassium Chloride Microencaps) 20 Meq Tab 20 Meq PO DAILY Pradaxa (Dabigatran) 150 Mg Cap 150 Mg PO BID Albuterol Neb (Albuterol Sulfate) 2.5 Mg/3 Ml Neb 2.5 Mg NEB Q6HR NEB PRN Reported Aplisol (Tuberculin Ppd) 5 Tub. Unit/0.1 Ml Inj Hydrocodone-Acetaminophen 10-325 mg Tab 1 Tab PO Q4H PRN Ipratropium Nasal 0.06% [place] 1 [place] EACH NARE QID Multi-Vitamin Daily (Multiple Vitamin) 1 Tab Tab 1 Tab PO DAILY Gabapentin 400 Mg Cap 400 Cap PO 5X A DAY Aspirin 81 Mg Chew 81 Mg CHEW DAILY Ferrous Sulfate 325 Mg (65 Mg Iron) Tablet 325 Mg PO DAILY Alprazolam 0.5 Mg Tab 0.5 Mg PO DAILY PRN Finasteride 5 Mg Tab 5 Mg PO DAILY Do not crush. Simvastatin 5 Mg Tab 5 Mg PO DAILY Allergies: Coded Allergies: penicillin G (Unverified Allergy, Severe, HIVES, 08/22/17) Family History Grandmother with heart disease. No family history of cancer Social History Quit smoking 1985. Smoked for 20 years prior to that. Occasional alcohol. Lives alone. He has 2 friends at bedside. Physical Exam Vital Signs Vital Signs Date Time Temp Pulse Resp B/P (MAP) Pulse Ox O2 Delivery O2 Flow Rate FiO2 08/22/17 21:12 100 BiPAP 40 08/22/17 16:40 99 08/22/17 16:00 107 28 95/52 (66) 100 08/22/17 16:00 98.0 110 139/80 (99) 98 08/22/17 15:55 100 08/22/17 15:44 100 40 08/22/17 15:00 106 33 97/58 (71) 100 BiPAP 40 08/22/17 14:00 106 30 97/58 (71) 99 BiPAP 40 08/22/17 13:36 114 28 125/60 (81) 98 BiPAP 40 08/22/17 12:00 111 30 87/66 (73) BiPAP 40 08/22/17 11:27 BiPAP 40 08/22/17 11:27 97 08/22/17 11:23 100 BiPAP 40 08/22/17 11:21 99.7 121 32 103/56 (72) 97 08/22/17 11:20 97 40 Physical Exam GENERAL: This is a well-nourished, well-developed patient,appears in respiratory distress. He is alert and oriented 3 however. SKIN: No rashes, ecchymoses or lesions. Cool and dry. HEAD: Atraumatic. Normocephalic. No temporal or scalp tenderness. EYES: Pupils equal round and reactive. Extraocular motions intact. No scleral icterus. No injection or drainage. ENT: Nose without bleeding, purulent drainage or septal hematoma. Throat without erythema, tonsillar hypertrophy or exudate. Uvula midline. Airway patent. NECK: Trachea midline. No JVD or lymphadenopathy. Supple, nontender, no meningeal signs. CARDIOVASCULAR: Regular rate and rhythm without murmurs, gallops, or rubs. RESPIRATORY: Clear to auscultation. Breath sounds equal bilaterally. No wheezes , rales, or rhonchi. GASTROINTESTINAL: Abdomen soft, non-tender, nondistended. No hepato-splenomegaly , or palpable masses. No guarding. MUSCULOSKELETAL: Extremities without clubbing, cyanosis, or edema. No joint tenderness, effusion, or edema noted. No calf tenderness. Negative Homans sign bilaterally. NEUROLOGICAL: Awake and alert. Cranial nerves II through XII intact. Motor and sensory grossly within normal limits. Five out of 5 muscle strength in all muscle groups. Normal speech. Laboratory Laboratory Tests Test 08/22/17 11:40 08/22/17 11:48 08/22/17 15:40 08/22/17 19:40 Blood Gas Puncture Site LT RADIAL Blood Gas Patient Temperature 98.6 Blood Gas HCO3 23 Blood Gas Base Excess 0.3 Blood Gas Oxygen Saturation 91 Arterial Blood pH 7.50 Arterial Blood Partial Pressure CO2 31 Arterial Blood Partial Pressure O2 61 Arterial Blood Oxygen Content 14.2 Arterial Blood Carboxyhemoglobin 1.6 Arterial Blood Methemoglobin 0.4 Blood Gas Hemoglobin 11.0 Oxygen Delivery Device BiPAP Blood Gas Ventilator Setting IPAP15/EPAP5 Blood Gas Inspired Oxygen 40 White Blood Count 12.7 9.8 Red Blood Count 3.54 3.05 Hemoglobin 10.7 9.3 Hematocrit 31.8 27.3 Mean Corpuscular Volume 89.8 89.4 Mean Corpuscular Hemoglobin 30.3 30.6 Mean Corpuscular Hemoglobin Concent 33.7 34.2 Red Cell Distribution Width 17.6 17.7 Platelet Count 101 88 Mean Platelet Volume 7.6 7.8 Neutrophils (%) (Auto) 76.1 Lymphocytes (%) (Auto) 19.4 Monocytes (%) (Auto) 3.9 Eosinophils (%) (Auto) 0.3 Basophils (%) (Auto) 0.3 Neutrophils # (Auto) 9.7 Lymphocytes # (Auto) 2.5 Monocytes # (Auto) 0.5 Eosinophils # (Auto) 0.0 Basophils # (Auto) 0.0 CBC Comment AUTO DIFF Differential Total Cells Counted 100 Neutrophils % (Manual) 72 Band Neutrophils % 2 Lymphocytes % 18 Monocytes % 7 Neutrophils # (Manual) 9.5 Metamyelocytes 1 Differential Comment FINAL DIFF MANUAL Platelet Estimate LOW Platelet Morphology Comment NORMAL Ovalocytes 1+ Prothrombin Time 14.3 Prothromb Time International Ratio 1.4 Activated Partial Thromboplast Time 37.3 Blood Urea Nitrogen 20 Creatinine 0.82 Random Glucose 144 Total Protein 5.4 Albumin 2.8 Calcium Level 8.3 Magnesium Level 1.1 Alkaline Phosphatase 63 Aspartate Amino Transf (AST/SGOT) 19 Alanine Aminotransferase (ALT/SGPT) 29 Total Bilirubin 1.5 Sodium Level 128 Potassium Level 3.9 Chloride Level 95 Carbon Dioxide Level 23.5 Anion Gap 10 Estimat Glomerular Filtration Rate 92 Total Creatine Kinase 63 Troponin I 0.08 0.07 B-Type Natriuretic Peptide 193 Lactic Acid Level 1.3 Date/Time Source Procedure Growth Status 08/22/17 11:48 Blood Peripheral Aerobic Blood Culture Pending Received 08/22/17 11:48 Blood Peripheral Anaerobic Blood Culture Pending Received Result Diagram: 08/22/17193908/22/17 1148 Imaging Last Impressions Chest X-Ray 08/22/17 1124 Signed Impressions: Service Date/Time: Tuesday, August 22, 2017 11:47 - CONCLUSION: Some increased aeration of the right basilar consolidation compared 07/31/17 with moderate infiltrate remaining. MD Brett Browning VTE Risk Assessment Capnataliei VTE Risk Assessment: Mod/High Risk (score >= 2) Caprini Risk Assessment Model Point Value = 1 Point Value = 2 Point Value = 3 Point Value = 5 Age 41-60 Minor surgery BMI > 25 kg/m2 Swollen legs Varicose veins or History of unexplained or recurrent spontaneous Oral contraceptives or hormone replacement Sepsis (< 1 month) Serious lung disease, including pneumonia (< 1 month) Abnormal pulmonary function Acute myocardial infarction Congestive heart failure (< 1 month) History of inflammatory bowel disease Medical patient at bed rest Age 61-74 Arthroscopic surgery Major open surgery (> 45 min) Laparoscopic surgery (> 45 min) Malignancy Confined to bed (> 72 hours) Immobilizing plaster cast Central venous access Age >= 75 History of VTE Family history of VTE Factor V Leiden Prothrombin [id number] Lupus anticoagulant Anticardiolipin antibodies Elevated serum homocysteine Heparin-induced thrombocytopenia Other congenital or acquired thrombophilia Stroke (< 1 month) Elective arthroplasty Hip, pelvis, or leg fracture Acute spinal cord injury (< 1 month) Prophylaxis Regimen Total Risk Factor Score Risk Level Prophylaxis Regimen 0-1 Low Early ambulation 2 Moderate Order ONE of the following: *Sequential Compression Device (SCD) *Heparin 5000 units SQ BID 3-4 Higher Order ONE of the following medications: *Heparin 5000 units SQ TID *Enoxaparin/Lovenox 40 mg SQ daily (WT < 150 kg, CrCl > 30 mL/min) *Enoxaparin/Lovenox 30 mg SQ daily (WT < 150 kg, CrCl > 10-29 mL/min) *Enoxaparin/Lovenox 30 mg SQ BID (WT < 150 kg, CrCl > 30 mL/min) AND/OR *Sequential Compression Device (SCD) 5 or more Highest Order ONE of the following medications: *Heparin 5000 units SQ TID (Preferred with Epidurals) *Enoxaparin/Lovenox 40 mg SQ daily (WT < 150 kg, CrCl > 30 mL/min) *Enoxaparin/Lovenox 30 mg SQ daily (WT < 150 kg, CrCl > 10-29 mL/min) *Enoxaparin/Lovenox 30 mg SQ BID (WT < 150 kg, CrCl > 30 mL/min) AND *Sequential Compression Device (SCD) Assessment and Plan Assessment and Plan //assessment Hypoxemic Respiratory failure. PO2 61 on 40% FiO2 Severe sepsis. Leukocytosis, tachycardia, suspected pneumonia. Possible healthcare associated pneumonia. With recent admissions. Bilateral pulmonary embolism. Possibly worsening. Lung cancer. Follows with Dr. Jarrett. Hypomagnesemia. 1.1 on admission. Hyponatremia. Sodium 128 on admission. Possibly secondary to hypomagnesemia. thrombocytopenia. Platelets 88. Chronic. slightly worsened from baseline. no signs of bleeding. Monitor. //Plan Broad-spectrum antibiotics. BiPAP as necessary. Pulmonology consultation. Steroids and DuoNeb's. Heparin drip ICU admission with close monitoring. Magnesium replaced. Monitor. IV fluids Pulmonary and oncology consultations.appreciate assistance Code Status patient indicates full code. Patient indicates that he does not have family. He indicates that his friends at bedside are to be his medical surrogate if it is unable to make medical decisions. I have discussed with nursing to request the appropriate paperwork. Discussed Condition With patient, nurse, friends at bedside. ed physician Physician Certification 2 Midnight Certification Type: Admission for Inpatient Services Order for Inpatient Services The services are ordered in accordance with Medicare regulations or non- Medicare payer requirements, as applicable. In the case of services not specified as inpatient-only, they are appropriately provided as inpatient services in accordance with the 2-midnight benchmark. Estimated LOS (days): 3 days is the estimated time the patient will need to remain in the hospital, assuming treatment plan goals are met and no additional complications. Post-Hospital Plan: Not yet determined Boone Arriaga MD Aug 22, 2017 22:03
[2017-08-23] VITALS (24 sets, daily range): BP systolic 104–174; BP diastolic 62–113; PULSE 90–123; RESP 22–44; TEMP 97.2–98.7; O2SAT 97–100
[2017-08-23 00:19] LABS: APTT (PATIENT) 124.1 SEC (24.3-30.1)
[2017-08-23] MEDS ORDERED: TEMAZEPAM 15 MG CAP PO ONE (00:30)
[2017-08-23] MEDS: SODIUM CHLOR 0.9% 1000 ML INJ 1,000 ML IV SCH ×2 (01:55→11:45)
[2017-08-23] MEDS ORDERED: ALPRAZolam 0.5 MG TAB PO ONE (03:30)
[2017-08-23 03:54] LABS: AUTOMATED NEUTROPHIL # 6.5 TH/MM3 (1.8-7.7); BASOPHIL % 0.1 % (0.0-2.0); HEMATOCRIT 24.3 % (39.0-51.0); LYMPH % 8.2 % (9.0-44.0); LYMPHOCYTE # 0.6 TH/MM3 (1.0-4.8); MEAN CORPUSCULAR HEMOGLOBIN 31.2 PG (27.0-34.0); MONO % 1.2 % (0.0-8.0); NEUT % 90.5 % (16.0-70.0); PLATELET COUNT 82 TH/MM3 (150-450); RED BLOOD COUNT 2.73 MIL/MM3 (4.50-5.90); WHITE BLOOD COUNT 7.2 TH/MM3 (4.0-11.0)
[2017-08-23 03:58] LABS: HEMO FLAGS AUTO DIFF
[2017-08-23] MEDS: CHLORHEXIDINE GLUCONATE 2 % 1 PACK (2 CLOTHS)(taper/protocol) TOPICAL SCH ×2 (04:00→21:42)
[2017-08-23] MEDS: RESP: ALBUTEROL 2.5 MG/IPRATROPIUM 0.5 MG NEB (SCH) NEB ×4 (04:01→22:18)
[2017-08-23] MEDS: methylPREDNISolone SOD SUCC 40 MG/1 ML VIAL IV PUSH SCH ×3 (04:18→21:42)
[2017-08-23] MEDS: CEFEPIME INJ 2,000 MG in SODIUM CHLORIDE 0.9% INJ 100 ML IV SCH (04:20)
[2017-08-23] MEDS: VANCOMYCIN INJ 1,250 MG in SODIUM CHLOR 0.9% 250 ML INJ 250 ML IV SCH ×2 (04:20→17:45)
[2017-08-23 04:21] LABS: APTT (PATIENT) 90.2 SEC (24.3-30.1)
[2017-08-23 04:31] LABS: BICARBONATE 20.4 MEQ/L (21.0-32.0)
[2017-08-23 04:57] LABS: CALCIUM-PROTEIN CORRECTED 8.4 MG/DL (8.5-10.1)
[2017-08-23 06:21] LABS: BANDS 3 % (0-6); METAMYELOCYTES 2 % (0-1); MYELOCYTES 1 % (0-0); NEUTROPHIL # MANUAL DIFF 6.9 TH/MM3 (1.8-7.7); POLYS (SEG NEUTROPHILS) 90 % (16-70); WBC DIFF SAMPLE 100
[2017-08-23 06:22] LABS: ACANTHOCYTES OCC (NORMAL); OVALOCYTES 1+ (NORMAL); PLATELET ESTIMATE SMEAR LOW (NORMAL); PLATELET MORPHOLOGY NORMAL (NORMAL); SCAN/DIFF FINAL DIFF MANUAL
[2017-08-23 07:16] LABS: BLOOD, URINE NEG (NEG); COMMENT (UR) CULT NOT INDICATED; CULTURE IF INDICATED CULT NOT INDICATED; GLUCOSE,URINE 1000 mg/dL (NEG); HYALINE CAST, URINE 7 /lpf (RARE); KETONE, URINE NEG (NEG); MUCUS URINE FEW /lpf (OCC); NITRITE,URINE NEG (NEG); PH, URINE 5.5 (5.0-8.5); SQUAMOUS EPITHELIAL CELL URINE <1 /hpf (0-5); URINE COLOR YELLOW (YELLW/STRAW)
[2017-08-23] MEDS: SODIUM CHLORIDE 0.9% FLUSH 10 ML FLUSH IV FLUSH SCH ×2 (08:07→21:42)
--- NOTE | 2017-08-23 09:41 | PD.CONS ---
History of Present Illness Service Infectious disease Consult Requested By Dr Bebeto Arriaga Reason for Consult Evaluate patient with pneumonia Primary Care Physician Non-Staff Diagnoses: History of Present Illness Patient seen and examined. Records reviewed. Patient is a 72-year-old male, with COPD, and left long adenocarcinoma, has been receiving chemotherapy, presented to the hospital complaining of increasing cough, with some chest pain, as well as shortness of breath. He was found to have bilateral pulmonary embolism last July and he was hospitalized at that time. In the first week of August he got readmitted with shortness of breath, and reevaluation of the pulmonary embolism showed that it was stable. He was treated for COPD exacerbation, and was discharged to the correction on August 15. Saw on some antibiotics during hospitalization, but I did not see any antibiotics when he was discharged to the correction. He was on oxygen in the correction. He was actually doing okay until about 1-2 days prior to admission when he started having more episodes of coughing. He would bring up some phlegm and it was mostly yellowish , and at times it would be pink in color. It was not a lot of sputum production. He also had some sternal discomfort when he coughs and he was more short of breath. There was no fever or chills. He denies any nausea or vomiting or any abdominal pain, diarrhea or any urinary complaints. On presentation he had some mild elevation of his white count. Chest x-ray showed some improvement in the infiltrate in the right base. He has not been febrile. He is currently hypoxic, and he is requiring a BiPAP mask. Infectious disease consultation has been requested to evaluate the patient. Review of Systems Constitutional: COMPLAINS OF: Fatigue, DENIES: Fever, Chills Eyes: DENIES: Eye pain Ears, nose, mouth, throat: DENIES: Nasal discharge, Oral lesions, Throat pain, Ear Pain, Sinus Pain Respiratory: COMPLAINS OF: Cough, Sputum production, Shortness of breath, DENIES: Hemoptysis Cardiovascular: COMPLAINS OF: Chest pain, DENIES: Palpitations, Syncope Gastrointestinal: DENIES: Abdominal pain, Constipation, Diarrhea, Nausea, Vomiting, Difficulty Swallowing Genitourinary: DENIES: Urgency, Dysuria Musculoskeletal: DENIES: Joint pain, Joint Swelling, Back pain Integumentary: DENIES: Rash Hematologic/lymphatic: DENIES: Lymphadenopathy Immunologic/allergic: DENIES: Urticaria Neurologic: DENIES: Headache, Localized weakness Psychiatric: DENIES: Hallucinations Past Family Social History Allergies: Coded Allergies: penicillin G (Unverified Allergy, Severe, HIVES, 08/22/17) Past Medical History Metastatic nonsmall cell lung carcinoma, recently treated with chemotherapy. Bilateral pulmonary embolism with right lower extremity deep venous thrombosis. Cardiomyopathy, ejection fraction 30%. Hypertension. Chronic obstructive pulmonary disease. History of right lung small cell carcinoma 1991, treated with radiation and chemotherapy. Hyperlipidemia. Migraine headaches. Osteoarthritis. Past Surgical History Appendectomy Bone marrow biopsy Cholecystectomy Pericardiocentesis Vasectomy Colonoscopy Port placement Lung biopsy Chest tube placement for pneumothorax after lung biopsy Reported Medications I attest that I obtained, updated or reviewed the home and current medications. Reported Meds & Active Scripts Active [Budeson-Formot 160-4.5 Mcg Inh] 60 PUFF Aero 2 Puff INH Q12HR Temazepam 15 Mg Cap 30 Mg PO HS PRN Klor-Con M20 (Potassium Chloride Microencaps) 20 Meq Tab 20 Meq PO DAILY Pradaxa (Dabigatran) 150 Mg Cap 150 Mg PO BID Albuterol Neb (Albuterol Sulfate) 2.5 Mg/3 Ml Neb 2.5 Mg NEB Q6HR NEB PRN Reported Aplisol (Tuberculin Ppd) 5 Tub. Unit/0.1 Ml Inj Hydrocodone-Acetaminophen 10-325 mg Tab 1 Tab PO Q4H PRN Ipratropium Nasal 0.06% [place] 1 [place] EACH NARE QID Multi-Vitamin Daily (Multiple Vitamin) 1 Tab Tab 1 Tab PO DAILY Gabapentin 400 Mg Cap 400 Cap PO 5X A DAY Aspirin 81 Mg Chew 81 Mg CHEW DAILY Ferrous Sulfate 325 Mg (65 Mg Iron) Tablet 325 Mg PO DAILY Alprazolam 0.5 Mg Tab 0.5 Mg PO DAILY PRN Finasteride 5 Mg Tab 5 Mg PO DAILY Do not crush. Simvastatin 5 Mg Tab 5 Mg PO DAILY Active Ordered Medications Current Medications Vancomycin IV Cefepime IV Medications (Trade) Dose Ordered Sig/Reggie Route Start Time Stop Time Status Last Admin Cefepime HCl 2000 mg/Sodium Chloride 100 ml @ 200 mls/hr Q8H IV 08/22/17 21:00 08/23/17 04:20 Vancomycin HCl 1250 mg/Sodium Chloride 262.5 ml @ 262.5 mls/ hr Q12H IV 08/22/17 17:00 08/23/17 04:20 Pharmacy Profile Note 0 ml @ 0 mls/hr UNSCH OTHER 08/22/17 13:15 Heparin Sodium/ Dextrose 250 ml @ 12 mls/hr TITRATE PRN IV 08/22/17 13:15 08/22/17 16:18 Sodium Chloride 1,000 ml @ 100 mls/hr Q10H IV 08/22/17 13:12 08/23/17 01:55 (NS Flush) 2 ml UNSCH PRN IV FLUSH 08/22/17 13:15 (NS Flush) 2 ml BID IV FLUSH 08/22/17 21:00 08/22/17 20:35 (Narcan Inj) 0.4 mg UNSCH PRN IV PUSH 08/22/17 13:15 (Milk Of Magnesia Liq) 30 ml Q12H PRN PO 08/22/17 13:15 (Senokot) 17.2 mg Q12H PRN PO 08/22/17 13:15 (Dulcolax Supp) 10 mg DAILY PRN RECTAL 08/22/17 13:15 (Lactulose Liq) 30 ml DAILY PRN PO 08/22/17 13:15 (Duoneb Neb) 1 ampule Q6HR NEB NEB 08/22/17 16:00 08/23/17 04:01 (Duoneb Neb) 1 ampule Q2HR NEB PRN NEB 08/22/17 13:30 (SoluMEDROL INJ) 40 mg Q8H IV PUSH 08/22/17 20:00 08/23/17 04:18 Miscellaneous Information SPECIFIC LAB TO BE DRAWN:VANCOMYCIN TROUGH DATE TO... ONCE ONCE .XX 08/24/17 04:45 08/24/17 04:46 Miscellaneous Information Patient in critical care unit? Ass... Q361D .XX 08/22/17 21:30 08/22/17 21:30 (Chlorhexidine 2% Cloth) 3 pack DAILY@04 TOPICAL 08/23/17 04:00 08/27/17 04:01 08/23/17 04:00 (Chlorhexidine 2% Cloth) 3 pack UNSCH PRN TOPICAL 08/22/17 21:30 08/27/17 21:16 Family History Grandmother with heart disease. No family history of cancer Social History Quit smoking 1985. Smoked for 20 years prior to that. Occasional alcohol. Lives alone. Denies illicit drugs Physical Exam Vital Signs Vital Signs Date Time Temp Pulse Resp B/P (MAP) Pulse Ox O2 Delivery O2 Flow Rate FiO2 08/23/17 07:00 100 Bi-Pap 35 08/23/17 06:00 90 08/23/17 05:08 100 35 08/23/17 04:00 98.4 96 22 116/62 (80) 100 08/23/17 04:00 96 08/23/17 04:00 100 Bi-Pap 35 08/23/17 02:00 100 08/23/17 01:14 100 40 08/23/17 00:00 101 08/23/17 00:00 98.7 101 33 104/65 (78) 100 08/23/17 00:00 100 Bi-Pap 35 08/22/17 22:15 100 40 08/22/17 22:00 105 08/22/17 21:12 100 BiPAP 40 08/22/17 20:00 98.2 100 19 105/63 (77) 100 08/22/17 20:00 100 Bi-Pap 35 08/22/17 20:00 100 08/22/17 19:09 100 40 08/22/17 16:40 99 08/22/17 16:00 107 28 95/52 (66) 100 08/22/17 16:00 98.0 110 139/80 (99) 98 08/22/17 15:55 100 08/22/17 15:44 100 40 08/22/17 15:00 106 33 97/58 (71) 100 BiPAP 40 08/22/17 14:00 106 30 97/58 (71) 99 BiPAP 40 08/22/17 13:36 114 28 125/60 (81) 98 BiPAP 40 08/22/17 12:00 111 30 87/66 (73) BiPAP 40 08/22/17 11:27 BiPAP 40 08/22/17 11:27 97 08/22/17 11:23 100 BiPAP 40 08/22/17 11:21 99.7 121 32 103/56 (72) 97 08/22/17 11:20 97 40 Physical Exam GENERAL: Patient is a well-nourished, well-developed patient, awake and alert , on BIPAP mask, some mild SOB when he speaks SKIN: Cool and dry. No generalized rash, no ecchymoses and no evidence of embolic lesions. HEAD: Atraumatic. Normocephalic. No temporal wasting, or tenderness. EYES: [place] conjunctiva. No petechia or hemorrhage. Pupils equal, round and reactive to light. Extraocular movements full and intact. No scleral icterus. No injection or drainage. EARS, NOSE AND THROAT: Nose without bleeding or purulent nasal discharge. No sinus tenderness. Mucous membranes pink and moist. NECK: Trachea midline. Supple and not tender, no meningeal signs CARDIOVASCULAR: Regular rate and rhythm. No murmurs, rubs or gallops heard RESPIRATORY: Bilateral coarse rhonchi, worse on R side than on the L. Port in R upper chest with no evidence of infection. ABDOMEN: Soft, non-tender, nondistended. Bowel sounds present and normoactive. No guarding. No rebound. No organomegaly. EXTREMITIES: No clubbing, cyanosis. No joint effusion, has good ROM. No calf tenderness. Well perfused and warm. Has bilateral pitting pedal edema NEUROLOGICAL: Awake and alert. Cranial nerves grossly intact. Motor grossly within normal limits. PSYCHIATRIC: Normal affect, calm and cooperative. LINE: No evidence of infection Laboratory Laboratory Tests Test 08/22/17 11:40 08/22/17 11:48 08/22/17 15:40 08/22/17 16:30 Blood Gas Puncture Site LT RADIAL Blood Gas Patient Temperature 98.6 Blood Gas HCO3 23 Blood Gas Base Excess 0.3 Blood Gas Oxygen Saturation 91 Arterial Blood pH 7.50 Arterial Blood Partial Pressure CO2 31 Arterial Blood Partial Pressure O2 61 Arterial Blood Oxygen Content 14.2 Arterial Blood Carboxyhemoglobin 1.6 Arterial Blood Methemoglobin 0.4 Blood Gas Hemoglobin 11.0 Oxygen Delivery Device BiPAP Blood Gas Ventilator Setting IPAP15/EPAP5 Blood Gas Inspired Oxygen 40 White Blood Count 12.7 Red Blood Count 3.54 Hemoglobin 10.7 Hematocrit 31.8 Mean Corpuscular Volume 89.8 Mean Corpuscular Hemoglobin 30.3 Mean Corpuscular Hemoglobin Concent 33.7 Red Cell Distribution Width 17.6 Platelet Count 101 Mean Platelet Volume 7.6 Neutrophils (%) (Auto) 76.1 Lymphocytes (%) (Auto) 19.4 Monocytes (%) (Auto) 3.9 Eosinophils (%) (Auto) 0.3 Basophils (%) (Auto) 0.3 Neutrophils # (Auto) 9.7 Lymphocytes # (Auto) 2.5 Monocytes # (Auto) 0.5 Eosinophils # (Auto) 0.0 Basophils # (Auto) 0.0 CBC Comment AUTO DIFF Differential Total Cells Counted 100 Neutrophils % (Manual) 72 Band Neutrophils % 2 Lymphocytes % 18 Monocytes % 7 Neutrophils # (Manual) 9.5 Metamyelocytes 1 Differential Comment FINAL DIFF MANUAL Platelet Estimate LOW Platelet Morphology Comment NORMAL Ovalocytes 1+ Prothrombin Time 14.3 Prothromb Time International Ratio 1.4 Activated Partial Thromboplast Time 37.3 Blood Urea Nitrogen 20 Creatinine 0.82 Random Glucose 144 Total Protein 5.4 Albumin 2.8 Calcium Level 8.3 Magnesium Level 1.1 Alkaline Phosphatase 63 Aspartate Amino Transf (AST/SGOT) 19 Alanine Aminotransferase (ALT/SGPT) 29 Total Bilirubin 1.5 Sodium Level 128 Potassium Level 3.9 Chloride Level 95 Carbon Dioxide Level 23.5 Anion Gap 10 Estimat Glomerular Filtration Rate 92 Total Creatine Kinase 63 Troponin I 0.08 B-Type Natriuretic Peptide 193 Lactic Acid Level 1.3 Nasal Screen MRSA (PCR) MRSA NOT DETECTED Test 08/22/17 19:40 08/22/17 23:01 08/23/17 03:10 08/23/17 06:00 White Blood Count 9.8 7.2 Red Blood Count 3.05 2.73 Hemoglobin 9.3 8.5 Hematocrit 27.3 24.3 Mean Corpuscular Volume 89.4 89.0 Mean Corpuscular Hemoglobin 30.6 31.2 Mean Corpuscular Hemoglobin Concent 34.2 35.0 Red Cell Distribution Width 17.7 18.0 Platelet Count 88 82 Mean Platelet Volume 7.8 7.8 Troponin I 0.07 0.05 Activated Partial Thromboplast Time 124.1 90.2 Neutrophils (%) (Auto) 90.5 Lymphocytes (%) (Auto) 8.2 Monocytes (%) (Auto) 1.2 Eosinophils (%) (Auto) 0.0 Basophils (%) (Auto) 0.1 Neutrophils # (Auto) 6.5 Lymphocytes # (Auto) 0.6 Monocytes # (Auto) 0.1 Eosinophils # (Auto) 0.0 Basophils # (Auto) 0.0 CBC Comment AUTO DIFF Differential Total Cells Counted 100 Neutrophils % (Manual) 90 Band Neutrophils % 3 Lymphocytes % 3 Monocytes % 1 Neutrophils # (Manual) 6.9 Metamyelocytes 2 Myelocytes 1 Differential Comment FINAL DIFF MANUAL Platelet Estimate LOW Platelet Morphology Comment NORMAL Ovalocytes 1+ Acanthocytes OCC Blood Urea Nitrogen 20 Creatinine 0.67 Random Glucose 249 Total Protein 4.8 Calcium Level 7.1 Sodium Level 134 Potassium Level 4.0 Chloride Level 104 Carbon Dioxide Level 20.4 Anion Gap 10 Estimat Glomerular Filtration Rate 117 Protein Corrected Calcium 8.4 Urine Color YELLOW Urine Turbidity CLEAR Urine pH 5.5 Urine Specific [place] 1.018 Urine Protein TRACE Urine Glucose (UA) 1000 Urine Ketones NEG Urine Occult Blood NEG Urine Nitrite NEG Urine Bilirubin NEG Urine Urobilinogen LESS THAN 2.0 Urine Leukocyte Esterase NEG Urine RBC 1 Urine WBC LESS THAN 1 Urine Squamous Epithelial Cells <1 Urine Hyaline Casts 7 Urine Mucus FEW Microscopic Urinalysis Comment CULT NOT INDICATED Date/Time Source Procedure Growth Status 08/22/17 11:48 Blood Peripheral Aerobic Blood Culture Pending Received 08/22/17 11:48 Blood Peripheral Anaerobic Blood Culture Pending Received Result Diagram: 08/23/17 0310 08/23/17 0310 Imaging RADIOLOGY STUDIES/FILMS REVIEWED Chest X-Ray 08/22/17 1124 Signed Impressions: Service Date/Time: Tuesday, August 22, 2017 11:47 - CONCLUSION: Some increased aeration of the right basilar consolidation compared 07/31/17 with moderate infiltrate remaining. Johnny Enriquez MD Assessment and Plan Assessment and Plan IMPRESSION Worsening cough and SOB, temps ok, mild elevation WBC - ?PNA (CXR is better) vs COPD exacerbation Known bilateral PE New L lung CA adenoCA with mets Hx R lung small cell CA 1992, Rx XRT and chemo COPD RECOMMENDATION Levaquin Sputum G/S C/S Continue Vanco for now Legion and pneumo Ag On steroids for COPD exacerbation Follow C/S Monitor progress I will follow along with you Thank you for this consultation Luana Rios MD Aug 23, 2017 09:41
--- NOTE | 2017-08-23 10:27 | HHI.PR ---
Subjective Remarks Still tachypneic. On and off bipap. Patient wants DNR status. DW at length with him. Anxiety contributing to tachypnea. Complains of chest congestion. Unable to bring up mucous. Objective Vitals Vital Signs Date Time Temp Pulse Resp B/P (MAP) Pulse Ox O2 Delivery O2 Flow Rate FiO2 08/23/17 09:34 100 Nasal Cannula 4.00 08/23/17 07:00 100 Bi-Pap 35 08/23/17 06:00 90 08/23/17 05:08 100 35 08/23/17 04:00 98.4 96 22 116/62 (80) 100 08/23/17 04:00 96 08/23/17 04:00 100 Bi-Pap 35 08/23/17 02:00 100 08/23/17 01:14 100 40 08/23/17 00:00 101 08/23/17 00:00 98.7 101 33 104/65 (78) 100 08/23/17 00:00 100 Bi-Pap 35 08/22/17 22:15 100 40 08/22/17 22:00 105 08/22/17 21:12 100 BiPAP 40 08/22/17 20:00 98.2 100 19 105/63 (77) 100 08/22/17 20:00 100 Bi-Pap 35 08/22/17 20:00 100 08/22/17 19:09 100 40 08/22/17 16:40 99 08/22/17 16:00 107 28 95/52 (66) 100 08/22/17 16:00 98.0 110 139/80 (99) 98 08/22/17 15:55 100 08/22/17 15:44 100 40 08/22/17 15:00 106 33 97/58 (71) 100 BiPAP 40 08/22/17 14:00 106 30 97/58 (71) 99 BiPAP 40 08/22/17 13:36 114 28 125/60 (81) 98 BiPAP 40 08/22/17 12:00 111 30 87/66 (73) BiPAP 40 08/22/17 11:27 BiPAP 40 08/22/17 11:27 97 08/22/17 11:23 100 BiPAP 40 08/22/17 11:21 99.7 121 32 103/56 (72) 97 08/22/17 11:20 97 40 I/O 08/22/17 08/22/17 08/22/17 08/23/17 08/23/17 08/23/17 07:00 15:00 23:00 07:00 15:00 23:00 Intake Total 1450 ml 262.5 ml 1662.5 ml Output Total 450 ml 600 ml Balance 1450 ml -187.5 ml 1062.5 ml Intake Oral 200 ml IV Total 1450 ml 262.5 ml 1462.5 ml Output Urine Total 450 ml 600 ml # Bowel Movements 0 Result Diagram: 08/23/17 0310 08/23/17 0310 Imaging Last Impressions Chest X-Ray 08/22/17 1124 Signed Impressions: Service Date/Time: Tuesday, August 22, 2017 11:47 - CONCLUSION: Some increased aeration of the right basilar consolidation compared 07/31/17 with moderate infiltrate remaining. Johnny Enriquez MD Objective Remarks GENERAL: Patient appear frail and in mild respiratory distress. CARDIOVASCULAR: Normal rate and regular rhythm without murmurs, gallops, or rubs. RESPIRATORY: Good respiratory efforts. Breath sounds equal and clear to auscultation bilaterally. GASTROINTESTINAL: Abdomen soft, non-tender, non-distended. Normal active bowel sounds MUSCULOSKELETAL: Extremities without cyanosis, or edema. NEURO: Alert & Oriented x4 to person, place, time, situation. Moves all ext x4 PSYCH: Appears anxious. A/P Assessment and Plan 72-year-old male with history of non-small cell lung cancer, COPD, pulmonary embolism, admitted with acute respiratory failure. Patient is critically ill and at risk for further respiratory decline. He wants to continue aggressive care short of resuscitation. Hypoxemic respiratory failure: Could be a combination of COPD, cardiomyopathy, pulmonary embolism, lung cancer. - Pulmonology following. Requiring Bipap - Continue Solu-Medrol, breathing treatments, supplemental oxygen/BiPAP as needed. Discuss CODE STATUS with the patient today. He elected to have DNR status. - Infection is following. ?Pneumonia versus COPD. Continue Levaquin and vancomycin for now. Follow progress. - Add Mucinex H/O Metastatic non-small cell lung carcinoma, recently treated with chemotherapy. - Oncology following. No evidence of progression of disease currently. Bilateral pulmonary embolism with right lower extremity deep venous thrombosis. - On heparin drip per oncology. Cardiomyopathy, ejection fraction 30%. Hypertension. - Blood pressure currently too low. Continue to hold Lasix, metoprolol, and lisinopril Chronic obstructive pulmonary disease. -Continue breathing treatments, steroids and supplemental oxygen. BiPAP as needed. Thrombocytopenia. Platelets 88. Chronic. slightly worsened from baseline. no signs of bleeding. Monitor. Discharge Planning Patient remains critically ill. Palliative care has been consulted to help with goals of care. Patient elected for DNR status. Continue care in the ICU. Elise Masterson MD Aug 23, 2017 10:27
--- NOTE | 2017-08-23 10:28 | PD.CONS ---
Consult Service Palliative Care . Consult Requested By Antonieta ARNOLD . Primary Care Physician Non-Staff . Reason for Consultation a. To assist with evaluation and management of symptoms including: Dyspnea, pain, debility, decreased appetite b. To assist medical decision maker(s) with: better understanding of current medical conditions; weighing benefits/burdens of medical treatment options; making medical treatment decisions. . HPI History of Present Illness Mr. Cordoba is a 72 year old patient with a history of COPD, cardiomyopathy with EF of 30%, hypertension, osteoarthritis, history of recent bilateral pulmonary emboli on Pradaxa. And lung cancer. Patient presented to [facility] ED on 08/22/2017 via EMS from [facility] for evaluation of worsening nonproductive cough as well as increasing shortness of breath. Upon EMS arrival , the patient was placed on BiPAP secondary to his tachycardia and poor oxygen saturations. When he arrived to the ED he remained short of breath, only able to speak in 1-2 word sentences. The patient has now been hospitalized multiple times since 05/29/2017. Additional diagnostic data: * Pulse 121, respirations 32, BP 103/56, oxygen saturation 97% on 40% FiO2 via BiPAP, rectal temperature 99.7 * WBC: 0.7, hemoglobin 10.7, hematocrit 31.8, platelets 101, neutrophils 76.1% * Sodium: 128, potassium 3.9, chloride 95, carbon dioxide 23.5, random glucose 144, calcium 8.3, magnesium 1.1 * BUN: 20, creatinine 0.82, GFR 92 * Total bilirubin: 1.5, AST 19, ALT 29, alkaline phosphatase 63 * Total creatine kinase: 63 * Troponin: 0.08 * Total protein: 5.4, albumin 2.8 * BNP: 193 * EKG revealed sinus tachycardia with a heart rate of 122. Nonspecific ST-T wave changes. * Chest x-ray showed improvement in right basilar consolidation with moderate infiltrate remaining. On exam, the patient's heart rate was elevated and he was hypotensive. A chest x-ray revealed right basilar infiltrate. Patient's troponin was elevated at 0.9 , secondary to his increased work of breathing versus mild hypoxia. Therefore the patient was administered ASA. There was some concern that the patient may have helped where acquired pneumonia so Cefepime and Zithromax were administered. Lactic acid and blood cultures pending. Patient was admitted for further evaluation and medical management. Pulmonology and oncology were consulted. Dr. Pardo, oncology, is familiar with this patient who he is treating for metastatic non-small cell lung carcinoma. He was hospitalized earlier this month with similar symptoms and was treated with steroids, antibiotics and blood thinners. A CT angiogram 10 days ago showed residual pulmonary embolism` .A CT scan did show old fibrosis in the right lung secondary to previous radiation for right lung small cell carcinoma in 1991. He does have a patchy infiltrate in the right lower lobe which could be infectious in etiology. Pulmonology has been consulted and will continue to follow this patient throughout his hospitalization. Infectious disease was also consulted. Blood cultures drawn in the ED are pending, will culture sputum and urine. Patient remains on vancomycin, Levaquin was added. Palliative Care was consulted to assist with symptom management and to discuss with the patient/family the benefits and burdens of his current illnesses and the options regarding future care. . Function/Cognitive Trajectory Patient has had a recent weight loss of 20 pounds. His activities are limited due to increased shortness of breath with minimal exertion. . Review of Systems Constitutional: COMPLAINS OF: Fatigue, Weight loss (recent 20 pound weight loss reported), Change in appetite (decreased appetite), Generalized weakness Respiratory: COMPLAINS OF: Sputum production (yellowish sputum), Shortness of breath Cardiovascular: COMPLAINS OF: Dyspnea on Exertion, DENIES: Chest pain, Lower Extremity Edema Musculoskeletal: COMPLAINS OF: Back pain Psychiatric: COMPLAINS OF: Anxiety Past Family Social History Coded Allergies: penicillin G (Unverified Allergy, Severe, HIVES, 08/22/17) Past Medical History Non-small cell lung carcinoma s/p chemotherapy;Followed by Dr. pardo COPD Cardiomyopathy. EF measured 30% Hypertension Bilateral pulmonary embolism with nonobstructing right lower extremity DVT Hyperlipidemia History of migraines Osteoarthritis . Past Surgical History Appendectomy Bone marrow biopsy Cholecystectomy Pericardiocentesis Vasectomy Colonoscopy Port placement Lung biopsy Chest tube placement for pneumothorax after lung biopsy . Reported Medications Aplisol (Tuberculin Ppd) 5 Tub. Unit/0.1 Ml Inj Hydrocodone-Acetaminophen 10-325 mg Tab 1 Tab PO Q4H PRN Ipratropium Nasal 0.06% Gregory 1 Gregory EACH NARE QID Multi-Vitamin Daily (Multiple Vitamin) 1 Tab Tab 1 Tab PO DAILY Gabapentin 400 Mg Cap 400 Cap PO 5X A DAY Aspirin 81 Mg Chew 81 Mg CHEW DAILY Ferrous Sulfate 325 Mg (65 Mg Iron) Tablet 325 Mg PO DAILY Alprazolam 0.5 Mg Tab 0.5 Mg PO DAILY PRN Finasteride 5 Mg Tab 5 Mg PO DAILY Do not crush. Simvastatin 5 Mg Tab 5 Mg PO DAILY . Current Medications Medications (Trade) Dose Ordered Sig/Reggie Route Start Time Stop Time Status Last Admin Cefepime HCl 2000 mg/Sodium Chloride 100 ml @ 200 mls/hr Q8H IV 08/22/17 21:00 08/23/17 04:20 Vancomycin HCl 1250 mg/Sodium Chloride 262.5 ml @ 262.5 mls/ hr Q12H IV 08/22/17 17:00 08/23/17 04:20 Pharmacy Profile Note 0 ml @ 0 mls/hr UNSCH OTHER 08/22/17 13:15 Heparin Sodium/ Dextrose 250 ml @ 12 mls/hr TITRATE PRN IV 08/22/17 13:15 08/22/17 16:18 Sodium Chloride 1,000 ml @ 100 mls/hr Q10H IV 08/22/17 13:12 08/23/17 01:55 (NS Flush) 2 ml UNSCH PRN IV FLUSH 08/22/17 13:15 (NS Flush) 2 ml BID IV FLUSH 08/22/17 21:00 08/22/17 20:35 (Narcan Inj) 0.4 mg UNSCH PRN IV PUSH 08/22/17 13:15 (Milk Of Magnesia Liq) 30 ml Q12H PRN PO 08/22/17 13:15 (Senokot) 17.2 mg Q12H PRN PO 08/22/17 13:15 (Dulcolax Supp) 10 mg DAILY PRN RECTAL 08/22/17 13:15 (Lactulose Liq) 30 ml DAILY PRN PO 08/22/17 13:15 (Duoneb Neb) 1 ampule Q6HR NEB NEB 08/22/17 16:00 08/23/17 04:01 (Duoneb Neb) 1 ampule Q2HR NEB PRN NEB 08/22/17 13:30 (SoluMEDROL INJ) 40 mg Q8H IV PUSH 08/22/17 20:00 08/23/17 04:18 Miscellaneous Information SPECIFIC LAB TO BE DRAWN:VANCOMYCIN TROUGH DATE TO... ONCE ONCE .XX 08/24/17 04:45 08/24/17 04:46 Miscellaneous Information Patient in critical care unit? Ass... Q361D .XX 08/22/17 21:30 08/22/17 21:30 (Chlorhexidine 2% Cloth) 3 pack DAILY@04 TOPICAL 08/23/17 04:00 08/27/17 04:01 08/23/17 04:00 (Chlorhexidine 2% Cloth) 3 pack UNSCH PRN TOPICAL 08/22/17 21:30 08/27/17 21:16 . Family History Grandmother with heart disease. No family history of cancer . Substance Use Tobacco: Patient with a [id number] smoking history; quit in 1985 Alcohol: Occasional EtOH consumption Prescription med abuse: None known Illicits: None known . Psychosocial History Psychosocial history is limited secondary to patient's shortness of breath requiring BiPAP. He is originally from [place] and has no children. He enjoys riding on his bike. . Spiritual/Cultural Factors Islam pavithra . Date completed: 08/23/2017 . Health Care Surrogate(s): Patient has designated his friend, Phillip Faustin, as his healthcare surrogate decision maker. Tianna Frances is the alternate healthcare surrogate decision maker. . Documented care wishes: Healthcare surrogate designation form and community DNR were completed 2016 . Today's verbally stated goals: Goals remains aggressive up to the point of cardiopulmonary resuscitation. However, the patient does reference hospice and states when the time, as he wants to be in his home and his friend has agreed to be there to care for him. . Family/friends goals: No family/friends were present at the time of my visit. . Ethical and Legal Issues No known ethical or legal issues impacting care at this time. . Physical Exam Vital Signs Date Time Temp Pulse Resp B/P (MAP) Pulse Ox O2 Delivery O2 Flow Rate FiO2 08/23/17 07:00 100 Bi-Pap 35 08/23/17 06:00 90 08/23/17 05:08 100 35 08/23/17 04:00 98.4 96 22 116/62 (80) 100 08/23/17 04:00 96 08/23/17 04:00 100 Bi-Pap 35 08/23/17 02:00 100 08/23/17 01:14 100 40 08/23/17 00:00 101 08/23/17 00:00 98.7 101 33 104/65 (78) 100 08/23/17 00:00 100 Bi-Pap 35 08/22/17 22:15 100 40 08/22/17 22:00 105 08/22/17 21:12 100 BiPAP 40 08/22/17 20:00 98.2 100 19 105/63 (77) 100 08/22/17 20:00 100 Bi-Pap 35 08/22/17 20:00 100 08/22/17 19:09 100 40 08/22/17 16:40 99 08/22/17 16:00 107 28 95/52 (66) 100 08/22/17 16:00 98.0 110 139/80 (99) 98 08/22/17 15:55 100 08/22/17 15:44 100 40 08/22/17 15:00 106 33 97/58 (71) 100 BiPAP 40 08/22/17 14:00 106 30 97/58 (71) 99 BiPAP 40 08/22/17 13:36 114 28 125/60 (81) 98 BiPAP 40 08/22/17 12:00 111 30 87/66 (73) BiPAP 40 08/22/17 11:27 BiPAP 40 08/22/17 11:27 97 08/22/17 11:23 100 BiPAP 40 08/22/17 11:21 99.7 121 32 103/56 (72) 97 08/22/17 11:20 97 40 . Exam CONSTITUTIONAL/GENERAL: This is a chronically ill appearing man in no apparent distress. TUBES/LINES/DRAINS: PIV. [id number] SKIN: No jaundice, rashes, or lesions. No wounds seen anteriorly. Skin temperature appropriate. Not diaphoretic. HEAD: Atraumatic. Normocephalic. EYES: Pupils equal and round and reactive. Extraocular motions intact. No scleral icterus. No injection or drainage. Fundi not examined. ENT: Hearing grossly normal. Nose without bleeding or purulent drainage. NECK: Trachea midline. Supple, nontender. No palpable thyroid enlargement or nodularity. CARDIOVASCULAR: Tachycardia without murmurs, gallops, or rubs. No JVD. Peripheral pulses symmetric. RESPIRATORY/CHEST: Tachypneic. Bilateral coarse rhonchi; R > L. GASTROINTESTINAL: Abdomen soft, non-tender, nondistended. No guarding. Bowel sounds present. GENITOURINARY: Without palpable bladder distension. MUSCULOSKELETAL: Extremities without clubbing, cyanosis, or edema. No mottling or clubbing. LYMPHATICS: No palpable cervical or supraclavicular adenopathy. NEUROLOGICAL: Awake and alert. Follows commands. Cognitively sharp. Moves all extremities. PSYCHIATRIC: + Anxiety. No apparent hallucinations or other psychotic thought process. . Diagnostic Tests Laboratory Laboratory Tests Test 08/22/17 11:40 08/22/17 11:48 08/22/17 15:40 08/22/17 16:30 Blood Gas Puncture Site LT RADIAL Blood Gas Patient Temperature 98.6 Blood Gas HCO3 23 mmol/L (22-26) Blood Gas Base Excess 0.3 mmol/L (-2-2) Blood Gas Oxygen Saturation 91 % (90-100) Arterial Blood pH 7.50 (7.380-7.420) Arterial Blood Partial Pressure CO2 31 mmHg (38-42) Arterial Blood Partial Pressure O2 61 mmHG (61-120) Arterial Blood Oxygen Content 14.2 Vol % (12.0-20.0) Arterial Blood Carboxyhemoglobin 1.6 % (0-4) Arterial Blood Methemoglobin 0.4 % (0-2) Blood Gas Hemoglobin 11.0 G/DL (12.0-16.0) Oxygen Delivery Device BiPAP Blood Gas Ventilator Setting [id number] Blood Gas Inspired Oxygen 40 % White Blood Count 12.7 TH/MM3 (4.0-11.0) Red Blood Count 3.54 MIL/MM3 (4.50-5.90) Hemoglobin 10.7 GM/DL (13.0-17.0) Hematocrit 31.8 % (39.0-51.0) Mean Corpuscular Volume 89.8 FL (80.0-100.0) Mean Corpuscular Hemoglobin 30.3 PG (27.0-34.0) Mean Corpuscular Hemoglobin Concent 33.7 % (32.0-36.0) Red Cell Distribution Width 17.6 % (11.6-17.2) Platelet Count 101 TH/MM3 (150-450) Mean Platelet Volume 7.6 FL (7.0-11.0) Neutrophils (%) (Auto) 76.1 % (16.0-70.0) Lymphocytes (%) (Auto) 19.4 % (9.0-44.0) Monocytes (%) (Auto) 3.9 % (0.0-8.0) Eosinophils (%) (Auto) 0.3 % (0.0-4.0) Basophils (%) (Auto) 0.3 % (0.0-2.0) Neutrophils # (Auto) 9.7 TH/MM3 (1.8-7.7) Lymphocytes # (Auto) 2.5 TH/MM3 (1.0-4.8) Monocytes # (Auto) 0.5 TH/MM3 (0-0.9) Eosinophils # (Auto) 0.0 TH/MM3 (0-0.4) Basophils # (Auto) 0.0 TH/MM3 (0-0.2) CBC Comment AUTO DIFF Differential Total Cells Counted 100 Neutrophils % (Manual) 72 % (16-70) Band Neutrophils % 2 % (0-6) Lymphocytes % 18 % (9-44) Monocytes % 7 % (0-8) Neutrophils # (Manual) 9.5 TH/MM3 (1.8-7.7) Metamyelocytes 1 % (0-1) Differential Comment FINAL DIFF MANUAL Platelet Estimate LOW (NORMAL) Platelet Morphology Comment NORMAL (NORMAL) Ovalocytes 1+ (NORMAL) Prothrombin Time 14.3 SEC (9.8-11.6) Prothromb Time International Ratio 1.4 RATIO Activated Partial Thromboplast Time 37.3 SEC (24.3-30.1) Blood Urea Nitrogen 20 MG/DL (7-18) Creatinine 0.82 MG/DL (0.60-1.30) Random Glucose 144 MG/DL (74-106) Total Protein 5.4 GM/DL (6.4-8.2) Albumin 2.8 GM/DL (3.4-5.0) Calcium Level 8.3 MG/DL (8.5-10.1) Magnesium Level 1.1 MG/DL (1.5-2.5) Alkaline Phosphatase 63 U/L (45-117) Aspartate Amino Transf (AST/SGOT) 19 U/L (15-37) Alanine Aminotransferase (ALT/SGPT) 29 U/L (12-78) Total Bilirubin 1.5 MG/DL (0.2-1.0) Sodium Level 128 MEQ/L (136-145) Potassium Level 3.9 MEQ/L (3.5-5.1) Chloride Level 95 MEQ/L (98-107) Carbon Dioxide Level 23.5 MEQ/L (21.0-32.0) Anion Gap 10 MEQ/L (5-15) Estimat Glomerular Filtration Rate 92 ML/MIN (>89) Total Creatine Kinase 63 U/L (39-308) Troponin I 0.08 NG/ML (0.02-0.05) B-Type Natriuretic Peptide 193 PG/ML (0-100) Lactic Acid Level 1.3 mmol/L (0.4-2.0) Nasal Screen MRSA (PCR) MRSA NOT DETECTED (NOT Test 08/22/17 19:40 08/22/17 23:01 08/23/17 03:10 08/23/17 06:00 White Blood Count 9.8 TH/MM3 (4.0-11.0) 7.2 TH/MM3 (4.0-11.0) Red Blood Count 3.05 MIL/MM3 (4.50-5.90) 2.73 MIL/MM3 (4.50-5.90) Hemoglobin 9.3 GM/DL (13.0-17.0) 8.5 GM/DL (13.0-17.0) Hematocrit 27.3 % (39.0-51.0) 24.3 % (39.0-51.0) Mean Corpuscular Volume 89.4 FL (80.0-100.0) 89.0 FL (80.0-100.0) Mean Corpuscular Hemoglobin 30.6 PG (27.0-34.0) 31.2 PG (27.0-34.0) Mean Corpuscular Hemoglobin Concent 34.2 % (32.0-36.0) 35.0 % (32.0-36.0) Red Cell Distribution Width 17.7 % (11.6-17.2) 18.0 % (11.6-17.2) Platelet Count 88 TH/MM3 (150-450) 82 TH/MM3 (150-450) Mean Platelet Volume 7.8 FL (7.0-11.0) 7.8 FL (7.0-11.0) Troponin I 0.07 NG/ML (0.02-0.05) 0.05 NG/ML (0.02-0.05) Activated Partial Thromboplast Time 124.1 SEC (24.3-30.1) 90.2 SEC (24.3-30.1) Neutrophils (%) (Auto) 90.5 % (16.0-70.0) Lymphocytes (%) (Auto) 8.2 % (9.0-44.0) Monocytes (%) (Auto) 1.2 % (0.0-8.0) Eosinophils (%) (Auto) 0.0 % (0.0-4.0) Basophils (%) (Auto) 0.1 % (0.0-2.0) Neutrophils # (Auto) 6.5 TH/MM3 (1.8-7.7) Lymphocytes # (Auto) 0.6 TH/MM3 (1.0-4.8) Monocytes # (Auto) 0.1 TH/MM3 (0-0.9) Eosinophils # (Auto) 0.0 TH/MM3 (0-0.4) Basophils # (Auto) 0.0 TH/MM3 (0-0.2) CBC Comment AUTO DIFF Differential Total Cells Counted 100 Neutrophils % (Manual) 90 % (16-70) Band Neutrophils % 3 % (0-6) Lymphocytes % 3 % (9-44) Monocytes % 1 % (0-8) Neutrophils # (Manual) 6.9 TH/MM3 (1.8-7.7) Metamyelocytes 2 % (0-1) Myelocytes 1 % (0-0) Differential Comment FINAL DIFF MANUAL Platelet Estimate LOW (NORMAL) Platelet Morphology Comment NORMAL (NORMAL) Ovalocytes 1+ (NORMAL) Acanthocytes OCC (NORMAL) Blood Urea Nitrogen 20 MG/DL (7-18) Creatinine 0.67 MG/DL (0.60-1.30) Random Glucose 249 MG/DL (74-106) Total Protein 4.8 GM/DL (6.4-8.2) Calcium Level 7.1 MG/DL (8.5-10.1) Sodium Level 134 MEQ/L (136-145) Potassium Level 4.0 MEQ/L (3.5-5.1) Chloride Level 104 MEQ/L (98-107) Carbon Dioxide Level 20.4 MEQ/L (21.0-32.0) Anion Gap 10 MEQ/L (5-15) Estimat Glomerular Filtration Rate 117 ML/MIN (>89) Protein Corrected Calcium 8.4 MG/DL (8.5-10.1) Urine Color YELLOW (YELLW/STRAW) Urine Turbidity CLEAR (CLEAR) Urine pH 5.5 (5.0-8.5) Urine Specific Gilliam 1.018 (1.002-1.035) Urine Protein TRACE mg/dL (NEG-TRACE) Urine Glucose (UA) 1000 mg/dL (NEG) Urine Ketones NEG mg/dL (NEG) Urine Occult Blood NEG (NEG) Urine Nitrite NEG (NEG) Urine Bilirubin NEG (NEG) Urine Urobilinogen LESS THAN 2.0 MG/DL (LESS Urine Leukocyte Esterase NEG (NEG) Urine RBC 1 /hpf (0-3) Urine WBC LESS THAN 1 /hpf (0-5) Urine Squamous Epithelial Cells <1 /hpf (0-5) Urine Hyaline Casts 7 /lpf (RARE) Urine Mucus FEW /lpf (OCC) Microscopic Urinalysis Comment CULT NOT INDICATED . Result Diagram: 08/23/1730908/23/17 0310 Microbiology Microbiology Date/Time Source Procedure Growth Status 08/22/17 11:48 Blood Peripheral Aerobic Blood Culture Pending Received 08/22/17 11:48 Blood Peripheral Anaerobic Blood Culture Pending Received 08/22/17 11:40 Blood Peripheral Aerobic Blood Culture Pending Received 08/22/17 11:40 Blood Peripheral Anaerobic Blood Culture Pending Received Imaging Last 72 hours Impressions Chest X-Ray 08/22/17 1124 Signed Impressions: Service Date/Time: Tuesday, August 22, 2017 11:47 - CONCLUSION: Some increased aeration of the right basilar consolidation compared 07/31/17 with moderate infiltrate remaining. Johnny Enriquez MD . Patient/Family Conference Present at Family Conference: Met with patient at bedside. . Family Conference Location: Bedside Issues Discussed: * Palliative care role, purpose, approach * Additional medical, psychosocial, and spiritual history * Patients general health, functional status, and cognitive changes in the months leading up to the current hospitalization * Patient/family understanding of the current medical problems * Patient/family understanding of prognosis * Patients goals of care as best understood from advance directives and/or conversations and/or values * Current medical treatment options and benefits/burdens of those options * Likely scenarios comparing ongoing aggressive care with a transition to comfort measures only * Questions answered to the best of my ability * Palliative care contact information provided . Assessment and Plan Disease Oriented Problem List: (1) Hypoxemic respiratory failure, chronic (2) Sepsis (3) Thrombocytopenia (4) COPD (chronic obstructive pulmonary disease) (5) Pneumonia Symptom Scale: (1) Decrease in appetite (2) Debility (3) Dyspnea (4) Pain Pertinent Non-Medical Issues Psychosocial:Psychosocial history is limited secondary to patient's shortness of breath requiring BiPAP. He is originally from [place] and has no children. He enjoys riding on his bike. Spiritual: Islam pavithra Legal:Patient currently shows insight and judgment related to his medical conditions. In the event that he is no longer capacity to make medical decisions, he has designated his friend, Phillip Faustin, as his healthcare surrogate decision maker. Tianna Frances is the alternate healthcare surrogate decision maker. Ethical issues impacting care: No known ethical issues impacting care at this time. . Important Contacts Kingsley Cordoba, brother: [phone] Devaughncorby Roxie, friend: [phone] . Code Status: No Code Plan * NO CODE * Decision making: Patient currently shows insight and judgment related to his medical conditions. In the event that he is no longer capacity to make medical decisions, he has designated his friend, Dveaughncorby Minookerryjulian, as his healthcare surrogate decision maker. Tianna Frances is the alternate healthcare surrogate decision maker. * Community DNR completed 08/23/2017 * Goals:Goals remains aggressive up to the point of cardiopulmonary resuscitation. However, the patient does reference hospice and states when the time, as he wants to be in his home and his friend has agreed to be there to care for him. * Symptom management-dyspnea: Patient's exertional dyspnea is out of proportion to his lung cancer and PE. He may need a prolonged and/or possibly a lung biopsy to determine the etiology her oncology. Chest x-ray showing RLL infiltrate. Nonproductive cough with occasional yellowish sputum. Receiving Solu-Medrol, guaifenesin, scheduled and PRN nebulizer treatments. Alprazolam is ordered PRN for anxiety, would recommend using this to assist with symptoms of dyspnea. * Symptom management-pain: Patient reports mild to moderate back pain. He stated he was taking gabapentin for symptom management, although the MAR does not reflect this. Patient does not wish to take stronger pain medication at this time. * Symptom management-debility: Patient's activity is limited, primarily due to his dyspnea with minimal exertion. * Palliative care contact information was provided to the patient * Palliative care will continue to follow this patient throughout his hospitalization to establish trust, assist with symptom management and clarification of medical treatment goals. . Thank you for the opportunity to participate in the care of Mr. Cordoba. Attestation To help prompt me to consider important information that might be impacting today's encounter and assessment, information from prior notes written by myself or my colleagues may have been "brought forward" into today's note. My signature on this note, however, is an attestation that I personally performed the exam, history, and/or decision-making noted today, and, unless otherwise indicated, the interactions with patient, family, and staff as well as the review of records all occurred today. I also attest that the listed assessment and stated plan reflect my best clinical judgment today based on the combination of historical information, prior notes, and today's exam/ interactions. When time spent is documented, it refers only to time spent today by the signer, or if indicated, combined time spent today by collaborating physician/nurse practitioner. Paty Tripp Aug 23, 2017 10:25
--- NOTE | 2017-08-23 12:29 | PD.ONC.PN ---
Subjective Subjective Remarks Afebrile overnight. Patient resting in bed,anxious. Remains dyspneic at rest and with exertion. Objective Data Date Time Temp Pulse Resp B/P (MAP) Pulse Ox O2 Delivery O2 Flow Rate FiO2 08/23/17 09:34 100 Nasal Cannula 4.00 08/23/17 07:00 100 Bi-Pap 35 08/23/17 06:00 90 08/23/17 05:08 100 35 08/23/17 04:00 98.4 96 22 116/62 (80) 100 08/23/17 04:00 96 08/23/17 04:00 100 Bi-Pap 35 08/23/17 02:00 100 08/23/17 01:14 100 40 08/23/17 00:00 101 08/23/17 00:00 98.7 101 33 104/65 (78) 100 08/23/17 00:00 100 Bi-Pap 35 08/22/17 22:15 100 40 08/22/17 22:00 105 08/22/17 21:12 100 BiPAP 40 08/22/17 20:00 98.2 100 19 105/63 (77) 100 08/22/17 20:00 100 Bi-Pap 35 08/22/17 20:00 100 08/22/17 19:09 100 40 08/22/17 16:40 99 08/22/17 16:00 107 28 95/52 (66) 100 08/22/17 16:00 98.0 110 139/80 (99) 98 08/22/17 15:55 100 08/22/17 15:44 100 40 08/22/17 15:00 106 33 97/58 (71) 100 BiPAP 40 08/22/17 14:00 106 30 97/58 (71) 99 BiPAP 40 08/22/17 13:36 114 28 125/60 (81) 98 BiPAP 40 08/23/17 08/23/17 08/23/17 07:00 15:00 23:00 Intake Total 1662.5 ml Output Total 600 ml Balance 1062.5 ml Result Diagram: 08/23/1730908/23/17309 Laboratory Results Laboratory Tests Test 08/22/17 15:40 08/22/17 16:30 08/22/17 19:40 08/22/17 23:01 Lactic Acid Level 1.3 mmol/L Nasal Screen MRSA (PCR) MRSA NOT DETECTED White Blood Count 9.8 TH/MM3 Red Blood Count 3.05 MIL/MM3 Hemoglobin 9.3 GM/DL Hematocrit 27.3 % Mean Corpuscular Volume 89.4 FL Mean Corpuscular Hemoglobin 30.6 PG Mean Corpuscular Hemoglobin Concent 34.2 % Red Cell Distribution Width 17.7 % Platelet Count 88 TH/MM3 Mean Platelet Volume 7.8 FL Troponin I 0.07 NG/ML 0.05 NG/ML Activated Partial Thromboplast Time 124.1 SEC Test 08/23/17 03:10 08/23/17 06:00 White Blood Count 7.2 TH/MM3 Red Blood Count 2.73 MIL/MM3 Hemoglobin 8.5 GM/DL Hematocrit 24.3 % Mean Corpuscular Volume 89.0 FL Mean Corpuscular Hemoglobin 31.2 PG Mean Corpuscular Hemoglobin Concent 35.0 % Red Cell Distribution Width 18.0 % Platelet Count 82 TH/MM3 Mean Platelet Volume 7.8 FL Neutrophils (%) (Auto) 90.5 % Lymphocytes (%) (Auto) 8.2 % Monocytes (%) (Auto) 1.2 % Eosinophils (%) (Auto) 0.0 % Basophils (%) (Auto) 0.1 % Neutrophils # (Auto) 6.5 TH/MM3 Lymphocytes # (Auto) 0.6 TH/MM3 Monocytes # (Auto) 0.1 TH/MM3 Eosinophils # (Auto) 0.0 TH/MM3 Basophils # (Auto) 0.0 TH/MM3 CBC Comment AUTO DIFF Differential Total Cells Counted 100 Neutrophils % (Manual) 90 % Band Neutrophils % 3 % Lymphocytes % 3 % Monocytes % 1 % Neutrophils # (Manual) 6.9 TH/MM3 Metamyelocytes 2 % Myelocytes 1 % Differential Comment FINAL DIFF MANUAL Platelet Estimate LOW Platelet Morphology Comment NORMAL Ovalocytes 1+ Acanthocytes OCC Activated Partial Thromboplast Time 90.2 SEC Blood Urea Nitrogen 20 MG/DL Creatinine 0.67 MG/DL Random Glucose 249 MG/DL Total Protein 4.8 GM/DL Calcium Level 7.1 MG/DL Sodium Level 134 MEQ/L Potassium Level 4.0 MEQ/L Chloride Level 104 MEQ/L Carbon Dioxide Level 20.4 MEQ/L Anion Gap 10 MEQ/L Estimat Glomerular Filtration Rate 117 ML/MIN Protein Corrected Calcium 8.4 MG/DL Urine Color YELLOW Urine Turbidity CLEAR Urine pH 5.5 Urine Specific [place] 1.018 Urine Protein TRACE mg/dL Urine Glucose (UA) 1000 mg/dL Urine Ketones NEG mg/dL Urine Occult Blood NEG Urine Nitrite NEG Urine Bilirubin NEG Urine Urobilinogen LESS THAN 2.0 MG/DL Urine Leukocyte Esterase NEG Urine RBC 1 /hpf Urine WBC LESS THAN 1 /hpf Urine Squamous Epithelial Cells <1 /hpf Urine Hyaline Casts 7 /lpf Urine Mucus FEW /lpf Microscopic Urinalysis Comment CULT NOT INDICATED Culture Results Microbiology Date/Time Source Procedure Growth Status 08/22/17 11:48 Blood Peripheral Aerobic Blood Culture - Preliminary NO GROWTH IN 1 DAY Resulted 08/22/17 11:48 Blood Peripheral Anaerobic Blood Culture - Preliminary NO GROWTH IN 1 DAY Resulted 08/22/17 11:40 Blood Peripheral Aerobic Blood Culture - Preliminary NO GROWTH IN 1 DAY Resulted 08/22/17 11:40 Blood Peripheral Anaerobic Blood Culture - Preliminary NO GROWTH IN 1 DAY Resulted 08/23/17 06:00 Urine Clean Catch Legionella Antigen - Final PRESUMPTIVE NEGATIVE FOR LEGIONELLA P... Complete 08/23/17 06:00 Urine Clean Catch Streptococcus pneumoniae Antigen (M - Final PRESUMPTIVE NEGATIVE FOR STREPTOCOCCU... Complete Administered Medications Medications (Trade) Dose Ordered Sig/Reggie Route PRN Reason Start Time Stop Time Status Last Admin Dose Admin Vancomycin HCl 1250 mg/Sodium Chloride 262.5 ml @ 262.5 mls/ hr Q12H IV 08/22/17 17:00 08/23/17 04:20 Heparin Sodium/ Dextrose 250 ml @ 12 mls/hr TITRATE PRN IV Coagulation Management 08/22/17 13:15 08/22/17 16:18 Sodium Chloride 1,000 ml @ 100 mls/hr Q10H IV 08/22/17 13:12 08/23/17 01:55 Sodium Chloride (NS Flush) 2 ml BID IV FLUSH 08/22/17 21:00 08/22/17 20:35 Albuterol/ Ipratropium (Duoneb Neb) 1 ampule Q6HR NEB NEB 08/22/17 16:00 08/23/17 09:30 Methylprednisolone Sodium Succinate (SoluMEDROL INJ) 40 mg Q8H IV PUSH 08/22/17 20:00 08/23/17 04:18 Miscellaneous Information Patient in critical care unit? Ass... Q361D .XX 08/22/17 21:30 08/22/17 21:30 Chlorhexidine Gluconate (Chlorhexidine 2% Cloth) 3 pack DAILY@04 TOPICAL 08/23/17 04:00 08/27/17 04:01 08/23/17 04:00 Objective Remarks GENERAL: Elderly male sitting up in bed on bipap. anxious. SKIN: Warm and dry. HEAD: Normocephalic. EYES: No injection or drainage. NECK: Supple, trachea midline. CARDIOVASCULAR: +S1/S2 RESPIRATORY: anterior cui with occasional rhonchi. on bipap. GASTROINTESTINAL: Abdomen soft, non-tender, nondistended. EXTREMITIES: No cyanosis NEUROLOGICAL: No obvious focal deficit. Awake, alert, and oriented x3. Assessment/Plan Problem List: (1) Dyspnea ICD Codes: R06.00 - Dyspnea, unspecified Plan: patient's exertional dyspnea is out of proportion to his lung cancer and PE. he will likely need bronch and may need a lung biopsy to determine the etiology. we will also consult infectious disease to r/o PCP which can present this way as well. --CXR shows RLL infiltrate. --discharged from the hospital to [facility] on August 15. --During the hospital stay he was given antibiotics, steroids. --had a CT angiogram which showed the pulmonary embolism slightly better. discharged with Pradaxa. --Yesterday morning he started having cough mostly nonproductive. --Occasionally he will bring up a small amount of yellowish sputum. --has increased dyspnea on exertion again. (2) Pulmonary embolism, bilateral ICD Codes: I26.99 - Other pulmonary embolism without acute cor pulmonale Status: Chronic Plan: --on heparin gtt inpatient --will resume pradaxa upon d/c home --CT angiogram ten days ago showed some improvement. (3) Non-small cell carcinoma of lung ICD Codes: C34.90 - Malignant neoplasm of unspecified part of unspecified bronchus or lung Status: Chronic Plan: --Metastatic non-small cell lung carcinoma. --recently was found to have a 1.6 cm mass in left lung. --PET scan also showed multiple left lung masses with subcarinal adenopathy. --had bilateral small pleural effusion. Biopsy of the lung mass showed well differentiated carcinoma consistent with lung primary, PDL1, 0% ALK and ROS1 negative. EGFR mutation also negative. --completed two cycle of carboplatin and Taxol, last cycle on July 25. --recent CT scan again showed stable left lower lobe mass and hilar mass. no clear progression of disease to explain his symptoms at this time. Assessment 72y/o with metastatic NSCLC, admitted with worsening shortness of breath. h/o Metastatic non-small cell lung carcinoma, recently treated with chemotherapy. Bilateral pulmonary embolism with right lower extremity deep venous thrombosis. Cardiomyopathy, ejection fraction 30%. Hypertension. Chronic obstructive pulmonary disease. History of right lung small cell carcinoma, treated with radiation and chemotherapy. Hyperlipidemia. Migraine headaches. Osteoarthritis. Plan 1. consult infectious disease 2. continue heparin gtt 3. monitor CBC Attending Statement The exam, history, and the medical decision-making described in the above note were completed with the assistance of the mid-level provider. I reviewed and agree with the findings presented. I attest that I had a [id number] encounter with the patient on the same day, and personally performed and documented my assessment and findings in the medical record. Still has significant SOB with minimal exertion. The PE was a few weeks ago and he is not improving. Need to r/o infectious etiology including PCP. CT did show interstitial infiltrate in RLL. May need bronchoscopy if still does not improved. Will consult ID. Problem Qualifiers (1) Dyspnea: Qualified Codes: R06.02 - Shortness of breath Minoo Barbosa Aug 23, 2017 12:29 Nelson Pardo MD Aug 23, 2017 17:53
[2017-08-23] MEDS: LORazepam 2 MG/ML VIAL IV PUSH PRN ×3 (13:35→21:42)
[2017-08-23] MEDS: RESP: ALBUTEROL 2.5 MG/IPRATROPIUM 0.5 MG NEB (PRN) NEB (13:37)
[2017-08-23 13:48] LABS: APTT (PATIENT) 50.6 SEC (24.3-30.1)
[2017-08-23] MEDS: LEVOFLOXACIN 750 MG PREMIX INJ 150 ML IV SCH (14:28)
[2017-08-23] MEDS: guaiFENesin E.R. 600 MG TAB PO SCH ×2 (14:30→21:42)
--- NOTE | 2017-08-23 15:39 | EKG ---
Date Performed: 08/22/2017 Time Performed: 20:11:11 PTAGE: 72 years EKG: SINUS TACHYCARDIA NONSPECIFIC T-WAVE ABNORMALITY ABNORMAL ECG PREVIOUS TRACING : 08/22/2017 11.27 DOCTOR: Brandon Valero Interpretating Date/Time 08/23/2017 15:38:11
--- NOTE | 2017-08-23 18:17 | HHI.PR ---
Subjective Remarks 72 YOWM with Ca lung, severe COPD,CMP,PE On BIPAP Mild sob No fever Palliative care evaluating pt Objective Vital Signs Vital Signs Date Time Temp Pulse Resp B/P (MAP) Pulse Ox O2 Delivery O2 Flow Rate FiO2 08/23/17 18:00 109 08/23/17 17:00 121 08/23/17 16:00 97.9 120 44 134/66 (88) 97 08/23/17 16:00 120 08/23/17 15:00 116 08/23/17 14:00 121 08/23/17 13:38 98 35 08/23/17 13:00 121 08/23/17 12:00 123 08/23/17 12:00 98.0 123 41 174/113 (133) 100 08/23/17 11:00 109 08/23/17 10:00 116 08/23/17 09:34 100 Nasal Cannula 4.00 08/23/17 09:00 94 08/23/17 08:00 97.9 93 30 144/72 (96) 99 08/23/17 08:00 93 08/23/17 07:00 100 Bi-Pap 35 08/23/17 07:00 97 08/23/17 06:00 90 08/23/17 05:08 100 35 08/23/17 04:00 98.4 96 22 116/62 (80) 100 08/23/17 04:00 96 08/23/17 04:00 100 Bi-Pap 35 08/23/17 02:00 100 08/23/17 01:14 100 40 08/23/17 00:00 101 08/23/17 00:00 98.7 101 33 104/65 (78) 100 08/23/17 00:00 100 Bi-Pap 35 08/22/17 22:15 100 40 08/22/17 22:00 105 08/22/17 21:12 100 BiPAP 40 08/22/17 20:00 98.2 100 19 105/63 (77) 100 08/22/17 20:00 100 Bi-Pap 35 08/22/17 20:00 100 08/22/17 19:09 100 40 I/O 08/22/17 08/22/17 08/22/17 08/23/17 08/23/17 08/23/17 07:00 15:00 23:00 07:00 15:00 23:00 Intake Total 1450 ml 262.5 ml 1662.5 ml 100 ml Output Total 450 ml 600 ml 400 ml Balance 1450 ml -187.5 ml 1062.5 ml -300 ml Intake Oral 200 ml 100 ml IV Total 1450 ml 262.5 ml 1462.5 ml Output Urine Total 450 ml 600 ml 400 ml # Bowel Movements 0 Result Diagram: 08/23/1730908/23/17309 Objective Remarks GENERAL: MBMN WM, sob SKIN: Warm and dry. HEAD: Normocephalic. EYES: No scleral icterus. No injection or drainage. NECK: Supple, trachea midline. No JVD or lymphadenopathy. CARDIOVASCULAR: Regular rate and rhythm without murmurs, gallops, or rubs. RESPIRATORY: Breath sounds equal bilaterally. No accessory muscle use. GASTROINTESTINAL: Abdomen soft, non-tender, nondistended. MUSCULOSKELETAL: No cyanosis, or edema. BACK: Nontender without obvious deformity. No CVA tenderness. A/P Assessment and Plan Resp Insuff Severe COPD Ca lung CMP Pulm Embolism DNR PLAN: Cont Abx BIPAP Heparin drip Aerosol nebs DNR Armando Colon MD Aug 23, 2017 18:17
[2017-08-23 20:44] LABS: APTT (PATIENT) 41.5 SEC (24.3-30.1)
[2017-08-23] MEDS: ALPRAZolam 0.5 MG TAB PO PRN (21:42)
[2017-08-23] MEDS: HEPARIN-D5W 25,000 U/250 ML 250 ML IV PRN (22:43)
[2017-08-24] VITALS (17 sets, daily range): BP systolic 107–155; BP diastolic 65–72; PULSE 89–119; RESP 16–42; TEMP 97–98; O2SAT 92–100
[2017-08-24] MEDS: LORazepam 2 MG/ML VIAL IV PUSH PRN ×2 (01:20→05:19)
[2017-08-24] MEDS: ALPRAZolam 0.5 MG TAB PO PRN ×4 (01:44→21:43)
[2017-08-24] MEDS: RESP: ALBUTEROL 2.5 MG/IPRATROPIUM 0.5 MG NEB (SCH) NEB ×4 (04:00→21:03)
[2017-08-24] MEDS: VANCOMYCIN INJ 1,250 MG in SODIUM CHLOR 0.9% 250 ML INJ 250 ML IV SCH ×2 (04:19→17:00)
[2017-08-24] MEDS: methylPREDNISolone SOD SUCC 40 MG/1 ML VIAL IV PUSH SCH ×3 (04:19→20:43)
[2017-08-24] MEDS ORDERED: PHARMACY ORDERED LAB ONE (04:45)
[2017-08-24] MEDS: RESP: ALBUTEROL 2.5 MG/IPRATROPIUM 0.5 MG NEB (PRN) NEB (05:05)
[2017-08-24 05:30] LABS: BLOOD GAS BASE EXCESS -3.6 mmol/L (-2-2); BLOOD GAS CARBOXYHEMOGLOBIN 1.5 % (0-4); BLOOD GAS HCO3 20 mmol/L (22-26); BLOOD GAS O2 HGB SATURATION 90 % (90-100); BLOOD GAS OXYGEN CONTENT 11.9 Vol % (12.0-20.0); BLOOD GAS PCO2 29 mmHg (38-42); BLOOD GAS PO2 62 mmHg (61-120); BLOOD GAS TOTAL HGB 9.4 G/DL (12.0-16.0); CRITICAL VALUE NO; DRAW SITE RT RADIAL; FIO2 40 %; NUMBER OF ARTERIAL PUNCTURES 1; OXYGEN DEVICE BiPAP; STAT NO; TEMP CORR TO 98.6; ULNAR PULSE PRESENT; VENT SETTINGS 15/5
[2017-08-24] MEDS ORDERED: MIDAZOLAM HCL 2 MG/2 ML VIAL IV PUSH ONE (06:00)
[2017-08-24 06:52] LABS: HEMATOCRIT 27.5 % (39.0-51.0); MEAN CELL VOLUME 88.9 FL (80.0-100.0); MEAN CORPUSCULAR HEMOGLOBIN 30.2 PG (27.0-34.0); PLATELET COUNT 152 TH/MM3 (150-450); RED BLOOD COUNT 3.09 MIL/MM3 (4.50-5.90); RED CELL DISTRIBUTION WIDTH 18.1 % (11.6-17.2); REVIEW FLAG FINAL; WHITE BLOOD COUNT 18.7 TH/MM3 (4.0-11.0)
[2017-08-24 07:13] LABS: BICARBONATE 21.1 MEQ/L (21.0-32.0)
[2017-08-24 08:03] LABS: POTASSIUM 3.4 MEQ/L (3.5-5.1)
[2017-08-24] MEDS: SODIUM CHLORIDE 0.9% FLUSH 10 ML FLUSH IV FLUSH SCH ×2 (09:00→20:44)
[2017-08-24] MEDS: guaiFENesin E.R. 600 MG TAB PO SCH ×2 (09:00→20:44)
--- NOTE | 2017-08-24 09:57 | HHI.PR ---
Subjective Remarks Persistently on BIPAP. Severely short of breath with minimal activity. Tachypnea and tachycardia persist. Would like Hospice info. Ultimately he would like to be at home. Objective Vitals Vital Signs Date Time Temp Pulse Resp B/P (MAP) Pulse Ox O2 Delivery O2 Flow Rate FiO2 08/24/17 08:19 95 40 08/24/17 06:00 115 08/24/17 04:25 96 40 08/24/17 04:00 115 08/24/17 04:00 97.3 115 42 155/70 (98) 96 08/24/17 02:00 119 08/24/17 01:20 95 40 08/24/17 00:00 97.0 110 36 107/68 (81) 97 08/24/17 00:00 110 08/23/17 22:18 98 BiPAP 40 08/23/17 22:14 98 40 08/23/17 22:00 109 08/23/17 20:00 97.2 107 24 106/64 (78) 98 08/23/17 20:00 107 08/23/17 19:00 96 Bi-Pap 40 08/23/17 18:00 109 08/23/17 17:00 121 08/23/17 16:00 97.9 120 44 134/66 (88) 97 08/23/17 16:00 120 08/23/17 15:00 116 08/23/17 14:00 121 08/23/17 13:38 98 35 08/23/17 13:00 121 08/23/17 12:00 123 08/23/17 12:00 98.0 123 41 174/113 (133) 100 08/23/17 11:00 109 08/23/17 10:00 116 I/O 08/23/17 08/23/17 08/23/17 08/24/17 08/24/17 08/24/17 07:00 15:00 23:00 07:00 15:00 23:00 Intake Total 1662.5 ml 1000 ml 1434.5 ml 262.5 ml Output Total 600 ml 400 ml 750 ml Balance 1062.5 ml 1000 ml 1034.5 ml -487.5 ml Intake Oral 200 ml 100 ml IV Total 1462.5 ml 1000 ml 1334.5 ml 262.5 ml Output Urine Total 600 ml 400 ml 750 ml # Bowel Movements 0 0 Result Diagram: 12/14/17 0519 08/24/17518 Objective Remarks GENERAL: Patient appear frail and in mild respiratory distress. CARDIOVASCULAR: Normal rate and regular rhythm without murmurs, gallops, or rubs. RESPIRATORY: Good respiratory efforts. Breath sounds equal and clear to auscultation bilaterally. GASTROINTESTINAL: Abdomen soft, non-tender, non-distended. Normal active bowel sounds MUSCULOSKELETAL: Extremities without cyanosis, or edema. NEURO: Alert & Oriented x4 to person, place, time, situation. Moves all ext x4 PSYCH: Appears anxious. A/P Assessment and Plan 72-year-old male with history of non-small cell lung cancer, COPD, pulmonary embolism, admitted with acute respiratory failure. Patient is critically ill in respiratory failure. He would like info from Hospice. States he rather at home. Hypoxemic respiratory failure: Likely a combination of COPD, cardiomyopathy, pulmonary embolism, lung cancer. - Pulmonology following. Requiring Bipap. Does not want intubation. Unclear if stable enough for bronch. Defer to Pulmonology. - Continue Solu-Medrol, breathing treatments, supplemental oxygen/BiPAP as needed. He elected to have DNR status. Hospice consulted. - Infection is following. ?Pneumonia versus COPD. Continue Levaquin and vancomycin for now. Follow progress. - Cont Mucinex - Repeat CXR today. H/O Metastatic non-small cell lung carcinoma, recently treated with chemotherapy. - Oncology following. No evidence of progression of disease currently. Bilateral pulmonary embolism with right lower extremity deep venous thrombosis. - On heparin drip per oncology. Cardiomyopathy, ejection fraction 30%. Hypertension. - Blood pressure has been borderline low. Resume Lasix IV, continue to hold metoprolol and lisinopril Chronic obstructive pulmonary disease. -Continue breathing treatments, steroids and supplemental oxygen. BiPAP as needed. Thrombocytopenia. Platelets 88. Chronic. slightly worsened from baseline. no signs of bleeding. Monitor. Discharge Planning Patient remains critically ill. Palliative care following. Patient elected for DNR status. Continue care in the ICU. Hospice consulted to provide info. Elise Masterson MD Aug 24, 2017 09:57
[2017-08-24] MEDS ORDERED: POTASSIUM CHLOR 20 MEQ PREMIX 100 ML IV ONE (10:00)
[2017-08-24] MEDS ORDERED: POTASSIUM CHLORIDE 20 MEQ CONTROLLED RELEASE TAB PO ONE (10:00)
[2017-08-24] MEDS: FUROSEMIDE 20 MG/2 ML VIAL IV PUSH SCH ×2 (10:39→19:33)
[2017-08-24] MEDS: LEVOFLOXACIN 750 MG PREMIX INJ 150 ML IV SCH (10:40)
--- NOTE | 2017-08-24 11:03 | RADRPT ---
EXAM DATE/TIME: 08/24/2017 10:12 [place] COMPARISON: CHEST SINGLE AP, August 22, 2017, 11:47. INDICATIONS : Short of breath. MEDICAL HISTORY : Chronic obstructive pulmonary disease. Hypercholesterolemia. Hypertension. Cardiomyopathy. Lung cance r. SURGICAL HISTORY : Appendectomy. Cholecystectomy. ENCOUNTER: Subsequent ACUITY: 1 week PAIN SCORE: 0/10 LOCATION: Bilateral chest FINDINGS: Decreasing lung aeration and interval development of bibasilar airspace disease is noted compared to the previous study. Heart and mediastinal structures are stable. [id number] remains in stable position. CONCLUSION: Decreased lung aeration with developing bibasilar airspace disease. Josue Garcias MD on August 24, 2017 at 11:00 Board Certified Radiologist. This report was verified electronically.
--- NOTE | 2017-08-24 13:37 | PD.ONC.PN ---
Subjective Subjective Remarks Afebrile overnight. Patient resting in bed on bipap. hospice has been consulted. the patient reports he wants to get everything set up for hospice at home, but he is still hoping to undergo bronchoscopy. Objective Data Date Time Temp Pulse Resp B/P (MAP) Pulse Ox O2 Delivery O2 Flow Rate FiO2 08/24/17 12:00 118 08/24/17 12:00 98.0 89 28 135/65 (88) 100 08/24/17 10:00 118 08/24/17 08:19 95 40 08/24/17 08:00 97.9 108 16 128/72 (90) 95 08/24/17 08:00 118 08/24/17 07:00 Bi-Pap 35 08/24/17 06:00 115 08/24/17 04:25 96 40 08/24/17 04:00 115 08/24/17 04:00 97.3 115 42 155/70 (98) 96 08/24/17 02:00 119 08/24/17 01:20 95 40 08/24/17 00:00 97.0 110 36 107/68 (81) 97 08/24/17 00:00 110 08/23/17 22:18 98 BiPAP 40 08/23/17 22:14 98 40 08/23/17 22:00 109 08/23/17 20:00 97.2 107 24 106/64 (78) 98 08/23/17 20:00 107 08/23/17 19:00 96 Bi-Pap 40 08/23/17 18:00 109 08/23/17 17:00 121 08/23/17 16:00 97.9 120 44 134/66 (88) 97 08/23/17 16:00 120 08/23/17 15:00 116 08/23/17 14:00 121 08/23/17 13:38 98 35 08/24/17 08/24/17 08/24/17 07:00 15:00 23:00 Intake Total 262.5 ml Output Total 750 ml Balance -487.5 ml Result Diagram: 08/24/1751808/24/17518 Laboratory Results Laboratory Tests Test 08/23/17 20:11 08/24/17 05:18 08/24/17 05:19 Activated Partial Thromboplast Time 41.5 SEC 39.0 SEC Blood Gas Puncture Site RT RADIAL Blood Gas Patient Temperature 98.6 Blood Gas HCO3 20 mmol/L Blood Gas Base Excess -3.6 mmol/L Blood Gas Oxygen Saturation 90 % Arterial Blood pH 7.45 Arterial Blood Partial Pressure CO2 29 mmHg Arterial Blood Partial Pressure O2 62 mmHg Arterial Blood Oxygen Content 11.9 Vol % Arterial Blood Carboxyhemoglobin 1.5 % Arterial Blood Methemoglobin 1.0 % Blood Gas Hemoglobin 9.4 G/DL Oxygen Delivery Device BiPAP Blood Gas Ventilator Setting 15/5 Blood Gas Inspired Oxygen 40 % White Blood Count 18.7 TH/MM3 Red Blood Count 3.09 MIL/MM3 Hemoglobin 9.3 GM/DL Hematocrit 27.5 % Mean Corpuscular Volume 88.9 FL Mean Corpuscular Hemoglobin 30.2 PG Mean Corpuscular Hemoglobin Concent 34.0 % Red Cell Distribution Width 18.1 % Platelet Count 152 TH/MM3 Mean Platelet Volume 7.7 FL Blood Urea Nitrogen 21 MG/DL Creatinine 0.69 MG/DL Random Glucose 198 MG/DL Calcium Level 7.5 MG/DL Sodium Level 136 MEQ/L Potassium Level 3.4 MEQ/L Chloride Level 104 MEQ/L Carbon Dioxide Level 21.1 MEQ/L Anion Gap 11 MEQ/L Estimat Glomerular Filtration Rate 113 ML/MIN Culture Results Microbiology Date/Time Source Procedure Growth Status 08/22/17 11:48 Blood Peripheral Aerobic Blood Culture - Preliminary NO GROWTH IN 2 DAYS Resulted 08/22/17 11:48 Blood Peripheral Anaerobic Blood Culture - Preliminary NO GROWTH IN 2 DAYS Resulted 08/22/17 11:40 Blood Peripheral Aerobic Blood Culture - Preliminary NO GROWTH IN 2 DAYS Resulted 08/22/17 11:40 Blood Peripheral Anaerobic Blood Culture - Preliminary NO GROWTH IN 2 DAYS Resulted 08/23/17 06:00 Urine Clean Catch Legionella Antigen - Final PRESUMPTIVE NEGATIVE FOR LEGIONELLA P... Complete 08/23/17 06:00 Urine Clean Catch Streptococcus pneumoniae Antigen (M - Final PRESUMPTIVE NEGATIVE FOR STREPTOCOCCU... Complete Imaging Studies Last 24 hours Impressions Chest X-Ray 08/24/17 0000 Signed Impressions: Service Date/Time: August 10:12 - CONCLUSION: Decreased lung aeration with developing bibasilar airspace disease. Josue Garcias MD Administered Medications Medications (Trade) Dose Ordered Sig/Reggie Route PRN Reason Start Time Stop Time Status Last Admin Dose Admin Vancomycin HCl 1250 mg/Sodium Chloride 262.5 ml @ 262.5 mls/ hr Q12H IV 08/22/17 17:00 08/24/17 04:19 Heparin Sodium/ Dextrose 250 ml @ 12 mls/hr TITRATE PRN IV Coagulation Management 08/22/17 13:15 08/23/17 22:43 Sodium Chloride (NS Flush) 2 ml BID IV FLUSH 08/22/17 21:00 08/23/17 21:42 Albuterol/ Ipratropium (Duoneb Neb) 1 ampule Q6HR NEB NEB 08/22/17 16:00 08/24/17 12:02 Albuterol/ Ipratropium (Duoneb Neb) 1 ampule Q2HR NEB PRN NEB SOB/WHEEZING 08/22/17 13:30 08/24/17 05:05 Methylprednisolone Sodium Succinate (SoluMEDROL INJ) 40 mg Q8H IV PUSH 08/22/17 20:00 08/24/17 04:19 Miscellaneous Information Patient in critical care unit? Ass... Q361D .XX 08/22/17 21:30 08/22/17 21:30 Chlorhexidine Gluconate (Chlorhexidine 2% Cloth) 3 pack DAILY@04 TOPICAL 08/23/17 04:00 08/27/17 04:01 08/23/17 21:42 Levofloxacin/ Dextrose 150 ml @ 100 mls/hr Q24H IV 08/23/17 11:00 08/24/17 10:40 Guaifenesin (Mucinex Er) 600 mg BID PO 08/23/17 10:30 08/23/17 21:42 Lorazepam (Ativan Inj) 1 mg Q4H PRN IV PUSH ANXIETY 08/23/17 10:30 08/24/17 05:19 Nicardipine HCl (Cardene) 20 mg Q8HR PO 08/23/17 22:00 08/24/17 04:19 Furosemide (Lasix Inj) 20 mg BID@09,18 IV PUSH 08/24/17 10:00 08/24/17 10:39 Objective Remarks GENERAL: Elderly male lying supine in bed on bipap. SKIN: Warm and dry. HEAD: Normocephalic. EYES: No injection or drainage. NECK: Supple, trachea midline. CARDIOVASCULAR: +S1/S2, tachy RESPIRATORY: scattered rhonchi. on bipap. GASTROINTESTINAL: Abdomen soft, non-tender, nondistended. EXTREMITIES: No cyanosis NEUROLOGICAL: awake and alert. Assessment/Plan Problem List: (1) Dyspnea ICD Codes: R06.00 - Dyspnea, unspecified Plan: --unclear etiology. out of proportion to lung mass and improving PE --CXR shows RLL infiltrate. --discharged from the hospital to [facility] on August 15. --During the hospital stay he was given antibiotics, steroids. --had a CT angiogram which showed the pulmonary embolism slightly better. discharged with Pradaxa. --Yesterday morning he started having cough mostly nonproductive. --Occasionally he will bring up a small amount of yellowish sputum. --has increased dyspnea on exertion again. (2) Pulmonary embolism, bilateral ICD Codes: I26.99 - Other pulmonary embolism without acute cor pulmonale Status: Chronic Plan: --on heparin gtt inpatient --will resume Pradaxa upon d/c home --CT angiogram ten days ago showed some improvement. (3) Non-small cell carcinoma of lung ICD Codes: C34.90 - Malignant neoplasm of unspecified part of unspecified bronchus or lung Status: Chronic Plan: --Metastatic non-small cell lung carcinoma. --recently was found to have a 1.6 cm mass in left lung. --PET scan also showed multiple left lung masses with subcarinal adenopathy. --had bilateral small pleural effusion. Biopsy of the lung mass showed well differentiated carcinoma consistent with lung primary, PDL1, 0% ALK and ROS1 negative. EGFR mutation also negative. --completed two cycle of carboplatin and Taxol, last cycle on July 25. --recent CT scan again showed stable left lower lobe mass and hilar mass. no clear progression of disease to explain his symptoms at this time. Assessment 72y/o with metastatic NSCLC, admitted with worsening shortness of breath. h/o Metastatic non-small cell lung carcinoma, recently treated with chemotherapy. Bilateral pulmonary embolism with right lower extremity deep venous thrombosis. Cardiomyopathy, ejection fraction 30%. Hypertension. Chronic obstructive pulmonary disease. History of right lung small cell carcinoma, treated with radiation and chemotherapy. Hyperlipidemia. Migraine headaches. Osteoarthritis. Plan 1. continue supportive care 2. await hospice consult. Attending Statement The exam, history, and the medical decision-making described in the above note were completed with the assistance of the mid-level provider. I reviewed and agree with the findings presented. I attest that I had a [id number] encounter with the patient on the same day, and personally performed and documented my assessment and findings in the medical record. Pt still has severe dyspnea. He is critically ill. Remains on Bipap. Etiology of respiratory failure unclear. Will need bronchoscopy/BAL to obtain culture but likely will be intubated if he has the procedure. Continue supportive care. Prognosis guarded. Problem Qualifiers (1) Dyspnea: Qualified Codes: R06.02 - Shortness of breath Minoo Barbosa Aug 24, 2017 13:37 Nelson Pardo MD Aug 24, 2017 17:28
--- NOTE | 2017-08-24 15:27 | HHI.IDPN ---
Subjective Subjective Remarks Patient is a 72-year-old male, with COPD, and left lung adenocarcinoma, has been receiving chemotherapy, presented to the hospital complaining of increasing cough, with some chest pain, as well as shortness of breath. He was found to have bilateral pulmonary embolism last July and he was hospitalized at that time. In the first week of August he got readmitted with shortness of breath, and reevaluation of the pulmonary embolism showed that it was stable. He was treated for COPD exacerbation, and was discharged to the long-term on August 15. Saw on some antibiotics during hospitalization, but I did not see any antibiotics when he was discharged to the long-term. He was on oxygen in the long-term. He was actually doing okay until about 1-2 days prior to admission when he started having more episodes of coughing. He would bring up some phlegm and it was mostly yellowish , and at times it would be pink in color. It was not a lot of sputum production. He also had some sternal discomfort when he coughs and he was more short of breath. There was no fever or chills. He denies any nausea or vomiting or any abdominal pain, diarrhea or any urinary complaints. On presentation he had some mild elevation of his white count. Chest x-ray showed some improvement in the infiltrate in the right base. He has not been febrile. He is currently hypoxic, and he is requiring a BiPAP mask. Infectious disease consultation has been requested to evaluate the patient. Notes reviewed Temps ok Still SOB On BIPAP Antibiotics Current Medications Levaquin Vancomycin Medications (Trade) Dose Ordered Sig/Reggie Route Start Time Stop Time Status Last Admin Vancomycin HCl 1250 mg/Sodium Chloride 262.5 ml @ 262.5 mls/ hr Q12H IV 08/22/17 17:00 08/24/17 04:19 Pharmacy Profile Note 0 ml @ 0 mls/hr UNSCH OTHER 08/22/17 13:15 Heparin Sodium/ Dextrose 250 ml @ 12 mls/hr TITRATE PRN IV 08/22/17 13:15 08/23/17 22:43 (NS Flush) 2 ml UNSCH PRN IV FLUSH 08/22/17 13:15 (NS Flush) 2 ml BID IV FLUSH 08/22/17 21:00 08/23/17 21:42 (Narcan Inj) 0.4 mg UNSCH PRN IV PUSH 08/22/17 13:15 (Milk Of Magnesia Liq) 30 ml Q12H PRN PO 08/22/17 13:15 (Senokot) 17.2 mg Q12H PRN PO 08/22/17 13:15 (Dulcolax Supp) 10 mg DAILY PRN RECTAL 08/22/17 13:15 (Lactulose Liq) 30 ml DAILY PRN PO 08/22/17 13:15 (Duoneb Neb) 1 ampule Q6HR NEB NEB 08/22/17 16:00 08/24/17 12:02 (Duoneb Neb) 1 ampule Q2HR NEB PRN NEB 08/22/17 13:30 08/24/17 05:05 (SoluMEDROL INJ) 40 mg Q8H IV PUSH 08/22/17 20:00 08/24/17 04:19 Miscellaneous Information Patient in critical care unit? Ass... Q361D .XX 08/22/17 21:30 08/22/17 21:30 (Chlorhexidine 2% Cloth) 3 pack DAILY@04 TOPICAL 08/23/17 04:00 08/27/17 04:01 08/23/17 21:42 (Chlorhexidine 2% Cloth) 3 pack UNSCH PRN TOPICAL 08/22/17 21:30 08/27/17 21:16 Levofloxacin/ Dextrose 150 ml @ 100 mls/hr Q24H IV 08/23/17 11:00 08/24/17 10:40 (Mucinex Er) 600 mg BID PO 08/23/17 10:30 08/23/17 21:42 (Ativan Inj) 1 mg Q4H PRN IV PUSH 08/23/17 10:30 08/24/17 05:19 (Cardene) 20 mg Q8HR PO 08/23/17 22:00 08/24/17 04:19 (Xanax) 0.5 mg Q6HR PRN PO 08/24/17 09:45 (Lasix Inj) 20 mg BID@,18 IV PUSH 08/24/17 10:00 08/24/17 10:39 Miscellaneous Information SPECIFIC LAB TO BE DRAWN:VANCOMYCIN TROUGH DATE TO... ONCE ONCE .XX 08/25/17 04:45 08/25/17 04:46 Past Medical History Metastatic nonsmall cell lung carcinoma, recently treated with chemotherapy. Bilateral pulmonary embolism with right lower extremity deep venous thrombosis. Cardiomyopathy, ejection fraction 30%. Hypertension. Chronic obstructive pulmonary disease. History of right lung small cell carcinoma 1991, treated with radiation and chemotherapy. Hyperlipidemia. Migraine headaches. Osteoarthritis. Past Surgical History Appendectomy Bone marrow biopsy Cholecystectomy Pericardiocentesis Vasectomy Colonoscopy Port placement Lung biopsy Chest tube placement for pneumothorax after lung biopsy Allergies: Coded Allergies: penicillin G (Unverified Allergy, Severe, HIVES, 08/22/17) Objective . Vital Signs Date Time Temp Pulse Resp B/P (MAP) Pulse Ox O2 Delivery O2 Flow Rate FiO2 08/24/17 12:00 118 08/24/17 12:00 98.0 89 28 135/65 (88) 100 08/24/17 10:00 118 08/24/17 08:19 95 40 08/24/17 08:00 97.9 108 16 128/72 (90) 95 08/24/17 08:00 118 08/24/17 07:00 Bi-Pap 35 08/24/17 06:00 115 08/24/17 04:25 96 40 08/24/17 04:00 115 08/24/17 04:00 97.3 115 42 155/70 (98) 96 08/24/17 02:00 119 08/24/17 01:20 95 40 08/24/17 00:00 97.0 110 36 107/68 (81) 97 08/24/17 00:00 110 08/23/17 22:18 98 BiPAP 40 08/23/17 22:14 98 40 08/23/17 22:00 109 08/23/17 20:00 97.2 107 24 106/64 (78) 98 08/23/17 20:00 107 08/23/17 19:00 96 Bi-Pap 40 08/23/17 18:00 109 08/23/17 17:00 121 08/23/17 16:00 97.9 120 44 134/66 (88) 97 08/23/17 16:00 120 . Laboratory Tests Test 08/22/17 19:40 08/23/17 03:10 08/24/17 05:19 White Blood Count 9.8 TH/MM3 7.2 TH/MM3 18.7 TH/MM3 Red Blood Count 3.05 MIL/MM3 2.73 MIL/MM3 3.09 MIL/MM3 Hemoglobin 9.3 GM/DL 8.5 GM/DL 9.3 GM/DL Hematocrit 27.3 % 24.3 % 27.5 % Mean Corpuscular Volume 89.4 FL 89.0 FL 88.9 FL Mean Corpuscular Hemoglobin 30.6 PG 31.2 PG 30.2 PG Mean Corpuscular Hemoglobin Concent 34.2 % 35.0 % 34.0 % Red Cell Distribution Width 17.7 % 18.0 % 18.1 % Platelet Count 88 TH/MM3 82 TH/MM3 152 TH/MM3 Mean Platelet Volume 7.8 FL 7.8 FL 7.7 FL Neutrophils (%) (Auto) 90.5 % Lymphocytes (%) (Auto) 8.2 % Monocytes (%) (Auto) 1.2 % Eosinophils (%) (Auto) 0.0 % Basophils (%) (Auto) 0.1 % Neutrophils # (Auto) 6.5 TH/MM3 Lymphocytes # (Auto) 0.6 TH/MM3 Monocytes # (Auto) 0.1 TH/MM3 Eosinophils # (Auto) 0.0 TH/MM3 Basophils # (Auto) 0.0 TH/MM3 CBC Comment AUTO DIFF Differential Total Cells Counted 100 Neutrophils % (Manual) 90 % Band Neutrophils % 3 % Lymphocytes % 3 % Monocytes % 1 % Neutrophils # (Manual) 6.9 TH/MM3 Metamyelocytes 2 % Myelocytes 1 % Differential Comment FINAL DIFF MANUAL Platelet Estimate LOW Platelet Morphology Comment NORMAL Ovalocytes 1+ Acanthocytes OCC Laboratory Tests Test 08/22/17 15:40 08/22/17 19:40 08/22/17 23:01 08/23/17 03:10 Lactic Acid Level 1.3 mmol/L Troponin I 0.07 NG/ML 0.05 NG/ML Blood Urea Nitrogen 20 MG/DL Creatinine 0.67 MG/DL Random Glucose 249 MG/DL Total Protein 4.8 GM/DL Calcium Level 7.1 MG/DL Sodium Level 134 MEQ/L Potassium Level 4.0 MEQ/L Chloride Level 104 MEQ/L Carbon Dioxide Level 20.4 MEQ/L Anion Gap 10 MEQ/L Estimat Glomerular Filtration Rate 117 ML/MIN Protein Corrected Calcium 8.4 MG/DL Test 08/24/17 05:19 Blood Urea Nitrogen 21 MG/DL Creatinine 0.69 MG/DL Random Glucose 198 MG/DL Calcium Level 7.5 MG/DL Sodium Level 136 MEQ/L Potassium Level 3.4 MEQ/L Chloride Level 104 MEQ/L Carbon Dioxide Level 21.1 MEQ/L Anion Gap 11 MEQ/L Estimat Glomerular Filtration Rate 113 ML/MIN Microbiology Date/Time Source Procedure Growth Status 08/22/17 11:48 Blood Peripheral Aerobic Blood Culture - Preliminary NO GROWTH IN 2 DAYS Resulted 08/22/17 11:48 Blood Peripheral Anaerobic Blood Culture - Preliminary NO GROWTH IN 2 DAYS Resulted 08/22/17 11:40 Blood Peripheral Aerobic Blood Culture - Preliminary NO GROWTH IN 2 DAYS Resulted 08/22/17 11:40 Blood Peripheral Anaerobic Blood Culture - Preliminary NO GROWTH IN 2 DAYS Resulted 08/23/17 06:00 Urine Clean Catch Legionella Antigen - Final PRESUMPTIVE NEGATIVE FOR LEGIONELLA P... Complete 08/23/17 06:00 Urine Clean Catch Streptococcus pneumoniae Antigen (M - Final PRESUMPTIVE NEGATIVE FOR STREPTOCOCCU... Complete Imaging Last 72 hours Impressions Chest X-Ray 08/24/17 0000 Signed Impressions: Service Date/Time: August 10:12 - CONCLUSION: Decreased lung aeration with developing bibasilar airspace disease. Josue Garcias MD Chest X-Ray 08/22/17 1124 Signed Impressions: Service Date/Time: Tuesday, August 22, 2017 11:47 - CONCLUSION: Some increased aeration of the right basilar consolidation compared 07/31/17 with moderate infiltrate remaining. Johnny Enriquez MD Physical Exam GENERAL: awake and alert, on BIPAP mask, some mild SOB when he speaks SKIN: Cool and dry. No generalized rash, no ecchymoses and no evidence of embolic lesions. HEAD: Atraumatic. Normocephalic. No temporal wasting, or tenderness. EYES: [place] conjunctiva. No petechia or hemorrhage. Pupils equal, round and reactive to light. Extraocular movements full and intact. No scleral icterus. No injection or drainage. EARS, NOSE AND THROAT: Nose without bleeding or purulent nasal discharge. No sinus tenderness. Mucous membranes pink and moist. NECK: Trachea midline. Supple and not tender, no meningeal signs CARDIOVASCULAR: Regular rate and rhythm. No murmurs, rubs or gallops heard RESPIRATORY: Bilateral coarse rhonchi, worse on R side than on the L. Port in R upper chest with no evidence of infection. ABDOMEN: Soft, non-tender, nondistended. Bowel sounds present and normoactive. No guarding. No rebound. No organomegaly. EXTREMITIES: No clubbing, cyanosis. No joint effusion, has good ROM. No calf tenderness. Well perfused and warm. Has bilateral pitting pedal edema NEUROLOGICAL: Awake and alert. Cranial nerves grossly intact. Motor grossly within normal limits. PSYCHIATRIC: Normal affect, calm and cooperative. LINE: No evidence of infection Assessment & Plan Remarks IMPRESSION Worsening cough and SOB, temps ok, mild elevation WBC - ?PNA (CXR is better) vs COPD exacerbation Known bilateral PE New L lung CA adenoCA with mets Hx R lung small cell CA 1991, Rx XRT and chemo COPD RECOMMENDATION Continue Levaquin Continue Vanco for now On steroids for COPD exacerbation Follow C/S Monitor progress Luana Rios MD Aug 24, 2017 15:26
[2017-08-24 20:57] LABS: APTT (PATIENT) 44.1 SEC (24.3-30.1)
[2017-08-25] VITALS (10 sets, daily range): BP systolic 97–141; BP diastolic 54–81; PULSE 109–121; RESP 28–70; TEMP 97.5–98.2; O2SAT 91–99
[2017-08-25] MEDS: LORazepam 2 MG/ML VIAL IV PUSH PRN ×3 (01:30→14:08)
[2017-08-25] MEDS: RESP: ALBUTEROL 2.5 MG/IPRATROPIUM 0.5 MG NEB (SCH) NEB ×2 (02:40→09:46)
[2017-08-25 04:15] LABS: APTT (PATIENT) 57.8 SEC (24.3-30.1)
[2017-08-25] MEDS: VANCOMYCIN INJ 1,250 MG in SODIUM CHLOR 0.9% 250 ML INJ 250 ML IV SCH (04:39)
[2017-08-25] MEDS: methylPREDNISolone SOD SUCC 40 MG/1 ML VIAL IV PUSH SCH ×2 (04:39→11:13)
[2017-08-25] MEDS: ALPRAZolam 0.5 MG TAB PO PRN (04:39)
[2017-08-25] MEDS ORDERED: PHARMACY ORDERED LAB ONE (04:45)
[2017-08-25 07:03] LABS: HEMATOCRIT 23.2 % (39.0-51.0); MEAN CELL VOLUME 88.4 FL (80.0-100.0); MEAN CORPUSCULAR HEMOGLOBIN 31.1 PG (27.0-34.0); MEAN CORPUSCULAR HGB CONC 35.2 % (32.0-36.0); PLATELET COUNT 111 TH/MM3 (150-450); RED BLOOD COUNT 2.63 MIL/MM3 (4.50-5.90); RED CELL DISTRIBUTION WIDTH 18.2 % (11.6-17.2); REVIEW FLAG FINAL; WHITE BLOOD COUNT 6.9 TH/MM3 (4.0-11.0)
[2017-08-25 07:40] LABS: BICARBONATE 25.4 MEQ/L (21.0-32.0); POTASSIUM 3.1 MEQ/L (3.5-5.1)
[2017-08-25 08:05] LABS: CALCIUM-PROTEIN CORRECTED 8.5 MG/DL (8.5-10.1)
--- NOTE | 2017-08-25 08:44 | HHI.PR ---
Subjective Remarks Patient remains critically ill. Bipap dependent. Hospice meeting schedule for this morning. He is very anxious and tells me he does not want to do bronchoscopy because he does not want to be "stuck on machines" Objective Vitals Vital Signs Date Time Temp Pulse Resp B/P (MAP) Pulse Ox O2 Delivery O2 Flow Rate FiO2 08/25/17 08:00 109 08/25/17 08:00 97.9 109 70 106/69 (81) 97 08/25/17 07:00 Bi-Pap 4.00 40 08/25/17 06:00 115 08/25/17 04:33 93 40 08/25/17 04:00 98.2 109 28 97/54 (68) 97 08/25/17 04:00 109 08/25/17 02:00 114 08/25/17 00:25 92 40 08/25/17 00:00 97.5 116 37 98/56 (70) 91 08/25/17 00:00 116 08/24/17 22:00 117 08/24/17 21:01 92 40 08/24/17 20:00 97.8 114 33 111/69 (83) 92 08/24/17 20:00 114 08/24/17 19:00 91 Bi-Pap 40 08/24/17 18:00 119 08/24/17 17:24 98 40 08/24/17 16:00 119 08/24/17 16:00 98.0 113 27 111/65 (80) 98 08/24/17 14:00 119 08/24/17 12:00 118 08/24/17 12:00 98.0 89 28 135/65 (88) 100 08/24/17 10:00 118 I/O 08/24/17 08/24/17 08/24/17 08/25/17 08/25/17 08/25/17 07:00 15:00 23:00 07:00 15:00 23:00 Intake Total 262.5 ml 490 ml 50 ml Output Total 750 ml 500 ml 1050 ml Balance -487.5 ml -10 ml -1000 ml Intake Oral 240 ml 50 ml IV Total 262.5 ml 250 ml Output Urine Total 750 ml 500 ml 1050 ml # Bowel Movements 0 0 Result Diagram: 08/25/17 0550 08/25/17 0550 Objective Remarks GENERAL: Patient is frail, within minutes of taking off bipap he became severely tachypneic and desats. CARDIOVASCULAR: Tachycardic, regular rhythm without murmurs, gallops, or rubs. RESPIRATORY: Poor air movement throughout. Diffuse rhonchi. Using accessory muscles. GASTROINTESTINAL: Abdomen soft, non-tender, non-distended. MUSCULOSKELETAL: Extremities without cyanosis, or edema. NEURO: Alert & Oriented x4 to person, place, time, situation. PSYCH: Very anxious. A/P Assessment and Plan 72-year-old male with history of non-small cell lung cancer, COPD, pulmonary embolism, admitted with acute respiratory failure. Patient is critically ill in respiratory failure. Hospice is following and will meet again this morning. Patient does not want to do bronchoscopy because he does not want to be on "machines" Hypoxemic respiratory failure: Likely a combination of COPD, cardiomyopathy, pulmonary embolism burden, lung cancer. - Pulmonology following. Bipap dependent. Does not want intubation. Does not want bronchoscopy. - Continue Solu-Medrol, breathing treatments, supplemental oxygen/BiPAP. He elected to have DNR status. - Infectious disease following. ?Pneumonia versus COPD. Continue Levaquin and vancomycin for now. Follow progress. - Cont Mucinex - Repeat CXR worse Severe anxiety: Worse with worsening respiratory status - Increase frequency of Xanax H/O Metastatic non-small cell lung carcinoma, recently treated with chemotherapy. - Oncology following. No evidence of progression of disease currently. Bilateral pulmonary embolism with right lower extremity deep venous thrombosis. - On heparin drip per oncology. Cardiomyopathy, ejection fraction 30%. Hypertension. - Blood pressure too low. DC Lasix IV, continue to hold metoprolol and lisinopril Chronic obstructive pulmonary disease. -Continue breathing treatments, steroids and supplemental oxygen. BiPAP as needed. Thrombocytopenia. Platelets 88. Chronic. slightly worsened from baseline. no signs of bleeding. Monitor. Discharge Planning Patient remains critically ill. Palliative care following. Patient elected for DNR status. He would prefer to go home with Hospice but I don't think he is stable enough to make the trip home. Hospice to revisit today. Will likely need care center. Elise Masterson MD Aug 25, 2017 08:44
[2017-08-25] MEDS: SODIUM CHLORIDE 0.9% FLUSH 10 ML FLUSH IV FLUSH SCH (09:00)
[2017-08-25] MEDS: guaiFENesin E.R. 600 MG TAB PO SCH (09:00)
[2017-08-25] MEDS ORDERED: ALPRAZolam 0.5 MG TAB PO PRN (09:00)
[2017-08-25] MEDS: LEVOFLOXACIN 750 MG PREMIX INJ 150 ML IV SCH (11:14)
--- NOTE | 2017-08-25 13:00 | HHI.DS ---
Discharge Summary Admission Date Aug 22, 2017 at 13:20 Discharge Date: Aug 25, 2017 Admitting Diagnosis healthcare acquired pneumonia, dyspnea, elevated troponin (1) Acute hypoxemic respiratory failure ICD Code: J96.01 - Acute respiratory failure with hypoxia (2) Pulmonary embolism, bilateral ICD Code: I26.99 - Other pulmonary embolism without acute cor pulmonale Status: Chronic (3) Non-small cell carcinoma of lung ICD Code: C34.90 - Malignant neoplasm of unspecified part of unspecified bronchus or lung Status: Chronic (4) Debility ICD Code: R53.81 - Other malaise (5) Dilated cardiomyopathy ICD Code: I42.0 - Dilated cardiomyopathy Status: Chronic Procedures None Brief History - From Admission 72-year-old male with a history of COPD, lung cancer with most recent chemotherapy reportedly 4 weeks ago followed by Dr. Pardo, as well as recent diagnosis of pulmonary embolism, presents with a one-day history of worsening nonproductive cough as well as worsening shortness of breath with exertion. He denies any chest pain. Denies any fevers or chills. Denies any nausea or vomiting.. History is difficult as patient is currently on BiPAP. Further history obtained through chart review. ABG on BiPAP with 40% FiO2 shows a PO2 of 61, pH 7.5. Chest x-ray shows improvement in right basilar consolidation with moderate infiltrate remaining. CBC/BMP: 08/25/17 0550 08/25/17 0550 Significant Findings Laboratory Tests Test 08/22/17 15:40 08/22/17 16:30 08/22/17 19:40 08/22/17 23:01 Red Blood Count 3.05 MIL/MM3 (4.50-5.90) Hemoglobin 9.3 GM/DL (13.0-17.0) Hematocrit 27.3 % (39.0-51.0) Red Cell Distribution Width 17.7 % (11.6-17.2) Platelet Count 88 TH/MM3 (150-450) Troponin I 0.07 NG/ML (0.02-0.05) Activated Partial Thromboplast Time 124.1 SEC (24.3-30.1) Test 08/23/17 03:10 08/23/17 06:00 08/23/17 12:59 08/23/17 20:11 Red Blood Count 2.73 MIL/MM3 (4.50-5.90) Hemoglobin 8.5 GM/DL (13.0-17.0) Hematocrit 24.3 % (39.0-51.0) Red Cell Distribution Width 18.0 % (11.6-17.2) Platelet Count 82 TH/MM3 (150-450) Neutrophils (%) (Auto) 90.5 % (16.0-70.0) Lymphocytes (%) (Auto) 8.2 % (9.0-44.0) Lymphocytes # (Auto) 0.6 TH/MM3 (1.0-4.8) Neutrophils % (Manual) 90 % (16-70) Lymphocytes % 3 % (9-44) Metamyelocytes 2 % (0-1) Myelocytes 1 % (0-0) Platelet Estimate LOW (NORMAL) Ovalocytes 1+ (NORMAL) Activated Partial Thromboplast Time 90.2 SEC (24.3-30.1) 50.6 SEC (24.3-30.1) 41.5 SEC (24.3-30.1) Blood Urea Nitrogen 20 MG/DL (7-18) Random Glucose 249 MG/DL (74-106) Total Protein 4.8 GM/DL (6.4-8.2) Calcium Level 7.1 MG/DL (8.5-10.1) Sodium Level 134 MEQ/L (136-145) Carbon Dioxide Level 20.4 MEQ/L (21.0-32.0) Protein Corrected Calcium 8.4 MG/DL (8.5-10.1) Urine Glucose (UA) 1000 mg/dL (NEG) Urine Mucus FEW /lpf (OCC) Test 08/24/17 05:18 08/24/17 05:19 08/24/17 20:30 08/25/17 03:40 Blood Gas HCO3 20 mmol/L (22-26) Blood Gas Base Excess -3.6 mmol/L (-2-2) Arterial Blood pH 7.45 (7.380-7.420) Arterial Blood Partial Pressure CO2 29 mmHg (38-42) Arterial Blood Oxygen Content 11.9 Vol % (12.0-20.0) Blood Gas Hemoglobin 9.4 G/DL (12.0-16.0) White Blood Count 18.7 TH/MM3 (4.0-11.0) Red Blood Count 3.09 MIL/MM3 (4.50-5.90) Hemoglobin 9.3 GM/DL (13.0-17.0) Hematocrit 27.5 % (39.0-51.0) Red Cell Distribution Width 18.1 % (11.6-17.2) Activated Partial Thromboplast Time 39.0 SEC (24.3-30.1) 44.1 SEC (24.3-30.1) 57.8 SEC (24.3-30.1) Blood Urea Nitrogen 21 MG/DL (7-18) Random Glucose 198 MG/DL (74-106) Calcium Level 7.5 MG/DL (8.5-10.1) Potassium Level 3.4 MEQ/L (3.5-5.1) Test 08/25/17 05:50 Red Blood Count 2.63 MIL/MM3 (4.50-5.90) Hemoglobin 8.2 GM/DL (13.0-17.0) Hematocrit 23.2 % (39.0-51.0) Red Cell Distribution Width 18.2 % (11.6-17.2) Platelet Count 111 TH/MM3 (150-450) Blood Urea Nitrogen 25 MG/DL (7-18) Creatinine 0.52 MG/DL (0.60-1.30) Random Glucose 203 MG/DL (74-106) Total Protein 5.0 GM/DL (6.4-8.2) Calcium Level 7.3 MG/DL (8.5-10.1) Potassium Level 3.1 MEQ/L (3.5-5.1) Imaging Last Impressions Chest X-Ray 08/24/17 0000 Signed Impressions: Service Date/Time: August 10:12 - CONCLUSION: Decreased lung aeration with developing bibasilar airspace disease. Josue Garcias MD PE at Discharge GENERAL: Patient is frail, within minutes of taking off bipap he became severely tachypneic and desats. CARDIOVASCULAR: Tachycardic, regular rhythm without murmurs, gallops, or rubs. RESPIRATORY: Poor air movement throughout. Diffuse rhonchi. Using accessory muscles. GASTROINTESTINAL: Abdomen soft, non-tender, non-distended. MUSCULOSKELETAL: Extremities without cyanosis, or edema. NEURO: Alert & Oriented x4 to person, place, time, situation. PSYCH: Very anxious. Hospital Course 72-year-old male with history of non-small cell lung cancer, COPD, pulmonary embolism, admitted with acute respiratory failure. Patient is critically ill in respiratory failure. He was followed by pulmonology. His respiratory status continued to decline. He did not want to be intubated or undergo bronchoscopy procedure for fear of being stuck on machines. The patient ultimately choose to transition to comfort care only with hospice. He was discharged to the hospice care center for symptom management. Evaluation and treatment course detailed below: Hypoxemic respiratory failure: Likely a combination of COPD, cardiomyopathy, pulmonary embolism burden, lung cancer. - Pulmonology followed the patient. He essentially became Bipap dependent. Does not want intubation. Does not want bronchoscopy. -He was treated with Solu-Medrol, breathing treatments, supplemental oxygen/ BiPAP. He elected to have DNR status. - Infectious disease followed the patient. ?Pneumonia versus COPD. antibiotics continued - Repeat CXR worse Severe anxiety: Worse with worsening respiratory status -Treated with Xanax H/O Metastatic non-small cell lung carcinoma, recently treated with chemotherapy. - Oncology followed the patient. No evidence of progression of disease currently. Bilateral pulmonary embolism with right lower extremity deep venous thrombosis. -Patient was put on a heparin drip per oncology. Cardiomyopathy, ejection fraction 30%. Hypertension. - Blood pressure was too low to tolerate Lasix IV, metoprolol and lisinopril were held. Chronic obstructive pulmonary disease. -Maximal therapy with steroids, breathing treatments, and supplemental oxygen/ BiPAP. Thrombocytopenia. Platelets 88. Chronic. slightly worsened from baseline. no signs of bleeding. Pt Condition on Discharge: Deteriorating Discharge Disposition: Hospice/Med Facility Discharge Time: > 30 minutes Discharge Instructions DIET: Follow Instructions for: As Tolerated, No Restrictions Activities you can perform: Regular-No Restrictions Elise Masterson MD Aug 25, 2017 13:00
--- NOTE | 2017-08-25 13:54 | PD.ONC.PN ---
Subjective Subjective Remarks Afebrile overnight. Remains on bipap. Going to hospice this afternoon. Objective Data Date Time Temp Pulse Resp B/P (MAP) Pulse Ox O2 Delivery O2 Flow Rate FiO2 08/25/17 12:00 109 08/25/17 12:00 98.0 121 39 141/81 (101) 92 08/25/17 10:00 109 08/25/17 09:43 99 40 08/25/17 08:00 109 08/25/17 08:00 97.9 109 70 106/69 (81) 97 08/25/17 07:00 Bi-Pap 4.00 40 08/25/17 06:00 115 08/25/17 04:33 93 40 08/25/17 04:00 98.2 109 28 97/54 (68) 97 08/25/17 04:00 109 08/25/17 02:00 114 08/25/17 00:25 92 40 08/25/17 00:00 97.5 116 37 98/56 (70) 91 08/25/17 00:00 116 08/24/17 22:00 117 08/24/17 21:01 92 40 08/24/17 20:00 97.8 114 33 111/69 (83) 92 08/24/17 20:00 114 08/24/17 19:00 91 Bi-Pap 40 08/24/17 18:00 119 08/24/17 17:24 98 40 08/24/17 16:00 119 08/24/17 16:00 98.0 113 27 111/65 (80) 98 08/24/17 14:00 119 08/25/17 08/25/17 08/25/17 07:00 15:00 23:00 Intake Total 50 ml Output Total 1050 ml Balance -1000 ml Result Diagram: 08/25/17 0550 08/25/17 0550 Laboratory Results Laboratory Tests Test 08/24/17 20:30 08/25/17 03:40 08/25/17 05:50 Activated Partial Thromboplast Time 44.1 SEC 57.8 SEC White Blood Count 6.9 TH/MM3 Red Blood Count 2.63 MIL/MM3 Hemoglobin 8.2 GM/DL Hematocrit 23.2 % Mean Corpuscular Volume 88.4 FL Mean Corpuscular Hemoglobin 31.1 PG Mean Corpuscular Hemoglobin Concent 35.2 % Red Cell Distribution Width 18.2 % Platelet Count 111 TH/MM3 Mean Platelet Volume 7.1 FL Blood Urea Nitrogen 25 MG/DL Creatinine 0.52 MG/DL Random Glucose 203 MG/DL Total Protein 5.0 GM/DL Calcium Level 7.3 MG/DL Sodium Level 138 MEQ/L Potassium Level 3.1 MEQ/L Chloride Level 103 MEQ/L Carbon Dioxide Level 25.4 MEQ/L Anion Gap 10 MEQ/L Estimat Glomerular Filtration Rate 156 ML/MIN Protein Corrected Calcium 8.5 MG/DL Culture Results Microbiology Date/Time Source Procedure Growth Status 08/23/17 06:00 Urine Clean Catch Legionella Antigen - Final PRESUMPTIVE NEGATIVE FOR LEGIONELLA P... Complete 08/23/17 06:00 Urine Clean Catch Streptococcus pneumoniae Antigen (M - Final PRESUMPTIVE NEGATIVE FOR STREPTOCOCCU... Complete Administered Medications Medications (Trade) Dose Ordered Sig/Reggie Route PRN Reason Start Time Stop Time Status Last Admin Dose Admin Vancomycin HCl 1250 mg/Sodium Chloride 262.5 ml @ 262.5 mls/ hr Q12H IV 08/22/17 17:00 08/25/17 04:39 Heparin Sodium/ Dextrose 250 ml @ 12 mls/hr TITRATE PRN IV Coagulation Management 08/22/17 13:15 08/23/17 22:43 Sodium Chloride (NS Flush) 2 ml BID IV FLUSH 08/22/17 21:00 08/24/17 20:44 Albuterol/ Ipratropium (Duoneb Neb) 1 ampule Q6HR NEB NEB 08/22/17 16:00 08/25/17 09:46 Albuterol/ Ipratropium (Duoneb Neb) 1 ampule Q2HR NEB PRN NEB SOB/WHEEZING 08/22/17 13:30 08/24/17 05:05 Methylprednisolone Sodium Succinate (SoluMEDROL INJ) 40 mg Q8H IV PUSH 08/22/17 20:00 08/25/17 11:13 Miscellaneous Information Patient in critical care unit? Ass... [id number] .XX 08/22/17 21:30 08/22/17 21:30 Chlorhexidine Gluconate (Chlorhexidine 2% Cloth) 3 pack DAILY@04 TOPICAL 08/23/17 04:00 08/27/17 04:01 08/23/17 21:42 Levofloxacin/ Dextrose 150 ml @ 100 mls/hr Q24H IV 08/23/17 11:00 08/25/17 11:14 Guaifenesin (Mucinex Er) 600 mg BID PO 08/23/17 10:30 08/24/17 20:44 Lorazepam (Ativan Inj) 1 mg Q4H PRN IV PUSH ANXIETY 08/23/17 10:30 08/25/17 10:29 Nicardipine HCl (Cardene) 20 mg Q8HR PO 08/23/17 22:00 08/24/17 20:44 Objective Remarks GENERAL: Elderly male lying supine in bed on bipap. SKIN: Warm and dry. HEAD: Normocephalic. NECK: Supple, trachea midline. GASTROINTESTINAL: Abdomen soft, nondistended. EXTREMITIES: No cyanosis Assessment/Plan Problem List: (1) Dyspnea ICD Codes: R06.00 - Dyspnea, unspecified Plan: --unclear etiology. out of proportion to lung mass and improving PE --CXR shows RLL infiltrate. --discharged from the hospital to [facility] on August 15. --During the hospital stay he was given antibiotics, steroids. --had a CT angiogram which showed the pulmonary embolism slightly better. discharged with Pradaxa. --Yesterday morning he started having cough mostly nonproductive. --Occasionally he will bring up a small amount of yellowish sputum. --has increased dyspnea on exertion again. (2) Pulmonary embolism, bilateral ICD Codes: I26.99 - Other pulmonary embolism without acute cor pulmonale Status: Chronic Plan: --on heparin gtt --CT angiogram ten days ago showed some improvement. (3) Non-small cell carcinoma of lung ICD Codes: C34.90 - Malignant neoplasm of unspecified part of unspecified bronchus or lung Status: Chronic Plan: --Metastatic non-small cell lung carcinoma. --recently was found to have a 1.6 cm mass in left lung. --PET scan also showed multiple left lung masses with subcarinal adenopathy. --had bilateral small pleural effusion. Biopsy of the lung mass showed well differentiated carcinoma consistent with lung primary, PDL1, 0% ALK and ROS1 negative. EGFR mutation also negative. --completed two cycle of carboplatin and Taxol, last cycle on July 25. --recent CT scan again showed stable left lower lobe mass and hilar mass. no clear progression of disease to explain his symptoms at this time. Assessment 72y/o with metastatic NSCLC, admitted with worsening shortness of breath. h/o Metastatic non-small cell lung carcinoma, recently treated with chemotherapy. Bilateral pulmonary embolism with right lower extremity deep venous thrombosis. Cardiomyopathy, ejection fraction 30%. Hypertension. Chronic obstructive pulmonary disease. History of right lung small cell carcinoma, treated with radiation and chemotherapy. Hyperlipidemia. Migraine headaches. Osteoarthritis. Plan 1. patient has enrolled in hospice and is being discharged to hospice care center this afternoon. Attending Statement The exam, history, and the medical decision-making described in the above note were completed with the assistance of the mid-level provider. I reviewed and agree with the findings presented. I attest that I had a [id number] encounter with the patient on the same day, and personally performed and documented my assessment and findings in the medical record. Pt has worsening dyspnea. Culture negative to date. Poor prognosis. He has decided to go on hospice. Problem Qualifiers (1) Dyspnea: Qualified Codes: R06.02 - Shortness of breath Minoo Barbosa Aug 25, 2017 13:54 Nelson Pardo MD Aug 25, 2017 14:42
--- NOTE | 2017-08-25 15:52 | HHI.HCPN ---
Reason for visit a. To assist with evaluation and management of symptoms including: Dyspnea, pain, debility, decreased appetite b. To assist medical decision maker(s) with: better understanding of current medical conditions; weighing benefits/burdens of medical treatment options; making medical treatment decisions. . Subjective/Interval History Mr. Cordoba is a 72 year old patient with a history of COPD, cardiomyopathy with EF of 30%, hypertension, osteoarthritis, history of recent bilateral pulmonary emboli on Pradaxa. And lung cancer. Patient presented to [facility] ED on 08/22/2017 via EMS from [facility] for evaluation of worsening nonproductive cough as well as increasing shortness of breath. Upon EMS arrival , the patient was placed on BiPAP secondary to his tachycardia and poor oxygen saturations. On exam, the patient's heart rate was elevated and he was hypotensive. A chest x-ray revealed right basilar infiltrate. Afebrile. Cultures negative to date. Patient receiving IV antibiotics and steroids. Patient remains critically ill, tachycardic and tachypneic with respirations rate 27-70. He remains on BiPAP 10/5 40% FiO2, oxygen saturations in the 90s. He is lethargic, anxious and does not want to be placed on machine. He elected for DNR/DNI status and hospice was consulted. Patient wanted to go home with hospice services but he is quite unstable and would likely benefit from hospice care center placement. Hospice is to meet with patient later today. . Advance Directives Advance Directive Specifics Date completed: 08/23/2017 . Health Care Surrogate(s): Patient has designated his friend, Phillip Faustin, as his healthcare surrogate decision maker. Tianna Frances is the alternate healthcare surrogate decision maker. . Documented care wishes: Healthcare surrogate designation form and community DNR were completed 2016 . Objective Vital Signs Date Time Temp Pulse Resp B/P (MAP) Pulse Ox O2 Delivery O2 Flow Rate FiO2 08/25/17 12:00 109 08/25/17 12:00 98.0 121 39 141/81 (101) 92 08/25/17 10:00 109 08/25/17 09:43 99 40 08/25/17 08:00 109 08/25/17 08:00 97.9 109 70 106/69 (81) 97 08/25/17 07:00 Bi-Pap 4.00 40 12/15/17 06:00 115 08/25/17 04:33 93 40 08/25/17 04:00 98.2 109 28 97/54 (68) 97 08/25/17 04:00 109 08/25/17 02:00 114 08/25/17 00:25 92 40 08/25/17 00:00 97.5 116 37 98/56 (70) 91 08/25/17 00:00 116 08/24/17 22:00 117 08/24/17 21:01 92 40 08/24/17 20:00 97.8 114 33 111/69 (83) 92 08/24/17 20:00 114 08/24/17 19:00 91 Bi-Pap 40 08/24/17 18:00 119 08/24/17 17:24 98 40 08/24/17 16:00 119 08/24/17 16:00 98.0 113 27 111/65 (80) 98 Intake & Output 08/25/17 08/25/17 06:59 18:59 Intake Total 300 ml Output Total 1050 ml Balance -750 ml Intake Oral 50 ml IV Total 250 ml Output Urine Total 1050 ml # Bowel Movements 0 . Physical Exam CONSTITUTIONAL/GENERAL: This is a chronically ill appearing man in moderate to severe respiratory distress TUBES/LINES/DRAINS: PIV. Oefrdm-x-Alke SKIN: No jaundice, rashes, or lesions. No wounds seen anteriorly. Skin temperature appropriate. Not diaphoretic. HEAD: Atraumatic. Normocephalic. EYES: Pupils equal and round and reactive. Extraocular motions intact. No scleral icterus. No injection or drainage. Fundi not examined. ENT: Hearing grossly normal. Nose without bleeding or purulent drainage. NECK: Trachea midline. Supple, nontender. No palpable thyroid enlargement or nodularity. CARDIOVASCULAR: Tachycardia without murmurs, gallops, or rubs. No JVD. Peripheral pulses symmetric. RESPIRATORY/CHEST: Tachypneic with labored respirations on BiPAP Bilateral coarse rhonchi; R > L. GASTROINTESTINAL: Abdomen soft, non-tender, nondistended. No guarding. Bowel sounds present. GENITOURINARY: Without palpable bladder distension. MUSCULOSKELETAL: Extremities without clubbing, cyanosis, or edema. No mottling or clubbing. LYMPHATICS: No palpable cervical or supraclavicular adenopathy. NEUROLOGICAL: Lethargic. Able to answer some simple questions. PSYCHIATRIC: + Anxiety. No apparent hallucinations or other psychotic thought process. . Diagnostic Tests Laboratory Laboratory Tests Test 08/22/17 15:40 08/22/17 16:30 08/22/17 19:40 08/22/17 23:01 Lactic Acid Level 1.3 mmol/L (0.4-2.0) Nasal Screen MRSA (PCR) MRSA NOT DETECTED (NOT White Blood Count 9.8 TH/MM3 (4.0-11.0) Red Blood Count 3.05 MIL/MM3 (4.50-5.90) Hemoglobin 9.3 GM/DL (13.0-17.0) Hematocrit 27.3 % (39.0-51.0) Mean Corpuscular Volume 89.4 FL (80.0-100.0) Mean Corpuscular Hemoglobin 30.6 PG (27.0-34.0) Mean Corpuscular Hemoglobin Concent 34.2 % (32.0-36.0) Red Cell Distribution Width 17.7 % (11.6-17.2) Platelet Count 88 TH/MM3 (150-450) Mean Platelet Volume 7.8 FL (7.0-11.0) Troponin I 0.07 NG/ML (0.02-0.05) 0.05 NG/ML (0.02-0.05) Activated Partial Thromboplast Time 124.1 SEC (24.3-30.1) Test 08/23/17 03:10 08/23/17 06:00 08/23/17 12:59 08/23/17 20:11 White Blood Count 7.2 TH/MM3 (4.0-11.0) Red Blood Count 2.73 MIL/MM3 (4.50-5.90) Hemoglobin 8.5 GM/DL (13.0-17.0) Hematocrit 24.3 % (39.0-51.0) Mean Corpuscular Volume 89.0 FL (80.0-100.0) Mean Corpuscular Hemoglobin 31.2 PG (27.0-34.0) Mean Corpuscular Hemoglobin Concent 35.0 % (32.0-36.0) Red Cell Distribution Width 18.0 % (11.6-17.2) Platelet Count 82 TH/MM3 (150-450) Mean Platelet Volume 7.8 FL (7.0-11.0) Neutrophils (%) (Auto) 90.5 % (16.0-70.0) Lymphocytes (%) (Auto) 8.2 % (9.0-44.0) Monocytes (%) (Auto) 1.2 % (0.0-8.0) Eosinophils (%) (Auto) 0.0 % (0.0-4.0) Basophils (%) (Auto) 0.1 % (0.0-2.0) Neutrophils # (Auto) 6.5 TH/MM3 (1.8-7.7) Lymphocytes # (Auto) 0.6 TH/MM3 (1.0-4.8) Monocytes # (Auto) 0.1 TH/MM3 (0-0.9) Eosinophils # (Auto) 0.0 TH/MM3 (0-0.4) Basophils # (Auto) 0.0 TH/MM3 (0-0.2) CBC Comment AUTO DIFF Differential Total Cells Counted 100 Neutrophils % (Manual) 90 % (16-70) Band Neutrophils % 3 % (0-6) Lymphocytes % 3 % (9-44) Monocytes % 1 % (0-8) Neutrophils # (Manual) 6.9 TH/MM3 (1.8-7.7) Metamyelocytes 2 % (0-1) Myelocytes 1 % (0-0) Differential Comment FINAL DIFF MANUAL Platelet Estimate LOW (NORMAL) Platelet Morphology Comment NORMAL (NORMAL) Ovalocytes 1+ (NORMAL) Acanthocytes OCC (NORMAL) Activated Partial Thromboplast Time 90.2 SEC (24.3-30.1) 50.6 SEC (24.3-30.1) 41.5 SEC (24.3-30.1) Blood Urea Nitrogen 20 MG/DL (7-18) Creatinine 0.67 MG/DL (0.60-1.30) Random Glucose 249 MG/DL (74-106) Total Protein 4.8 GM/DL (6.4-8.2) Calcium Level 7.1 MG/DL (8.5-10.1) Sodium Level 134 MEQ/L (136-145) Potassium Level 4.0 MEQ/L (3.5-5.1) Chloride Level 104 MEQ/L (98-107) Carbon Dioxide Level 20.4 MEQ/L (21.0-32.0) Anion Gap 10 MEQ/L (5-15) Estimat Glomerular Filtration Rate 117 ML/MIN (>89) Protein Corrected Calcium 8.4 MG/DL (8.5-10.1) Urine Color YELLOW (YELLW/STRAW) Urine Turbidity CLEAR (CLEAR) Urine pH 5.5 (5.0-8.5) Urine Specific Brigantine 1.018 (1.002-1.035) Urine Protein TRACE mg/dL (NEG-TRACE) Urine Glucose (UA) 1000 mg/dL (NEG) Urine Ketones NEG mg/dL (NEG) Urine Occult Blood NEG (NEG) Urine Nitrite NEG (NEG) Urine Bilirubin NEG (NEG) Urine Urobilinogen LESS THAN 2.0 MG/DL (LESS Urine Leukocyte Esterase NEG (NEG) Urine RBC 1 /hpf (0-3) Urine WBC LESS THAN 1 /hpf (0-5) Urine Squamous Epithelial Cells <1 /hpf (0-5) Urine Hyaline Casts 7 /lpf (RARE) Urine Mucus FEW /lpf (OCC) Microscopic Urinalysis Comment CULT NOT INDICATED Test 08/24/17 05:18 08/24/17 05:19 08/24/17 20:30 08/25/17 03:40 Blood Gas Puncture Site RT RADIAL Blood Gas Patient Temperature 98.6 Blood Gas HCO3 20 mmol/L (22-26) Blood Gas Base Excess -3.6 mmol/L (-2-2) Blood Gas Oxygen Saturation 90 % (90-100) Arterial Blood pH 7.45 (7.380-7.420) Arterial Blood Partial Pressure CO2 29 mmHg (38-42) Arterial Blood Partial Pressure O2 62 mmHg (61-120) Arterial Blood Oxygen Content 11.9 Vol % (12.0-20.0) Arterial Blood Carboxyhemoglobin 1.5 % (0-4) Arterial Blood Methemoglobin 1.0 % (0-2) Blood Gas Hemoglobin 9.4 G/DL (12.0-16.0) Oxygen Delivery Device BiPAP Blood Gas Ventilator Setting 15 Blood Gas Inspired Oxygen 40 % White Blood Count 18.7 TH/MM3 (4.0-11.0) Red Blood Count 3.09 MIL/MM3 (4.50-5.90) Hemoglobin 9.3 GM/DL (13.0-17.0) Hematocrit 27.5 % (39.0-51.0) Mean Corpuscular Volume 88.9 FL (80.0-100.0) Mean Corpuscular Hemoglobin 30.2 PG (27.0-34.0) Mean Corpuscular Hemoglobin Concent 34.0 % (32.0-36.0) Red Cell Distribution Width 18.1 % (11.6-17.2) Platelet Count 152 TH/MM3 (150-450) Mean Platelet Volume 7.7 FL (7.0-11.0) Activated Partial Thromboplast Time 39.0 SEC (24.3-30.1) 44.1 SEC (24.3-30.1) 57.8 SEC (24.3-30.1) Blood Urea Nitrogen 21 MG/DL (7-18) Creatinine 0.69 MG/DL (0.60-1.30) Random Glucose 198 MG/DL (74-106) Calcium Level 7.5 MG/DL (8.5-10.1) Sodium Level 136 MEQ/L (136-145) Potassium Level 3.4 MEQ/L (3.5-5.1) Chloride Level 104 MEQ/L (98-107) Carbon Dioxide Level 21.1 MEQ/L (21.0-32.0) Anion Gap 11 MEQ/L (5-15) Estimat Glomerular Filtration Rate 113 ML/MIN (>89) Test 08/25/17 05:50 White Blood Count 6.9 TH/MM3 (4.0-11.0) Red Blood Count 2.63 MIL/MM3 (4.50-5.90) Hemoglobin 8.2 GM/DL (13.0-17.0) Hematocrit 23.2 % (39.0-51.0) Mean Corpuscular Volume 88.4 FL (80.0-100.0) Mean Corpuscular Hemoglobin 31.1 PG (27.0-34.0) Mean Corpuscular Hemoglobin Concent 35.2 % (32.0-36.0) Red Cell Distribution Width 18.2 % (11.6-17.2) Platelet Count 111 TH/MM3 (150-450) Mean Platelet Volume 7.1 FL (7.0-11.0) Blood Urea Nitrogen 25 MG/DL (7-18) Creatinine 0.52 MG/DL (0.60-1.30) Random Glucose 203 MG/DL (74-106) Total Protein 5.0 GM/DL (6.4-8.2) Calcium Level 7.3 MG/DL (8.5-10.1) Sodium Level 138 MEQ/L (136-145) Potassium Level 3.1 MEQ/L (3.5-5.1) Chloride Level 103 MEQ/L (98-107) Carbon Dioxide Level 25.4 MEQ/L (21.0-32.0) Anion Gap 10 MEQ/L (5-15) Estimat Glomerular Filtration Rate 156 ML/MIN (>89) Protein Corrected Calcium 8.5 MG/DL (8.5-10.1) . Result Diagram: 08/25/17 0550 08/25/17 0550 Microbiology Microbiology Date/Time Source Procedure Growth Status 08/23/17 06:00 Urine Clean Catch Legionella Antigen - Final PRESUMPTIVE NEGATIVE FOR LEGIONELLA P... Complete 08/23/17 06:00 Urine Clean Catch Streptococcus pneumoniae Antigen (M - Final PRESUMPTIVE NEGATIVE FOR STREPTOCOCCU... Complete Imaging Last 72 hours Impressions Chest X-Ray 08/24/17 0000 Signed Impressions: Service Date/Time: August 10:12 - CONCLUSION: Decreased lung aeration with developing bibasilar airspace disease. Josue Garcias MD . Assessment and Plan Disease Oriented Problem List: (1) Hypoxemic respiratory failure, chronic (2) Sepsis (3) Thrombocytopenia (4) COPD (chronic obstructive pulmonary disease) (5) Pneumonia Symptom Scale: (1) Decrease in appetite 0-10 Scale: Unable to quantify (2) Debility 0-10 Scale: Unable to quantify (3) Dyspnea 0-10 Scale: Unable to quantify (4) Pain 0-10 Scale: Unable to quantify Pertinent Non-Medical Issues Psychosocial:Psychosocial history is limited secondary to patient's shortness of breath requiring BiPAP. He is originally from [place] and has no children. He enjoys riding on his bike. Spiritual: [employer] pav[employer]ra Legal:Patient currently shows insight and judgment related to his medical conditions. In the event that he is no longer capacity to make medical decisions, he has designated his friend, Phillip Faustin, as his healthcare surrogate decision maker. Tianna Frances is the alternate healthcare surrogate decision maker. Ethical issues impacting care: No known ethical issues impacting care at this time. . Important Contacts Kingsley Cordoba, brother: [phone] Phillip Faustin, friend: [phone] . Code Status: No Code Plan * NO CODE * Decision making: Patient currently shows insight and judgment related to his medical conditions. In the event that he is no longer capacity to make medical decisions, he has designated his friend, Phillip Faustin, as his healthcare surrogate decision maker. Tianna Frances is the alternate healthcare surrogate decision maker. * Community DNR completed 08/23/2017 * Goals: Transfer to [facility] for symptom management and end-of-life care. * Symptom management-dyspnea: Patient's exertional dyspnea is out of proportion to his lung cancer and PE. He may need a prolonged and/or possibly a lung biopsy to determine the etiology her oncology. Chest x-ray showing RLL infiltrate. Nonproductive cough with occasional yellowish sputum. Receiving Solu-Medrol, guaifenesin, scheduled and PRN nebulizer treatments. Alprazolam is ordered PRN for anxiety, would recommend using this to assist with symptoms of dyspnea. * Symptom management-pain: Patient reports mild to moderate back pain. He stated he was taking gabapentin for symptom management, although the MAR does not reflect this. Patient does not wish to take stronger pain medication at this time. * Symptom management-debility: Patient's activity is limited, primarily due to his dyspnea with minimal exertion. * Hospice admission nurse to meet with patient later today. . Attestation To help prompt me to consider important information that might be impacting today's encounter and assessment, information from prior notes written by myself or my colleagues may have been "brought forward" into today's note. My signature on this note, however, is an attestation that I personally performed the exam, history, and/or decision-making noted today, and, unless otherwise indicated, the interactions with patient, family, and staff as well as the review of records all occurred today. I also attest that the listed assessment and stated plan reflect my best clinical judgment today based on the combination of historical information, prior notes, and today's exam/ interactions. When time spent is documented, it refers only to time spent today by the signer, or if indicated, combined time spent today by collaborating physician/nurse practitioner. . Paty Tripp Aug 25, 2017 15:52
== END 2017-08-25 15:05 | disposition hospice, inpatient (51) | DRG 871 ==
LOC: NEPE 11:16 → NEDA 13:20 → HIME 16:00
PROVIDERS: ADMIT Family Medicine; ATTEND Family Medicine
PROC: 5A09457 Assistance with Respiratory Ventilation, 24-96 Consecutive Hours, Continuous Positive Airway Pressure (ICD-10-PCS; principal; 2017-08-22)
DX: A41.9 Sepsis, unspecified organism (principal); I26.99 Other pulmonary embolism without acute cor pulmonale; J96.21 Acute and chronic respiratory failure with hypoxia; J18.9 Pneumonia, unspecified organism; I11.0 Hypertensive heart disease with heart failure; C79.9 Secondary malignant neoplasm of unspecified site; I82.401 Acute embolism and thrombosis of unspecified deep veins of right lower extremity; I50.9 Heart failure, unspecified; E83.42 Hypomagnesemia; I42.0 Dilated cardiomyopathy; C34.92 Malignant neoplasm of unspecified part of left bronchus or lung; J44.0 Chronic obstructive pulmonary disease with (acute) lower respiratory infection; J44.1 Chronic obstructive pulmonary disease with (acute) exacerbation; E87.1 Hypo-osmolality and hyponatremia; J70.1 Chronic and other pulmonary manifestations due to radiation; D69.6 Thrombocytopenia, unspecified; R63.0 Anorexia; R65.20 Severe sepsis without septic shock; E78.5 Hyperlipidemia, unspecified; R63.4 Abnormal weight loss; I27.20 Pulmonary hypertension, unspecified; M19.90 Unspecified osteoarthritis, unspecified site; F41.9 Anxiety disorder, unspecified; Y95 Nosocomial condition; Z51.5 Encounter for palliative care; Z66 Do not resuscitate; Z68.21 Body mass index [BMI] 21.0-21.9, adult; Z79.01 Long term (current) use of anticoagulants; Z85.118 Personal history of other malignant neoplasm of bronchus and lung; Z85.828 Personal history of other malignant neoplasm of skin; Z86.711 Personal history of pulmonary embolism; Z86.718 Personal history of other venous thrombosis and embolism; Z87.891 Personal history of nicotine dependence; Z92.21 Personal history of antineoplastic chemotherapy; Z92.3 Personal history of irradiation
CPT/HCPCS: 36600; 71010; 80048; 80053; 81001; 82550; 82805; 83605; 83735; 83880; 84155; 84484; 85007; 85027; 85610; 85730; 87040; 87449; 87641; 93005; 94002; 94003; 94640; 94664; 96365; 96375; J0456; J0692; J1644; J1940; J1956; J2060; J2250; J2920; J2930; J3370; J3475; J3480; J7030; J7050